=== PATIENT | female | born 1945 | race Caucasian/White ===

== ENCOUNTER → 2019-08-16 11:09 | Outpatient (CLI) | payer MEDICARE, SELFPAY ==
[2019-08-16 12:31] LABS: Absolute Lymphocyte Count 1.78 X10^3/uL (0.83-4.51); Basophil# 0.03 X10^3/uL; Basophil% 0.3 % (0-1); Eosinophil# 0.31 X10^3/uL; Eosinophils% 3.1 % (0-5); Hematocrit 34.6 % (37-47); Hemoglobin 11.2 g/dL (12.0-15.0); Lymphocyte # 1.78 X10^3/ul (4.0); Mean Corp Hgb Conc 32.4 g/dL (32-36); Mean Corpuscular Hgb 29.3 pg (27.0-32.0); Mean Corpuscular Volume 90.6 fL (81-99); Mean Platelet Vol. 8.9 fl (6.2-12.0); Monocyte# 0.67 X10^3/uL; Monocyte% 6.8 % (0-10); NRBC Flagged by Analyzer 0 % (0-5); Platelet Count 294 K/mm3 (150-450); RBC Distribution Width CV 13.9 % (11.6-14.6); RBC Distribution Width SD 45.8 fl (35.1-43.9); Red Blood Count 3.82 M/mm3 (4.2-5.4); White Blood Count 9.9 K/mm3 (4.4-11.0)
[2019-08-16 13:17] LABS: AST(SGOT) 13 U/L (15-37); Alanine Aminotransfer ALT/SGPT 22 U/L (13-56); Albumin, Serum 3.8 g/dL (3.2-5.0); Alkaline Phosphatase 124 U/L (45-117); Anion Gap 7 (5-15); BUN 22 mg/dL (7-18); BUN/Creat Ratio 20.6 RATIO (10-20); Calcium,Total 8.7 mg/dL (8.5-10.1); Chloride 109 mmol/L (98-107); Creatinine, Serum 1.07 mg/dL (0.55-1.02); EST Glomerular Filtration Rate 53 mL/min (>60); Est Glom Filt Rate - Afr Amer 65 mL/min (>60); Globulin 3.7 g/dL (2.2-4.2); Glucose 104 mg/dL (74-106); Potassium 4.1 mmol/L (3.5-5.1); Protein, Total 7.5 g/dL (6.4-8.2); Sodium Level 139 mmol/L (136-145)
[2019-08-19 03:06] LABS: HEPATITIS B SURFACE AG Negative (Negative); Hepatitis A AB, Total Positive (Negative); Hepatitis A IgM Antibody Negative (Negative); Hepatitis B Core AB IgM Negative (Negative); Hepatitis B Core Ab Total Negative (Negative); Hepatitis C Ab 0.1 s/co ratio (0.0-0.9); QNTFERON TB Mitogen Value > 10.00 IU/mL (.); QNTFERON TB Nil Value 0.05 IU/mL (.); QNTFERON TB1+ Ag Value 0.03 IU/mL (.); QNTFERON TB2+ Ag Value 0.03 IU/mL (.)
[2019-08-19 16:38] LABS: Hep B Surface Antibodies Reactive (.); QNTIFERON TB Positive Criteria Negative (Negative)
== END ==
PROVIDERS: Family Provider Family Medicine; PCP Family Medicine; Referring Provider Dermatology Pediatric Dermatology; Visit Provider Dermatology Pediatric Dermatology
DX: L30.9 Dermatitis, unspecified (principal); Z79.899 Other long term (current) drug therapy
CPT/HCPCS: 36415; 80053; 85025; 86480; 86704; 86705; 86706; 86708; 86709; 86803; 87340

== ENCOUNTER → 2020-11-26 12:58 | Outpatient (CLI) | payer MEDICARE, SELFPAY ==
--- NOTE | 2020-11-26 13:10 | PR.HP_ITS ---
History of Present Illness Arrival date:: 11/26/20 Arrival time:: 13:13 Date of Referral:: 11/16/20 Date of Evaluation: 11/26/20 Referring Physician: Dr. Hussein Roca Primary Diagnosis: COPD GOLD Classification Stage III: Severe mMRC Breathless Scale: When is the patient short of breath? Y/N Grade: Description of Breathlessness: 0 I only get breathless with strenuous exercise. 1 I get short of breath when hurrying on level ground or walking up a slight hill. 2 On level ground, I walk slower than people of the same age because of breathless, or have to stop for breath when walking at my own pace. 3 I stop for breath after walking 100 yards or after a few minutes on level ground. 4 I am too breathless to leave the house or I am breathless when dressing. Respiratory Problems: Yes: Fatigue, Able to Speak in Full Sentences, Dyspnea at Rest, Dyspnea with Activity, Dyspnea Lying Down Flat Home Medications: Home Medications Albuterol Sulfate [Albuterol Sulfate HFA] 11/26/20 Calcium Carbonate [Tums] 500 mg PO DAILY@0800 11/26/20 Denosumab [Prolia] 60 mg SQ 11/26/20 Diltiazem CD [Cardizem CD] 120 mg PO DAILY 11/26/20 Ergocalciferol [Vitamin D] 11/26/20 Escitalopram Oxalate [Lexapro] 5 mg PO DAILY 11/26/20 Ferrous Sulfate [Ferosul] 325 mg PO 11/26/20 Fluticasone/Umeclidin/Vilanter [Trelegy Ellipta 200-62.5-25] 62.5 11/26/20 Furosemide [Lasix] 20 mg PO 11/26/20 Ipratropium/Albuterol Sulfate [Duoneb] 11/26/20 Levothyroxine [Synthroid] 50 mcg PO DAILY 11/26/20 Magnesium Hydroxide [Milk Of Magnesia] 400 mg PO 11/26/20 Mometasone/Formoterol [Dulera 200 Mcg/5 Mcg Inhaler] 11/26/20 Oxygen, Home [Home Oxygen] 2 lpm NASAL 11/26/20 Pantoprazole Sodium [Protonix] 20 mg PO DAILY 11/26/20 Polyvinyl Alcohol/Povidone [Clear Eyes Natural Tears Drop] 11/26/20 traZODone [Desyrel] 11/26/20 Allergies/Adverse Reactions: Allergies bupropion [From Wellbutrin] Allergy (Verified 11/26/20 13:27) Rash codeine Allergy (Verified 11/26/20 13:27) Other morphine Allergy (Verified 11/26/20 13:27) Nausea/Vom/Diarrhea moxifloxacin [From Avelox] Allergy (Verified 11/26/20 13:27) Other iv dye Allergy (Uncoded 11/26/20 13:27) Itching - Secretions Normal Color:: SOMETIMES YELLOW Thick:: Yes Amount/Day:: 1 TSP Cough:: Yes Night Time: Yes Hx of Sleep Apnea: Yes Do you snore loudly (louder than talking or can be heard through closed doors)?: Yes Do you often feel tired/ fatigued/ sleepy during daytime?: Yes Has anyone observed you stop breathing during sleep?: No History of Hypertension (for STOP score): Yes - I'm weird, sleep weird patterns up & down nightly. STOP Results: Positive Medical Utilization Do you use a peak flow meter at home?: No Do you use a spacer device with your inhalers?: Yes Number of hospital visits in the last year?: 0 Number of emergency room visits in the last year?: 0 Do you see your physician on a regular schedule?: Yes How often?: 2-3 weeks and as needed. Comments:: deveoping soem type of like a psoriasis. 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: Yes Living Will: Yes Advance Directives Information Provided: No Advance Directives on File: No - not on file in [place] DNR Order?:: No - MOLST See MOLST form: No Past Medical History - Covid-19 Screening Fever: No Unexplained muscle aches: No Current respiratory symptoms: No Upper respiratory infections symptoms: No Gastro-intestinal symptoms: No Qlc-[id number]-[id number] symptoms: No Has tested positive for COVID-19 in last 30 days: No Had contact w/person w/symptoms or Covid-19 (+) last 14 days: No 65 years or older:: Yes Lives in Assisted Living facility:: No Has a chronic lung disease or moderate to severe asthma:: Yes Has a serious heart condition:: Yes Severely obese (Body Mass Index of 40 or higher):: No Diabetic:: No Has chronic kidney disease undergoing dialysis:: No Has liver disease:: No Medical History: Past Medical History (Last Updated 11/26/20 @ 13:30 by Daniel Sesay CRT, RAIMUNDO, BS) Asthma J45.909 CHF (congestive heart failure) I50.9 Cerebral artery occlusion with cerebral infarction I63.50 Cholecystitis K81.9 Former smoker Z87.891 Incisional hernia K43.2 Normal colonoscopy Osteoporosis M81.0 Thyroid disease E07.9 COPD (chronic obstructive pulmonary disease) J44.9 Surgical History: Past Surgical History (Last Updated 11/26/20 @ 13:30 by Daniel Sesay CRT, RAIMUNDO, BS) H/O endoscopy Z98.890 H/O: hysterectomy Z90.710 History of cholecystectomy Z90.49 History of eye surgery Z98.890 Family History: Family History (Last Updated 11/26/20 @ 13:34 by Daniel Sesay CRT, RAIMUNDO, BS) Brother Atrial fibrillation Heart disease Arthritis Sister Obesity Arthritis Sister No problems noted. Brother No problems noted. Mother Heart disease Hypertension Other Diabetes - Current/ Previous Services Pulmonary Rehab:: Yes - Comments Comments: Did CO back in 2012 here at [facility]. Social History - Smoking History Smoking Status: Former smoker - Alcohol Use Alcohol Usage: No - Substance Abuse Hx Substance Use: No - Occupation Occupation (List type of work in comments):: Retired - Hobbies, Recreation, Social Activities Hobbies: Other - gardening, listening to music Recreational Activities: I can hardly do any recreational activities Functioning ADL/IADL - Current Ability Current Ability: Independent Self-Care (e.g.,grooming, dressing, & bathing), Independent Ambulation, Independent Transfer, Independent Household tasks (e.g., light meal prep, laundry, shopping) - Pt Functioning Prior to Problem Prior Functioning: Self-Care (e.g.,grooming, dressing, & bathing): Independent, Ambulation: Independent, Transfer: Independent, Household tasks (e.g., light meal prep, laundry, shopping): Independent Social Environment - Status Marital Status: - Current Living Arrangements Living Environment:: Alone - Children How many children do you have?: 3 Do any of your children live nearby?: Yes - Safety Do you feel safe in your surroundings?: Yes - Assistance Do you need any assistance at home?: none Review of Systems Review of Systems: Right click = Denies ([place]). Left click = Reports ([place]) Respiratory: Reports: Appetite, Normal, Sleep, Normal. Denies: Cough, SOB at Re st, Sputum production Is Patient Pain Free?: Yes Pain Location: none Pain Level: 0/10 Risk Factor Assessment - Chief Complaint Chief Complaint: Patient is a known COPD patient, she previously had done pulmonary rehab in 2013 but over the last year has progressively gotten worse. - Vital Signs Temperature: 97.2 F Pulse Rate: 62 Respiratory Rate: 16 Pulse Ox: 95 Blood Pressure: 120/70 - Obesity Height: 5 ft 1 in Weight:: 164 lb Weight in Pounds: 164.0 lbs Weight Source: Standing Scale Body Mass Index (BMI): 30.9 - Risk Stratification Risk Guidelines: Lowest Risk: Risk Factor for Smoking, Risk Factor for Dyslipidemia, Risk Factor for Diabetes, Risk Factor for Hypertension, Moderate Risk: Risk Factor for Obesity, Risk Factor for Sedentary Lifestyle, Highest Risk: Risk Factor for Depression - 14 score on the PHQ-9 survery - For Smoking Smoking Risk Guidelines: Smoking Low Risk: None or quit greater than 6 months ago. Smoking Moderate Risk: Smoker or quit 6 months or less ago. Smoking High Risk: Smoker - For Dyslipidemia Dyslipidemia Risk Guidelines: Low Risk: Moderate Risk: High Risk: 15-25% fat 25.1-29% fat >/= 30% fat. <7% sat fat 7-9% sat fat >9% sat fat. <150 mg chol 150-299 mg chol >/= 300 mg chol. LDL <100 LDL 100-129 LDL >/= 130. Chol/HDL ratio <5.0 Chol/HDL ratio 5.0-6.0 Chol/HDL ratio >6.0. Triglycerides <100 Triglycerides 100-149 Triglycerides >/= 150 - For Diabetes Mellitus Diabetes Risk Guidelines: Diabetes Low Risk: HgA1c <6.5% and/or FBG <120. Diabetes Moderate Risk: HgA1c 6.6-7.9% and/or FBG 120-180. Ligia betes High Risk: HgA1c >/= 8% and/or FBG >180 - For Obesity/Overweight Obesity/Overweight Risk Guidelines: Obesity Low Risk: BMI <25.0. Obesity Moderate Risk: BMI 25-29.9. Obesity High Risk: BMI >/= 30.0 - For Hypertension Hypertension Risk Guidelines: Hypertension Low Risk: Systolic <120 and Diastolic <80. Hypertension Moderate Risk: Systolic 120-139 and Diastolic 80-89. Hypertension High Risk: Systolic >/= 140 and Diastolic >/= 90 - For Sedentary Lifestyle Sedentary Lifestyle Risk Guidelines: Sedentary Lifestyle Low Risk: >/= 1,500 kcal/week. Sedentary Lifestyle Moderate Risk: 700-1,499 kcal/week. Sedentary Lifestyle High Risk: < 700 kcal/week - For Depression Depression Risk Guidelines: Depression Low Risk: Not clinically depressed. Depression Moderate Risk: Mildly depressed. Depression High Risk: Clinically depressed Motivation - Motivation to Participate On a scale of 1 to 10, how prepared are you to commit to attending program?: 10 What do you see as barriers to successfully being able to complete the program?: drive 3 days per week. What do you see as the benefits of succesfully completing the program? In other words, what do you hope to get out of participating in the program?: healthier, breathing easier, moving better Are there issues you are dealing with that will interfere with completing the program?: none Do you have a spouse or signficant other, family or friends who will help support you to complete the program?: yes. Diagnostic Data Review - Pulmonary Function Test FEV1:: 0.81 FVC:: 1.51 FEV1/FVC%:: 53 Gold Classification: GOLD class III(severe COPD)with FEV1/FVC<70, 30%</=FEV1< 50% predicted
--- NOTE | 2020-11-26 13:36 | PR.ITP_ITS ---
General Information - General Information Admitting Diagnosis: COPD Severe Gold Classification:: GOLD 3: Severe - PFT FEV1:: 0.81 FVC:: 1.51 FEV1/FVC%:: 53 - Education/Goals Barriers to Learning: Hearing Impairment, Vision Impairment Individual Counseling: Initial Assessment: Exacerbation prevention & management, ADL management and pacing, Home exercise plan & guidelines Patient Goals: Breathe better: Initial Assessment, Increase endurance/stamina: Initial Assessment, Improve diet and nutrition: Initial Assessment Exercise - Initial Assessment - Visit Date of Eval: 11/26/20 - Pre-Pulm Rehab eval - Problem/Goals Problems: Deconditioning, No regular exercise, Knowledge deficit exercise guidelines, Knowledge deficit exercise safety Goals:: Aerobic exercise 30-60 mins x 9 weeks, VT: 2-3/wk, Resistance: 2- 3x/weekly - Physician Prescribed Exercise Modalities: Treadmill, Airdyne, NuStep Frequency (days/week): 3 Duration (Minutes):: 30-45 Intensity: 60-80% of age predicted maximum heart rate reserve METs - Progression: 0.5-1.0 MET, RPE 11-14 WEEK: 2.0 Target Heart Rate:: 95-123 - Plan Plan and Plan to Review:: Benefits of exercise, Core components of exercise, How to measure dyspnea level, How to monitor dyspnea level, Exercise intensity, Exercise safety guideline, Home exercise guidelines, [place]: 3-4/-13 Disease Management - Initial - Problems/Goals-Hypoxemia Hypoxemia Problems:: Hypoxemia Hypoxemia Goals:: Using O2 as Rx's safely - Problems/Goals-Bronchial Hygiene Bronchial Hygiene Problems:: Respiratory infection Prevention/Management Bronchial Hygiene Goals:: Pt demonstrates effective cough, effective secretion clearance., Pt describes signs and symptoms of infection. - Initial Assessment SpO2:: 95 FiO2:: 21 Medications: Yes MDI, Yes DPI, Yes NEB, Yes Spacer Patient Reports:: Non-productive cough - Plans Hypoxemia Plan:: Monitor SpO2 rest & with exercise Reviewed prescribed medications:: Purpose, Schedule, Side effects, Importance of compliance Instruct correct technique/timing & care:: MDI, DPI, Nebulizer, Return demo use of inhaler Bronchial Hygiene Plan: Controlled cough, Vibratory PEP device, Hydration, Hand hygiene, Signs/symptoms to report: Psychosocial - Initial Assess - Problems/Goals Problems: Depression Psychosocial Goals: Improved psychosocial coping skills., Verbalizes coping strategies., Adequate treatment of depression., Improved Q.O.L. - Psychosocial Test Depression:: Anxiety, Impaired QOL Tests Completed: SF - 36 survey completed, Mood Scale Test Referred to MD for counseling:: No - Plan Reviewed screening results: Yes Instructions given regarding:: Benefits of exercise, Relaxation techniques, Training in coping strategies Tobacco - Initial Assessment - Program Goals Tobacco Program Goals: Complete smoking cessation. Attend education classes. Improve Knowledge Test score - Stage of Change Stages of Change:: Action - Learning Barriers Learning Barriers: Hearing, Ready to Learn - Family Support Do you have family support?: Yes - Tobacco Use Tobacco Use: Non-smoker Do you use smokeless tobacco?: No - Intervention Smoking Cessation Referral:: No Individual Education/Counseling:: No Education Schedule Given:: Yes Nutrition/Wt Mgmt - Initial - Problems/Goals Goals: BMI 21-25, Wt Loss 1-2 lbs per week - Weight Management Knowledge Deficit Management of:: Overweight Admit Height:: 5 ft 1 in Admit Weight:: 164 lb Admit BMI:: 30.9 - Diabetes Diabetes:: No - Plan Nutrition Plan: Yes Review BMI or WC & identify target wt & strategies for wt control, Yes Medication education class [Prednisone]:, Yes Education re: Need for ongoing weight monitoring Patient Health Questionnaire Initial Assessment 1. Little interest or pleasure in doing things: More than half the days 2. Feeling down, depressed, or hopeless: Not at all 3. Trouble falling or staying asleep, or sleeping too much: Nearly every day 4. Feeling tired or having little energy: Nearly every day 5. Poor appetite or overeating: More than half the days 6. Feeling bad about yourself -- or that you are a failure or have let yourself or your family down: Several days 7. Trouble concentrating on things, such as reading the newspaper or watching television: Nearly every day 8. Moving or speaking so slowly that other people could have noticed. Or the opposite - being so fidgety or restless that you have been moving around a lot more than usual: Not at all 9. Thoughts that you would be better off , or of hurting yourself in some way: Not at all How difficult have these problems made it for you to do your work, take care of things at home, or get along with other people?: Very difficult Total Score: 14 COPD Knowledge Test Initial COPD is a lung disease that:: Makes it hard to breathe & gets worse over time In the [place] the term COPD describes 2 main lung conditions:: Emphysema & chronic bronchitis The most common lung irritant that causes COPD is:: Cigarette smoke Common signs and symptoms of COPD include:: An ongoing cough/cough that produces a large amount of mucus, & SOB If you have COPD, what steps can you take?: All of the above Swelling of the ankles is common in COPD:: False Fatigue [tiredness] is common in COPD:: True Wheezing is common in COPD:: True Crushing chest pain is common in COPD:: False Rapid weight loss is common in COPD:: False Breathlessness is a normal response to exercise: False Exercise should be avoided if it makes you short of breath: False All bronchodilators act within 10 minutes: False A spacer device increases the medication to the lungs: True Annual flu vaccine is recommended for pts w/lung disease: True COPD Knowledge Test Total Score:: 14 Self-Efficacy Initial Assessment We would like to know how confident you are in doing certain activities. Please select your confidence level for:: Select your confidence level for the following using the scale 1-10 where 1 is not at all confident and 10 is totally confident. Your score is the average of all 6 responses. Fatigue: How confident are you that you can keep the fatigue caused by your disease from interfering with the things you want to do? Select Number: 3 Physical Discomfort or Pain: How confident are you that you can keep the physical discomfort or pain of your disease from interfering with the things you want to do? Select Number: 6 Emotional Distress: How confident are you that you can keep the emotional distress caused by your disease from interfering with the things you want to do? Select Number: 6 Other Symptoms or Health Problems: How confident are you that you can keep other symptoms or health problems from interfering with the things you want to do? Select Number: 9 Different Tasks and Activities: How confident are you that you can do the different tasks and activities needed to manage your health condition so as to reduce your need to see a doctor? Select Number: 8 Medication: How confident are you that you can do things other than just taking medication to reduce how much your illness affects your everyday life? Select Number: 8 Total Score:: 6 Nutrition Survey - Nutrition Survey Instructions Scoring Instructions: Scoring is as follows: Yes = 1 points. No = 0 point. Patient score that is >/=12 is considered to be at potential nutritional risk and could benefit from a referral to a registered dietitian. - Nutrition Survey Initial Have you lost >10 lbs over the past 2 months without trying?: No Are you following a special diet at home for diabetes, low fat, or low salt?: No Are you interested in meeting with a dietitian for help understanding your diet?: No Do you eat less than 3 meals a day?: No Do you eat fatty meats (hoang, sausage, ribs, etc), fried foods, desserts, large amounts of salad dressings, margarine, butter, or cheese most days?: No Do you have food allergies? [Enter types in comment field]: No Do you eat in restaurants more than 3 times a week?: No Do you season food with salt, seasoning salt, or garlic salt?: Yes Do you used canned, boxed, frozen meals, or soups, seasoning packets?: Yes Total Score:: 2
[2020-11-26 13:46] VITALS: O2SAT 95; BMI 30.9
[2020-11-26 14:48] VITALS: BP 120/70; PULSE 62; RESP 16; TEMP 36.2; O2SAT 95; BMI 30.9
== END ==
PROVIDERS: PCP Family Medicine
DX: J44.9 Chronic obstructive pulmonary disease, unspecified (principal)

== ENCOUNTER 2020-12-28 14:15 | Outpatient (RCR) | payer MEDICARE, SELFPAY ==
[2020-11-26 14:15] VITALS: BMI 30.9
--- NOTE | 2020-12-25 09:45 | PR.ITP_ITS ---
Exercise - 30-Day Assessment - Physician Prescribed Exercise Modalities: Treadmill, Airdyne, NuStep, SciFit Frequency (days/week): 3 Duration (Minutes):: 30-45 Intensity: 60-80% of age predicted maximum heart rate reserve Aerobic Exercise [30-60 min 3-7x/week]:: Progressing Target heart rate: 95-123 [place]-13 METs - Progression: 0.5-1.0 MET, RPE 11-14 WEEK: 3.0 - increase from 2.0 - Home Exercise Home Exercise:: Yes Frequency:: walking, housework Disease Management - 30-Day - Hypoxemia Reassessment: Demonstrates knowledge of O2 Rx with exercise - Medications Medication list reviewed:: Yes Taking medications 100% of the time:: Met Medication reassessment: Yes Pt demonstrates correct technique timing for MDI, Yes Pt demonstrates correct technique timing for DPI, Yes Pt demonstrates correct technique timing for NEB, Yes Pt demonstrates correct technique timing for spacer - Bronchial Hygiene Bronchial Hygiene Plan: Yes Pt demo correct for improved hydration, Yes Pt demo correct for hand hygiene Psychosocial - 30-Day - Assessment Reassessment: Management of stress & depression, Practicing interventions, Demonstrate coping strategies, COPD assessment w/ CAT, Geriatric depression screening, Self efficacy score Tobacco - Initial Assessment Tobacco - 30-Day Assessment - Stage of Change Stages of Change:: Action - Learning Barriers Learning Barriers: Participates in education - Family Support Do you have family support?: Yes - Tobacco Use Tobacco Use: Non-smoker - Intervention Smoking Cessation Referral:: No Individual Education/Counseling:: No Education Schedule Given:: Yes - Education Gave Education Materials For:: Pulmonary Disease, Risk Factors, Breathing Tech niques, Medical Compliance, Pulmonary A&P, Exacerbation Signs & Symptoms, Stress & Relaxation Tobacco - 60-Day Assessment Tobacco - 90-Day Assessment Tobacco - Final Assessment Nutrition/Wt Mgmt - 30-Day - Weight Management Weight Assessment:: Wt loss 1-2 lbs per week Weight:: 170 lb - BMI 30.9 Weight Goals Progress:: Progressing Patient Health Questionnaire 30-Day Re-eval Assessment 1. Little interest or pleasure in doing things: Not at all 2. Feeling down, depressed, or hopeless: Not at all 3. Trouble falling or staying asleep, or sleeping too much: More than half the days 4. Feeling tired or having little energy: More than half the days 5. Poor appetite or overeating: Several days 6. Feeling bad about yourself -- or that you are a failure or have let yourself or your family down: Several days 7. Trouble concentrating on things, such as reading the newspaper or watching television: More than half the days 8. Moving or speaking so slowly that other people could have noticed. Or the opposite - being so fidgety or restless that you have been moving around a lot more than usual: Not at all 9. Thoughts that you would be better off , or of hurting yourself in some way: Not at all How difficult have these problems made it for you to do your work, take care of things at home, or get along with other people?: Somewhat difficult Total Score: 8 Self-Efficacy 30-Day Re-eval Assessment We would like to know how confident you are in doing certain activities. Please select your confidence level for:: Select your confidence level for the following using the scale 1-10 where 1 is not at all confident and 10 is totally confident. Your score is the average of all 6 responses. Fatigue: How confident are you that you can keep the fatigue caused by your disease from interfering with the things you want to do? Select Number: 4 Physical Discomfort or Pain: How confident are you that you can keep the physical discomfort or pain of your disease from interfering with the things you want to do? Select Number: 6 Emotional Distress: How confident are you that you can keep the emotional distress caused by your disease from interfering with the things you want to do? Select Number: 6 Other Symptoms or Health Problems: How confident are you that you can keep other symptoms or health problems from interfering with the things you want to do? Select Number: 9 Different Tasks and Activities: How confident are you that you can do the different tasks and activities needed to manage your health condition so as to reduce your need to see a doctor? Select Number: 8 Medication: How confident are you that you can do things other than just taking medication to reduce how much your illness affects your everyday life? Select Number: 8 Total Score:: 6 Nutrition Survey
== END 2020-12-28 23:59 ==
LOC: PR 14:15
PROVIDERS: PCP Family Medicine
DX: J47.1 Bronchiectasis with (acute) exacerbation (principal)
CPT/HCPCS: 97150; G0424

== ENCOUNTER 2021-01-25 14:15 | Outpatient (RCR) | payer MEDICARE, SELFPAY ==
[2020-11-26 14:48] VITALS: BMI 30.9
--- NOTE | 2021-01-07 15:40 | PCM.PR.TP ---
General Information - Education/Goals Barriers to Learning: Knowledge Deficit Tobacco - Initial Assessment Tobacco - 30-Day Assessment Tobacco - 60-Day Assessment Tobacco - 90-Day Assessment Tobacco - Final Assessment Nutrition Survey
--- NOTE | 2021-01-07 15:55 | CR.HP_ITS ---
CR - History & Physical - Medications Home Medications: Ambulatory Orders Medication Instructions Recorded Oxygen, Home [Home Oxygen] 2 lpm NASAL 11/26/20 albuterol sulfate 11/26/20 calcium carbonate 500 mg PO DAILY@0800 11/26/20 denosumab 60 mg SQ 11/26/20 diltiazem HCl 120 mg PO DAILY 11/26/20 ergocalciferol (vitamin D2) 11/26/20 escitalopram oxalate 5 mg PO DAILY 11/26/20 ferrous sulfate 325 mg PO 11/26/20 yosahldsinw-czbsnamrw-sevgknme 62.5 11/26/20 furosemide 20 mg PO 11/26/20 ipratropium-albuterol 11/26/20 levothyroxine 50 mcg PO DAILY 11/26/20 magnesium hydroxide 400 mg PO 11/26/20 mometasone-formoterol 11/26/20 pantoprazole 20 mg PO DAILY 11/26/20 polyvinyl alcohol-povidone 11/26/20 trazodone 11/26/20 - Allergies Allergies/Adverse Reactions: Allergies bupropion [From Wellbutrin] Allergy (Verified 11/26/20 13:27) Rash codeine Allergy (Verified 11/26/20 13:27) Other morphine Allergy (Verified 11/26/20 13:27) Nausea/Vom/Diarrhea moxifloxacin [From Avelox] Allergy (Verified 11/26/20 13:27) Other iv dye Allergy (Uncoded 11/26/20 13:27) Itching Past Medical History - Past Medical Illness Medical History: Past Medical History (Last Updated 11/26/20 @ 13:30 by Daniel Sesay, TRAMAINE, TRAIN OPERATIONS MANAGER, BS) Asthma J45.909 Cerebral artery occlusion with cerebral infarction I63.50 CHF (congestive heart failure) I50.9 Cholecystitis K81.9 COPD (chronic obstructive pulmonary disease) J44.9 Former smoker Z87.891 Incisional hernia K43.2 Normal colonoscopy Osteoporosis M81.0 Thyroid disease E07.9 - Past Surgical History Surgical History: Past Surgical History (Last Updated 11/26/20 @ 13:30 by Daniel Sesay, TRAMAINE, TRAIN OPERATIONS MANAGER, BS) H/O endoscopy Z98.890 H/O: hysterectomy Z90.710 History of cholecystectomy Z90.49 History of eye surgery Z98.890 - Family History Summary Family History: Family History (Last Updated 11/26/20 @ 13:34 by Daniel Sesay CRT, TRAIN OPERATIONS MANAGER, BS) Brother Atrial fibrillation Heart disease Arthritis Sister Obesity Arthritis Sister No problems noted. Brother No problems noted. Mother Heart disease Hypertension Other Diabetes Review of Systems Risk Factor Assessment - Obesity Height: 5 ft 1 in Weight:: 170 lb Weight in Pounds: 170.0 lbs Body Mass Index (BMI): 32.1 - Family History Family History: Family History (Last Updated 11/26/20 @ 13:34 by Daniel Sesay CRT, TRAIN OPERATIONS MANAGER, BS) Brother Atrial fibrillation Heart disease Arthritis Sister Obesity Arthritis Sister No problems noted. Brother No problems noted. Mother Heart disease Hypertension Other Diabetes
[2021-01-07 15:59] VITALS: BMI 32.1
--- NOTE | 2021-01-25 07:06 | PCM.PR.TP ---
Exercise - 60-Day Assessment - Physician Prescribed Exercise Modalities: Treadmill, NuStep, SciFit Frequency (days/week): 3 Duration (Minutes):: 30-45 Intensity: 60-80% of age predicted maximum heart rate reserve Aerobic Exercise [30-60 min 3-7x/week]:: Progressing Target heart rate: 95-123 max HR 125 Lake-13 - Home Exercise Home Exercise:: No Disease Management - 60-Day - Hypoxemia Reassessment: Demonstrates knowledge of O2 Rx with exercise, Has home O2 as prescribed - Medications Medication list reviewed:: Yes Taking medications 100% of the time:: Met Medication reassessment: Yes Pt demonstrates correct technique timing for MDI, Yes Pt demonstrates correct technique timing for DPI, Yes Pt demonstrates correct technique timing for NEB, Yes Pt demonstrates correct technique timing for spacer - Bronchial Hygiene Bronchial Hygiene Plan: Yes Pt demonstrates correctly for effective cough, Yes Pt demo correct for device - Acapella/spacer, Yes Pt demo correct for improved hydration, Yes Pt demo correct for hand hygiene, Yes Pt demo correct for verbalize when to call MD Psychosocial - 60-Day - Assessment Depression reassess: Management of stress: Progressing, Practicing interventions: Met Tobacco - Initial Assessment Tobacco - 30-Day Assessment Tobacco - 60-Day Assessment - Stage of Change Stages of Change:: Action - Learning Barriers Learning Barriers: Participates in education - Family Support Do you have family support?: Yes - Tobacco Use Tobacco Use: Non-smoker - Intervention Smoking Cessation Referral:: No Individual Education/Counseling:: No Education Schedule Given:: Yes - Education Gave Education Materials For:: Pulmonary Disease, Risk Factors, Breathing Techniques, Medical Compliance, Pulmonary A&P, Exacerbation Signs & Symptoms, Stress & Relaxation Tobacco - 90-Day Assessment Tobacco - Final Assessment Nutrition/Wt Mgmt - 60-Day - Weight Management Weight:: 168 lb 8 oz Weight Goals Progress:: Progressing Patient Health Questionnaire 60-Day Re-eval Assessment 1. Little interest or pleasure in doing things: Not at all 2. Feeling down, depressed, or hopeless: Not at all 3. Trouble falling or staying asleep, or sleeping too much: Several days 4. Feeling tired or having little energy: Several days 5. Poor appetite or overeating: Several days 6. Feeling bad about yourself -- or that you are a failure or have let yourself or your family down: Not at all 7. Trouble concentrating on things, such as reading the newspaper or watching television: Several days 8. Moving or speaking so slowly that other people could have noticed. Or the opposite - being so fidgety or restless that you have been moving around a lot more than usual: Not at all How difficult have these problems made it for you to do your work, take care of things at home, or get along with other people?: Somewhat difficult Total Score: 4 Self-Efficacy 60-Day Re-eval Assessment We would like to know how confident you are in doing certain activities. Please select your confidence level for:: Select your confidence level for the following using the scale 1-10 where 1 is not at all confident and 10 is totally confident. Your score is the average of all 6 responses. Fatigue: How confident are you that you can keep the fatigue caused by your disease from interfering with the things you want to do? Select Number: 7 Physical Discomfort or Pain: How confident are you that you can keep the physical discomfort or pain of your disease from interfering with the things you want to do? Select Number: 8 Emotional Distress: How confident are you that you can keep the emotional distress caused by your disease from interfering with the things you want to do? Select Number: 8 Other Symptoms or Health Problems: How confident are you that you can keep other symptoms or health problems from interfering with the things you want to do? Select Number: 9 Different Tasks and Activities: How confident are you that you can do the different tasks and activities needed to manage your health condition so as to reduce your need to see a doctor? Select Number: 9 Medication: How confident are you that you can do things other than just taking medication to reduce how much your illness affects your everyday life? Select Number: 9 Total Score:: 8 Nutrition Survey
== END 2021-01-28 23:59 ==
LOC: PR 14:15
PROVIDERS: PCP Family Medicine
DX: J47.1 Bronchiectasis with (acute) exacerbation (principal)
CPT/HCPCS: 97150; G0424

== ENCOUNTER 2021-02-27 14:30 | Outpatient (RCR) | payer MEDICARE, SELFPAY ==
[2021-01-07 15:59] VITALS: BMI 32.1
--- NOTE | 2021-02-26 08:15 | PCM.PR.TP ---
Exercise - 90-Day Assessment - Physician Prescribed Exercise Modalities: Treadmill, Airdyne, NuStep Frequency (days/week): 3 Duration (minutes): 30-45 Aerobic Exercise [30-60 min 3-7x/week]:: Progressing Target heart rate: 95-123 Lake-13 METs - Progression: 0.5-1.0 MET, RPE 11-14 WEEK: 3.5 - unchanged - Home Exercise Home Exercise?: No Disease Management - 90-Day - Hypoxemia Reassessment: Demonstrates knowledge of O2 Rx with exercise - Medications Medication list reviewed:: Yes Taking medications 100% of the time:: Met Medication reassessment: Yes Pt demonstrates correct technique timing for MDI, Yes Pt demonstrates correct technique timing for DPI, Yes Pt demonstrates correct technique timing for NEB, Yes Pt demonstrates correct technique timing for spacer - Bronchial Hygiene Bronchial Hygiene Plan: Yes Pt demonstrates correctly for effective cough, Yes Pt demo correct for device, Yes Pt demo correct for sputum management, Yes Pt demo correct for improved hydration, Yes Pt demo correct for hand hygiene, Yes Pt demo correct for verbalize when to call MD Psychosocial - 90-Day - Assessment Depression reassess: Management of stress: Met, Management of depression: Met, Practicing interventions: Met Tobacco - Initial Assessment Tobacco - 30-Day Assessment Tobacco - 60-Day Assessment Tobacco - 90-Day Assessment - Stage of Change Stages of Change:: Action - Learning Barriers Learning Barriers: Participates in education - Family Support Do you have family support?: Yes - Tobacco Use Tobacco Use: Non-smoker - Intervention Smoking Cessation Referral:: No Individual Education/Counseling:: No Education Schedule Given:: Yes - Education Gave Education Materials For:: Pulmonary Disease, Risk Factors, Medical Compliance, Pulmonary A&P, Exacerbation Signs & Symptoms Tobacco - Final Assessment Nutrition/Wt Mgmt - 90-Day - Weight Management Weight Assessment:: BMI 21 to 25, Wt stable Weight:: 165 lb - BMI Weight Goals Progress:: Progressing Patient Health Questionnaire 90-Day Re-eval Assessment 1. Little interest or pleasure in doing things: Not at all 2. Feeling down, depressed, or hopeless: Not at all 3. Trouble falling or staying asleep, or sleeping too much: Several days 4. Feeling tired or having little energy: Several days 5. Poor appetite or overeating: Not at all 6. Feeling bad about yourself -- or that you are a failure or have let yourself or your family down: Not at all 7. Trouble concentrating on things, such as reading the newspaper or watching television: Several days 8. Moving or speaking so slowly that other people could have noticed. Or the opposite - being so fidgety or restless that you have been moving around a lot more than usual: Not at all 9. Thoughts that you would be better off , or of hurting yourself in some way: Not at all How difficult have these problems made it for you to do your work, take care of things at home, or get along with other people?: Not difficult at all Total Score: 3 Self-Efficacy 90-Day Re-eval Assessment We would like to know how confident you are in doing certain activities. Please select your confidence level for:: Select your confidence level for the following using the scale 1-10 where 1 is not at all confident and 10 is totally confident. Your score is the average of all 6 responses. Fatigue: How confident are you that you can keep the fatigue caused by your disease from interfering with the things you want to do? Select Number: 8 Physical Discomfort or Pain: How confident are you that you can keep the physical discomfort or pain of your disease from interfering with the things you want to do? Select Number: 9 Emotional Distress: How confident are you that you can keep the emotional distress caused by your disease from interfering with the things you want to do? Select Number: 9 Other Symptoms or Health Problems: How confident are you that you can keep other symptoms or health problems from interfering with the things you want to do? Select Number: 8 Different Tasks and Activities: How confident are you that you can do the different tasks and activities needed to manage your health condition so as to reduce your need to see a doctor? Select Number: 9 Medication: How confident are you that you can do things other than just taking medication to reduce how much your illness affects your everyday life? Select Number: 9 Total Score:: 8 Nutrition Survey
== END 2021-02-27 23:59 ==
LOC: PR 14:30
PROVIDERS: PCP Family Medicine
DX: J47.1 Bronchiectasis with (acute) exacerbation (principal)
CPT/HCPCS: 97150; G0424

== ENCOUNTER 2021-03-08 14:30 | Outpatient (RCR) | payer MEDICARE, SELFPAY ==
[2021-01-07 15:59] VITALS: BMI 32.1
== END 2021-03-30 23:59 ==
LOC: PR 14:30
PROVIDERS: PCP Family Medicine
DX: J47.1 Bronchiectasis with (acute) exacerbation (principal)
CPT/HCPCS: 97150; G0424

== ENCOUNTER 2024-08-23 20:12 | Inpatient (IN) | payer MEDICARE, SELFPAY ==
[2024-08-23] VITALS (10 sets, daily range): BP systolic 120–148; BP diastolic 61–83; PULSE 78–107; RESP 14–35; TEMP 36.1–37.1; O2SAT 86–99; BMI 32.5; BMI 30.4
--- NOTE | 2024-08-23 20:18 | EKG12_ITS ---
Test Reason : DYSRHYTHMIA Blood Pressure : */* mmHG Vent. Rate : 101 BPM Atrial Rate : 101 BPM P-R Int : 126 ms QRS Dur : 82 ms QT Int : 346 ms P-R-T Axes : 56 56 61 degrees QTcB Int : 448 ms Sinus tachycardia Otherwise normal ECG Confirmed by MATIAS FRANCOIS, SALLY ([id number]), editor continuity and script BC FUENTES ([id number]) on 08/25/2024 2:17:56 PM Referred By: Gerson Boggs Confirmed By: SALLY SALCEDO MD
--- NOTE | 2024-08-23 20:24 | ED.VIS.DYS ---
HPI History of Present Illness Chief Complaint: Shortness of Breath Informant: patient Onset/Context/Timing Onset: Days Context: gradual Timing: Continuous Quality: Positive for Wheezing Current Severity: Moderate Maximum Severity: Moderate Worsened by: Exertion and Coughing Associated Symptoms cough and yellow sputum Chest Pain: Positive for None Narrative Narrative: 78-year-old female history of COPD on 2 L of oxygen at home, diabetes. Denies any cardiac history. Since has been short of breath with cough and wheezing since Thursday. She is on 2 L oxygen at home. Productive cough of yellowish sputum. No blood. No chest pain. No leg pain or swelling. No history of DVT or PE. No recent hospitalization or surgery. PE Risk Factors: Negative for Cancer, OCP + Smoking + > 35, Prior DVT or PE, Recent immobilization, Recent surgery or Recent travel Prior similar symptoms: Yes Recent Illness/Hospitalization: No PFSH PFSH Medical History Normal colonoscopy Former smoker Thyroid disease Osteoporosis Incisional hernia COPD (chronic obstructive pulmonary disease) Cholecystitis CHF (congestive heart failure) Cerebral artery occlusion with cerebral infarction Asthma Home Medications ?Medication ?Instructions ?Recorded ?Last Taken ?Type Oxygen, Home [Home Oxygen] 2 lpm NASAL 11/26/20 Unknown History albuterol sulfate 90 mcg/actuation 2 puff inhalation Q4H PRN 11/26/20 Unknown History aerosol inhaler shortness of breath or wheezing calcium carbonate 500 mg PO DAILY@0800 11/26/20 Unknown History denosumab 60 mg/mL subcutaneous 60 mg SQ 11/26/20 Unknown History syringe diltiazem HCl 120 mg 120 mg PO DAILY 11/26/20 Unknown History capsule,extended release 24 hr ergocalciferol (vitamin D2) 1,250 11/26/20 Unknown History mcg (50,000 unit) capsule escitalopram oxalate 5 mg tablet 5 mg PO DAILY 11/26/20 Unknown History ferrous sulfate 325 mg (65 mg 325 mg PO DAILY 11/26/20 Unknown History iron) tablet fluticasone fur. 200 mcg-umeclid 62.5 11/26/20 Unknown History 62.5 mcg-vilant 25 mcg inhalat.powder furosemide 20 mg tablet 20 mg PO 11/26/20 Unknown History ipratropium 0.5 mg-albuterol 3 mg 3 ml inhalation Q6H PRN shortness 11/26/20 Unknown History (2.5 mg base)/3 mL nebulization of breath or wheezing soln levothyroxine 50 mcg tablet 75 mcg PO DAILY 11/26/20 Unknown History magnesium hydroxide 400 mg/5 mL 400 mg PO 11/26/20 Unknown History oral suspension mometasone-formoterol HFA 200 11/26/20 Unknown History mcg-5 mcg/actuation aerosol inhaler pantoprazole 20 mg tablet,delayed 20 mg PO DAILY 11/26/20 Unknown History release polyvinyl alcohol-povidone 0.5 11/26/20 Unknown History %-0.6 % eye drops trazodone 50 mg tablet 11/26/20 Unknown History alcohol swabs (Alcohol Prep Pads) topical BID 08/23/24 Unknown History ezetimibe 10 mg tablet 10 mg PO DAILY 08/23/24 Unknown History metformin 500 mg tablet 500 mg PO BID 08/23/24 Unknown History Allergy/AdvReac Type Severity Reaction Status Date / Time Iodinated Contrast Media Allergy Unknown Itching Verified 08/23/24 20:21 bupropion (From Wellbutrin) Allergy Rash Verified 08/23/24 20:21 codeine Allergy Other Verified 08/23/24 20:21 morphine Allergy Nausea/Vom/ Verified 08/23/24 20:21 Diarrhea moxifloxacin (From Avelox) Allergy Other Verified 08/23/24 20:21 Family History Brother Atrial fibrillation Heart disease Arthritis Sister Obesity Arthritis Sister No problems noted. Brother No problems noted. Mother Heart disease Hypertension Other Diabetes Surgical History H/O: hysterectomy History of eye surgery H/O endoscopy History of cholecystectomy Social History Smoking Status: Former smoker ROS ROS ED ROS Narrative Cough. Wheezing. Shortness of breath. Constitutional Constitutional ED: Denies chills or fever(s) Eyes Eyes: Denies blurry vision ENT ENT ED: Denies ear pain Cardiovascular Cardiovascular: Denies chest pain Respiratory/Chest Respiratory/Chest: Reports cough, dyspnea and sputum Gastrointestinal Gastrointestinal: Denies abdominal pain, constipation or diarrhea Genitourinary Genitourinary ED: Denies dysuria or hematuria Musculoskeletal Musculoskeletal: Denies arthralgias or back pain Integumentary Denies abscess or Abrasions Neurologic Neurologic: Denies headache(s) Psychiatric Psychiatric: Denies anxiety Endocrine Endocrinology: Denies cold intolerance Hematologic/Lymphatic Hematologic/Lymphatic: Denies easy bleeding or easy bruising Allergic/Immunologic Allergic/Immunologic ED: Denies mouth swelling, tongue swelling or urticaria EXAM Physical Exam Narrative Exam Narrative: 78-year-old female sitting upright in bed. Actually is doing well but currently is on BiPAP which was placed on arrival. Vital signs are stable. Pulse ox is 86% on 2 L. Currently she is on BiPAP and her pulse ox is 98%. She does not look septic or toxic. She is awake and talking. H EENT exam pupils round react light. Mytrex membranes. Posterior pharynx unremarked. Neck nontender JVD. Lungs few scattered wheezing. No rales or rhonchi. Equal symmetrical. Heart regular rhythm rate about 85 no murmur. Chest wall ribs nontender. No crepitus. Abdomen soft nontender. No peritoneal signs. Moving all 4 extremities. 5-5 gas meter reader strength. Dorsi plantarflexion intact. Calves are nontender without edema or cords. She is awake and alert. Answering questions following commands. Const Vital Signs: 08/23/24 20:13 08/23/24 20:17 08/23/24 20:18 Temperature 97 F L Temperature Source Axillary Pulse Rate 107 H Respiratory Rate 35 H Respiratory Effort Respiratory Depth Respiratory Pattern Blood Pressure 148/83 H Blood Pressure Mean 104 Pulse Ox 86 Oxygen Delivery Method Nasal Cannula Bi-pap Bi-pap Oxygen Flow Rate (L/min) 2 Fraction of Inspired Oxygen (FIO2) 40 08/23/24 20:18 08/23/24 20:20 08/23/24 20:21 Temperature Temperature Source Pulse Rate 99 Respiratory Rate 35 H Respiratory Effort Short of Breath Labored Accessory Muscle Use Head Bobbing Respiratory Depth Shallow Respiratory Pattern Tachypnea Tachypnea Blood Pressure Blood Pressure Mean Pulse Ox 98 99 Oxygen Delivery Method Bi-pap Bi-pap Oxygen Flow Rate (L/min) Fraction of Inspired Oxygen (FIO2) 40 40 40 08/23/24 20:40 08/23/24 21:01 08/23/24 21:09 Temperature 98.4 F Temperature Source Pulse Rate 96 96 96 Respiratory Rate 21 H 29 H 22 H Respiratory Effort Respiratory Depth Respiratory Pattern Tachypnea Blood Pressure 122/61 H 121/66 H Blood Pressure Mean 80 84 Pulse Ox 98 Oxygen Delivery Method Oxygen Flow Rate (L/min) Fraction of Inspired Oxygen (FIO2) 08/23/24 21:14 Temperature Temperature Source Pulse Rate Respiratory Rate Respiratory Effort Respiratory Depth Respiratory Pattern Blood Pressure Blood Pressure Mean Pulse Ox 97 Oxygen Delivery Method Nasal Cannula Oxygen Flow Rate (L/min) 2 Fraction of Inspired Oxygen (FIO2) Positive well nourished and well developed; Negative for cachectic, contractures or unkempt General Appearance ED: well developed; Negative for unkempt, cachectic, contractures, NAD or pallor Nutritional Appearance: Negative for cachectic HEENT Reports moist mucous membranes atraumatic; Negative for trauma or tenderness Eyes PERRL and EOMs intact bilaterally Neck no lymphadenopathy, supple, no meningeal signs and no JVD Resp No normal respiratory effort and No clear to auscultation bilaterally Resp Narrative: Bilateral wheezing. No rales or rhonchi. Equal and symmetrical. On BiPAP at that time. Auscultation: wheezes; Negative for rales or rhonchi Cardio regular rate, regular rhythm, S1 normal heart sound, S2 normal heart sound and no murmurs Rate: Negative for bradycardia or tachycardic Rhythm: Negative for abnormal rhythm GI non-tender, non-distended and no masses Palpation: soft; Negative for tender, guarding or rebound tenderness present Back/Spine no CVA tenderness and normal to inspection General Back: Negative for CVA tenderness Extremity normal to inspection General Extremety ED: Negative for edema or tenderness General Extremity: Negative for edema Neuro oriented x3 and CN's II-XII intact bilaterally Sensorium / Orientation: alert, oriented to person, oriented to place and oriented to time; Negative for orientation impaired, confused, lethargic or stuporous Speech: speech normal Motor Exam: strength 5/5 throughout Psych mental status grossly normal Appearance: Negative for unkempt Attitude: No agitated Mood & Affect: Negative for depressed, anxious or tearful Thought Process: normal thought process Skin no wounds and skin turgor normal General Skin Exam: Negative for jaundice or pallor Lesions: no lesions Rashes: no rashes Trauma: Negative for abrasion or laceration MDM MDM MDM Narrative Medical decision making narrative: 78-year-old female short of breath suspect secondary to URI with COPD exacerbation rule out pneumonia versus other etiologies. Cardiac workup with chest x-ray. Currently on BiPAP. Squad are given her Solu-Medrol and DuoNebs to receive another DuoNeb treatment. Repeat exam patient is doing much better at 9:05 PM. She has received 2 DuoNeb treatments 1 by the squad 1 by us. IV Solu-Medrol by the squad. Breathing is much improved. She is resting comfortably. There is family visiting with her in the room. I went over the test results that we have back so far. We are waiting on the COVID and flu. She has a history of chronic anemia this is her baseline. I will speak to the hospitalist about admission. I suspect she has a viral URI with exacerbation of her COPD. Patient is doing a lot better than her initial presentation. Try her off the BiPAP and see how she does. Have already spoken to the hospitalist she is admitted to the PCU. RSV-positive. History & Record Review Discussion w/independent historian: Patient Additional record(s) reviewed:: Prior inpatient record, Prior outpatient record, Prior ED visit and Prior labs Lab Data Attestation: I reviewed the patient's lab results. Lab results narrative: CBC white count of 6. H&H 7.0 and 22.4. She has a significant anemia. Platelets 173. The anemia is chronic. Electrolytes show sodium 134. Gap 7. BUN is 17 creatinine 1.43. Creatinine is somewhat worse than her baseline. Glucose 242. Troponin is normal at 9. RSV-positive. Patient's blood gas shows a pH of 7.37. pCO2 of 39 and pO2 178. On BiPAP. Her sat was 99%. Labs: Laboratory Results - last 24 hr 08/23/24 20:14 WBC 6.8 RBC 2.47 L Hgb 7.0 L Hct 22.4 L MCV 90.7 MCH 28.3 MCHC 31.3 L RDW Std Deviation 48.9 H RDW Coeff of Georgette 14.9 H Plt Count 173 MPV 8.5 Immature Gran % (Auto) 1.000 H Neut % (Auto) 85.0 H Lymph % (Auto) 9.0 L Garvin % (Auto) 4.9 Eos % (Auto) 0.0 Baso % (Auto) 0.1 Absolute Neuts (auto) 5.8 Absolute Lymphs (auto) 0.61 L Nucleated RBC % 0 Sodium 134 L Potassium 4.9 Chloride 100 Carbon Dioxide 26.0 Anion Gap 7 BUN 17 Creatinine 1.43 H Estim Creat Clear Calc 30.67 Est GFR (MDRD) Af Amer 46 L Est GFR (MDRD) Non-Af 38 L BUN/Creatinine Ratio 11.9 Glucose 242 H Calcium 8.7 Troponin I High Sens 9 ABG Data ABG results: ABG 08/23/24 20:31 Specimen Type ART Sample Site R Radial pH 7.37 Bicarbonate Actual 23.0 Total CO2 24 Base Excess -2 O2 Saturation 100 H O2 % 40.0 ABG pCO2 39.5 ABG pO2 178 H Choco Test Positive O2 Delivery Device BiPAP Vent Mode Not entered Clinical Comments Radiography Chest X-Ray - ED: 1 View and Read by ED Physician Rhythm Strip Rhythm Strip: Sinus Tach Rate: 101 Ectopy: None EKG Initial EKG: Attestation: I personally reviewed and interpreted this EKG as follows: Interpretation: No Acute Injury Pattern and Sinus Tachycardia Comments: Sinus tachycardia rate of 101. No acute signs of MD or ischemia. Critical Care Time Critical Care Time: Yes Critical care time (excluding procedures): 30-74 minutes, Including time spent:, Discussing w/Patient &/or Family/Recreation Therapy Aide, Discussing w/Consultants, Arranging Admission or Transfer, Performing Direct Patient Care at Bedside and - (36 minutes) Discharge Plan Dx/Rx/DC Orders Clinical Impression: Acute exacerbation of chronic obstructive pulmonary disease, Hypoxia, Chronic anemia, History of diabetes mellitus, RSV infection Disposition Disposition: Acute Care Hospital [facility]
[2024-08-23 20:28] LABS: Absolute Lymphocyte Count 0.61 X10^3/uL (0.83-4.51); Absolute Neutrophil Count 5.8 X10^3/uL (2.0-7.7); Basophil# 0.01 X10^3/uL; Basophil% 0.1 % (0-1); Hematocrit 22.4 % (37-47); Lymphocyte # 0.61 X10^3/ul (0.83-4.51); Mean Corp Hgb Conc 31.3 g/dL (32-36); Mean Corpuscular Hgb 28.3 pg (27.0-32.0); Mean Corpuscular Volume 90.7 fL (81-99); Mean Platelet Vol. 8.5 fl (6.2-12.0); Monocyte# 0.33 X10^3/uL; Monocyte% 4.9 % (0-10); NRBC Flagged by Analyzer 0 % (0-5); Neutrophil # 5.77 X10^3/uL (2.7-7.7); Platelet Count 173 K/mm3 (150-450); RBC Distribution Width CV 14.9 % (11.6-14.6); RBC Distribution Width SD 48.9 fl (35.1-43.9); Red Blood Count 2.47 M/mm3 (4.2-5.4); White Blood Count 6.8 K/mm3 (4.4-11.0)
[2024-08-23 20:35] LABS: Allen Test Positive; Base Excess -2 mmol/L (-2 to +2); Blood Gas Specimen Type ART; Mode Not entered; O2 Delivery Device BiPAP; PO2 178 mmHG (75-100); SITE R Radial; SO2 100 % (95-99); Total Carbon Dioxide 24 mmol/L; pCO2 39.5 mmHg (35-45); pH 7.37 (7.35-7.45)
[2024-08-23] MEDS: Ipratropium/Albuterol Sulfate 3 ML AMPUL.NEB INHALATION (20:40)
[2024-08-23 20:48] LABS: Anion Gap 7 (5-15); BUN 17 mg/dL (7-18); BUN/Creat Ratio 11.9 RATIO (10-20); Calcium,Total 8.7 mg/dL (8.5-10.1); Chloride 100 mmol/L (98-107); Creatinine, Serum 1.43 mg/dL (0.55-1.02); EST Glomerular Filtration Rate 38 mL/min (>60); Est Glom Filt Rate - Afr Amer 46 mL/min (>60); Estimated Creatinine Clearance 30.67 ml/min; Glucose 242 mg/dL (74-106); Potassium 4.9 mmol/L (3.5-5.1); Sodium Level 134 mmol/L (136-145); Troponin-I HS 9 pg/mL (3.0-54.0)
--- NOTE | 2024-08-23 20:55 | RAD_ITS ---
EXAM: XR CHEST, 1 VIEW CLINICAL INDICATION: chest pain TECHNIQUE: Frontal view of the chest. COMPARISON: No relevant prior studies available. FINDINGS: LUNGS AND PLEURAL SPACES: Emphysema suggested, worse at the upper lobes. No consolidation. No pleural effusions or pneumothorax. HEART: Unremarkable. Cardiac silhouette not enlarged. MEDIASTINUM: No hilar or cardiomediastinal enlargement. BONES/JOINTS: Degenerative changes of the acromioclavicular joints and spine. No acute fracture. SOFT TISSUES: Unremarkable. RAD/Chest 1 View (Portable) IMPRESSION: No acute cardiopulmonary disease. Electronically Signed: Rodney Vee MD at 21:59 EST ,
--- NOTE | 2024-08-23 21:08 | HP.PCM.HOS_ITS ---
[facility] - General General Date of Admission: 08/23/24 Date of Service: 08/23/24 Chief Complaint: SOB and Wheezing. HPI Narrative KIRSTIE BLAIR, is a 78 F with a past medical history of essential hypertension; on furosemide, hyperlipidemia; on ezetemibe, hypothyroidism; on levothyroxine, obesity; with BMI of 32.5 this admission, DM-2; of unknown control on metformin, former tobacco abuse; with subsequent asthma/COPD, history of bronchiectasis, chronic hypoxic respiratory failure on 2L NC, history of CHF, history of CVA, depression; on escitalopram and trazodone, PAZ, GERD; on pantoprazole, osteoporosis; on denosumab, history of cholecystectomy, history of hysterectomy, history of incisional hernia and OA who presents to [facility] ER complaining of SOB and wheezing. Ms. Blair reports her symptoms began approximately three days prior to admission with the gradual-onset of GARCIA that progressed to SOB at rest with persistent wheezing. She also admits to a cough productive of yellowish sputum and viral URI symptoms. She admits her symptoms are similar to her previous AE COPD. Patient denies smoking in the last year. She also denies associated fever, chills, nausea, vomiting, constipation, diarrhea, abdominal pain, chest pain, headache or recent bleeding. In the ER she was diagnosed with AE COPD with her viral respiratory panel positive for RSV infection complicated by clinical evidence of [id number] Respiratory Insufficiency compounded by laboratory evidence of Severe Anemia with a hemoglobin of 7g/dL present on admission along with Hyperglycemia of 242 mg/dL present on admission and she was then admitted to the PCU for ongoing care for a stay that is expected to extend beyond 2 midnights. [facility] Medical History Normal colonoscopy Former smoker Thyroid disease Osteoporosis Incisional hernia COPD (chronic obstructive pulmonary disease) Cholecystitis CHF (congestive heart failure) Cerebral artery occlusion with cerebral infarction Asthma Home Medications ?Medication ?Instructions ?Recorded ?Last Taken ?Type Oxygen, Home [Home Oxygen] 2 lpm NASAL 11/26/20 Unknown History albuterol sulfate 90 mcg/actuation 2 puff inhalation Q4H PRN 11/26/20 Unknown History aerosol inhaler shortness of breath or wheezing calcium carbonate 500 mg PO DAILY@0800 11/26/20 Unknown History denosumab 60 mg/mL subcutaneous 60 mg SQ 11/26/20 Unknown History syringe diltiazem HCl 120 mg 120 mg PO DAILY 11/26/20 Unknown History capsule,extended release 24 hr ergocalciferol (vitamin D2) 1,250 11/26/20 Unknown History mcg (50,000 unit) capsule escitalopram oxalate 5 mg tablet 5 mg PO DAILY 11/26/20 Unknown History ferrous sulfate 325 mg (65 mg 325 mg PO DAILY 11/26/20 Unknown History iron) tablet fluticasone fur. 200 mcg-umeclid 62.5 11/26/20 Unknown History 62.5 mcg-vilant 25 mcg inhalat.powder furosemide 20 mg tablet 20 mg PO 11/26/20 Unknown History ipratropium 0.5 mg-albuterol 3 mg 3 ml inhalation Q6H PRN shortness 11/26/20 Unknown History (2.5 mg base)/3 mL nebulization of breath or wheezing soln levothyroxine 50 mcg tablet 75 mcg PO DAILY 11/26/20 Unknown History magnesium hydroxide 400 mg/5 mL 400 mg PO 11/26/20 Unknown History oral suspension mometasone-formoterol HFA 200 11/26/20 Unknown History mcg-5 mcg/actuation aerosol inhaler pantoprazole 20 mg tablet,delayed 20 mg PO DAILY 11/26/20 Unknown History release polyvinyl alcohol-povidone 0.5 11/26/20 Unknown History %-0.6 % eye drops trazodone 50 mg tablet 11/26/20 Unknown History alcohol swabs (Alcohol Prep Pads) topical BID 08/23/24 Unknown History ezetimibe 10 mg tablet 10 mg PO DAILY 08/23/24 Unknown History metformin 500 mg tablet 500 mg PO BID 08/23/24 Unknown History Allergy/AdvReac Type Severity Reaction Status Date / Time Iodinated Contrast Media Allergy Unknown Itching Verified 08/23/24 20:21 bupropion (From Wellbutrin) Allergy Rash Verified 08/23/24 20:21 codeine Allergy Other Verified 08/23/24 20:21 morphine Allergy Nausea/Vom/ Verified 08/23/24 20:21 Diarrhea moxifloxacin (From Avelox) Allergy Other Verified 08/23/24 20:21 Family History Brother Atrial fibrillation Heart disease Arthritis Sister Obesity Arthritis Sister No problems noted. Brother No problems noted. Mother Heart disease Hypertension Other Diabetes Surgical History H/O: hysterectomy History of eye surgery H/O endoscopy History of cholecystectomy Social History Smoking Status: Former smoker ROS ROS Narrative Review of Systems: Constitutional: Patient denies fever or chills. Eyes: Patient denies changes in vision or discharge from eyes. ENT: Patient denies runny nose, sore throat or ear pain. Resp: Patient admits to GARCIA that progressed to SOB at rest with cough productive of yellowish sputum with wheezing since Thursday as per HPI. CV: Patient denies chest pain, palpitations or heart racing. GI: Patient denies abdominal pain, nausea, vomiting or diarrhea. : Patient denies dysuria or hematuria. MSK: Patient denies arthralgias or myalgias. Skin: Patient denies rash, abscess or jaundice. Psych: Patient denies symptoms of uncontrolled depression or anxiety. Neuro: Patient denies headache, paresthesias or focal neurologic deficits. Allergy: Patient denies lip swelling, tongue swelling or urticaria. Hematology: Patient denies easy bleeding or easy bruisability. Endocrinology: Patient denies polyuria, polydipsia or polyphagia. 14 point ROS otherwise negative except for positives noted above in HPI. Vital Signs Vital Signs Vital Signs: 08/23/24 20:13 08/23/24 20:17 08/23/24 20:18 Temperature 97 F L Temperature Source Axillary Pulse Rate 107 H Respiratory Rate 35 H Respiratory Effort Respiratory Depth Respiratory Pattern Blood Pressure 148/83 H Blood Pressure Mean 104 Pulse Ox 86 Oxygen Delivery Method Nasal Cannula Bi-pap Bi-pap Oxygen Flow Rate (L/min) 2 Fraction of Inspired Oxygen (FIO2) 40 08/23/24 20:18 08/23/24 20:20 08/23/24 20:21 Temperature Temperature Source Pulse Rate 99 Respiratory Rate 35 H Respiratory Effort Short of Breath Labored Accessory Muscle Use Head Bobbing Respiratory Depth Shallow Respiratory Pattern Tachypnea Tachypnea Blood Pressure Blood Pressure Mean Pulse Ox 98 99 Oxygen Delivery Method Bi-pap Bi-pap Oxygen Flow Rate (L/min) Fraction of Inspired Oxygen (FIO2) 40 40 40 08/23/24 20:40 Temperature Temperature Source Pulse Rate 96 Respiratory Rate 21 H Respiratory Effort Respiratory Depth Respiratory Pattern Tachypnea Blood Pressure Blood Pressure Mean Pulse Ox Oxygen Delivery Method Oxygen Flow Rate (L/min) Fraction of Inspired Oxygen (FIO2) Weight Weight: 172 lb 2.896 oz Body Mass Index (BMI) 32.5 Physical Exam Const alert and oriented x3 Constitutional Narrative: Mild distress noted with chronically ill appearance. General Appearance: cooperative HEENT normocephalic, head/scalp atraumatic, hearing grossly normal bilaterally and moist oral mucous membranes Eyes PERRL and EOMs intact bilaterally Neck no lymphadenopathy and supple Resp Resp Narrative: Diminished breath sounds throughout with scattered wheezes. Auscultation: wheezes Cardio regular rate and regular rhythm GI normal to inspection, nondistended, normoactive bowel sounds, soft to palpation, non-tender and non-distended Extremity normal to inspection, full ROM and no clubbing, cyanosis or edema Skin Skin Narrative: Patient has no evidence of rash, abscess or jaundice. Neuro oriented x3, CN's II-XII intact bilaterally, moves all extremities and no focal motor deficits Sensorium / Orientation: awake, alert, oriented to person, oriented to place and oriented to time Speech: speech normal Psych affect normal Results Medical Records Data Attestation: I reviewed the patient's medical records Lab / Micro Data Attestation: I reviewed the patient's lab results. 08/24/24 06:17 08/23/24 20:14 Labs: Laboratory Results - last 24 hr 08/23/24 20:14: WBC 6.8, RBC 2.47 L, Hgb 7.0 L, Hct 22.4 L, MCV 90.7, MCH 28.3, MCHC 31.3 L, RDW Std Deviation 48.9 H, RDW Coeff of Georgette 14.9 H, Plt Count 173, MPV 8.5, Immature Gran % (Auto) 1.000 H, Neut % (Auto) 85.0 H, Lymph % (Auto) 9.0 L, Rains % (Auto) 4.9, Eos % (Auto) 0.0, Baso % (Auto) 0.1, Absolute Neuts (auto) 5.8, Absolute Lymphs (auto) 0.61 L, Nucleated RBC % 0, Sodium 134 L, Potassium 4.9, Chloride 100, Carbon Dioxide 26.0, Anion Gap 7, BUN 17, C reatinine 1.43 H, Estim Creat Clear Calc 30.67, Est GFR (MDRD) Af Amer 46 L, Est GFR (MDRD) Non-Af 38 L, BUN/Creatinine Ratio 11.9, Glucose 242 H, Calcium 8.7, Troponin I High Sens 9 ABG Data ABG results: ABG 08/23/24 20:31 Specimen Type ART Sample Site R Radial pH 7.37 Bicarbonate Actual 23.0 Total CO2 24 Base Excess -2 O2 Saturation 100 H O2 % 40.0 ABG pCO2 39.5 ABG pO2 178 H Choco Test Positive O2 Delivery Device BiPAP Vent Mode Not entered Clinical Comments Rhythm Strip Rhythm Strip: Sinus Tach Rate: 101 Ectopy: None Assessment & Plan Assessment/Plan (1) Acute exacerbation of chronic obstructive pulmonary disease: (2) RSV infection: QUALIFIERS: RSV infection type: acute bronchitis Qualified Code(s): J20.5 - Acute bronchitis due to respiratory syncytial virus (3) Acute hypoxic respiratory failure: (4) Chronic anemia: (5) History of diabetes mellitus: (6) Obesity (BMI 30.0-34.9): PLAN: Plan 1. AE COPD with patient RSV+ on admission in the setting of previous tobacco abuse with a history of bronchiectasis - Admit to PCU. Start IV doxycycline and resume IV Solumedrol begun in the ER. Continue scheduled and prn nebulizers. Give Tylenol prn pain or fever with listed allergy to morphine (N/V/D). 2. Acute Hypoxic Respiratory failure requiring BiPAP arising from #1 - Wean BiPAP as tolerated. 3. Severe Anemia with hemoglobin of 7 g/dL present on admission in the setting of known Chronic PAZ and with no recent obvious bleeding complicating #1 & #2 - Type and screen blood. Transfuse for hemoglobin <7 g/dL. Check iron studies, ferritin, B12, folate and Hemoccult stools to more fully workup anemia. 4. DM-2; uncontrolled with Hyperglycemia of 242 mg/dL present on admission compounding #1 - #3 - ADA diet. FSBS q. AC/HS plus SSI. Check HgbA1c to objectively assess quality of diabetic control. 5. Obesity; with BMI of 32.5 this admission adding to the medical complexity of #1 - #4 - Weight loss will be recommended. Check TSH. This complicates her case and may hamper recovery. 6. Essential hypertension; on furosemide - Continue current regimen plus give IV Hydralazine prn for systolic blood pressure > 160 mmHg. 7. Hyperlipidemia; on ezetemibe - Maintain ezetemibe and check Lipid Profile. 8. Hypothyroidism; on levothyroxine - Resume levothyroxine and check TSH. 9. DM-2; of unknown control on metformin - ADA diet. FSBS q. AC/HS plus SSI. Check HgbA1c to objectively evaluate quality of diabetic control. 10. History of CHF - Noted with no signs of volume overload at this time. 11. History of CVA - Noted. 12. Depression; on escitalopram and trazodone - Continue current treatment. 13. GERD; on pantoprazole - Resume PPI. 14. Osteoporosis; on denosumab - Restart this agent as an outpatient. 15. History of cholecystectomy - Noted. 16. History of hysterectomy - Noted. 17. History of incisional hernia - Noted. 18. OA - Give Tylenol prn. 19. DVT prophylaxis - Lovenox 40 mg sq daily plus SCD's. Stop LMWH if bleeding ensues. Total time: Approximately (but not less than) 75 minutes. Charges/Coding Visit Charges Inpatient E&M: 58376 Init Hosp L3
[2024-08-23] MEDS: Acetaminophen 500 MG Tablet 1000 MG PO (21:57)
[2024-08-23 22:55] LABS: Ferritin 37 ng/mL (8-252); Iron 18 ug/dL (50-170); Iron Binding Capacity,Total 317 ug/dL (250-450); PERCENT IRON SATURATION 5.7 % (15.0-55.0)
[2024-08-24] VITALS (12 sets, daily range): BP systolic 111–133; BP diastolic 58–68; PULSE 78–102; RESP 12–34; TEMP 36.2–36.9; O2SAT 97–100; BMI 30.8
[2024-08-24] MEDS: 0.9% Normal Saline (1000mL) 1,000 ML 70 ML IV (00:02)
[2024-08-24] MEDS: Lactobacillis Acidophilus 1 CAP PO ×3 (00:03→11:06)
[2024-08-24] MEDS: MethylPREDNISolone 125 MG/2 ML Vial 60 MG IV ×2 (00:03→08:21)
[2024-08-24] MEDS: Doxycycline 100 MG in 0.9% Normal Saline (250mL Bag) 250 ML 250 MG IV ×2 (00:03→09:41)
[2024-08-24 00:12] LABS: Vitamin B12 434 pg/mL (211-911)
[2024-08-24 01:46] LABS: Bedside Glucose 177 mg/dL (74-106)
[2024-08-24] MEDS: Ipratropium/Albuterol Sulfate 3 ML AMPUL.NEB INHALATION ×4 (05:38→23:08)
--- NOTE | 2024-08-24 05:40 | CPS ---
RN requested patient have a PRN breathing TX due to being wheezy
[2024-08-24] MEDS: Levothyroxine 75 MCG Tablet PO (06:22)
[2024-08-24] MEDS: Insulin Lispro 100 UNIT/ML INSULN.PEN SC ×4 (06:26→21:54)
[2024-08-24 06:45] LABS: Absolute Lymphocyte Count 0.68 X10^3/uL (0.83-4.51); Absolute Neutrophil Count 4.6 X10^3/uL (2.0-7.7); Basophil# 0.01 X10^3/uL; Basophil% 0.2 % (0-1); Hematocrit 30.8 % (37-47); Hemoglobin 9.8 g/dL (12.0-15.0); Lymphocyte # 0.68 X10^3/ul (0.83-4.51); Lymphocyte % 12.5 % (19-41); Mean Corp Hgb Conc 31.8 g/dL (32-36); Mean Corpuscular Hgb 28.2 pg (27.0-32.0); Mean Corpuscular Volume 88.5 fL (81-99); Mean Platelet Vol. 8.6 fl (6.2-12.0); Monocyte# 0.12 X10^3/uL; Monocyte% 2.2 % (0-10); NRBC Flagged by Analyzer 0 % (0-5); Neutrophil % 84.4 % (47-70); Platelet Count 223 K/mm3 (150-450); RBC Distribution Width CV 14.8 % (11.6-14.6); RBC Distribution Width SD 47.1 fl (35.1-43.9); Red Blood Count 3.48 M/mm3 (4.2-5.4); White Blood Count 5.5 K/mm3 (4.4-11.0)
[2024-08-24 07:04] LABS: Bedside Glucose 201 mg/dL (74-106)
[2024-08-24 07:20] LABS: AST(SGOT) 16 U/L (15-37); Alanine Aminotransfer ALT/SGPT 21 U/L (13-56); Albumin, Serum 3.4 g/dL (3.2-5.0); Alkaline Phosphatase 58 U/L (45-117); Anion Gap 6 (5-15); BUN 20 mg/dL (7-18); BUN/Creat Ratio 16.8 RATIO (10-20); Chloride 102 mmol/L (98-107); Creatinine, Serum 1.19 mg/dL (0.55-1.02); EST Glomerular Filtration Rate 47 mL/min (>60); Est Glom Filt Rate - Afr Amer 56 mL/min (>60); Estimated Creatinine Clearance 35.83 ml/min; Globulin 3.4 g/dL (2.2-4.2); Glucose 202 mg/dL (74-106); Magnesium 1.8 mg/dL (1.6-2.6); Phosphorus 3.1 mg/dL (2.5-4.9); Potassium 4.4 mmol/L (3.5-5.1); Protein, Total 6.8 g/dL (6.4-8.2); Sodium Level 134 mmol/L (136-145); Thyroid Stim Hormone (TSH) 0.213 uIU/mL (0.358-3.740)
[2024-08-24 07:41] LABS: Hemoglobin A1c 6.5 % (3.8-5.6)
[2024-08-24] MEDS: Enoxaparin 40 MG/0.4 ML Syringe SC (08:20)
[2024-08-24] MEDS: Ferrous Sulfate 325 MG Tablet PO (08:21)
[2024-08-24] MEDS: Ezetimibe 10 MG Tablet PO (08:21)
[2024-08-24] MEDS: Escitalopram Oxalate 10 MG Tablet 5 MG PO (08:22)
[2024-08-24] MEDS: Ascorbic Acid 500 MG Tablet 1000 MG PO ×2 (08:22→15:13)
[2024-08-24] MEDS: Calcium Carbonate 500 MG Tablet PO (08:23)
[2024-08-24] MEDS: Cholecalciferol (Vit D3) 125 MCG CAPSULE (5,000 UNITS) PO (08:23)
[2024-08-24] MEDS: Furosemide 20 MG Tablet PO (08:23)
[2024-08-24] MEDS: Zinc Sulfate 50 mg zinc (220 mg) ORAL capsule PO (08:23)
[2024-08-24] MEDS: Pantoprazole Sodium 20 MG Tablet PO (08:24)
[2024-08-24] MEDS: dilTIAZem CD 120 MG Capsule PO (08:24)
[2024-08-24] MEDS: Acetaminophen 325 MG Tablet 650 MG PO (08:28)
[2024-08-24] MEDS: Albuterol 2.5 MG/3 ML VIAL.NEB. INHALATION (08:59)
[2024-08-24 11:33] LABS: Bedside Glucose 233 mg/dL (74-106)
--- NOTE | 2024-08-24 12:55 | PN.HOSP_ITS ---
Reason for Visit Reason for Visit: Diagnoses Anemia, unspecified (08/23/24) Obesity, class 1 (08/23/24) Acute bronchitis due to respiratory syncytial virus (08/23/24) Chronic obstructive pulmonary disease with (acute) exacerbation (08/23/24) Acute respiratory failure with hypoxia (08/23/24) Personal history of other endocrine, nutritional and metabolic disease (08/23/24) Objective Data Objective Data Vital Signs: Vital Signs Temp Pulse Resp BP Pulse Ox O2 Del Method O2 Flow Rate 98.1 F 80 20 H 119/59 L 98 Nasal Cannula 2 08/24/24 10:03 08/24/24 10:03 08/24/24 10:03 08/24/24 10:03 08/24/24 10:03 08/24/24 10:03 08/24/24 10:41 FiO2 40 08/23/24 20:21 Oxygen Flow Rate (L/min) 2 Oxygen Delivery Method Nasal Cannula Weight: 163 lb Body Mass Index (BMI) 30.8 Intake & Output: Intake and Output for Last 24 Hours 08/22/24 08/23/24 08/24/24 23:59 23:59 23:59 Intake Total 0 / 0 520 / 520 Balance 0 / 0 520 / 520 Lab / Micro Data 08/24/24 06:17 08/24/24 06:17 Labs: Laboratory Results - last 24 hr 08/23/24 20:14: WBC 6.8, RBC 2.47 L, Hgb 7.0 L, Hct 22.4 L, MCV 90.7, MCH 28.3, MCHC 31.3 L, RDW Std Deviation 48.9 H, RDW Coeff of Georgette 14.9 H, Plt Count 173, MPV 8.5, Immature Gran % (Auto) 1.000 H, Neut % (Auto) 85.0 H, Lymph % (Auto) 9.0 L, Burt % (Auto) 4.9, Eos % (Auto) 0.0, Baso % (Auto) 0.1, Absolute Neuts (auto) 5.8, Absolute Lymphs (auto) 0.61 L, Nucleated RBC % 0, Sodium 134 L, Potassium 4.9, Chloride 100, Carbon Dioxide 26.0, Anion Gap 7, BUN 17, C reatinine 1.43 H, Estim Creat Clear Calc 30.67, Est GFR (MDRD) Af Amer 46 L, Est GFR (MDRD) Non-Af 38 L, BUN/Creatinine Ratio 11.9, Glucose 242 H, Calcium 8.7, I beau 18 L, TIBC 317, Iron Saturation 5.7 L, Ferritin 37, Troponin I High Sens 9, Folate 24.10 08/23/24 23:15: Vitamin B12 434, Blood Type O POSITIVE, Antibody Screen NEGATIVE 08/24/24 00:13: POC Glucose 177 H 08/24/24 06:17: WBC 5.5, RBC 3.48 L, Hgb 9.8 L, Hct 30.8 L, MCV 88.5, MCH 28.2, MCHC 31.8 L, RDW Std Deviation 47.1 H, RDW Coeff of Georgette 14.8 H, Plt Count 223, MPV 8.6, Immature Gran % (Auto) 0.700, Neut % (Auto) 84.4 H, Lymph % (Auto) 12.5 L, Burt % (Auto) 2.2, Eos % (Auto) 0.0, Baso % (Auto) 0.2, Absolute Neuts (auto) 4.6, Absolute Lymphs (auto) 0.68 L, Nucleated RBC % 0, Sodium 134 L, Potassium 4.4, Chloride 102, Carbon Dioxide 26.0, Anion Gap 6, BUN 20 H, Creatinine 1.19 H , Estim Creat Clear Calc 35.83, Est GFR (MDRD) Af Amer 56 L, Est GFR (MDRD) Non- Af 47 L, BUN/Creatinine Ratio 16.8, Glucose 202 H, Hemoglobin A1c 6.5 H, Calcium 8.0 L, Phosphorus 3.1, Magnesium 1.8, Total Bilirubin 0.40, AST 16, ALT 21, Alkaline Phosphatase 58, Total Protein 6.8, Albumin 3.4, Globulin 3.4, Albumin/Globulin Ratio 1.0, TSH 0.213 L 08/24/24 06:25: POC Glucose 201 H 08/24/24 11:09: POC Glucose 233 H Micro: Microbiology 08/23/24 20:31 Mucosa - Nose SARS-CoV-2, Influenza & RSV (PCR) - Final RSV ABG Data ABG results: ABG 08/23/24 20:31 Specimen Type ART Sample Site R Radial pH 7.37 Bicarbonate Actual 23.0 Total CO2 24 Base Excess -2 O2 Saturation 100 H O2 % 40.0 ABG pCO2 39.5 ABG pO2 178 H Choco Test Positive O2 Delivery Device BiPAP Vent Mode Not entered Clinical Comments Radiography Diagnostic Testing: Radiology Impression Chest X-Ray 08/23/24 20:55 IMPRESSION: No acute cardiopulmonary disease. Electronically Signed: Rodney Vee MD at 21:59 EST Reading Location ID and State: [facility] / [place] Tel , Service support , Rhythm Strip Rhythm Strip: Sinus Tach Rate: 101 Ectopy: None Physical Exam Narrative Seen and examined Patient denies fever. Severe shortness of breath and chest congestion. Coughs and brings up thick phlegm yellowish. History of COPD/asthma overlap syndrome. Patient is on oxygen at home with nebulizer but not on NIPPV Physical exam General: Alert, Oriented x3, Cooperative HEENT: Atraumatic, PERRLA, EOMI, Normocephalic Oral: No Gingival or Mucosal Lesions/ Ulcerations Neck: Supple, No JVD, Negative Carotid Bruits Chest wall/Lungs: Air entry severely diminished in all lung cardenas. Bilateral coarse rhonchi and crepitations. Tachypnea and hypoxia. Cardiovascular: Regular rate, Regular Rhythm, Normal S1, Normal S2, No M/G/R Abdomen: Bowel Sounds Present, Soft, Non Tender, Non-Distended : No dysuria. No renal angle tenderness. No suprapubic tenderness. Extremities: No edema, Capillary Refill Less than 3 Seconds Skin: No rashes, No breakdown Musculoskeletal: No Tenderness to Palpation of Joints or Extremities Neurological: Cranial nerves II-XII grossly intact, DTR 2+/4. No acute focal neurological deficit. Psych/Mental Status: Normal Affect, Appropriate. Assessment & Plan Assessment/Plan (1) Acute exacerbation of chronic obstructive pulmonary disease: (2) RSV infection: QUALIFIERS: RSV infection type: acute bronchitis Qualified Code(s): J20.5 - Acute bronchitis due to respiratory syncytial virus (3) Acute hypoxic respiratory failure: (4) Chronic anemia: (5) History of diabetes mellitus: (6) Obesity (BMI 30.0-34.9): PLAN: Plan 1. AE COPD with patient RSV+ on admission in the setting of previous tobacco abuse with a history of bronchiectasis - Admit to PCU. Start IV doxycycline and resume IV Solumedrol begun in the ER. Continue scheduled and prn nebulizers. Give Tylenol prn pain or fever with listed allergy to morphine (N/V/D). 2. Acute Hypoxic Respiratory failure requiring BiPAP arising from #1 - Wean BiPAP as tolerated. 3. Severe Anemia with hemoglobin of 7 g/dL present on admission with history of chronic iron sensitive- Type and screen blood. Transfuse for hemoglobin <7 g/dL. Iron studies suggestive of low iron, normal TIBC, low iron saturation and ferritin. Ferrous sulfate IV ordered. B12 and folate normal. 4. DM-2; uncontrolled with Hyperglycemia of 242 mg/dL present on admission compounding #1 - #3 - ADA diet. FSBS q. AC/HS plus SSI. Check HgbA1c to objectively assess quality of diabetic control. 5. Obesity; with BMI of 32.5 this admission adding to the medical complexity of #1 - #4 - Weight loss will be recommended. Check TSH. This complicates her case and may hamper recovery. 6. Essential hypertension; on furosemide - Continue current regimen plus give IV Hydralazine prn for systolic blood pressure > 160 mmHg. 7. Hyperlipidemia; on ezetemibe - Maintain ezetemibe and check Lipid Profile. 8. Hypothyroidism; on levothyroxine -TSH very low 0.213. Thyroxine dose was decreased 9. DM-2; of unknown control on metformin - ADA diet. FSBS q. AC/HS plus SSI. A1c 6.5%. 10. Other chronic comorbidities include depression, GERD, osteoporosis on denosumab and osteoarthritis DVT prophylaxis - Lovenox 40 mg sq daily plus SCD's. Stop LMWH if bleeding ensues. Charges/Coding Visit Charges Inpatient E&M: 05606 Subs Hosp L2
[2024-08-24] MEDS: guaiFENesin/D-Methorphan TAB.SR.12H 2 TABLET PO ×2 (14:28→21:53)
[2024-08-24] MEDS: Sodium Ferric Gluconat/Sucrose 250 MG in 0.9% Normal Saline (250mL Bag) 250 ML 135 MG IV (14:28)
[2024-08-24 15:47] LABS: Bedside Glucose 246 mg/dL (74-106)
[2024-08-24] MEDS: Doxycycline 100 MG CAPSULE PO (21:53)
[2024-08-24] MEDS: 0.9% Saline Lock 10 ML Syringe IV (21:54)
[2024-08-25] VITALS (19 sets, daily range): BP systolic 127–142; BP diastolic 63–88; PULSE 73–89; RESP 12–38; TEMP 36.1–36.8; O2SAT 94–100
[2024-08-25 00:23] LABS: Bedside Glucose 229 mg/dL (74-106)
[2024-08-25] MEDS: Ipratropium/Albuterol Sulfate 3 ML AMPUL.NEB INHALATION ×6 (02:05→23:13)
[2024-08-25] MEDS: 0.9% Saline Lock 10 ML Syringe IV ×2 (06:03→20:53)
[2024-08-25] MEDS: Insulin Lispro 100 UNIT/ML INSULN.PEN SC ×4 (06:06→20:56)
[2024-08-25] MEDS: Levothyroxine 50 MCG Tablet PO (06:08)
[2024-08-25 06:34] LABS: Bedside Glucose 177 mg/dL (74-106)
[2024-08-25 06:35] LABS: Absolute Lymphocyte Count 1.09 X10^3/uL (0.83-4.51); Absolute Neutrophil Count 8.4 X10^3/uL (2.0-7.7); Basophil# 0.01 X10^3/uL; Basophil% 0.1 % (0-1); Hematocrit 31.1 % (37-47); Lymphocyte # 1.09 X10^3/ul (0.83-4.51); Lymphocyte % 10.6 % (19-41); Mean Corp Hgb Conc 32.2 g/dL (32-36); Mean Corpuscular Hgb 28.3 pg (27.0-32.0); Mean Corpuscular Volume 88.1 fL (81-99); Mean Platelet Vol. 8.6 fl (6.2-12.0); Monocyte# 0.62 X10^3/uL; NRBC Flagged by Analyzer 0 % (0-5); Neutrophil # 8.44 X10^3/uL (2.7-7.7); Neutrophil % 82.4 % (47-70); Platelet Count 274 K/mm3 (150-450); RBC Distribution Width CV 14.7 % (11.6-14.6); RBC Distribution Width SD 47.6 fl (35.1-43.9); Red Blood Count 3.53 M/mm3 (4.2-5.4); White Blood Count 10.3 K/mm3 (4.4-11.0)
[2024-08-25 07:15] LABS: Anion Gap 6 (5-15); BUN 29 mg/dL (7-18); BUN/Creat Ratio 27.4 RATIO (10-20); Calcium,Total 8.5 mg/dL (8.5-10.1); Chloride 102 mmol/L (98-107); Creatinine, Serum 1.06 mg/dL (0.55-1.02); EST Glomerular Filtration Rate 53 mL/min (>60); Est Glom Filt Rate - Afr Amer 64 mL/min (>60); Estimated Creatinine Clearance 40.23 ml/min; Glucose 184 mg/dL (74-106); Magnesium 2.1 mg/dL (1.6-2.6); Phosphorus 2.5 mg/dL (2.5-4.9); Potassium 4.2 mmol/L (3.5-5.1); Sodium Level 134 mmol/L (136-145)
--- NOTE | 2024-08-25 09:04 | PCM.PN.HOSP ---
Reason for Visit Reason for Visit: Diagnoses Anemia, unspecified (08/23/24) Obesity, class 1 (08/23/24) Acute bronchitis due to respiratory syncytial virus (08/23/24) Chronic obstructive pulmonary disease with (acute) exacerbation (08/23/24) Acute respiratory failure with hypoxia (08/23/24) Personal history of other endocrine, nutritional and metabolic disease (08/23/24) Objective Data Objective Data Vital Signs: Vital Signs Temp Pulse Resp BP Pulse Ox O2 Del Method O2 Flow Rate 98 F 78 28 H 140/86 H 99 Nasal Cannula 4 08/25/24 04:30 08/25/24 06:45 08/25/24 06:45 08/25/24 04:30 08/25/24 06:45 08/25/24 06:36 08/25/24 06:36 FiO2 35 08/25/24 06:45 Oxygen Flow Rate (L/min) 4 Oxygen Delivery Method Nasal Cannula Weight: 163 lb Body Mass Index (BMI) 30.8 Intake & Output: Intake and Output for Last 24 Hours 08/23/24 08/24/24 08/25/24 23:59 23:59 23:59 Intake Total 0 / 0 1790 / 1790 Output Total 2 / 2 Balance 0 / 0 1788 / 1788 Lab / Micro Data 08/25/24 06:15 08/25/24 06:15 Labs: Laboratory Results - last 24 hr 08/24/24 11:09: POC Glucose 233 H 08/24/24 15:10: POC Glucose 246 H 08/24/24 21:52: POC Glucose 229 H 08/25/24 06:01: POC Glucose 177 H 08/25/24 06:15: WBC 10.3, RBC 3.53 L, Hgb 10.0 L, Hct 31.1 L, MCV 88.1, MCH 28.3, MCHC 32.2, RDW Std Deviation 47.6 H, RDW Coeff of Gerogette 14.7 H, Plt Count 274, MPV 8.6, Immature Gran % (Auto) 0.900, Neut % (Auto) 82.4 H, Lymph % (Auto) 10.6 L, [place] % (Auto) 6.0, Eos % (Auto) 0.0, Baso % (Auto) 0.1, Absolute Neuts (auto) 8.4 H, Absolute Lymphs (auto) 1.09, Nucleated RBC % 0, Sodium 134 L, Potassium 4.2, Chloride 102, Carbon Dioxide 26.0, Anion Gap 6, BUN 29 H, Creatinine 1.06 H, Estim Creat Clear Calc 40.23, Est GFR (MDRD) Af Amer 64, Est GFR (MDRD) Non-Af 53 L, BUN/Creatinine Ratio 27.4 H, Glucose 184 H, Calcium 8.5, Phosphorus 2.5, Magnesium 2.1 Micro: Microbiology 08/23/24 20:31 Mucosa - Nose SARS-CoV-2, Influenza & RSV (PCR) - Final RSV Rhythm Strip Rhythm Strip: Sinus Tach Rate: 101 Ectopy: None Physical Exam Narrative Seen and examined Patient denies fever. Patient had fatigue due to labored breathing in the evening of 08/24 therefore put on BiPAP. Patient is still very short of breath, wheezing and labored breathing. BiPAP as needed. Coughs and brings up thick phlegm yellowish. History of COPD/asthma overlap syndrome. Patient is on oxygen at home with nebulizer but not on NIPPV Physical exam General: Alert, Oriented x3, Cooperative HEENT: Atraumatic, PERRLA, EOMI, Normocephalic Oral: No Gingival or Mucosal Lesions/ Ulcerations Neck: Supple, No JVD, Negative Carotid Bruits Chest wall/Lungs: Air entry severely diminished in all lung cardenas. Bilateral coarse rhonchi and crepitations. Tachypnea and hypoxia. Cardiovascular: Regular rate, Regular Rhythm, Normal S1, Normal S2, No M/G/R Abdomen: Bowel Sounds Present, Soft, Non Tender, Non-Distended : No dysuria. No renal angle tenderness. No suprapubic tenderness. Extremities: No edema, Capillary Refill Less than 3 Seconds Skin: No rashes, No breakdown Musculoskeletal: No Tenderness to Palpation of Joints or Extremities Neurological: Cranial nerves II-XII grossly intact, DTR 2+/4. No acute focal neurological deficit. Psych/Mental Status: Normal Affect, Appropriate. Assessment & Plan Assessment/Plan (1) Acute exacerbation of chronic obstructive pulmonary disease: (2) RSV infection: QUALIFIERS: RSV infection type: acute bronchitis Qualified Code(s): J20.5 - Acute bronchitis due to respiratory syncytial virus (3) Acute hypoxic respiratory failure: (4) Chronic anemia: (5) History of diabetes mellitus: (6) Obesity (BMI 30.0-34.9): PLAN: Plan 1. AE COPD with patient RSV+ on admission in the setting of previous tobacco abuse with a history of bronchiectasis - Admit to PCU. Start IV doxycycline and resume IV Solumedrol begun in the ER. Continue scheduled and prn nebulizers. Give Tylenol prn pain or fever with listed allergy to morphine (N/V/D). 08/25: With history of bronchiectasis and COPD, patient is still having shortness of breath labored breathing requiring NIPPV with productive yellowish sputum, repeat chest x-ray PA and lateral ordered. Patient started on IV ceftriaxone. Continue doxycycline. Pulmonary consult requested. 2. Acute Hypoxic Respiratory failure requiring BiPAP arising from #1 - Wean BiPAP as tolerated. 08/25: ABG 7.37/39.5/170s 8 on BiPAP. Patient required BiPAP last night and is still short of breath and labored breathing. 3. Severe Anemia with hemoglobin of 7 g/dL present on admission with history of chronic iron sensitive- Type and screen blood. Transfuse for hemoglobin <7 g/dL. Iron studies suggestive of low iron, normal TIBC, low iron saturation and ferritin. Ferrous sulfate IV ordered. B12 and folate normal. 08/25: Hemoglobin improved to 10 g. Patient did not require blood transfusion. 4. DM-2; uncontrolled with Hyperglycemia of 242 mg/dL present on admission3 - ADA diet. FSBS q. AC/HS plus SSI. Check HgbA1c to objectively assess quality of diabetic control. 08/25 glucose around 200-250 mg/dL. Scheduled Lantus and Humalog insulin ordered 5. Obesity; with BMI of 32.5 this admission adding to the medical complexity of #1 - #4 - Weight loss will be recommended. Check TSH. This complicates her case and may hamper recovery. 6. Essential hypertension; on furosemide - Continue current regimen plus give IV Hydralazine prn for systolic blood pressure > 160 mmHg. 7. Hyperlipidemia; on ezetemibe - Maintain ezetemibe and check Lipid Profile. 8. Hypothyroidism; on levothyroxine -TSH very low 0.213. Thyroxine dose was decreased 9. DM-2; of unknown control on metformin - ADA diet. FSBS q. AC/HS plus SSI. A1c 6.5%. 10. Other chronic comorbidities include depression, GERD, osteoporosis on denosumab and osteoarthritis DVT prophylaxis - Lovenox 40 mg sq daily plus SCD's. Stop LMWH if bleeding ensues. Clinical Impression(s) from Imaging Studies Chest X-Ray 08/23/24 20:55 IMPRESSION: No acute cardiopulmonary disease. Electronically Signed: Rodney Vee MD at 21:59 EST , Charges/Coding Addendum Addendum: Total time of the visit including total time spent in counseling or coordination of care, (more than 50% of the total time, spent in obtaining medical information from nurses and other ancillary care providers ,explaining to the patient about labs, imaging, diagnosis and management of active complex medical conditions), review of ABG, chest x-ray, pulmonary consult, review of labs and imaging is 35 minutes. Visit Charges Inpatient E&M: 87654 Subs Hosp L3
[2024-08-25] MEDS: Doxycycline 100 MG CAPSULE PO ×2 (09:12→22:29)
[2024-08-25] MEDS: Pantoprazole Sodium 20 MG Tablet PO (09:12)
[2024-08-25] MEDS: dilTIAZem CD 120 MG Capsule PO (09:12)
[2024-08-25] MEDS: Calcium Carbonate 500 MG Tablet PO (09:12)
[2024-08-25] MEDS: Cholecalciferol (Vit D3) 125 MCG CAPSULE (5,000 UNITS) PO (09:12)
[2024-08-25] MEDS: Ascorbic Acid 500 MG Tablet 1000 MG PO ×2 (09:13)
[2024-08-25] MEDS: Ezetimibe 10 MG Tablet PO (09:13)
[2024-08-25] MEDS: Escitalopram Oxalate 10 MG Tablet 5 MG PO (09:13)
[2024-08-25] MEDS: guaiFENesin/D-Methorphan TAB.SR.12H 2 TABLET PO ×2 (09:13→22:29)
[2024-08-25] MEDS: Furosemide 20 MG Tablet PO (09:14)
[2024-08-25] MEDS: Enoxaparin 40 MG/0.4 ML Syringe SC (09:14)
[2024-08-25] MEDS: Ferrous Sulfate 325 MG Tablet PO (12:31)
[2024-08-25] MEDS: Ceftriaxone 1 GM/50 ML BAG IV (12:33)
[2024-08-25] MEDS: Insulin Glargine-YFGN 100 UNIT/ML Pen 10 UNIT SC (12:40)
--- NOTE | 2024-08-25 12:45 | CASEMGMT ---
CHANCE SHARMA Assessment: Face to Face with pt for initial transition planning/care coordination assessment. CHANCE SHARMA introduced self and role at [facility], pt voices understanding and consents to assessment. Pt is A&O x4 and answers all questions appropriately at this time. Pt lying in bed, nurse in room with patient. Pt gets SOB discussing DC planning. Care providers, pharmacy, and demographics verified/updated. Strata: 2 Admitting Dx: AE COPD, Acute Hypoxic Resp Failure. PCP: Pt prevsiously had [facility], plans to switch to [place]. Provided list of local PCP's to pt. Specialists: Chanelle, Pulmonology; Macho, Chemical Equipment Sales Engineer Preferred Pharmacy: [facility] Insurance: [employer] Prescription Benefit: yes LNOK: Daughter, Sera. Living Arrangements: Pt lives alone, brother lives close by. Pt lives in mobile home with ramp to enter. ADLs: Pt reports I with ADLs, needs assistance with laundry and deep cleaning. Transportation: Pt family provides transportation. DME: Walker, rollator, Glucometer and supplies, shower chair, grab bars, O2 through [employer]. Pt has a scooter but is not working. HHC/SNF: Previously at [facility], Visiting [facility] for HHC. Pt states would like to go home at time of DC if possible. Pt states no further concerns/needs. CM to follow. Advised pt to ask CM if any further question/concerns/needs arise, voices understanding. Pt Goal: TBD, Pt goal would be to go home if able. Plan: TBD, Follow for changes in O2 and follow therapy for recommendations. Quinn FLETCHER CM
[2024-08-25 13:15] LABS: Bedside Glucose 250 mg/dL (74-106)
--- NOTE | 2024-08-25 13:30 | RAD_ITS ---
STUDY: X-RAY CHEST REASON FOR EXAM: Female, 78 years old. suspected Pneumonia with brochiestasis TECHNIQUE: PA and lateral views of the chest. COMPARISON: 08/23/2024 FINDINGS: The lungs are clear and expanded. There is no demonstrated pleural abnormality. Normal size heart. Normal mediastinum and derrick. Normal visualized pulmonary arteries. Normal visualized aortic arch and descending thoracic aorta. Normal visualized thoracic spine. Normal visualized ribs, clavicles, and shoulders. There is no demonstrated abnormality of the visualized soft tissue structures of the upper abdomen. RAD/Chest PA and Lateral IMPRESSION: Normal x-ray examination of the chest. Electronically Signed: Ankur Mills MD at 14:42 EST ,
--- NOTE | 2024-08-25 14:00 | CHAPLAIN ---
Type of Pastoral Visit _x__ Initial Visit ___ Follow-up Visit ___ On-call Visit ___ General Patient Visit ___ Spiritual Assessment ___ Family Conference ___ Bereavement ___ Rapid Response ___ Code Blue ___ Other (describe below) Pastoral Care Referral From _x__ Patient ___ Family ___ Nurse ___ Physician ___ Machine Brush Maker ___ Promotions Coordinator ___ Other (describe below) Sacrament/Intervention _x__ Active listening ___ Anointing ___ Synagogue ___ Bereavement ___ Communion ___ Yasmeen exploration ___ ___ Life review _x__ Prayer ___ Reconciliation ___ Sacrament of Sick ___ Supportive presence ___ Wedding ___ Other (describe below) Pastoral Comments RN is in the room with the patient when this panel maker enters; RN states that pt is having difficulty with talking while her breathing is compromised; kept this visit brief; asked patient how she is coping and what she needs; pt admitted that a prayer would be sufficient; pt just got her food and she is given encouragement to go ahead and eat it; presence and prayer welcomed and appreciated
--- NOTE | 2024-08-25 14:46 | CON.PCM.CC_ITS ---
Assessment & Plan Assessment/Plan (1) Acute exacerbation of chronic obstructive pulmonary disease: PLAN: Plan RECOMMENDATIONS: 1. Continue supplemental oxygen to maintain saturations at or above 90%. 2. Continue to monitor H&H and transfuse if hemoglobin drops below 7 g/dL. 3. Continue scheduled bronchodilators and IV steroids. 4. Okay to discontinue antimicrobials from my perspective. 5. Encourage incentive spirometer use and mobilize patient as tolerated. IMPRESSIONS: 1. COPD exacerbation with associated hypoxemia secondary to RSV infection The patient has known advanced age COPD and is currently followed by an outside health plan manager at [facility]. She does not utilize supplemental oxygen at her baseline, with the exception of nightly. She is on a triple therapy inhaler regimen. Her chest imaging does not demonstrate any findings concerning for pneumonia. Rather, the patient was RSV positive. Therefore, it is reasonable to continue aggressive bronchopulmonary hygiene along with scheduled bronchodilators and corticosteroids. I do not see an overt indication for antimicrobials at this time. Continue supplemental oxygen to maintain saturations at or above 90%. If needed, BiPAP therapy can be utilized as needed throughout the day and on a nightly basis. 2. History of diabetes mellitus/obesity/nocturnal hypoxemia/hypertension/hyperlipidemia/hypothyroidism Complicates care, management, recovery and prognosis. Continue home medications as indicated. This note was generated with [employer] dictation software. It may contain incorrect words, spelling, and punctuation that were not noted in checking the note before signing. HPI Consult Data Date of Consult: 08/25/24 HPI Narrative Reason for Consultation: COPD exacerbation HPI Narrative: The patient is a 78-year-old female, with a history as outlined below, who presented to the emergency department on August 23 with worsening shortness of breath and wheezing. The patient has a known history of advanced age COPD along with nocturnal hypoxemia requiring supplemental oxygen. She has a remote smoking history and is currently followed by Dr. Roca of pulmonary medicine from [facility]. The patient is on a triple therapy inhaler regimen at her baseline. She does not currently utilize any form of noninvasive positive pressure ventilatory support at her baseline. On presentation to the emergency department, the patient was afebrile hemodynamically stable. Initial laboratory evaluation revealed a normal white blood cell count. The patient was anemic with a hemoglobin of 7.0 g/dL. ABG demonstrated a pH of 7.37 with a pCO2 of 39 and pO2 of 178. Chemistry profile was notable for a creatinine of 1.43. RSV PCR was positive. Chest imaging was unremarkable. The patient was subsequently placed on scheduled bronchodilators, antimicrobials and IV steroids. She was admitted to the progressive care unit for further management. [facility] Medical History Normal colonoscopy Former smoker Thyroid disease Osteoporosis Incisional hernia COPD (chronic obstructive pulmonary disease) Cholecystitis CHF (congestive heart failure) Cerebral artery occlusion with cerebral infarction Asthma Home Medications ?Medication ?Instructions ?Recorded ?Last Taken ?Type Oxygen, Home [Home Oxygen] 2 lpm NASAL 11/26/20 Unknown History albuterol sulfate 90 mcg/actuation 2 puff inhalation Q4H PRN 11/26/20 Unknown History aerosol inhaler shortness of breath or wheezing calcium carbonate 500 mg PO DAILY@0800 11/26/20 Unknown History denosumab 60 mg/mL subcutaneous 60 mg SQ 11/26/20 Unknown History syringe diltiazem HCl 120 mg 120 mg PO DAILY 11/26/20 Unknown History capsule,extended release 24 hr ergocalciferol (vitamin D2) 1,250 11/26/20 Unknown History mcg (50,000 unit) capsule escitalopram oxalate 5 mg tablet 5 mg PO DAILY 11/26/20 Unknown History ferrous sulfate 325 mg (65 mg 325 mg PO DAILY 11/26/20 Unknown History iron) tablet fluticasone fur. 200 mcg-umeclid 62.5 11/26/20 Unknown History 62.5 mcg-vilant 25 mcg inhalat.powder furosemide 20 mg tablet 20 mg PO 11/26/20 Unknown History ipratropium 0.5 mg-albuterol 3 mg 3 ml inhalation Q6H PRN shortness 11/26/20 Unknown History (2.5 mg base)/3 mL nebulization of breath or wheezing soln levothyroxine 50 mcg tablet 75 mcg PO DAILY 11/26/20 Unknown History magnesium hydroxide 400 mg/5 mL 400 mg PO 11/26/20 Unknown History oral suspension mometasone-formoterol HFA 200 11/26/20 Unknown History mcg-5 mcg/actuation aerosol inhaler pantoprazole 20 mg tablet,delayed 20 mg PO DAILY 11/26/20 Unknown History release polyvinyl alcohol-povidone 0.5 11/26/20 Unknown History %-0.6 % eye drops trazodone 50 mg tablet 11/26/20 Unknown History alcohol swabs (Alcohol Prep Pads) topical BID 08/23/24 Unknown History ezetimibe 10 mg tablet 10 mg PO DAILY 08/23/24 Unknown History metformin 500 mg tablet 500 mg PO BID 08/23/24 Unknown History Allergy/AdvReac Type Severity Reaction Status Date / Time Iodinated Contrast Media Allergy Unknown Itching Verified 08/23/24 20:21 bupropion (From Wellbutrin) Allergy Rash Verified 08/23/24 20:21 codeine Allergy Other Verified 08/23/24 20:21 morphine Allergy Nausea/Vom/ Verified 08/23/24 20:21 Diarrhea moxifloxacin (From Avelox) Allergy Other Verified 08/23/24 20:21 Family History Brother Atrial fibrillation Heart disease Arthritis Sister Obesity Arthritis Sister No problems noted. Brother No problems noted. Mother Heart disease Hypertension Other Diabetes Surgical History H/O: hysterectomy History of eye surgery H/O endoscopy History of cholecystectomy Social History Smoking Status: Former smoker ROS ROS Narrative 10 systems were reviewed with pertinent positives as noted in the HPI above. Physical Exam Const alert, oriented x3 and no apparent distress General Appearance: cooperative HEENT normocephalic, head/scalp atraumatic and moist oral mucous membranes Eyes PERRL, EOMs intact bilaterally and conjunctivae normal Neck supple General: trachea midline Chest inspection of chest normal Resp Effort and Inspection: tachypneic Auscultation: wheezes and diminished lung sounds Cardio regular rate and regular rhythm GI normal to inspection, nondistended, normoactive bowel sounds Extremity no clubbing, cyanosis or edema Skin no rashes or lesions noted Neuro CN's II-XII intact bilaterally, moves all extremities and no focal motor deficits Psych cooperative and affect normal Lab / Micro Data 08/25/24 06:15 08/25/24 06:15 Labs: Laboratory Results - last 24 hr 08/24/24 15:10: POC Glucose 246 H 08/24/24 21:52: POC Glucose 229 H 08/25/24 06:01: POC Glucose 177 H 08/25/24 06:15: WBC 10.3, RBC 3.53 L, Hgb 10.0 L, Hct 31.1 L, MCV 88.1, MCH 28.3, MCHC 32.2, RDW Std Deviation 47.6 H, RDW Coeff of Georgette 14.7 H, Plt Count 274, MPV 8.6, Immature Gran % (Auto) 0.900, Neut % (Auto) 82.4 H, Lymph % (Auto) 10.6 L, [place] % (Auto) 6.0, Eos % (Auto) 0.0, Baso % (Auto) 0.1, Absolute Neuts (auto) 8.4 H, Absolute Lymphs (auto) 1.09, Nucleated RBC % 0, Sodium 134 L, Potassium 4.2, Chloride 102, Carbon Dioxide 26.0, Anion Gap 6, BUN 29 H, C reatinine 1.06 H, Estim Creat Clear Calc 40.23, Est GFR (MDRD) Af Amer 64, Est GFR (MDRD) Non-Af 53 L, BUN/Creatinine Ratio 27.4 H, Glucose 184 H, Calcium 8.5, Phosphorus 2.5, Magnesium 2.1 08/25/24 12:29: POC Glucose 250 H Rhythm Strip Rhythm Strip: Sinus Tach Rate: 101 Ectopy: None Imaging Radiology Impression Chest X-Ray 08/25/24 13:30 IMPRESSION: Normal x-ray examination of the chest. Electronically Signed: Ankur Mills MD at 14:42 EST , Charges/Coding Visit Charges Inpatient E&M: [id number] Init Hosp L3
--- NOTE | 2024-08-25 15:31 | CASEMGMT ---
CHANCE SHARMA NOTE: Pt states her brother will take her home @ discharge and he can bring her portable O2 tank in for her to go home on. Luz Marina GOLDSMITH RN, CM
[2024-08-25 17:16] LABS: Bedside Glucose 225 mg/dL (74-106)
[2024-08-25] MEDS: Insulin Lispro 100 UNIT/ML INSULN.PEN 7 UNIT SC (17:26)
[2024-08-25 22:12] LABS: Bedside Glucose 227 mg/dL (74-106)
[2024-08-25] MEDS: Temazepam 15 MG Capsule PO (23:35)
[2024-08-25 23:48] LABS: Bacteria 0 SEEN /hpf (None Seen); Mucous, Urine 0 SEEN /hpf (<or=2+); Red Blood Cells-Urine 0 SEEN /hpf (0-5); White Blood Cells 0 SEEN /hpf (0-5)
[2024-08-26] VITALS (13 sets, daily range): BP systolic 124–146; BP diastolic 65–82; PULSE 71–80; RESP 12–24; TEMP 36.4–37.1; O2SAT 97–99; BMI 31.4
[2024-08-26 00:06] LABS: Color, Urine Yellow (Yellow); Glucose, Dipstick Normal (Normal); Ketone-Dipstick Negative (Negative); Leukocyte Esterase-Dipstick 100 /ul (Negative); Nitrite-Dipstick Negative (Negative); Occult Blood-Urine Negative /ul (Negative); Protein-Dipstick 15 mg/dl (Negative); Urine Bilirubin Dipstick Negative (Negative); Urine Clarity Clear (Clear); Urine Urobilinogen Normal (Normal)
[2024-08-26 00:15] LABS: BNP,B-Type NATRIURETIC PEPTIDE 95.7 pg/mL (0-100)
[2024-08-26 00:50] LABS: Squamous Epithelial Cells - UA 0-5 SEEN /hpf (5-10)
[2024-08-26] MEDS: Ipratropium/Albuterol Sulfate 3 ML AMPUL.NEB INHALATION ×5 (03:05→19:11)
[2024-08-26] MEDS: 0.9% Saline Lock 10 ML Syringe IV (05:50)
[2024-08-26] MEDS: Levothyroxine 50 MCG Tablet PO (05:50)
[2024-08-26 07:46] LABS: Absolute Lymphocyte Count 1.26 X10^3/uL (0.83-4.51); Absolute Neutrophil Count 6.6 X10^3/uL (2.0-7.7); Basophil# 0.01 X10^3/uL; Basophil% 0.1 % (0-1); Hemoglobin 9.3 g/dL (12.0-15.0); Lymphocyte # 1.26 X10^3/ul (0.83-4.51); Lymphocyte % 15.1 % (19-41); Mean Corp Hgb Conc 32.1 g/dL (32-36); Mean Corpuscular Hgb 27.8 pg (27.0-32.0); Mean Corpuscular Volume 86.6 fL (81-99); Mean Platelet Vol. 8.4 fl (6.2-12.0); Monocyte# 0.35 X10^3/uL; Monocyte% 4.2 % (0-10); NRBC Flagged by Analyzer 0 % (0-5); Neutrophil # 6.62 X10^3/uL (2.7-7.7); Neutrophil % 79.2 % (47-70); Platelet Count 252 K/mm3 (150-450); RBC Distribution Width CV 14.7 % (11.6-14.6); RBC Distribution Width SD 47.3 fl (35.1-43.9); Red Blood Count 3.35 M/mm3 (4.2-5.4); White Blood Count 8.4 K/mm3 (4.4-11.0)
[2024-08-26] MEDS: Escitalopram Oxalate 10 MG Tablet 5 MG PO (08:10)
[2024-08-26] MEDS: Doxycycline 100 MG CAPSULE PO ×2 (08:11→20:01)
[2024-08-26] MEDS: Calcium Carbonate 500 MG Tablet PO (08:11)
[2024-08-26] MEDS: Pantoprazole Sodium 20 MG Tablet PO (08:11)
[2024-08-26] MEDS: Cholecalciferol (Vit D3) 125 MCG CAPSULE (5,000 UNITS) PO (08:11)
[2024-08-26] MEDS: Ascorbic Acid 500 MG Tablet 1000 MG PO ×2 (08:11→16:56)
[2024-08-26] MEDS: Furosemide 20 MG Tablet PO (08:11)
[2024-08-26] MEDS: dilTIAZem CD 120 MG Capsule PO (08:12)
[2024-08-26] MEDS: Insulin Lispro 100 UNIT/ML INSULN.PEN 7 UNIT SC (08:13)
[2024-08-26] MEDS: Insulin Glargine-YFGN 100 UNIT/ML Pen 10 UNIT SC ×2 (08:13→10:29)
[2024-08-26] MEDS: Insulin Lispro 100 UNIT/ML INSULN.PEN SC ×3 (08:14→20:08)
[2024-08-26] MEDS: guaiFENesin/D-Methorphan TAB.SR.12H 2 TABLET PO ×2 (08:15→20:01)
[2024-08-26] MEDS: Enoxaparin 40 MG/0.4 ML Syringe SC (08:15)
[2024-08-26] MEDS: Ezetimibe 10 MG Tablet PO (08:16)
--- NOTE | 2024-08-26 09:05 | PCM.PN.HOSP ---
Reason for Visit Reason for Visit: Diagnoses Anemia, unspecified (08/23/24) Obesity, class 1 (08/23/24) Acute bronchitis due to respiratory syncytial virus (08/23/24) Chronic obstructive pulmonary disease with (acute) exacerbation (08/23/24) Acute respiratory failure with hypoxia (08/23/24) Personal history of other endocrine, nutritional and metabolic disease (08/23/24) Objective Data Objective Data Vital Signs: Vital Signs Temp Pulse Resp BP Pulse Ox O2 Del Method O2 Flow Rate 97.6 F L 71 20 H 124/82 H 99 Bi-pap 4 08/26/24 04:05 08/26/24 07:01 08/26/24 07:01 08/26/24 04:05 08/26/24 07:01 08/26/24 07:01 08/25/24 19:07 FiO2 25 08/26/24 07:01 Oxygen Flow Rate (L/min) 4 Oxygen Delivery Method Bi-pap Weight: 166 lb 0.129 oz Body Mass Index (BMI) 31.4 Intake & Output: Intake and Output for Last 24 Hours 08/24/24 08/25/24 08/26/24 23:59 23:59 23:59 Intake Total 1790 / 1790 650 / 650 Output Total 2 / 2 250 / 250 Balance 1788 / 1788 400 / 400 Lab / Micro Data 08/26/24 07:23 08/25/24 06:15 Labs: Laboratory Results - last 24 hr 08/25/24 06:15: B-Natriuretic Peptide 95.7 08/25/24 12:29: POC Glucose 250 H 08/25/24 16:59: POC Glucose 225 H 08/25/24 20:47: POC Glucose 227 H 08/25/24 23:30: Urine Color Yellow, Urine Clarity Clear, Urine pH 6.0, Ur Specific [place] 1.020, Urine Protein 15 H, Urine Glucose (UA) Normal, Urine Ketones Negative, Urine Occult Blood Negative, Urine Nitrite Negative, Urine Bilirubin Negative, Urine Urobilinogen Normal, Ur Leukocyte Esterase 100 H, Urine RBC 0 SEEN, Urine WBC 0 SEEN, Ur Squamous Epith Cells 0-5 SEEN, Urine Bacteria 0 SEEN, Urine Mucus 0 SEEN 08/26/24 07:23: WBC 8.4, RBC 3.35 L, Hgb 9.3 L, Hct 29.0 L, MCV 86.6, MCH 27.8, MCHC 32.1, RDW Std Deviation 47.3 H, RDW Coeff of Georgette 14.7 H, Plt Count 252, MPV 8.4, Immature Gran % (Auto) 1.400 H, Neut % (Auto) 79.2 H, Lymph % (Auto) 15.1 L, [place] % (Auto) 4.2, Eos % (Auto) 0.0, Baso % (Auto) 0.1, Absolute Neuts (auto) 6.6, Absolute Lymphs (auto) 1.26, Nucleated RBC % 0 Micro: Microbiology 08/23/24 20:31 Mucosa - Nose SARS-CoV-2, Influenza & RSV (PCR) - Final RSV Radiography Diagnostic Testing: Radiology Impression Chest X-Ray 08/25/24 13:30 IMPRESSION: Normal x-ray examination of the chest. Electronically Signed: Ankur Mills MD at 14:42 EST , Rhythm Strip Rhythm Strip: Sinus Tach Rate: 101 Ectopy: None Physical Exam Narrative Seen and examined Patient denies fever. Patient is still on BiPAP, gets very short of breath off BiPAP with exertional dyspnea with minimal exertion. Chronic coughs and brings up thick phlegm yellowish. History of COPD/asthma overlap syndrome. Patient is on oxygen at home with nebulizer but not on NIPPV Physical exam General: Alert, Oriented x3, Cooperative HEENT: Atraumatic, PERRLA, EOMI, Normocephalic Oral: No Gingival or Mucosal Lesions/ Ulcerations Neck: Supple, No JVD, Negative Carotid Bruits Chest wall/Lungs: Air entry severely diminished in all lung cardenas. Bilateral coarse rhonchi and crepitations. Tachypnea and hypoxia. Cardiovascular: Regular rate, Regular Rhythm, Normal S1, Normal S2, No M/G/R Abdomen: Bowel Sounds Present, Soft, Non Tender, Non-Distended : No dysuria. No renal angle tenderness. No suprapubic tenderness. Extremities: No edema, Capillary Refill Less than 3 Seconds Skin: No rashes, No breakdown Musculoskeletal: No Tenderness to Palpation of Joints or Extremities Neurological: Cranial nerves II-XII grossly intact, DTR 2+/4. No acute focal neurological deficit. Psych/Mental Status: Normal Affect, Appropriate. Assessment & Plan Assessment/Plan (1) Acute exacerbation of chronic obstructive pulmonary disease: (2) RSV infection: QUALIFIERS: RSV infection type: acute bronchitis Qualified Code(s): J20.5 - Acute bronchitis due to respiratory syncytial virus (3) Acute hypoxic respiratory failure: (4) Chronic anemia: (5) History of diabetes mellitus: (6) Obesity (BMI 30.0-34.9): PLAN: Plan 70-year-old female was admitted with shortness of breath, productive cough with thick yellowish sputum but no hemoptysis, wheezing since Thursday. On baseline 2 L of home oxygen. Patient had fatigue due to labored breathing in the evening of 08/24 therefore put on BiPAP. Patient is still very short of breath, wheezing and labored breathing. BiPAP as needed. 1. AE COPD with patient RSV+ on admission in the setting of previous tobacco abuse with a history of bronchiectasis - Admit to PCU. Start IV doxycycline and resume IV Solumedrol begun in the ER. Continue scheduled and prn nebulizers. Give Tylenol prn pain or fever with listed allergy to morphine (N/V/D). 08/25: With history of bronchiectasis and COPD, patient is still having shortness of breath labored breathing requiring NIPPV with productive yellowish sputum, repeat chest x-ray PA and lateral ordered. Was put on BiPAP in the evening or 08/24 patient started on IV ceftriaxone. Continue doxycycline. Pulmonary consult requested. 08/26: Patient was evaluated by stone decorator advised to continue BiPAP. No significant improvement in past 2 days on BiPAP. She also needs more intense nursing and respiratory therapist care therefore transferred to ICU. Patient is okay with intubation and ventilator and full code but does not want prolonged intubation that requires tracheostomy. 2. Acute on chronic hypoxic Respiratory failure requiring BiPAP - Wean BiPAP as tolerated. 08/25: ABG 7.37/39.5/170s 8 on BiPAP. Patient required BiPAP last night and is still short of breath and labored breathing. 08/26: Patient on 2 L of home oxygen at baseline. Smoking more than 35 pack years. 3. Severe Anemia with hemoglobin of 7 g/dL present on admission with history of chronic iron sensitive- Type and screen blood. Transfuse for hemoglobin <7 g/dL. Iron studies suggestive of low iron, normal TIBC, low iron saturation and ferritin. Ferrous sulfate IV ordered. B12 and folate normal. 08/25: Hemoglobin improved to 10 g. Patient did not require blood transfusion. 4. DM-2; uncontrolled with Hyperglycemia of 242 mg/dL present on admission3 - ADA diet. FSBS q. AC/HS plus SSI. Check HgbA1c to objectively assess quality of diabetic control. 08/25 glucose around 200-250 mg/dL. Scheduled Lantus and Humalog insulin ordered 08/26: Glucose still above 200, Humalog and Lantus insulin dose increased. Metformin on hold. 5. Obesity; with BMI of 32.5 this admission - Weight loss will be recommended. Check TSH. This complicates her case and may hamper recovery. 6. Essential hypertension; on furosemide - Continue current regimen plus give IV Hydralazine prn for systolic blood pressure > 160 mmHg. 7. Hyperlipidemia; on ezetemibe - Maintain ezetemibe 8. Hypothyroidism; on levothyroxine -TSH very low 0.213. Thyroxine dose was decreased 9. DM-2; of unknown control on metformin - ADA diet. FSBS q. AC/HS plus SSI. A1c 6.5%. 10. Other chronic comorbidities include depression, GERD, osteoporosis on denosumab and osteoarthritis DVT prophylaxis - Lovenox 40 mg sq daily plus SCD's. Stop LMWH if bleeding ensues. Clinical Impression(s) from Imaging Studies Chest X-Ray 08/23/24 20:55 IMPRESSION: No acute cardiopulmonary disease. Electronically Signed: Rodney Vee MD at 21:59 EST , Charges/Coding Addendum Addendum: Total time of the visit including total time spent in counseling or coordination of care, (more than 50% of the total time, spent in obtaining medical information from nurses and other ancillary care providers ,explaining to the patient about labs, imaging, diagnosis and management of active complex medical conditions), discussion with stone decorator, upgradation to ICU, review of labs and imaging is 35 minutes. Visit Charges Inpatient E&M: 54435 Subs Hosp L3
[2024-08-26 09:41] LABS: Anion Gap 5 (5-15); BUN 33 mg/dL (7-18); BUN/Creat Ratio 32.7 RATIO (10-20); Calcium,Total 8.3 mg/dL (8.5-10.1); Chloride 101 mmol/L (98-107); Creatinine, Serum 1.01 mg/dL (0.55-1.02); EST Glomerular Filtration Rate 56 mL/min (>60); Est Glom Filt Rate - Afr Amer 68 mL/min (>60); Estimated Creatinine Clearance 42.61 ml/min; Glucose 201 mg/dL (74-106); Potassium 4.2 mmol/L (3.5-5.1); Sodium Level 136 mmol/L (136-145)
--- NOTE | 2024-08-26 09:50 | PN.CC_ITS ---
Assessment & Plan Assessment/Plan (1) Acute exacerbation of chronic obstructive pulmonary disease: PLAN: Plan RECOMMENDATIONS: 1. Continue supplemental oxygen to maintain saturations at or above 90%. 2. Continue to monitor H&H and transfuse if hemoglobin drops below 7 g/dL. 3. Continue scheduled bronchodilators and IV steroids. 4. Continue BiPAP therapy nightly and PRN throughout the day. 5. Encourage incentive spirometer use and mobilize patient as tolerated. IMPRESSIONS: 1. COPD exacerbation with associated hypoxemia secondary to RSV infection The patient has known advanced age COPD and is currently followed by an outside engineering project designer at [facility]. She does not utilize supplemental oxygen at her baseline, with the exception of nightly. She is on a triple therapy inhaler regimen. Her chest imaging does not demonstrate any findings concerning for pneumonia. Rather, the patient was RSV positive. Therefore, it is reasonable to continue aggressive bronchopulmonary hygiene along with scheduled bronchodilators and corticosteroids. I do not see an overt indication for antimicrobials at this time. Continue supplemental oxygen to maintain saturations at or above 90%. BiPAP therapy can be continued on a nightly basis and as needed throughout the day. 2. History of diabetes mellitus/obesity/nocturnal hypoxemia/hypertension/hyperlipidemia/hypothyroidism Complicates care, management, recovery and prognosis. Continue home medications as indicated. This note was generated with [employer] dictation software. It may contain incorrect words, spelling, and punctuation that were not noted in checking the note before signing. Subjective Subjective The patient was seen and examined at the bedside this morning. Events from the last 24 hours have been reviewed. The patient is currently afebrile, hemodynamically stable and maintaining appropriate oxygen saturations on 4 L/min via nasal cannula. Upon my evaluation of the patient this morning, she was resting comfortably on BiPAP with an FiO2 of 25%. She had adequate tidal volumes. She reported that she rested well overnight, but still becomes short of breath with any form of exertion. She remains on scheduled bronchodilators and IV steroids. Objective Data Objective Data The patient's most recent lab work, culture data and imaging studies have all been personally reviewed. RSV PCR was positive on August 23. Vital Signs: Vital Signs Temp Pulse Resp BP Pulse Ox O2 Del Method O2 Flow Rate 97.6 F L 71 20 H 124/82 H 99 Bi-pap 4 08/26/24 04:05 08/26/24 07:01 08/26/24 07:01 08/26/24 04:05 08/26/24 07:01 08/26/24 07:01 08/25/24 19:07 FiO2 25 08/26/24 07:01 Oxygen Flow Rate (L/min) 4 Oxygen Delivery Method Bi-pap Weight: 166 lb 0.129 oz Body Mass Index (BMI) 31.4 Intake & Output: Intake and Output for Last 24 Hours 08/24/24 08/25/24 08/26/24 23:59 23:59 23:59 Intake Total 1790 / 1790 650 / 650 Output Total 250 / 250 Balance 1788 / 1788 400 / 400 Lab / Micro Data Attestation: I reviewed the patient's lab results. 08/26/24 07:23 08/26/24 07:23 Labs: Laboratory Results - last 24 hr 08/25/24 06:15: B-Natriuretic Peptide 95.7 08/25/24 12:29: POC Glucose 250 H 08/25/24 16:59: POC Glucose 225 H 08/25/24 20:47: POC Glucose 227 H 08/25/24 23:30: Urine Color Yellow, Urine Clarity Clear, Urine pH 6.0, Ur Specific [place] 1.020, Urine Protein 15 H, Urine Glucose (UA) Normal, Urine Ketones Negative, Urine Occult Blood Negative, Urine Nitrite Negative, Urine Bilirubin Negative, Urine Urobilinogen Normal, Ur Leukocyte Esterase 100 H, Urine RBC 0 SEEN, Urine WBC 0 SEEN, Ur Squamous Epith Cells 0-5 SEEN, Urine Bacteria 0 SEEN, Urine Mucus 0 SEEN 08/26/24 07:23: WBC 8.4, RBC 3.35 L, Hgb 9.3 L, Hct 29.0 L, MCV 86.6, MCH 27.8, MCHC 32.1, RDW Std Deviation 47.3 H, RDW Coeff of [place] 14.7 H, Plt Count 252, MPV 8.4, Immature Gran % (Auto) 1.400 H, Neut % (Auto) 79.2 H, Lymph % (Auto) 15.1 L , [place] % (Auto) 4.2, Eos % (Auto) 0.0, Baso % (Auto) 0.1, Absolute Neuts (auto) 6.6, Absolute Lymphs (auto) 1.26, Nucleated RBC % 0, Sodium 136, Potassium 4.2, Chloride 101, Carbon Dioxide 30.0, Anion Gap 5, BUN 33 H, Creatinine 1.01, Estim Creat Clear Calc 42.61, Est GFR (MDRD) Af Amer 68, Est GFR (MDRD) Non-Af 56 L, B UN/Creatinine Ratio 32.7 H, Glucose 201 H, Calcium 8.3 L Micro: Microbiology 08/23/24 20:31 Mucosa - Nose SARS-CoV-2, Influenza & RSV (PCR) - Final RSV Radiography Diagnostic Testing: Radiology Impression Chest X-Ray 08/25/24 13:30 IMPRESSION: Normal x-ray examination of the chest. Electronically Signed: Ankur Mills MD at 14:42 EST , Rhythm Strip Rhythm Strip: Sinus Tach Rate: 101 Ectopy: None Physical Exam Const alert, oriented x3 and no apparent distress General Appearance: cooperative HEENT normocephalic, head/scalp atraumatic and moist oral mucous membranes Eyes PERRL, EOMs intact bilaterally and conjunctivae normal Neck supple General: trachea midline Chest inspection of chest normal Resp Effort and Inspection: tachypneic Auscultation: diminished lung sounds Cardio regular rate and regular rhythm GI normal to inspection, nondistended, normoactive bowel sounds Extremity no clubbing, cyanosis or edema Skin no rashes or lesions noted Neuro CN's II-XII intact bilaterally, moves all extremities and no focal motor deficits Psych cooperative and affect normal Charges/Coding Visit Charges Inpatient E&M: 79450 Subs Hosp L2
[2024-08-26] MEDS: Furosemide 20 MG/2 ML VIAL IV (10:29)
[2024-08-26 10:30] LABS: Bedside Glucose 187 mg/dL (74-106)
[2024-08-26] MEDS: Insulin Lispro 100 UNIT/ML INSULN.PEN 10 UNIT SC (11:56)
[2024-08-26 12:18] LABS: Bedside Glucose 183 mg/dL (74-106)
[2024-08-26] MEDS: Ferrous Sulfate 325 MG Tablet PO (12:27)
[2024-08-26 17:20] LABS: Bedside Glucose 126 mg/dL (74-106)
[2024-08-26 20:36] LABS: Bedside Glucose 254 mg/dL (74-106)
[2024-08-27] VITALS (14 sets, daily range): BP systolic 128–152; BP diastolic 64–82; PULSE 67–92; RESP 12–24; TEMP 36.6–37.1; O2SAT 96–98; BMI 31.4
[2024-08-27] MEDS: Levothyroxine 50 MCG Tablet PO (04:17)
[2024-08-27] MEDS: Ipratropium/Albuterol Sulfate 3 ML AMPUL.NEB INHALATION ×6 (04:20→23:54)
[2024-08-27 07:07] LABS: Absolute Lymphocyte Count 1.72 X10^3/uL (0.83-4.51); Absolute Neutrophil Count 6.5 X10^3/uL (2.0-7.7); Basophil# 0.02 X10^3/uL; Basophil% 0.2 % (0-1); Hematocrit 30.1 % (37-47); Hemoglobin 9.6 g/dL (12.0-15.0); Lymphocyte # 1.72 X10^3/ul (0.83-4.51); Lymphocyte % 19.4 % (19-41); Mean Corp Hgb Conc 31.9 g/dL (32-36); Mean Corpuscular Hgb 28.3 pg (27.0-32.0); Mean Corpuscular Volume 88.8 fL (81-99); Mean Platelet Vol. 8.5 fl (6.2-12.0); Monocyte# 0.39 X10^3/uL; Monocyte% 4.4 % (0-10); NRBC Flagged by Analyzer 0 % (0-5); Neutrophil # 6.53 X10^3/uL (2.7-7.7); Neutrophil % 73.7 % (47-70); Platelet Count 270 K/mm3 (150-450); RBC Distribution Width CV 14.6 % (11.6-14.6); RBC Distribution Width SD 47.5 fl (35.1-43.9); Red Blood Count 3.39 M/mm3 (4.2-5.4); White Blood Count 8.9 K/mm3 (4.4-11.0)
[2024-08-27 07:56] LABS: Anion Gap 6 (5-15); BUN 35 mg/dL (7-18); Calcium,Total 8.3 mg/dL (8.5-10.1); Chloride 99 mmol/L (98-107); Creatinine, Serum 1.13 mg/dL (0.55-1.02); EST Glomerular Filtration Rate 49 mL/min (>60); Est Glom Filt Rate - Afr Amer 60 mL/min (>60); Estimated Creatinine Clearance 38.09 ml/min; Glucose 211 mg/dL (74-106); Potassium 4.3 mmol/L (3.5-5.1); Sodium Level 135 mmol/L (136-145)
[2024-08-27] MEDS: Calcium Carbonate 500 MG Tablet PO (08:26)
[2024-08-27] MEDS: Ascorbic Acid 500 MG Tablet 1000 MG PO ×2 (08:26→17:07)
[2024-08-27] MEDS: Insulin Lispro 100 UNIT/ML INSULN.PEN SC ×4 (08:41→21:53)
[2024-08-27] MEDS: Insulin Lispro 100 UNIT/ML INSULN.PEN 10 UNIT SC ×3 (08:42→17:08)
[2024-08-27] MEDS: Insulin Glargine-YFGN 100 UNIT/ML Pen 20 UNIT SC (08:42)
[2024-08-27] MEDS: Enoxaparin 40 MG/0.4 ML Syringe SC (09:00)
[2024-08-27] MEDS: dilTIAZem CD 120 MG Capsule PO (09:01)
[2024-08-27] MEDS: Pantoprazole Sodium 20 MG Tablet PO (09:02)
[2024-08-27] MEDS: guaiFENesin/D-Methorphan TAB.SR.12H 2 TABLET PO ×2 (09:02→21:51)
[2024-08-27] MEDS: Escitalopram Oxalate 10 MG Tablet 5 MG PO (09:02)
[2024-08-27] MEDS: Ezetimibe 10 MG Tablet PO (09:02)
[2024-08-27] MEDS: Doxycycline 100 MG CAPSULE PO ×2 (09:02→21:51)
[2024-08-27] MEDS: Cholecalciferol (Vit D3) 125 MCG CAPSULE (5,000 UNITS) PO (09:04)
[2024-08-27 09:32] LABS: Bedside Glucose 212 mg/dL (74-106)
[2024-08-27] MEDS: Ferrous Sulfate 325 MG Tablet PO (12:37)
[2024-08-27] MEDS: 0.9% Saline Lock 10 ML Syringe IV ×2 (12:37→21:51)
[2024-08-27 13:00] LABS: Bedside Glucose 182 mg/dL (74-106)
--- NOTE | 2024-08-27 13:55 | PCM.PN.HOSP ---
Reason for Visit Reason for Visit: Diagnoses Anemia, unspecified (08/23/24) Obesity, class 1 (08/23/24) Acute bronchitis due to respiratory syncytial virus (08/23/24) Chronic obstructive pulmonary disease with (acute) exacerbation (08/23/24) Acute respiratory failure with hypoxia (08/23/24) Personal history of other endocrine, nutritional and metabolic disease (08/23/24) Objective Data Objective Data Vital Signs: Vital Signs Temp Pulse Resp BP Pulse Ox O2 Del Method O2 Flow Rate 97.9 F 78 16 142/66 H 97 Nasal Cannula 4 08/27/24 08:00 08/27/24 11:00 08/27/24 11:00 08/27/24 08:00 08/27/24 11:00 08/27/24 11:00 08/27/24 13:25 FiO2 25 08/27/24 04:27 Oxygen Flow Rate (L/min) 4 Oxygen Delivery Method Nasal Cannula Weight: 166 lb 0.129 oz Body Mass Index (BMI) 31.4 Intake & Output: Intake and Output for Last 24 Hours 08/25/24 08/26/24 08/27/24 23:59 23:59 23:59 Intake Total 650 / 650 480 / 480 Output Total 250 / 250 500 / 800 650 / 650 Balance 400 / 400 -20 / -320 -650 / -650 Lab / Micro Data 08/27/24 06:36 08/27/24 06:36 Labs: Laboratory Results - last 24 hr 08/26/24 16:52: POC Glucose 126 H 08/26/24 20:07: POC Glucose 254 H 08/27/24 06:36: WBC 8.9, RBC 3.39 L, Hgb 9.6 L, Hct 30.1 L, MCV 88.8, MCH 28.3, MCHC 31.9 L, RDW Std Deviation 47.5 H, RDW Coeff of [place] 14.6, Plt Count 270, MPV 8.5, Immature Gran % (Auto) 2.300 H, Neut % (Auto) 73.7 H, Lymph % (Auto) 19.4, [place] % (Auto) 4.4, Eos % (Auto) 0.0, Baso % (Auto) 0.2, Absolute Neuts (auto) 6.5, Absolute Lymphs (auto) 1.72, Nucleated RBC % 0, Sodium 135 L, Potassium 4.3, Chloride 99, Carbon Dioxide 30.0, Anion Gap 6, BUN 35 H, Creatinine 1.13 H, Estim Creat Clear Calc 38.09, Est GFR (MDRD) Af Amer 60, Est GFR (MDRD) Non-Af 49 L, BUN/Creatinine Ratio 31.0 H, Glucose 211 H, Calcium 8.3 L 08/27/24 08:39: POC Glucose 212 H 08/27/24 12:32: POC Glucose 182 H Micro: Microbiology 08/23/24 20:31 Mucosa - Nose SARS-CoV-2, Influenza & RSV (PCR) - Final RSV Rhythm Strip Rhythm Strip: Sinus Tach Rate: 101 Ectopy: None Physical Exam Narrative Seen and examined Shortness of breath is better. Used BiPAP at night. Currently off BiPAP, on 3.5 to 4 L of oxygen. Intermittent tachypnea. Dyspnea is better Chronic coughs and brings up thick phlegm yellowish. History of COPD/asthma overlap syndrome. Patient is on oxygen at home with nebulizer but not on NIPPV Physical exam General: Alert, Oriented x3, Cooperative HEENT: Atraumatic, PERRLA, EOMI, Normocephalic Oral: No Gingival or Mucosal Lesions/ Ulcerations Neck: Supple, No JVD, Negative Carotid Bruits Chest wall/Lungs: Air entry severely diminished in all lung cardenas. Bilateral coarse rhonchi and crepitations. Tachypnea and hypoxia. Cardiovascular: Regular rate, Regular Rhythm, Normal S1, Normal S2, No M/G/R Abdomen: Bowel Sounds Present, Soft, Non Tender, Non-Distended : No dysuria. No renal angle tenderness. No suprapubic tenderness. Extremities: No edema, Capillary Refill Less than 3 Seconds Skin: No rashes, No breakdown Musculoskeletal: No Tenderness to Palpation of Joints or Extremities Neurological: Cranial nerves II-XII grossly intact, DTR 2+/4. No acute focal neurological deficit. Psych/Mental Status: Normal Affect, Appropriate. Assessment & Plan Assessment/Plan (1) Acute exacerbation of chronic obstructive pulmonary disease: (2) RSV infection: QUALIFIERS: RSV infection type: acute bronchitis Qualified Code(s): J20.5 - Acute bronchitis due to respiratory syncytial virus (3) Acute hypoxic respiratory failure: (4) Chronic anemia: (5) History of diabetes mellitus: (6) Obesity (BMI 30.0-34.9): PLAN: Plan 70-year-old female was admitted with shortness of breath, productive cough with thick yellowish sputum but no hemoptysis, wheezing since Thursday. On baseline 2 L of home oxygen. Patient had fatigue due to labored breathing in the evening of 08/24 therefore put on BiPAP. Patient is still very short of breath, wheezing and labored breathing. BiPAP as needed. 1. AE COPD with patient RSV+ on admission in the setting of previous tobacco abuse with a history of bronchiectasis - Admit to PCU. Start IV doxycycline and resume IV Solumedrol begun in the ER. Continue scheduled and prn nebulizers. Give Tylenol prn pain or fever with listed allergy to morphine (N/V/D). 08/25: With history of bronchiectasis and COPD, patient is still having shortness of breath labored breathing requiring NIPPV with productive yellowish sputum, repeat chest x-ray PA and lateral ordered. Was put on BiPAP in the evening or 08/24 patient started on IV ceftriaxone. Continue doxycycline. Pulmonary consult requested. 08/26: Patient was evaluated by sanitary engineering teacher advised to continue BiPAP. No significant improvement in past 2 days on BiPAP. She also needs more intense nursing and respiratory therapist care therefore transferred to ICU. Patient is okay with intubation and ventilator and full code but does not want prolonged intubation that requires tracheostomy. 08/27: Patient feels better. In the morning she was off the BiPAP. Advised aggressive bronchopulmonary hygiene and mobilization. 2. Acute on chronic hypoxic Respiratory failure requiring BiPAP - Wean BiPAP as tolerated. 08/25: ABG 7.37/39.5/170s 8 on BiPAP. Patient required BiPAP last night and is still short of breath and labored breathing. 08/26: Patient on 2 L of home oxygen at baseline. Smoking more than 35 pack years. 08/27: Currently on 3 to 4 L of oxygen. 3. Severe Anemia with hemoglobin of 7 g/dL present on admission with history of chronic iron sensitive- Type and screen blood. Transfuse for hemoglobin <7 g/dL. Iron studies suggestive of low iron, normal TIBC, low iron saturation and ferritin. Ferrous sulfate IV ordered. B12 and folate normal. 08/25: Hemoglobin improved to 10 g. Patient did not require blood transfusion. 4. DM-2; uncontrolled with Hyperglycemia of 242 mg/dL present on admission3 - ADA diet. FSBS q. AC/HS plus SSI. Check HgbA1c to objectively assess quality of diabetic control. 08/25 glucose around 200-250 mg/dL. Scheduled Lantus and Humalog insulin ordered 08/26: Glucose still above 200, Humalog and Lantus insulin dose increased. Metformin on hold. 5. Obesity; with BMI of 32.5 this admission - Weight loss will be recommended. This complicates her case and may hamper recovery. 6. Essential hypertension; on furosemide - Continue current regimen plus give IV Hydralazine prn for systolic blood pressure > 160 mmHg. 7. Hyperlipidemia; on ezetemibe - Maintain ezetemibe 8. Hypothyroidism; on levothyroxine -TSH very low 0.213. Thyroxine dose was decreased 9. DM-2; of unknown control on metformin - ADA diet. FSBS q. AC/HS plus SSI. A1c 6.5%. 10. Other chronic comorbidities include depression, GERD, osteoporosis on denosumab and osteoarthritis DVT prophylaxis - Lovenox 40 mg sq daily plus SCD's. Stop LMWH if bleeding ensues. Clinical Impression(s) from Imaging Studies Chest X-Ray 08/23/24 20:55 IMPRESSION: No acute cardiopulmonary disease. Electronically Signed: Rodney Vee MD at 21:59 EST , Charges/Coding Visit Charges Inpatient E&M: 21042 Subs Hosp L2
[2024-08-27 17:30] LABS: Bedside Glucose 233 mg/dL (74-106)
[2024-08-27 22:25] LABS: Bedside Glucose 260 mg/dL (74-106)
[2024-08-27] MEDS: Temazepam 15 MG Capsule PO (22:31)
[2024-08-28] VITALS (11 sets, daily range): BP systolic 135–145; BP diastolic 68–78; PULSE 67–82; RESP 12–22; TEMP 36.6–36.9; O2SAT 94–98; BMI 30.1
[2024-08-28] MEDS: Ipratropium/Albuterol Sulfate 3 ML AMPUL.NEB INHALATION ×5 (04:29→21:56)
[2024-08-28] MEDS: 0.9% Saline Lock 10 ML Syringe IV ×3 (05:41→21:12)
[2024-08-28] MEDS: Levothyroxine 50 MCG Tablet PO (05:41)
[2024-08-28 06:33] LABS: Absolute Lymphocyte Count 2.17 X10^3/uL (0.83-4.51); Absolute Neutrophil Count 6.5 X10^3/uL (2.0-7.7); Basophil# 0.01 X10^3/uL; Basophil% 0.1 % (0-1); Hematocrit 30.1 % (37-47); Hemoglobin 9.7 g/dL (12.0-15.0); Lymphocyte # 2.17 X10^3/ul (0.83-4.51); Lymphocyte % 22.8 % (19-41); Mean Corp Hgb Conc 32.2 g/dL (32-36); Mean Corpuscular Hgb 27.8 pg (27.0-32.0); Mean Corpuscular Volume 86.2 fL (81-99); Mean Platelet Vol. 8.3 fl (6.2-12.0); Monocyte# 0.51 X10^3/uL; Monocyte% 5.4 % (0-10); NRBC Flagged by Analyzer 0 % (0-5); Neutrophil # 6.46 X10^3/uL (2.7-7.7); Platelet Count 271 K/mm3 (150-450); RBC Distribution Width CV 14.3 % (11.6-14.6); RBC Distribution Width SD 45.1 fl (35.1-43.9); Red Blood Count 3.49 M/mm3 (4.2-5.4); White Blood Count 9.5 K/mm3 (4.4-11.0)
[2024-08-28] MEDS: Polyethylene Glycol 3350 17 GM PACKET PO (09:06)
[2024-08-28] MEDS: Enoxaparin 40 MG/0.4 ML Syringe SC (09:06)
[2024-08-28] MEDS: Lactulose 20 GM/30 ML UDC 30 GM PO (09:06)
[2024-08-28] MEDS: Escitalopram Oxalate 10 MG Tablet 5 MG PO (09:07)
[2024-08-28] MEDS: Calcium Carbonate 500 MG Tablet PO (09:07)
[2024-08-28] MEDS: Pantoprazole Sodium 20 MG Tablet PO (09:07)
[2024-08-28] MEDS: Doxycycline 100 MG CAPSULE PO ×2 (09:07→21:12)
[2024-08-28] MEDS: Ezetimibe 10 MG Tablet PO (09:08)
[2024-08-28] MEDS: Ascorbic Acid 500 MG Tablet 1000 MG PO ×2 (09:08→17:55)
[2024-08-28] MEDS: Cholecalciferol (Vit D3) 125 MCG CAPSULE (5,000 UNITS) PO (09:08)
[2024-08-28] MEDS: guaiFENesin/D-Methorphan TAB.SR.12H 2 TABLET PO ×2 (09:08→21:11)
[2024-08-28] MEDS: Insulin Lispro 100 UNIT/ML INSULN.PEN SC ×4 (09:20→21:10)
[2024-08-28] MEDS: Insulin Lispro 100 UNIT/ML INSULN.PEN 10 UNIT SC ×3 (09:20→17:55)
[2024-08-28] MEDS: dilTIAZem CD 120 MG Capsule PO (09:21)
[2024-08-28] MEDS: Insulin Glargine-YFGN 100 UNIT/ML Pen 20 UNIT SC (09:21)
[2024-08-28 09:45] LABS: Bedside Glucose 179 mg/dL (74-106)
[2024-08-28] MEDS: Ferrous Sulfate 325 MG Tablet PO (11:44)
[2024-08-28 12:06] LABS: Bedside Glucose 199 mg/dL (74-106)
--- NOTE | 2024-08-28 15:24 | PN.HOSP_ITS ---
Reason for Visit Reason for Visit: Diagnoses Anemia, unspecified (08/23/24) Obesity, class 1 (08/23/24) Acute bronchitis due to respiratory syncytial virus (08/23/24) Chronic obstructive pulmonary disease with (acute) exacerbation (08/23/24) Acute respiratory failure with hypoxia (08/23/24) Personal history of other endocrine, nutritional and metabolic disease (08/23/24) Objective Data Objective Data Vital Signs: Vital Signs Temp Pulse Resp BP Pulse Ox O2 Del Method O2 Flow Rate 98.4 F 80 18 138/68 H 94 Nasal Cannula 3 08/28/24 10:00 08/28/24 14:32 08/28/24 14:32 08/28/24 10:00 08/28/24 12:11 08/28/24 10:00 08/28/24 12:11 FiO2 25 08/28/24 08:02 Oxygen Flow Rate (L/min) 3 Oxygen Delivery Method Nasal Cannula Weight: 159 lb 6.307 oz Body Mass Index (BMI) 30.1 Intake & Output: Intake and Output for Last 24 Hours 08/26/24 08/27/24 08/28/24 23:59 23:59 23:59 Intake Total 480 / 480 Output Total 500 / 800 650 / 1150 500 / 500 Balance -20 / -320 -650 / -1150 -500 / -500 Lab / Micro Data 08/28/24 06:10 08/27/24 06:36 Labs: Laboratory Results - last 24 hr 08/27/24 17:06: POC Glucose 233 H 08/27/24 21:52: POC Glucose 260 H 08/28/24 06:10: WBC 9.5, RBC 3.49 L, Hgb 9.7 L, Hct 30.1 L, MCV 86.2, MCH 27.8, MCHC 32.2, RDW Std Deviation 45.1 H, RDW Coeff of Georgette 14.3, Plt Count 271, MPV 8.3, Immature Gran % (Auto) 3.700 H, Neut % (Auto) 68.0, Lymph % (Auto) 22.8, [place] % (Auto) 5.4, Eos % (Auto) 0.0, Baso % (Auto) 0.1, Absolute Neuts (auto) 6.5, Absolute Lymphs (auto) 2.17, Nucleated RBC % 0 08/28/24 09:19: POC Glucose 179 H 08/28/24 11:39: POC Glucose 199 H Micro: Microbiology 08/28/24 12:05 Stool Stool Occult Blood (EMELYN) - Final 08/23/24 20:31 Mucosa - Nose SARS-CoV-2, Influenza & RSV (PCR) - Final RSV Rhythm Strip Rhythm Strip: Sinus Tach Rate: 101 Ectopy: None Physical Exam Narrative Seen and examined Shortness of breath is better. Used BiPAP at night. Currently off BiPAP, on 3 L oxygen. Respiratory rate around 18-20 pulm not better than yesterday. Chronic coughs and brings up thick phlegm yellowish. History of COPD/asthma overlap syndrome. Patient is on oxygen at home with nebulizer but not on NIPPV Physical exam General: Alert, Oriented x3, Cooperative HEENT: Atraumatic, PERRLA, EOMI, Normocephalic Oral: No Gingival or Mucosal Lesions/ Ulcerations Neck: Supple, No JVD, Negative Carotid Bruits Chest wall/Lungs: Air entry severely diminished in all lung cardenas. Bilateral coarse rhonchi and crepitations. Dyspnea on mild exertion. Hypoxia. Cardiovascular: Regular rate, Regular Rhythm, Normal S1, Normal S2, No M/G/R Abdomen: Bowel Sounds Present, Soft, Non Tender, Non-Distended : No dysuria. No renal angle tenderness. No suprapubic tenderness. Extremities: No edema, Capillary Refill Less than 3 Seconds Skin: No rashes, No breakdown Musculoskeletal: No Tenderness to Palpation of Joints or Extremities Neurological: Cranial nerves II-XII grossly intact, DTR 2+/4. No acute focal neurological deficit. Psych/Mental Status: Normal Affect, Appropriate. Const alert and oriented x3 Constitutional Narrative: Mild distress noted with chronically ill appearance. General Appearance: cooperative HEENT normocephalic, head/scalp atraumatic, hearing grossly normal bilaterally and moist oral mucous membranes Eyes PERRL and EOMs intact bilaterally Neck no lymphadenopathy and supple Resp Resp Narrative: Diminished breath sounds throughout with scattered wheezes. Auscultation: wheezes Cardio regular rate and regular rhythm GI normal to inspection, nondistended, normoactive bowel sounds, soft to palpation, non-tender and non-distended Extremity normal to inspection, full ROM and no clubbing, cyanosis or edema Skin Skin Narrative: Patient has no evidence of rash, abscess or jaundice. Neuro oriented x3, CN's II-XII intact bilaterally, moves all extremities and no focal motor deficits Sensorium / Orientation: awake, alert, oriented to person, oriented to place and oriented to time Speech: speech normal Psych affect normal Assessment & Plan Assessment/Plan (1) Acute exacerbation of chronic obstructive pulmonary disease: (2) RSV infection: QUALIFIERS: RSV infection type: acute bronchitis Qualified Code(s): J20.5 - Acute bronchitis due to respiratory syncytial virus (3) Acute hypoxic respiratory failure: (4) Chronic anemia: (5) History of diabetes mellitus: (6) Obesity (BMI 30.0-34.9): PLAN: Plan 70-year-old female was admitted with shortness of breath, productive cough with thick yellowish sputum but no hemoptysis, wheezing since Thursday. On baseline 2 L of home oxygen. Patient had fatigue due to labored breathing in the evening of 08/24 therefore put on BiPAP. Patient is still very short of breath, wheezing and labored breathing. BiPAP as needed. 1. AE COPD with patient RSV+ on admission in the setting of previous tobacco abuse with a history of bronchiectasis - Admit to PCU. Start IV doxycycline and resume IV Solumedrol begun in the ER. Continue scheduled and prn nebulizers. Give Tylenol prn pain or fever with listed allergy to morphine (N/V/D). 08/25: With history of bronchiectasis and COPD, patient is still having shortness of breath labored breathing requiring NIPPV with productive yellowish sputum, repeat chest x-ray PA and lateral ordered. Was put on BiPAP in the evening or 08/24 patient started on IV ceftriaxone. Continue doxycycline. Pulmonary consult requested. 08/26: Patient was evaluated by vending route servicer advised to continue BiPAP. No significant improvement in past 2 days on BiPAP. She also needs more intense nursing and respiratory therapist care therefore transferred to ICU. Patient is okay with intubation and ventilator and full code but does not want prolonged intubation that requires tracheostomy. 08/27: Patient feels better. In the morning she was off the BiPAP. Advised aggressive bronchopulmonary hygiene and mobilization. 08/28: Improvement in oxygenation and ventilation. Patient able to be off BiPAP for longer time. Continue BiPAP as needed during daytime and at night. Scheduled 2. Acute on chronic hypoxic Respiratory failure requiring BiPAP - Wean BiPAP as tolerated. 08/25: ABG 7.37/39.5/170s 8 on BiPAP. Patient required BiPAP last night and is still short of breath and labored breathing. 08/26: Patient on 2 L of home oxygen at baseline. Smoking more than 35 pack years. 08/27: Currently on 3 to 4 L of oxygen. 3. Severe Anemia with hemoglobin of 7 g/dL present on admission with history of chronic iron sensitive- Type and screen blood. Transfuse for hemoglobin <7 g/dL. Iron studies suggestive of low iron, normal TIBC, low iron saturation and ferritin. Ferrous sulfate IV ordered. B12 and folate normal. 08/25: Hemoglobin improved to 10 g. Patient did not require blood transfusion. 4. DM-2; uncontrolled with Hyperglycemia of 242 mg/dL present on admission3 - ADA diet. FSBS q. AC/HS plus SSI. Check HgbA1c to objectively assess quality of diabetic control. 08/25 glucose around 200-250 mg/dL. Scheduled Lantus and Humalog insulin ordered 08/26: Glucose still above 200, Humalog and Lantus insulin dose increased. Metformin on hold. 5. Obesity; with BMI of 32.5 this admission - Weight loss will be recommended. This complicates her case and may hamper recovery. 6. Essential hypertension; on furosemide - Continue current regimen plus give IV Hydralazine prn for systolic blood pressure > 160 mmHg. 7. Hyperlipidemia; on ezetemibe - Maintain ezetemibe 8. Hypothyroidism; on levothyroxine -TSH very low 0.213. Thyroxine dose was decreased 9. DM-2; of unknown control on metformin - ADA diet. FSBS q. AC/HS plus SSI. A1c 6.5%. 10. Other chronic comorbidities include depression, GERD, osteoporosis on denosumab and osteoarthritis DVT prophylaxis - Lovenox 40 mg sq daily plus SCD's. Stop LMWH if bleeding ensues. Clinical Impression(s) from Imaging Studies Chest X-Ray 08/23/24 20:55 IMPRESSION: No acute cardiopulmonary disease. Electronically Signed: Rodney Vee MD at 21:59 EST , Charges/Coding Visit Charges Inpatient E&M: 60769 Subs Hosp L2
[2024-08-28 17:10] LABS: Bedside Glucose 176 mg/dL (74-106)
[2024-08-28] MEDS: Temazepam 15 MG Capsule PO (21:12)
--- NOTE | 2024-08-28 21:52 | PN.CC_ITS ---
Objective Data Objective Data Vital Signs: Vital Signs Last response 3 Temperature 36.7 C 08/28/24 16:00 Temperature Source Temporal 08/28/24 16:00 Pulse Rate 68 08/28/24 16:00 Pulse Strength Weak (1+) 08/27/24 21:50 Respiratory Rate 18 08/28/24 16:00 Respiratory Effort Normal, Non-Labored 08/28/24 03:00 Respiratory Depth Normal 08/28/24 03:00 Respiratory Pattern Normal 08/28/24 14:32 Blood Pressure 135/72 H 08/28/24 16:00 Blood Pressure Mean 93 08/28/24 16:00 Blood Pressure Source Monitor 08/28/24 16:00 Blood Pressure Position Semi-Fowlers 08/28/24 16:00 Blood Pressure Location Right Arm 08/28/24 16:00 Pulse Ox 97 08/28/24 16:00 Oxygen Delivery Method Bi-pap 08/28/24 16:00 Oxygen Flow Rate (L/min) 3 08/28/24 12:11 Fraction of Inspired Oxygen (FIO2) 08/28/24 16:00 I&O: I&O Last 24 Hours 3 08/27/24 08/28/24 08/28/24 23:59 11:59 23:59 Output Total 500 / 500 Balance -500 / -500 I&O: Total Stay 3 08/23/24 20:12 thru 08/28/24 17:19 Intake Total 2920 Output Total 1902 Balance 1018 Current Meds Ordered / Administered: Current meds ordered / Administered 3 Generic Name Dose Route Start Last Admin Trade Name Freq PRN Reason Stop Dose Admin Acetaminophen 650 mg 08/23/24 22:44 08/24/24 08:28 Acetaminophen 325 Mg Tablet PO 650 mg Q6H PRN PRN Administration Pain 1-10 Or Fever>100.7 Albuterol/Ipratropium 3 ml 08/24/24 13:15 08/28/24 14:32 Ipratropium/Albuterol Sulfate 3 Ml Ampul.Neb INHALATION 3 ml Q4HWA.RT MADDY Administration Ascorbic Acid 1,000 mg 08/24/24 08:00 08/28/24 17:55 Ascorbic Acid 500 Mg Tablet PO 1,000 mg BIDCM MADDY Administration Calcium Carbonate 500 mg 08/24/24 08:00 08/28/24 09:07 Calcium Carbonate 500 Mg Tablet PO 500 mg DAILY@0800 MADDY Administration Cholecalciferol 125 mcg 08/24/24 10:00 08/28/24 09:08 Cholecalciferol (Vit D3) 125 Mcg Capsule (5,000 Units) PO 125 mcg DAILY MADDY Administration Diltiazem HCl 120 mg 08/24/24 10:00 08/28/24 09:21 Diltiazem Cd 120 Mg Capsule PO 120 mg DAILY MADDY Administration Protocol Doxycycline Monohydrate 100 mg 08/24/24 22:00 08/28/24 21:12 Doxycycline 100 Mg Capsule PO 100 mg BID MADDY Administration Ezetimibe 10 mg 08/24/24 10:00 08/28/24 09:08 Ezetimibe 10 Mg Tablet PO 10 mg DAILY MADDY Administration Enoxaparin Sodium 40 mg 08/24/24 10:00 08/28/24 09:06 Enoxaparin 40 Mg/0.4 Ml Syringe SC 40 mg DAILY MADDY Administration Escitalopram Oxalate 5 mg 08/24/24 10:00 08/28/24 09:07 Escitalopram Oxalate 10 Mg Tablet PO 5 mg DAILY MADDY Administration Ferrous Sulfate 325 mg 08/24/24 12:00 08/28/24 11:44 Ferrous Sulfate 325 Mg Tablet PO 325 mg DAILY@1200 [facility] Administration Glucagon 1 mg 08/23/24 22:44 Glucagon 1 Mg/Ml Syringe IM X1 PRN HYPOGLYCEMIA Protocol Guaifenesin 2 tablet 08/24/24 13:05 08/28/24 21:11 Guaifenesin/D-Methorphan Tab.Sr.12h PO 2 tablet BID MADDY Administration Sodium Chloride 100 mls @ 15 mls/hr 08/23/24 22:41 IV .Q6H40M PRN Saline Flush Sodium Chloride 100 mls @ 15 mls/hr 08/23/24 22:41 IV .Q6H40M PRN Additional IVPB Infusion Dextrose 250 mls @ 0 mls/hr 08/23/24 22:44 Dextrose 10%-Water IV .Q0M PRN HYPOGLYCEMIA Protocol As Directed Insulin Glargine 20 unit 08/27/24 10:00 08/28/24 09:21 Insulin Glargine-Yfgn 100 Unit/Ml Pen SC 20 unit DAILY MADDY Administration Insulin Human Lispro 0 unit 08/23/24 22:44 08/28/24 21:10 Insulin Lispro 100 Unit/Ml Insuln.Pen SC 2 unit ACHS MADDY Administration Protocol Insulin Human Lispro 10 unit 08/26/24 11:00 08/28/24 17:55 Insulin Lispro 100 Unit/Ml Insuln.Pen SC 10 u TIDAC MADDY Administration Levothyroxine Sodium 50 mcg 08/25/24 06:00 08/28/24 05:41 Levothyroxine 50 Mcg Tablet PO 50 mcg 0600 MADDY Administration Melatonin 10 mg 08/24/24 14:06 Melatonin 10 Mg Tablet PO QHS PRN PRN INSOMNIA Methylprednisolone 40 mg 08/24/24 14:00 08/28/24 21:12 Methylprednisolone 40 Mg/Ml Vial IV 40 mg Q8 MADDY Administration Pantoprazole Sodium 20 mg 08/24/24 10:00 08/28/24 09:07 Pantoprazole Sodium 20 Mg Tablet PO 20 mg DAILY MADDY Administration Promethazine HCl 25 mg 08/23/24 22:44 Promethazine 25 Mg/Ml Syringe IM Q6H PRN PRN Breakthrough Nausea/Vomiting Sodium Chloride 10 - 40 ml 08/23/24 22:41 08/28/24 21:12 0.9% Saline Lock 10 Ml Syringe IV 10 ml UD PRN Administration SALINE FLUSH Temazepam 15 mg 08/28/24 18:37 08/28/24 21:12 Temazepam 15 Mg Capsule PO 15 mg QHS PRN Administration SLEEP Lab / Micro Data 08/28/24 06:10 08/27/24 06:36 Labs: Laboratory Results - last 24 hr 08/27/24 21:52: POC Glucose 260 H 08/28/24 06:10: WBC 9.5, RBC 3.49 L, Hgb 9.7 L, Hct 30.1 L, MCV 86.2, MCH 27.8, MCHC 32.2, RDW Std Deviation 45.1 H, RDW Coeff of Georgette 14.3, Plt Count 271, MPV 8.3, Immature Gran % (Auto) 3.700 H, Neut % (Auto) 68.0, Lymph % (Auto) 22.8, [place] % (Auto) 5.4, Eos % (Auto) 0.0, Baso % (Auto) 0.1, Absolute Neuts (auto) 6.5, Absolute Lymphs (auto) 2.17, Nucleated RBC % 0 12/29/24 09:19: POC Glucose 179 H 08/28/24 11:39: POC Glucose 199 H 08/28/24 16:51: POC Glucose 176 H Micro: Microbiology 08/28/24 12:05 Stool Stool Occult Blood (EMELYN) - Final Rhythm Strip Rhythm Strip: Sinus Tach Rate: 101 Ectopy: None Assessment and Plan . Assessment and plan: Patient seen and examined Chart and data reviewed 78 yo obese woman w/ COPD admitted w/ dyspnea and hypoxemia She has required supplemental O2 and NIV support Acute RSV infection She is breathing 3 LPM O2 alternating w/ NIV support She appears quite comfortable EXAM GEN NAD - NIV VS as above HEENT o/p clear NECK supple COR RRR CHEST diminished ABD soft EXT no edema SKIN w/d ADAM NF ASSESSMENT 1. Acute respiratory failure requiring NIV support and supplemental O2 2. AECOPD 3. RSV infection 4. Obesity TREATMENT PLAN -O2 as needed -NIV as needed -continue IV steroids and inhaled BD The entirety of this encounter was done via Telemedicine
[2024-08-28 23:27] LABS: Bedside Glucose 250 mg/dL (74-106)
[2024-08-29] VITALS (17 sets, daily range): BP systolic 134–146; BP diastolic 52–67; PULSE 68–87; RESP 12–24; TEMP 36.2–36.4; O2SAT 95–99; BMI 30.9
[2024-08-29] MEDS: Levothyroxine 50 MCG Tablet PO (05:49)
[2024-08-29] MEDS: 0.9% Saline Lock 10 ML Syringe IV ×2 (05:49→23:00)
[2024-08-29 06:15] LABS: Anion Gap 3 (5-15); BUN 33 mg/dL (7-18); BUN/Creat Ratio 32.4 RATIO (10-20); Calcium,Total 8.6 mg/dL (8.5-10.1); Chloride 98 mmol/L (98-107); Creatinine, Serum 1.02 mg/dL (0.55-1.02); EST Glomerular Filtration Rate 56 mL/min (>60); Est Glom Filt Rate - Afr Amer 67 mL/min (>60); Estimated Creatinine Clearance 41.85 ml/min; Glucose 196 mg/dL (74-106); Potassium 4.8 mmol/L (3.5-5.1); Sodium Level 132 mmol/L (136-145)
[2024-08-29 06:17] LABS: Absolute Lymphocyte Count 3.27 X10^3/uL (0.83-4.51); Absolute Neutrophil Count 8.6 X10^3/uL (2.0-7.7); Basophil# 0.05 X10^3/uL; Basophil% 0.4 % (0-1); Hemoglobin 10.1 g/dL (12.0-15.0); Lymphocyte # 3.27 X10^3/ul (0.83-4.51); Lymphocyte % 24.8 % (19-41); Mean Corp Hgb Conc 32.6 g/dL (32-36); Mean Corpuscular Hgb 28.2 pg (27.0-32.0); Mean Corpuscular Volume 86.6 fL (81-99); Mean Platelet Vol. 8.6 fl (6.2-12.0); Monocyte# 0.61 X10^3/uL; Monocyte% 4.6 % (0-10); NRBC Flagged by Analyzer 0 % (0-5); Neutrophil # 8.62 X10^3/uL (2.7-7.7); Neutrophil % 65.4 % (47-70); Platelet Count 298 K/mm3 (150-450); RBC Distribution Width CV 14.2 % (11.6-14.6); RBC Distribution Width SD 45.3 fl (35.1-43.9); Red Blood Count 3.58 M/mm3 (4.2-5.4); White Blood Count 13.2 K/mm3 (4.4-11.0)
[2024-08-29] MEDS: Ipratropium/Albuterol Sulfate 3 ML AMPUL.NEB INHALATION ×5 (07:15→22:58)
[2024-08-29] MEDS: Insulin Lispro 100 UNIT/ML INSULN.PEN SC ×4 (08:34→21:21)
[2024-08-29] MEDS: Insulin Lispro 100 UNIT/ML INSULN.PEN 10 UNIT SC ×3 (08:35→16:28)
[2024-08-29] MEDS: guaiFENesin/D-Methorphan TAB.SR.12H 2 TABLET PO ×2 (08:50→22:24)
[2024-08-29] MEDS: Enoxaparin 40 MG/0.4 ML Syringe SC (08:50)
[2024-08-29] MEDS: Insulin Glargine-YFGN 100 UNIT/ML Pen 20 UNIT SC (08:50)
[2024-08-29] MEDS: Ascorbic Acid 500 MG Tablet 1000 MG PO ×2 (08:51→16:31)
[2024-08-29] MEDS: Escitalopram Oxalate 10 MG Tablet 5 MG PO (08:51)
[2024-08-29] MEDS: dilTIAZem CD 120 MG Capsule PO (08:51)
[2024-08-29] MEDS: Cholecalciferol (Vit D3) 125 MCG CAPSULE (5,000 UNITS) PO (08:51)
[2024-08-29] MEDS: Pantoprazole Sodium 20 MG Tablet PO (08:52)
[2024-08-29] MEDS: Doxycycline 100 MG CAPSULE PO ×2 (08:52→22:24)
[2024-08-29] MEDS: Ezetimibe 10 MG Tablet PO (08:52)
[2024-08-29] MEDS: Calcium Carbonate 500 MG Tablet PO (08:52)
[2024-08-29 09:18] LABS: Bedside Glucose 180 mg/dL (74-106)
--- NOTE | 2024-08-29 09:41 | CASEMGMT ---
Social Work SW met w/pt in room in regard to discharge plan. Pt states she is feeling a little bit better today, but still needing to use the bipapp after every time she gets up. Pt would prefer to go home if possible, but may consider [facility] or [facility]CU if needed. Pt inquired how long she would need to go to a facility, SW explained the referral and precert process, and that the insurance will help determine this, but SW estimated 1-2 weeks. Pt states understanding. SW explained we can see how things go today, speak to physician, see how PT goes and then decide if a referral should be made. Pt states understanding, agreeable to speak w/SW again later about plan. Plan: TBD, home vs SNF JEROD Winchester
[2024-08-29] MEDS: Ferrous Sulfate 325 MG Tablet PO (11:37)
[2024-08-29 12:01] LABS: Bedside Glucose 220 mg/dL (74-106)
--- NOTE | 2024-08-29 14:01 | CASEMGMT ---
Social Work SW spoke w/pt again this afternoon. SW let her know physician does think she should go somewhere for rehab. SW inquired about making a referral to [place] as she had mentioned it earlier. Pt actually asked about going to TCU. SW let her know will make referral. She also asked SW to call her daughter Sera. SW called Sera, could not leave a message as voicemail is not set up. SW called TCU, referral made, awaiting to hear back. JEROD Winchester
--- NOTE | 2024-08-29 14:42 | CASEMGMT ---
Addendum entered by Silvia Gil 08/29/24 16:40: Social Work SW spoke w/daughter Sera. She is in agreement w/pt going to SNF, she is fine w/TCU or [place]. She let SW know also pt's insurance changes Aug 31. SW explained this means we will need to wait until Sep 01 to get precert with the new insurance. She states pt has the new card in her purse here. SW also explained if pt improves more w/PT she may still be able to return home. SW let her know waiting to hear from TCU if they would take pt. SW will follow up on Thursday. JEROD Winchester Addendum entered by Silvia Gil 08/29/24 15:16: Social Work SW spoke w/pt, let her know tried to call her daughter and the phone did not have a voicemail. SW verified her daughter's phone number and we have it incorrectly in the computer, her phone number is [phone]. Pt inquired how long she would be authorized to go, SW explained that it depends on the insurance. Pt then informed SW her insurance changes to [facility] on Aug 31. This may impact when pt can go to SNF, may not be able to try for authorization until September 01. SW called Junie in TCU to inquire about insurance, message left. SW called daughter Sera, message left. JEROD Winchester Original Note: Social Work Referral made to TCU, TCU to let SW know tomorrow if they can take pt. JEROD Winchester
--- NOTE | 2024-08-29 14:48 | PCM.PN.HOSP ---
Reason for Visit Reason for Visit: Diagnoses Anemia, unspecified (08/23/24) Obesity, class 1 (08/23/24) Acute bronchitis due to respiratory syncytial virus (08/23/24) Chronic obstructive pulmonary disease with (acute) exacerbation (08/23/24) Acute respiratory failure with hypoxia (08/23/24) Personal history of other endocrine, nutritional and metabolic disease (08/23/24) Objective Data Objective Data Vital Signs: Vital Signs Temp Pulse Resp BP Pulse Ox O2 Del Method O2 Flow Rate 97.6 F L 86 22 H 142/62 H 97 Nasal Cannula 2 08/29/24 08:31 08/29/24 10:26 08/29/24 10:26 08/29/24 08:31 08/29/24 09:52 08/29/24 14:06 08/29/24 14:06 FiO2 25 08/29/24 04:30 Oxygen Flow Rate (L/min) 2 Oxygen Delivery Method Nasal Cannula Weight: 163 lb 5.8 oz Body Mass Index (BMI) 30.9 Intake & Output: Intake and Output for Last 24 Hours 08/27/24 08/28/24 08/29/24 23:59 23:59 23:59 Intake Total 500 / 500 Output Total 650 / 1150 500 / 500 Balance -650 / -1150 -500 / -500 500 / 500 Lab / Micro Data 08/29/24 05:22 08/29/24 05:22 Labs: Laboratory Results - last 24 hr 08/28/24 16:51: POC Glucose 176 H 08/28/24 21:08: POC Glucose 250 H 08/29/24 05:22: WBC 13.2 H, RBC 3.58 L, Hgb 10.1 L, Hct 31.0 L, MCV 86.6, MCH 28.2, MCHC 32.6, RDW Std Deviation 45.3 H, RDW Coeff of Georgette 14.2, Plt Count 298, MPV 8.6, Immature Gran % (Auto) 4.800 H, Neut % (Auto) 65.4, Lymph % (Auto) 24.8, [place] % (Auto) 4.6, Eos % (Auto) 0.0, Baso % (Auto) 0.4, Absolute Neuts (auto) 8.6 H, Absolute Lymphs (auto) 3.27, Nucleated RBC % 0, Sodium 132 L, Potassium 4.8, Chloride 98, Carbon Dioxide 31.0, Anion Gap 3 L, BUN 33 H, Creatinine 1.02, Estim Creat Clear Calc 41.85, Est GFR (MDRD) Af Amer 67, Est GFR (MDRD) Non-Af 56 L, BUN/Creatinine Ratio 32.4 H, Glucose 196 H, Calcium 8.6 08/29/24 08:30: POC Glucose 180 H 08/29/24 11:35: POC Glucose 220 H Micro: Microbiology 08/28/24 12:05 Stool Stool Occult Blood (EMELYN) - Final 08/23/24 20:31 Mucosa - Nose SARS-CoV-2, Influenza & RSV (PCR) - Final RSV Rhythm Strip Rhythm Strip: Sinus Tach Rate: 101 Ectopy: None Physical Exam Narrative Seen and examined Patient is gradually getting better. She still has dyspnea on exertion on going to bathroom. Requires BiPAP at night. Cough is better. History of COPD/asthma overlap syndrome. Patient is on oxygen at home with nebulizer but not on NIPPV Physical exam General: Alert, Oriented x3, Cooperative HEENT: Atraumatic, PERRLA, EOMI, Normocephalic Oral: No Gingival or Mucosal Lesions/ Ulcerations Neck: Supple, No JVD, Negative Carotid Bruits Chest wall/Lungs: Air entry diminished in all lung cardenas. Mild coarse crepitations/wheezing. Dyspnea on mild exertion. Hypoxia. Cardiovascular: Regular rate, Regular Rhythm, Normal S1, Normal S2, No M/G/R Abdomen: Bowel Sounds Present, Soft, Non Tender, Non-Distended : No dysuria. No renal angle tenderness. No suprapubic tenderness. Extremities: No edema, Capillary Refill Less than 3 Seconds Skin: No rashes, No breakdown Musculoskeletal: No Tenderness to Palpation of Joints or Extremities Neurological: Cranial nerves II-XII grossly intact, DTR 2+/4. No acute focal neurological deficit. Psych/Mental Status: Normal Affect, Appropriate. Assessment & Plan Assessment/Plan (1) Acute exacerbation of chronic obstructive pulmonary disease: (2) RSV infection: QUALIFIERS: RSV infection type: acute bronchitis Qualified Code(s): J20.5 - Acute bronchitis due to respiratory syncytial virus (3) Acute hypoxic respiratory failure: (4) Chronic anemia: (5) History of diabetes mellitus: (6) Obesity (BMI 30.0-34.9): PLAN: Plan 70-year-old female was admitted with shortness of breath, productive cough with thick yellowish sputum but no hemoptysis, wheezing since Thursday. On baseline 2 L of home oxygen. Patient had fatigue due to labored breathing in the evening of 08/24 therefore put on BiPAP. Patient is still very short of breath, wheezing and labored breathing. BiPAP as needed. 1. AE COPD with patient RSV+ on admission in the setting of previous tobacco abuse with a history of bronchiectasis - Admit to PCU. Start IV doxycycline and resume IV Solumedrol begun in the ER. Continue scheduled and prn nebulizers. Give Tylenol prn pain or fever with listed allergy to morphine (N/V/D). 08/25: With history of bronchiectasis and COPD, patient is still having shortness of breath labored breathing requiring NIPPV with productive yellowish sputum, repeat chest x-ray PA and lateral ordered. Was put on BiPAP in the evening or 08/24 patient started on IV ceftriaxone. Continue doxycycline. Pulmonary consult requested. 08/26: Patient was evaluated by assistant professor of biology advised to continue BiPAP. No significant improvement in past 2 days on BiPAP. She also needs more intense nursing and respiratory therapist care therefore transferred to ICU. Patient is okay with intubation and ventilator and full code but does not want prolonged intubation that requires tracheostomy. 08/27: Patient feels better. In the morning she was off the BiPAP. Advised aggressive bronchopulmonary hygiene and mobilization. 08/28: Improvement in oxygenation and ventilation. Patient able to be off BiPAP for longer time. Continue BiPAP as needed during daytime and at night. Scheduled 08/29: Patient is getting better but is still requires BiPAP. Therefore cannot discharge home. Home oxygen qualification test ordered. Patient also gets short of breath/dyspnea on walking. 2. Acute on chronic hypoxic Respiratory failure requiring BiPAP - Wean BiPAP as tolerated. 08/25: ABG 7.37/39.5/170s 8 on BiPAP. Patient required BiPAP last night and is still short of breath and labored breathing. 08/26: Patient on 2 L of home oxygen at baseline. Smoking more than 35 pack years. 08/27: Currently on 3 to 4 L of oxygen. 3. Severe Anemia with hemoglobin of 7 g/dL present on admission with history of chronic iron sensitive- Type and screen blood. Transfuse for hemoglobin <7 g/dL. Iron studies suggestive of low iron, normal TIBC, low iron saturation and ferritin. Ferrous sulfate IV ordered. B12 and folate normal. 08/25: Hemoglobin improved to 10 g. Patient did not require blood transfusion. 08/29: 4. DM-2; uncontrolled with Hyperglycemia of 242 mg/dL present on admission3 - ADA diet. FSBS q. AC/HS plus SSI. Check HgbA1c to objectively assess quality of diabetic control. 08/25 glucose around 200-250 mg/dL. Scheduled Lantus and Humalog insulin ordered 08/26: Glucose still above 200, Humalog and Lantus insulin dose increased. Metformin on hold. 08/29: Glucose is 196. A1c 6.5%. 5. Obesity; with BMI of 32.5 this admission - Weight loss will be recommended. This complicates her case and may hamper recovery. 6. Essential hypertension; on furosemide - Continue current regimen plus give IV Hydralazine prn for systolic blood pressure > 160 mmHg. 7. Hyperlipidemia; on ezetemibe - Maintain ezetemibe 8. Hypothyroidism; on levothyroxine -TSH very low 0.213. Thyroxine dose was decreased 9. DM-2; of unknown control on metformin - ADA diet. FSBS q. AC/HS plus SSI. A1c 6.5%. 10. Other chronic comorbidities include depression, GERD, osteoporosis on denosumab and osteoarthritis DVT prophylaxis - Lovenox 40 mg sq daily plus SCD's. Stop LMWH if bleeding ensues. Clinical Impression(s) from Imaging Studies Chest X-Ray 08/23/24 20:55 IMPRESSION: No acute cardiopulmonary disease. Electronically Signed: Rodney Vee MD at 21:59 EST , Charges/Coding Visit Charges Inpatient E&M: 67265 Subs Hosp L2
[2024-08-29 17:01] LABS: Bedside Glucose 170 mg/dL (74-106)
[2024-08-29 22:03] LABS: Bedside Glucose 372 mg/dL (74-106)
[2024-08-30] VITALS (13 sets, daily range): BP systolic 129–151; BP diastolic 59–66; PULSE 70–85; RESP 12–24; TEMP 36.2–36.6; O2SAT 95–99; BMI 30.9
[2024-08-30] MEDS: Levothyroxine 50 MCG Tablet PO (04:48)
[2024-08-30] MEDS: 0.9% Saline Lock 10 ML Syringe IV ×2 (04:49→22:11)
[2024-08-30] MEDS: Ipratropium/Albuterol Sulfate 3 ML AMPUL.NEB INHALATION ×4 (07:16→22:45)
[2024-08-30] MEDS: Insulin Lispro 100 UNIT/ML INSULN.PEN SC ×4 (08:44→22:14)
[2024-08-30] MEDS: Insulin Glargine-YFGN 100 UNIT/ML Pen 20 UNIT SC (08:44)
[2024-08-30] MEDS: Insulin Lispro 100 UNIT/ML INSULN.PEN 10 UNIT SC ×3 (08:44→16:22)
[2024-08-30] MEDS: Enoxaparin 40 MG/0.4 ML Syringe SC (08:45)
[2024-08-30 09:39] LABS: Bedside Glucose 214 mg/dL (74-106)
--- NOTE | 2024-08-30 10:14 | CASEMGMT ---
Addendum entered by Silvia Gil 08/30/24 11:04: Social Work Pt's daughter emailed SW the insurance card, SW forwarded it on to financial services and Junie in TCU. SW spoke w/pt, let her know TCU can take her, but she will be here until 09/01 as we cannot work on precert until her insurance changes. Pt in agreement w/plan. SW to follow up on 09/01. JEROD Winchester Original Note: Social Work TCU can take pt, though won't be able to start precert until 09/01 since pt's insurance changes tomorrow. SW will get a copy of pt's insurance card from her. SW attempted to let pt know, she is sleeping soundly. SW called daughter Sera to let her know that TCU can take pt. She informed SW that she actually has pt's insurance card, will email it to SW. CYNTHIA will get it to registration once SW receives it. JEROD Winchester
[2024-08-30] MEDS: guaiFENesin/D-Methorphan TAB.SR.12H 2 TABLET PO ×2 (10:35→22:10)
[2024-08-30] MEDS: Ezetimibe 10 MG Tablet PO (10:35)
[2024-08-30] MEDS: Escitalopram Oxalate 10 MG Tablet 5 MG PO (10:35)
[2024-08-30] MEDS: Pantoprazole Sodium 20 MG Tablet PO (10:35)
[2024-08-30] MEDS: Ascorbic Acid 500 MG Tablet 1000 MG PO ×2 (10:35→16:22)
[2024-08-30] MEDS: Doxycycline 100 MG CAPSULE PO ×2 (10:36→22:11)
[2024-08-30] MEDS: Cholecalciferol (Vit D3) 125 MCG CAPSULE (5,000 UNITS) PO (10:36)
[2024-08-30] MEDS: Calcium Carbonate 500 MG Tablet PO (10:36)
[2024-08-30] MEDS: dilTIAZem CD 120 MG Capsule PO (10:36)
[2024-08-30] MEDS: Ferrous Sulfate 325 MG Tablet PO (12:48)
[2024-08-30 13:13] LABS: Bedside Glucose 227 mg/dL (74-106)
[2024-08-30 16:46] LABS: Bedside Glucose 250 mg/dL (74-106)
--- NOTE | 2024-08-30 17:51 | PN.HOSP_ITS ---
Reason for Visit Reason for Visit: Diagnoses Anemia, unspecified (08/23/24) Obesity, class 1 (08/23/24) Acute bronchitis due to respiratory syncytial virus (08/23/24) Chronic obstructive pulmonary disease with (acute) exacerbation (08/23/24) Acute respiratory failure with hypoxia (08/23/24) Personal history of other endocrine, nutritional and metabolic disease (08/23/24) Objective Data Objective Data Vital Signs: Vital Signs Temp Pulse Resp BP Pulse Ox O2 Del Method O2 Flow Rate 97.1 F L 70 18 151/59 H 97 Room Air 2 08/30/24 15:34 08/30/24 15:34 08/30/24 15:34 08/30/24 15:34 08/30/24 15:34 08/30/24 15:34 08/30/24 13:53 FiO2 25 08/30/24 03:13 Oxygen Flow Rate (L/min) 2 Oxygen Delivery Method Room Air Weight: 163 lb 5.8 oz Body Mass Index (BMI) 30.9 Intake & Output: Intake and Output for Last 24 Hours 08/28/24 08/29/24 08/30/24 23:59 23:59 23:59 Intake Total 1000 / 1000 700 / 700 Output Total 500 / 500 Balance -500 / -500 1000 / 1000 700 / 700 Lab / Micro Data 08/29/24 05:22 08/29/24 05:22 Labs: Laboratory Results - last 24 hr 08/29/24 21:20: POC Glucose 372 H 08/30/24 08:43: POC Glucose 214 H 08/30/24 12:46: POC Glucose 227 H 08/30/24 16:21: POC Glucose 250 H Micro: Microbiology 08/28/24 12:05 Stool Stool Occult Blood (EMELYN) - Final 08/23/24 20:31 Mucosa - Nose SARS-CoV-2, Influenza & RSV (PCR) - Final RSV Rhythm Strip Rhythm Strip: Sinus Tach Rate: 101 Ectopy: None Physical Exam Narrative Seen and examined Patient is gradually getting better. Still on BiPAP at night and in the morning today. She still has dyspnea on exertion on going to bathroom. Cough is better. History of COPD/asthma overlap syndrome. Patient is on oxygen at home with nebulizer but not on NIPPV Physical exam General: Alert, Oriented x3, Cooperative HEENT: Atraumatic, PERRLA, EOMI, Normocephalic Oral: No Gingival or Mucosal Lesions/ Ulcerations Neck: Supple, No JVD, Negative Carotid Bruits Chest wall/Lungs: Air entry improving lung cardenas. Coarse crepitations in bilateral lung bases but dyspnea on mild exertion. Tachypnea. Cardiovascular: Regular rate, Regular Rhythm, Normal S1, Normal S2, No M/G/R Abdomen: Bowel Sounds Present, Soft, Non Tender, Non-Distended : No dysuria. No renal angle tenderness. No suprapubic tenderness. Extremities: No edema, Capillary Refill Less than 3 Seconds Skin: No rashes, No breakdown Musculoskeletal: No Tenderness to Palpation of Joints or Extremities Neurological: Cranial nerves II-XII grossly intact, DTR 2+/4. No acute focal neurological deficit. Psych/Mental Status: Normal Affect, Appropriate. Assessment & Plan Assessment/Plan (1) Acute exacerbation of chronic obstructive pulmonary disease: (2) RSV infection: QUALIFIERS: RSV infection type: acute bronchitis Qualified Code(s): J20.5 - Acute bronchitis due to respiratory syncytial virus (3) Acute hypoxic respiratory failure: (4) Chronic anemia: (5) History of diabetes mellitus: (6) Obesity (BMI 30.0-34.9): PLAN: Plan 70-year-old female was admitted with shortness of breath, productive cough with thick yellowish sputum but no hemoptysis, wheezing since Thursday. On baseline 2 L of home oxygen. Patient had fatigue due to labored breathing in the evening of 08/24 therefore put on BiPAP. Patient is still very short of breath, wheezing and labored breathing. BiPAP as needed. 1. AE COPD with patient RSV+ on admission in the setting of previous tobacco abuse with a history of bronchiectasis - Admit to PCU. Start IV doxycycline and resume IV Solumedrol begun in the ER. Continue scheduled and prn nebulizers. Give Tylenol prn pain or fever with listed allergy to morphine (N/V/D). 08/25: With history of bronchiectasis and COPD, patient is still having shortness of breath labored breathing requiring NIPPV with productive yellowish sputum, repeat chest x-ray PA and lateral ordered. Was put on BiPAP in the evening or 08/24 patient started on IV ceftriaxone. Continue doxycycline. Pulmonary consult requested. 08/26: Patient was evaluated by test center administrator advised to continue BiPAP. No significant improvement in past 2 days on BiPAP. She also needs more intense nursing and respiratory therapist care therefore transferred to ICU. Patient is okay with intubation and ventilator and full code but does not want prolonged intubation that requires tracheostomy. 08/27: Patient feels better. In the morning she was off the BiPAP. Advised aggressive bronchopulmonary hygiene and mobilization. 08/28: Improvement in oxygenation and ventilation. Patient able to be off BiPAP for longer time. Continue BiPAP as needed during daytime and at night. Scheduled 08/29: Patient is getting better but is still requires BiPAP. Therefore cannot discharge home. Home oxygen qualification test ordered. Patient also gets short of breath/dyspnea on walking. 08/30: Patient is still on requires BiPAP at night and as needed during the day with tachypnea for almost 1 week therefore probably will require SNF. Oxygen was tapered to 2 L in the morning and most recent pulse ox though 97% on room air in afternoon. 2. Acute on chronic hypoxic Respiratory failure requiring BiPAP - Wean BiPAP as tolerated. 08/25: ABG 7.37/39.5/170s 8 on BiPAP. Patient required BiPAP last night and is still short of breath and labored breathing. 08/26: Patient on 2 L of home oxygen at baseline. Smoking more than 35 pack years. 08/27: Currently on 3 to 4 L of oxygen. 08/30: Still requires PAP support as mentioned above 3. Severe Anemia with hemoglobin of 7 g/dL present on admission with history of chronic iron sensitive- Type and screen blood. Transfuse for hemoglobin <7 g/dL. Iron studies suggestive of low iron, normal TIBC, low iron saturation and ferritin. Ferrous sulfate IV ordered. B12 and folate normal. 08/25: Hemoglobin improved to 10 g. Patient did not require blood transfusion. 08/30: H&H 10.1/31%. 4. DM-2; uncontrolled with Hyperglycemia of 242 mg/dL present on admission3 - ADA diet. FSBS q. AC/HS plus SSI. Check HgbA1c to objectively assess quality of diabetic control. 08/25 glucose around 200-250 mg/dL. Scheduled Lantus and Humalog insulin ordered 08/26: Glucose still above 200, Humalog and Lantus insulin dose increased. Metformin on hold. 08/29: Glucose is 196. A1c 6.5%. 5. Obesity; with BMI of 32.5 this admission - Weight loss will be recommended. This complicates her case and may hamper recovery. 6. Essential hypertension; on furosemide - Continue current regimen plus give IV Hydralazine prn for systolic blood pressure > 160 mmHg. 7. Hyperlipidemia; on ezetemibe - Maintain ezetemibe 8. Hypothyroidism; on levothyroxine -TSH very low 0.213. Thyroxine dose was decreased 9. DM-2; of unknown control on metformin - ADA diet. FSBS q. AC/HS plus SSI. A1c 6.5%. 10. Other chronic comorbidities include depression, GERD, osteoporosis on denosumab and osteoarthritis DVT prophylaxis - Lovenox 40 mg sq daily plus SCD's. Stop LMWH if bleeding ensues. Clinical Impression(s) from Imaging Studies Chest X-Ray 08/23/24 20:55 IMPRESSION: No acute cardiopulmonary disease. Electronically Signed: Rodney Vee MD at 21:59 EST , Charges/Coding Visit Charges Inpatient E&M: 37024 Subs Hosp L2
[2024-08-30 23:07] LABS: Bedside Glucose 243 mg/dL (74-106)
[2024-08-31] VITALS (11 sets, daily range): BP systolic 135–154; BP diastolic 62–66; PULSE 77–96; RESP 18–22; TEMP 36.6–37.3; O2SAT 96–100; BMI 30.9
[2024-08-31] MEDS: Levothyroxine 50 MCG Tablet PO (04:27)
[2024-08-31 05:47] LABS: Anion Gap 7 (5-15); BUN 37 mg/dL (7-18); BUN/Creat Ratio 28.7 RATIO (10-20); Chloride 97 mmol/L (98-107); Creatinine, Serum 1.29 mg/dL (0.55-1.02); EST Glomerular Filtration Rate 42 mL/min (>60); Est Glom Filt Rate - Afr Amer 51 mL/min (>60); Estimated Creatinine Clearance 33.16 ml/min; Glucose 300 mg/dL (74-106); Potassium 4.7 mmol/L (3.5-5.1); Sodium Level 131 mmol/L (136-145)
[2024-08-31] MEDS: Insulin Lispro 100 UNIT/ML INSULN.PEN SC ×4 (06:57→21:24)
[2024-08-31 07:19] LABS: Bedside Glucose 284 mg/dL (74-106)
[2024-08-31] MEDS: Ipratropium/Albuterol Sulfate 3 ML AMPUL.NEB INHALATION ×4 (07:20→22:00)
[2024-08-31] MEDS: Ascorbic Acid 500 MG Tablet 1000 MG PO ×2 (08:39→16:30)
[2024-08-31] MEDS: Calcium Carbonate 500 MG Tablet PO (08:39)
[2024-08-31] MEDS: Insulin Lispro 100 UNIT/ML INSULN.PEN 10 UNIT SC ×3 (08:44→16:33)
[2024-08-31 09:48] LABS: Bedside Glucose 264 mg/dL (74-106)
[2024-08-31] MEDS: Escitalopram Oxalate 10 MG Tablet 5 MG PO (10:33)
[2024-08-31] MEDS: Ezetimibe 10 MG Tablet PO (10:33)
[2024-08-31] MEDS: dilTIAZem CD 120 MG Capsule PO (10:33)
[2024-08-31] MEDS: guaiFENesin/D-Methorphan TAB.SR.12H 2 TABLET PO ×2 (10:33→21:19)
[2024-08-31] MEDS: Enoxaparin 40 MG/0.4 ML Syringe SC (10:34)
[2024-08-31] MEDS: Pantoprazole Sodium 20 MG Tablet PO (10:34)
[2024-08-31] MEDS: Cholecalciferol (Vit D3) 125 MCG CAPSULE (5,000 UNITS) PO (10:34)
[2024-08-31] MEDS: Doxycycline 100 MG CAPSULE PO ×2 (10:34→21:20)
[2024-08-31] MEDS: Insulin Glargine-YFGN 100 UNIT/ML Pen 20 UNIT SC (10:38)
[2024-08-31] MEDS: Ferrous Sulfate 325 MG Tablet PO (11:47)
[2024-08-31 12:13] LABS: Bedside Glucose 220 mg/dL (74-106)
[2024-08-31] MEDS: 0.9% Saline Lock 10 ML Syringe IV ×2 (14:24→21:32)
--- NOTE | 2024-08-31 15:03 | PCM.PN.HOSP ---
Reason for Visit Reason for Visit: Diagnoses Anemia, unspecified (08/23/24) Obesity, class 1 (08/23/24) Acute bronchitis due to respiratory syncytial virus (08/23/24) Chronic obstructive pulmonary disease with (acute) exacerbation (08/23/24) Acute respiratory failure with hypoxia (08/23/24) Personal history of other endocrine, nutritional and metabolic disease (08/23/24) Subjective Subjective Patient is a 70-year-old lady admitted with progressive shortness of breath productive cough as well as wheezing. An assessment of acute hypoxic respiratory failure requiring BiPAP made admitted to monitored bed for further management Objective Data Objective Data Vital Signs: Vital Signs Temp Pulse Resp BP Pulse Ox O2 Del Method O2 Flow Rate 97.9 F 82 20 H 154/62 H 97 Nasal Cannula 2 08/31/24 10:44 08/31/24 11:36 08/31/24 11:36 08/31/24 10:44 08/31/24 10:44 08/31/24 10:44 08/31/24 10:44 FiO2 08/31/24 03:30 Oxygen Flow Rate (L/min) 2 Oxygen Delivery Method Nasal Cannula Weight: 74.4 kg Body Mass Index (BMI) 30.9 Intake & Output: Intake and Output for Last 24 Hours 08/29/24 08/30/24 08/31/24 23:59 23:59 23:59 Intake Total 1000 / 1000 700 / 950 350 / 350 Balance 1000 / 1000 700 / 950 350 / 350 Lab / Micro Data 08/29/24 05:22 08/31/24 04:49 Labs: Laboratory Results - last 24 hr 08/30/24 16:21: POC Glucose 250 H 08/30/24 22:13: POC Glucose 243 H 08/31/24 04:49: Sodium 131 L, Potassium 4.7, Chloride 97 L, Carbon Dioxide 27.0, Anion Gap 7, BUN 37 H, Creatinine 1.29 H, Estim Creat Clear Calc 33.16, Est GFR (MDRD) Af Amer 51 L, Est GFR (MDRD) Non-Af 42 L, BUN/Creatinine Ratio 28.7 H, Glucose 300 H, Calcium 9.0 08/31/24 06:54: POC Glucose 284 H 08/31/24 08:42: POC Glucose 264 H 08/31/24 11:49: POC Glucose 220 H Micro: Microbiology 08/28/24 12:05 Stool Stool Occult Blood (EMELYN) - Final 08/23/24 20:31 Mucosa - Nose SARS-CoV-2, Influenza & RSV (PCR) - Final RSV Rhythm Strip Rhythm Strip: Sinus Tach Rate: 101 Ectopy: None Physical Exam Narrative GENERAL: cooperative HEENT: Atraumatic; normocephalic EYES; Anicteric, Normal Conjunctiva NECK; supple, normal thyroid, RESPIRATORY: Diminished to auscultation CARDIOVASCULAR: Regular S1 S2, GI: soft, normoactive bowel sounds, : No Renal angle tenderness; EXTREMITIES: No edema, no clubbing, MUSCULOSKELETAL: no muscle wasting NEURO: Awake; no lateralizing signs. SKIN: No Rash PSYCH; Flat affect Assessment & Plan Assessment/Plan (1) Acute exacerbation of chronic obstructive pulmonary disease: (2) RSV infection: QUALIFIERS: RSV infection type: acute bronchitis Qualified Code(s): J20.5 - Acute bronchitis due to respiratory syncytial virus (3) Acute hypoxic respiratory failure: (4) Chronic anemia: (5) History of diabetes mellitus: (6) Obesity (BMI 30.0-34.9): PLAN: Plan Patient is a 70-year-old lady admitted with progressive shortness of breath productive cough as well as wheezing. An assessment of acute hypoxic respiratory failure requiring BiPAP made admitted to monitored bed for further management 1. Acute on chronic hypoxic respiratory failure ? Due to combination of COPD exacerbation, RSV infection. Patient managed with noninvasive ventilation BiPAP goal is to wean off to nasal cannula prior to patient being assessed for discharge to a group home facility 2. COPD with acute exacerbation ? Patient started on bronchodilator treatment, systemic steroid as well as antibiotic therapy. Patient placed on oxygen titrated to keep saturation greater than 90. 3. RSV infection ? Complicating patient respiratory failure treated symptomatically 4. Anemia ? Secondary to chronic disorder monitoring H&H and transfuse if patient becomes symptomatic or hemoglobin falls below 7 5. Diabetes mellitus type II -patient's oral hypoglycemics held. Placed on long acting insulin, Accu-Cheks a.c. and at bedtime and covered with sliding scale insulin 6. Hypothyroidism ? Patient is on levothyroxine home dose continued 7. Chronic hypoxic respiratory failure ? Patient is on baseline home oxygen 2 L at rest 8. Hypertension ? Blood pressure controlled, home medications continued with dose adjustment as needed 9. Dyslipidemia ? Patient is on his Antiminth did continue 10. Osteoporosis ? Patient is on denosumab as outpatient 11. Osteoarthritis ? Pain meds as needed 12. Class I obesity with BMI of 31 ? Weight loss advised 13. GERD ? On PPI 14. DVT prophylaxis ? On enoxaparin Time spent in the patient's overall evaluation,decision-making process, review of diagnostic data, adjustment of management, discussion with other providers, nursing nursing and ancillary staff involved in patient's care documentation, 50 Minutes Charges/Coding Visit Charges Inpatient E&M: [id number] [facility] Hosp L3
[2024-08-31] MEDS: Temazepam 15 MG Capsule PO (21:20)
[2024-08-31 22:19] LABS: Bedside Glucose 319 mg/dL (74-106)
[2024-08-31 22:19] LABS: Bedside Glucose 265 mg/dL (74-106)
[2024-09-01] VITALS (11 sets, daily range): BP systolic 98–134; BP diastolic 51–87; PULSE 70–89; RESP 18–20; TEMP 36.5–37.1; O2SAT 93–99; BMI 31.4
[2024-09-01 06:00] LABS: Hematocrit 31.6 % (37-47); Hemoglobin 10.3 g/dL (12.0-15.0); Mean Corp Hgb Conc 32.6 g/dL (32-36); Mean Corpuscular Hgb 28.3 pg (27.0-32.0); Mean Corpuscular Volume 86.8 fL (81-99); Mean Platelet Vol. 8.4 fl (6.2-12.0); POSITIVE COUNT YES; POSITIVE MORPHOLOGY YES; Platelet Count 302 K/mm3 (150-450); RBC Distribution Width CV 14.4 % (11.6-14.6); RBC Distribution Width SD 46.1 fl (35.1-43.9); Red Blood Count 3.64 M/mm3 (4.2-5.4); White Blood Count 19.2 K/mm3 (4.4-11.0)
[2024-09-01 06:02] LABS: Differential Indicated MANUAL DIFF
[2024-09-01 06:19] LABS: Anion Gap 5 (5-15); BUN 36 mg/dL (7-18); BUN/Creat Ratio 29.8 RATIO (10-20); Calcium,Total 8.6 mg/dL (8.5-10.1); Chloride 97 mmol/L (98-107); Creatinine, Serum 1.21 mg/dL (0.55-1.02); EST Glomerular Filtration Rate 46 mL/min (>60); Est Glom Filt Rate - Afr Amer 55 mL/min (>60); Estimated Creatinine Clearance 35.64 ml/min; Glucose 246 mg/dL (74-106); Magnesium 2.2 mg/dL (1.6-2.6); Phosphorus 3.7 mg/dL (2.5-4.9); Potassium 4.6 mmol/L (3.5-5.1); Sodium Level 132 mmol/L (136-145)
[2024-09-01 06:21] LABS: Neutrophil-Band 1 % (0-5); Neutrophil-Segmented 77 % (47-70); Total Cells Counted 100 (MANUAL DIFF)
[2024-09-01 06:22] LABS: Absolute Neutrophil Count 14.8 X10^3/uL (2.0-7.7); Lymphocyte 15 % (19-41); Metamyelocyte 3 % (0-1); Monocyte 3 % (0-10); Myelocyte 1 % (0-0); Neutrophil # 14.79 X10^3/uL (2.7-7.7)
[2024-09-01 06:23] LABS: Absolute Lymphocyte Count 2.88 X10^3/uL (0.83-4.51); Lymphocyte # 2.88 X10^3/ul (0.83-4.51); Platelet Estimate ADEQUATE (ADEQ); Red Cell Morphology NORM C+C NORMAL (NORM C&C)
[2024-09-01] MEDS: Levothyroxine 50 MCG Tablet PO (06:50)
[2024-09-01] MEDS: 0.9% Saline Lock 10 ML Syringe IV ×3 (06:50→20:20)
[2024-09-01] MEDS: Insulin Lispro 100 UNIT/ML INSULN.PEN SC ×4 (06:51→20:19)
[2024-09-01 07:15] LABS: Bedside Glucose 209 mg/dL (74-106)
[2024-09-01] MEDS: Ipratropium/Albuterol Sulfate 3 ML AMPUL.NEB INHALATION ×4 (07:29→20:32)
[2024-09-01] MEDS: Insulin Lispro 100 UNIT/ML INSULN.PEN 10 UNIT SC ×3 (08:12→16:33)
[2024-09-01] MEDS: Calcium Carbonate 500 MG Tablet PO (08:16)
[2024-09-01] MEDS: Ascorbic Acid 500 MG Tablet 1000 MG PO ×2 (08:16→16:29)
--- NOTE | 2024-09-01 08:29 | PCM.PN.HOSP ---
Reason for Visit Reason for Visit: Diagnoses Anemia, unspecified (08/23/24) Obesity, class 1 (08/23/24) Acute bronchitis due to respiratory syncytial virus (08/23/24) Chronic obstructive pulmonary disease with (acute) exacerbation (08/23/24) Acute respiratory failure with hypoxia (08/23/24) Personal history of other endocrine, nutritional and metabolic disease (08/23/24) Subjective Subjective Patient seen has been weaned off oxygen however still has significant bronchospasm. Her WBC count is also trending up. Patient is on Solu-Medrol discontinued started on prednisone Objective Data Objective Data Vital Signs: Vital Signs Temp Pulse Resp BP Pulse Ox O2 Del Method O2 Flow Rate 98.8 F 75 20 H 129/87 H 93 Nasal Cannula 2 09/01/24 04:50 09/01/24 07:29 09/01/24 07:29 09/01/24 04:50 09/01/24 07:29 09/01/24 07:43 09/01/24 07:43 FiO2 08/31/24 03:30 Oxygen Flow Rate (L/min) 2 Oxygen Delivery Method Nasal Cannula Weight: 75.6 kg Body Mass Index (BMI) 31.4 Intake & Output: Intake and Output for Last 24 Hours 08/30/24 08/31/24 09/01/24 23:59 23:59 23:59 Intake Total 700 / 950 650 / 650 100 / 100 Balance 700 / 950 650 / 650 100 / 100 Lab / Micro Data 09/01/24 05:24 09/01/24 05:24 Labs: Laboratory Results - last 24 hr 08/31/24 08:42: POC Glucose 264 H 08/31/24 11:49: POC Glucose 220 H 08/31/24 16:32: POC Glucose 265 H 08/31/24 21:23: POC Glucose 319 H 09/01/24 05:24: WBC 19.2 H, RBC 3.64 L, Hgb 10.3 L, Hct 31.6 L, MCV 86.8, MCH 28.3, MCHC 32.6, RDW Std Deviation 46.1 H, RDW Coeff of Georgette 14.4, Plt Count 302, MPV 8.4, Neut % (Auto) Not Reportable, Absolute Neuts (auto) 14.8 H, Absolute Lymphs (auto) 2.88, Total Counted 100, Neutrophils % (Manual) 77 H, Band Neutrophils % 1, Lymphocytes % (Manual) 15 L, Monocytes % (Manual) 3, Metamyelocytes % 3 H, Myelocytes % 1 H, Diff Path Review December foll, Platelet Estimate ADEQUATE, RBC Morphology NORM C+C, Sodium 132 L, Potassium 4.6, Chloride 97 L, Carbon Dioxide 29.0, Anion Gap 5, BUN 36 H, Creatinine 1.21 H, Estim Creat Clear Calc 35.64, Est GFR (MDRD) Af Amer 55 L, Est GFR (MDRD) Non-Af 46 L, BUN/Creatinine Ratio 29.8 H, Glucose 246 H, Calcium 8.6, Phosphorus 3.7, Magnesium 2.2 09/01/24 06:49: POC Glucose 209 H Micro: Microbiology 08/28/24 12:05 Stool Stool Occult Blood (EMELYN) - Final 08/23/24 20:31 Mucosa - Nose SARS-CoV-2, Influenza & RSV (PCR) - Final RSV Rhythm Strip Rhythm Strip: Sinus Tach Rate: 101 Ectopy: None Physical Exam Narrative GENERAL: cooperative HEENT: Atraumatic; normocephalic EYES; Anicteric, Normal Conjunctiva NECK; supple, normal thyroid, RESPIRATORY: Diminished to auscultation with bilateral wheezes CARDIOVASCULAR: Regular S1 S2, GI: soft, normoactive bowel sounds, : No Renal angle tenderness; EXTREMITIES: No edema, no clubbing, MUSCULOSKELETAL: no muscle wasting NEURO: Awake; no lateralizing signs. SKIN: No Rash PSYCH; Flat affect Assessment & Plan Assessment/Plan (1) Acute exacerbation of chronic obstructive pulmonary disease: (2) RSV infection: QUALIFIERS: RSV infection type: acute bronchitis Qualified Code(s): J20.5 - Acute bronchitis due to respiratory syncytial virus (3) Acute hypoxic respiratory failure: (4) Chronic anemia: (5) History of diabetes mellitus: (6) Obesity (BMI 30.0-34.9): PLAN: Plan Patient is a 70-year-old lady admitted with progressive shortness of breath productive cough as well as wheezing. An assessment of acute hypoxic respiratory failure requiring BiPAP made admitted to monitored bed for further management 1. Acute on chronic hypoxic respiratory failure ? Due to combination of COPD exacerbation, RSV infection. Patient managed with noninvasive ventilation BiPAP goal is to wean off to nasal cannula prior to patient being assessed for discharge to a shelter facility ? 09/01/2024. Patient has been weaned off noninvasive ventilation however still has significant bronchospasm. Ordered chest x-ray as well as proBNP 2. COPD with acute exacerbation ? Patient started on bronchodilator treatment, systemic steroid as well as antibiotic therapy. Patient placed on oxygen titrated to keep saturation greater than 90. 3. RSV infection ? Complicating patient respiratory failure treated symptomatically 4. Anemia ? Secondary to chronic disorder monitoring H&H and transfuse if patient becomes symptomatic or hemoglobin falls below 7 5. Diabetes mellitus type II -patient's oral hypoglycemics held. Placed on long acting insulin, Accu-Cheks a.c. and at bedtime and covered with sliding scale insulin 6. Hypothyroidism ? Patient is on levothyroxine home dose continued 7. Chronic hypoxic respiratory failure ? Patient is on baseline home oxygen 2 L at rest 8. Hypertension ? Blood pressure controlled, home medications continued with dose adjustment as needed 9. Dyslipidemia ? Patient is on his Antiminth did continue 10. Osteoporosis ? Patient is on denosumab as outpatient 11. Osteoarthritis ? Pain meds as needed 12. Class I obesity with BMI of 31 ? Weight loss advised 13. GERD ? On PPI 14. DVT prophylaxis ? On enoxaparin 15. Leukocytosis ? Thought to be secondary to patient methylprednisolone, discontinued started on prednisone repeat CBC ordered in a.m. Time spent in the patient's overall evaluation,decision-making process, review of diagnostic data, adjustment of management, discussion with other providers, nursing nursing and ancillary staff involved in patient's care documentation, 50 Minutes Charges/Coding Visit Charges Inpatient E&M: [id number] [facility] L3
--- NOTE | 2024-09-01 09:13 | CASEMGMT ---
SW met with patient. Introduced self and role at [facility]. SW asked patient if she is still planning on going to TCU or would she prefer to go home. Patient stated she would like to go home. CYNTHIA suggested we see how she does with therapy today. Narda JACOBS
[2024-09-01] MEDS: dilTIAZem CD 120 MG Capsule PO (09:48)
[2024-09-01] MEDS: Ezetimibe 10 MG Tablet PO (09:48)
[2024-09-01] MEDS: Escitalopram Oxalate 10 MG Tablet 5 MG PO (09:48)
[2024-09-01] MEDS: Cholecalciferol (Vit D3) 125 MCG CAPSULE (5,000 UNITS) PO (09:48)
[2024-09-01] MEDS: Doxycycline 100 MG CAPSULE PO (09:48)
[2024-09-01] MEDS: Pantoprazole Sodium 20 MG Tablet PO (09:48)
[2024-09-01] MEDS: guaiFENesin/D-Methorphan TAB.SR.12H 2 TABLET PO (09:48)
[2024-09-01] MEDS: Enoxaparin 40 MG/0.4 ML Syringe SC (09:48)
[2024-09-01] MEDS: Insulin Glargine-YFGN 100 UNIT/ML Pen 20 UNIT SC (09:49)
--- NOTE | 2024-09-01 10:28 | RAD_ITS ---
EXAM: XR CHEST, 1 VIEW CLINICAL INDICATION: dyspnea TECHNIQUE: Frontal view of the chest. COMPARISON: XR Chest dated 08/25/2024 FINDINGS: LUNGS AND PLEURAL SPACES: Nodular appearing infiltrates involve the lingula, right middle lobe and right upper lobe. Recommend follow-up CT chest for further delineation of the apparent lesions. No pleural effusion or pneumothorax. HEART: Normal heart size. MEDIASTINUM: No mediastinal or hilar mass. BONES/JOINTS: No acute abnormality. RAD/Chest 1 View (Portable) IMPRESSION: Bilateral nodular appearing pulmonary infiltrates. Follow-up CT chest recommended. Electronically Signed: Shyam Connolly MD at 13:31 EST ,
[2024-09-01] MEDS: Ferrous Sulfate 325 MG Tablet PO (11:53)
[2024-09-01 12:13] LABS: Bedside Glucose 300 mg/dL (74-106)
[2024-09-01 13:14] LABS: Pathologist Review Reviewed
--- NOTE | 2024-09-01 16:49 | CT_ITS ---
We are attempting to reach an attending provider to discuss findings. An addendum with communication details will be sent when the communication is complete. EXAM: CT CHEST WITHOUT INTRAVENOUS CONTRAST CLINICAL INDICATION: Bilateral pulmonary infiltrates TECHNIQUE: Helically acquired images were obtained of the chest without intravenous contrast. This CT exam was performed using one or more of the following dose reduction techniques: automated exposure control, adjustment of the mA and/or kV according to patient size, and/or use of iterative reconstruction technique. RADIATION DOSE: CTDIvol = 17.20 mGy, DLP = 657.56 mGy-cm COMPARISON: Chest radiographs, no prior CT. FINDINGS: LUNGS AND PLEURAL SPACES: There is bronchiectasis in the inferior-medial right middle lobe. Minimal opacity in the left lingula. There are numerous irregular scattered nodular foci, especially in the right lung. Large nodule with irregular margins measuring 2.8 cm x 2.4 cm x 1.8 cm right middle lobe and multiple smaller similar irregular nodular foci especially in the right lung, all lobes on the right. No pleural effusion or thickening. No pneumothorax. HEART: Moderate calcifications of left anterior descending and distal left main and right coronary arteries. Normal heart size. No pericardial effusion. MEDIASTINUM: Unremarkable. No mediastinal or hilar adenopathy. Esophagus is unremarkable. No hiatal hernia. THYROID: Unremarkable. No thyroid lesions. BONES/JOINTS: Unremarkable. No suspicious lytic or blastic abnormality. No destructive bone lesions. SOFT TISSUES: The breast tissues are not fully included. VASCULATURE: Mild atherosclerotic aortic calcification and mild calcification of the origin of proximal celiac axis left subclavian artery. LIVER: Multiple hypodensities in the heterogeneous liver, it is not fully included and not fully evaluated on the unenhanced exam. GALLBLADDER AND BILE DUCTS: Cholecystectomy clips. Minimally prominent common duct. No visible pancreatic duct dilatation. Lower pancreatic head and uncinate process are not included. CT/Chest without Contrast IMPRESSION: 1. Scattered pulmonary nodules, numerous, almost entirely on the right. Multiple are associated with bronchovascular structures in the central lung. Primary considerations include inflammatory, infectious, and neoplastic nodules. Including septic emboli, fungal disease, and metastatic disease. 2. No confluent peripheral airspace disease typical of community-acquired pneumonia. No effusion. Concerning follow-up of multiple indeterminate pulmonary nodules: Fleischner Society Guidelines (MacMahon, et al. Radiology 2017; 284(1):228-43) suggest the following. For low-risk patients recommend follow-up chest CT at 3-6 months. If unchanged consider an additional follow-up CT at 18-24 months. For high-risk patients initial follow-up chest CT at 3-6 months and if unchanged, 18-24 months. 3. Limited evaluation of the liver on unenhanced exam, not fully included. Multiple small hepatic hypodensities, especially in the dome. These lesions are not fully characterized on the unenhanced exam. Electronically Signed: Era Ma MD at 18:27 EST ,
[2024-09-01 17:02] LABS: Bedside Glucose 225 mg/dL (74-106)
[2024-09-01] MEDS: Azithromycin 500 MG in 0.9% Normal Saline (250mL Bag) 250 ML 255 MG IV (17:44)
[2024-09-01] MEDS: 0.9% Normal Saline (100mL Bag) 100 ML 15 ML IV (18:46)
[2024-09-01] MEDS: Vancomycin HCl 1,250 MG in 0.9% Normal Saline (250mL Bag) 250 ML 167 MG IV (18:46)
--- NOTE | 2024-09-01 19:03 | PCM.RX.CS ---
Consult Antibiotic Management Pharmacy has been consulted to manage selected antibiotic: Vancomycin Type of Intervention Type of Consult: New start Suspected Infection Suspected Infection: Pneumonia Prior Doses of Antibiotics Prior Doses of Antibiotics Received/Current Regimen: Vancomycin 1250 mg IV x 1 given 09/01/24 @ 6101 Labs Labs: Sodium 132 mmol/L (136-145) L 09/01/24 05:24 Potassium 4.6 mmol/L (3.5-5.1) 09/01/24 05:24 Chloride 97 mmol/L (98-107) L 09/01/24 05:24 Carbon Dioxide 29.0 mmol/L (21.0-32.0) 09/01/24 05:24 Anion Gap 5 (5-15) 09/01/24 05:24 BUN 36 mg/dL (7-18) H 09/01/24 05:24 Creatinine 1.21 mg/dL (0.55-1.02) H 09/01/24 05:24 Est GFR (MDRD) Af Amer 55 mL/min (>60) L 09/01/24 05:24 Est GFR (MDRD) Non-Af 46 mL/min (>60) L 09/01/24 05:24 BUN/Creatinine Ratio 29.8 RATIO (10-20) H 09/01/24 05:24 Glucose 246 mg/dL (74-106) H 09/01/24 05:24 Microbiology Microbiology: Microbiology 09/01/24 18:15 Urine, Clean Catch Streptococcus pneumoniae Antigen (M - Final 09/01/24 18:15 Urine, Clean Catch Legionella Antigen - Final 09/01/24 17:01 Mucosa - Nasopharyngeal Coronavirus COVID-19 PCR - Final 08/28/24 12:05 Stool Stool Occult Blood (EMELYN) - Final 08/23/24 20:31 Mucosa - Nose SARS-CoV-2, Influenza & RSV (PCR) - Final RSV Dosing Weight Weight used for dosin kg Estimated Creatinine Clearance Estimated Creatinine Clearance: ~ 36 Goal Trough Goal Trough: 15-20 mcg/mL Pharmacy Plan for Drug Dosing Pharmacy Plan for Drug Dosing: Vancomycin 1250 mg IV x 1 followed by 1000 mg Q24H Pharmacy Service will continue to monitor and adjust dosing as required. Follow-Up Labs Follow-Up Labs: Trough: Vancomycin Date/Time Labs Ordered Labs to be done on [date and time ordered]: 09/03/24 @ 8657
[2024-09-01] MEDS: Piperacil/Tazobactam 3.375 GM in 0.9% Normal Saline (50mL MB+) 50 ML IV (20:00)
[2024-09-01] MEDS: Temazepam 15 MG Capsule PO (20:16)
[2024-09-01] MEDS: guaiFENesin 1,200 MG Tablet 1200 MG PO (20:16)
[2024-09-01 20:46] LABS: Bedside Glucose 172 mg/dL (74-106)
[2024-09-02] VITALS (11 sets, daily range): BP systolic 103–122; BP diastolic 44–58; PULSE 74–100; RESP 17–21; TEMP 35.7–36.8; O2SAT 93–99; BMI 31.1
[2024-09-02] MEDS: Piperacil/Tazobactam 3.375 GM in 0.9% Normal Saline (50mL MB+) 50 ML IV (05:21)
[2024-09-02] MEDS: Levothyroxine 50 MCG Tablet PO (05:28)
[2024-09-02] MEDS: 0.9% Saline Lock 10 ML Syringe IV (05:28)
[2024-09-02] MEDS: Ipratropium/Albuterol Sulfate 3 ML AMPUL.NEB INHALATION ×4 (07:32→19:58)
--- NOTE | 2024-09-02 08:31 | PCM.PN.HOSP ---
Reason for Visit Reason for Visit: Diagnoses Anemia, unspecified (08/23/24) Obesity, class 1 (08/23/24) Acute bronchitis due to respiratory syncytial virus (08/23/24) Chronic obstructive pulmonary disease with (acute) exacerbation (08/23/24) Acute respiratory failure with hypoxia (08/23/24) Personal history of other endocrine, nutritional and metabolic disease (08/23/24) Subjective Subjective Patient was found to have worsening leukocytosis. Subsequent imaging studies did show Scattered pulmonary nodules, numerous, almost entirely on the right. Multiple are associated with bronchovascular structures in the central lung. Primary considerations include inflammatory, infectious, and neoplastic nodules. Including septic emboli, fungal disease, and metastatic disease.. Patient had empirically been started on Zosyn and azithromycin and vancomycin prior to ordering the imaging studies. Did consult ID and pulmonary medicine following receipt of imaging study result Objective Data Objective Data Vital Signs: Vital Signs Temp Pulse Resp BP Pulse Ox O2 Del Method O2 Flow Rate 98.3 F 93 18 112/44 L 93 Nasal Cannula 2 09/02/24 05:35 09/02/24 07:32 09/02/24 07:32 09/02/24 05:35 09/02/24 07:32 09/02/24 07:32 09/02/24 07:32 FiO2 25 08/31/24 03:30 Oxygen Flow Rate (L/min) 2 Oxygen Delivery Method Nasal Cannula Weight: 74.9 kg Body Mass Index (BMI) 31.1 Intake & Output: Intake and Output for Last 24 Hours 08/31/24 09/01/24 09/02/24 23:59 23:59 23:59 Intake Total 650 / 650 880 / 880 450 / 450 Balance 650 / 650 880 / 880 450 / 450 Lab / Micro Data 09/02/24 08:00 09/02/24 08:00 Labs: Laboratory Results - last 24 hr 09/01/24 05:24: Diff Path Review Reviewed 09/01/24 11:49: POC Glucose 300 H 09/01/24 16:32: POC Glucose 225 H 09/01/24 20:18: POC Glucose 172 H Micro: Microbiology 09/01/24 17:05 Mucosa - Nasopharyngeal Respiratory Panel (PCR) - Final RSV A 09/01/24 19:28 Sputum, Expectorated/Coughed Gram Stain - Preliminary 09/01/24 17:25 Nasal Secretion MRSA (PCR) - Final 09/01/24 18:15 Urine, Clean Catch Streptococcus pneumoniae Antigen (M - Final 09/01/24 18:15 Urine, Clean Catch Legionella Antigen - Final 09/01/24 17:01 Mucosa - Nasopharyngeal Coronavirus COVID-19 PCR - Final 08/28/24 12:05 Stool Stool Occult Blood (EMELYN) - Final 08/23/24 20:31 Mucosa - Nose SARS-CoV-2, Influenza & RSV (PCR) - Final RSV Radiography Diagnostic Testing: Radiology Impression Chest X-Ray 09/01/24 10:28 IMPRESSION: Bilateral nodular appearing pulmonary infiltrates. Follow-up CT chest recommended. Electronically Signed: Shyam Connolly MD at 13:31 EST , Chest CT 09/01/24 16:49 IMPRESSION: 1. Scattered pulmonary nodules, numerous, almost entirely on the right. Multiple are associated with bronchovascular structures in the central lung. Primary considerations include inflammatory, infectious, and neoplastic nodules. Including septic emboli, fungal disease, and metastatic disease. 2. No confluent peripheral airspace disease typical of community-acquired pneumonia. No effusion. Concerning follow-up of multiple indeterminate pulmonary nodules: Fleischner Society Guidelines (MacMahon, et al. Radiology 2017; 284(1):228-43) suggest the following. For low-risk patients recommend follow-up chest CT at 3-6 months. If unchanged consider an additional follow-up CT at 18-24 months. For high-risk patients initial follow-up chest CT at 3-6 months and if unchanged, 18-24 months. 3. Limited evaluation of the liver on unenhanced exam, not fully included. Multiple small hepatic hypodensities, especially in the dome. These lesions are not fully characterized on the unenhanced exam. Electronically Signed: Era Ma MD at 18:27 EST , ADDENDUM: 09/01/24 1840 IMPRESSION: 1. Scattered pulmonary nodules, numerous, almost entirely on the right. Multiple are associated with bronchovascular structures in the central lung. Primary considerations include inflammatory, infectious, and neoplastic nodules. Including septic emboli, fungal disease, and metastatic disease. 2. No confluent peripheral airspace disease typical of community-acquired pneumonia. No effusion. Concerning follow-up of multiple indeterminate pulmonary nodules: Fleischner Society Guidelines (MacMahon, et al. Radiology 2017; 284(1):228-43) suggest the following. For low-risk patients recommend follow-up chest CT at 3-6 months. If unchanged consider an additional follow-up CT at 18-24 months. For high-risk patients initial follow-up chest CT at 3-6 months and if unchanged, 18-24 months. 3. Limited evaluation of the liver on unenhanced exam, not fully included. Multiple small hepatic hypodensities, especially in the dome. These lesions are not fully characterized on the unenhanced exam. N.B. : The above Results were Read Back by Era Ma MD to Case Toro MD, and understanding confirmed on 09/01/2024 18:33:05 (ET). Electronically Signed: Era Ma MD at 18:27 EST , Rhythm Strip Rhythm Strip: Sinus Tach Rate: 101 Ectopy: None Physical Exam Narrative GENERAL: cooperative HEENT: Atraumatic; normocephalic EYES; Anicteric, Normal Conjunctiva NECK; supple, normal thyroid, RESPIRATORY: Diminished to auscultation with bilateral wheezes CARDIOVASCULAR: Regular S1 S2, GI: soft, normoactive bowel sounds, : No Renal angle tenderness; EXTREMITIES: No edema, no clubbing, MUSCULOSKELETAL: no muscle wasting NEURO: Awake; no lateralizing signs. SKIN: No Rash PSYCH; Flat affect Assessment & Plan Assessment/Plan (1) Acute exacerbation of chronic obstructive pulmonary disease: (2) RSV infection: QUALIFIERS: RSV infection type: acute bronchitis Qualified Code(s): J20.5 - Acute bronchitis due to respiratory syncytial virus (3) Acute hypoxic respiratory failure: (4) Chronic anemia: (5) History of diabetes mellitus: (6) Obesity (BMI 30.0-34.9): PLAN: Plan Patient is a 70-year-old lady admitted with progressive shortness of breath productive cough as well as wheezing. An assessment of acute hypoxic respiratory failure requiring BiPAP made admitted to monitored bed for further management 1. Acute on chronic hypoxic respiratory failure ? Due to combination of COPD exacerbation, RSV infection. Patient managed with noninvasive ventilation BiPAP goal is to wean off to nasal cannula prior to patient being assessed for [facility] a [facility] facility ? 09/01/2024. Patient has been weaned off noninvasive ventilation however still has significant bronchospasm. Ordered chest x-ray as well as proBNP 2. Suspected bacterial pneumonia ? Patient was admitted with RSV infection however she was found to have worsening leukocytosis. Subsequent imaging studies did show Scattered pulmonary nodules, numerous, almost entirely on the right. Multiple are associated with bronchovascular structures in the central lung. Primary considerations include inflammatory, infectious, and neoplastic nodules. Including septic emboli, fungal disease, and metastatic disease.. Patient had empirically been started on Zosyn and azithromycin and vancomycin prior to ordering the imaging studies. Did consult ID and pulmonary medicine following receipt of imaging study result 2. COPD with acute exacerbation ? Patient started on bronchodilator treatment, systemic steroid as well as antibiotic therapy. Patient placed on oxygen titrated to keep saturation greater than 90. 3. RSV infection ? Complicating patient respiratory failure treated symptomatically 4. Anemia ? Secondary to chronic disorder monitoring H&H and transfuse if patient becomes symptomatic or hemoglobin falls below 7 5. Diabetes mellitus type II -patient's oral hypoglycemics held. Placed on long acting insulin, Accu-Cheks a.c. and at bedtime and covered with sliding scale insulin 6. Hypothyroidism ? Patient is on levothyroxine home dose continued 7. Chronic hypoxic respiratory failure ? Patient is on baseline home oxygen 2 L at rest 8. Hypertension ? Blood pressure controlled, home medications continued with dose adjustment as needed 9. Dyslipidemia ? Patient is on his Antiminth did continue 10. Osteoporosis ? Patient is on denosumab as outpatient 11. Osteoarthritis ? Pain meds as needed 12. Class I obesity with BMI of 31 ? Weight loss advised 13. GERD ? On PPI 14. DVT prophylaxis ? On enoxaparin Time spent in the patient's overall evaluation,decision-making process, review of diagnostic data, adjustment of management, discussion with other providers, nursing nursing and ancillary staff involved in patient's care documentation, 52 Minutes Charges/Coding Visit Charges Inpatient E&M: 89675 Subs Hosp L3
[2024-09-02 08:34] LABS: Absolute Lymphocyte Count 3.51 X10^3/uL (0.83-4.51); Absolute Neutrophil Count 18.1 X10^3/uL (2.0-7.7); Basophil# 0.03 X10^3/uL; Basophil% 0.1 % (0-1); Eosinophil# 0.01 X10^3/uL; Hematocrit 32.7 % (37-47); Hemoglobin 10.4 g/dL (12.0-15.0); Lymphocyte # 3.51 X10^3/ul (0.83-4.51); Lymphocyte % 14.9 % (19-41); Mean Corp Hgb Conc 31.8 g/dL (32-36); Mean Corpuscular Hgb 27.5 pg (27.0-32.0); Mean Corpuscular Volume 86.5 fL (81-99); Mean Platelet Vol. 8.2 fl (6.2-12.0); Monocyte# 1.34 X10^3/uL; Monocyte% 5.7 % (0-10); NRBC Flagged by Analyzer 0 % (0-5); Neutrophil # 18.13 X10^3/uL (2.7-7.7); Neutrophil % 77.1 % (47-70); Platelet Count 266 K/mm3 (150-450); RBC Distribution Width CV 14.6 % (11.6-14.6); RBC Distribution Width SD 46.3 fl (35.1-43.9); Red Blood Count 3.78 M/mm3 (4.2-5.4); White Blood Count 23.5 K/mm3 (4.4-11.0)
[2024-09-02] MEDS: Enoxaparin 40 MG/0.4 ML Syringe SC (08:48)
[2024-09-02] MEDS: predniSONE 20 MG Tablet 40 MG PO (08:49)
[2024-09-02] MEDS: Escitalopram Oxalate 10 MG Tablet 5 MG PO (08:49)
[2024-09-02] MEDS: Ezetimibe 10 MG Tablet PO (08:49)
[2024-09-02] MEDS: Pantoprazole Sodium 20 MG Tablet PO (08:50)
[2024-09-02] MEDS: Calcium Carbonate 500 MG Tablet PO (08:50)
[2024-09-02] MEDS: dilTIAZem CD 120 MG Capsule PO (09:00)
[2024-09-02] MEDS: Azithromycin 500 MG in 0.9% Normal Saline (250mL Bag) 250 ML 255 MG IV (09:02)
[2024-09-02 09:05] LABS: Anion Gap 5 (5-15); BUN 33 mg/dL (7-18); BUN/Creat Ratio 33.6 RATIO (10-20); Calcium,Total 8.4 mg/dL (8.5-10.1); Chloride 96 mmol/L (98-107); Creatinine, Serum 0.98 mg/dL (0.55-1.02); EST Glomerular Filtration Rate 58 mL/min (>60); Est Glom Filt Rate - Afr Amer 70 mL/min (>60); Glucose 86 mg/dL (74-106); Potassium 4.4 mmol/L (3.5-5.1); Sodium Level 130 mmol/L (136-145)
[2024-09-02] MEDS: guaiFENesin 1,200 MG Tablet 1200 MG PO ×2 (09:28→22:30)
[2024-09-02] MEDS: Ascorbic Acid 500 MG Tablet 1000 MG PO ×2 (09:28→16:09)
[2024-09-02] MEDS: Cholecalciferol (Vit D3) 125 MCG CAPSULE (5,000 UNITS) PO (09:28)
[2024-09-02 09:31] LABS: Bedside Glucose 89 mg/dL (74-106)
--- NOTE | 2024-09-02 10:30 | PCM.PN.INT ---
Assessment & Plan Assessment/Plan (1) Acute exacerbation of chronic obstructive pulmonary disease: PLAN: Plan RECOMMENDATIONS: 1. Continue supplemental oxygen to maintain saturations at or above 90%. 2. Continue to monitor H&H and transfuse if hemoglobin drops below 7 g/dL. 3. Continue scheduled bronchodilators and prednisone. 4. Agree with empiric antimicrobials. 5. Continue BiPAP therapy nightly and PRN throughout the day. 6. Encourage incentive spirometer use and mobilize patient as tolerated. 7. Recommend outpatient pulmonary follow-up after discharge, with plans to repeat CT imaging the chest in 6 to 8 weeks. IMPRESSIONS: 1. 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 She does not utilize supplemental oxygen at her baseline, with the exception of nightly. She is on a triple therapy inhaler regimen. The patient was found to be positive for RSV likely leading to a COPD exacerbation. She has been maintained on bronchodilators and steroids. Lastly, CT chest obtained yesterday demonstrated multiple lung nodules throughout the right hemithorax concerning for an infectious versus inflammatory condition. Accordingly, the patient was initiated on antimicrobial therapy, but remains clinically stable. Recommend continuing supplemental oxygen to maintain saturations at or above 90%. Ultimately, she would benefit from outpatient pulmonary follow-up after discharge so that repeat chest imaging can be completed 6 to 8 weeks after completion of her antimicrobial therapy. 2. History of diabetes mellitus/obesity/nocturnal hypoxemia/hypertension/hyperlipidemia/hypothyroidism Complicates care, management, recovery and prognosis. Continue home medications as indicated. This note was generated with [employer] dictation software. It may contain incorrect words, spelling, and punctuation that were not noted in checking the note before signing. Subjective Subjective The patient was seen and examined at the bedside this morning. Events from the last 24 hours have been reviewed. The patient is currently afebrile, hemodynamically stable and maintaining appropriate oxygen saturations on 2 L/min via nasal cannula. The patient has been maintained on scheduled bronchodilators and steroids. Over the last 3 days, the patient's white blood cell count has increased. Therefore, CT imaging of the chest was completed yesterday and demonstrated focal areas of bronchiectasis along with numerous pulmonary nodules scattered throughout the right hemithorax. Accordingly, the patient was placed on antimicrobials. Objective Data Objective Data The patient's most recent lab work, culture data and imaging studies have all been personally reviewed. RSV PCR was positive on August 23. Vital Signs: Vital Signs Temp Pulse Resp BP Pulse Ox O2 Del Method O2 Flow Rate 97.2 F L 100 17 122/51 H 96 Nasal Cannula 2 09/02/24 08:53 09/02/24 09:39 09/02/24 08:53 09/02/24 08:53 09/02/24 08:53 09/02/24 09:39 09/02/24 09:39 FiO2 25 08/31/24 03:30 Oxygen Flow Rate (L/min) 2 Oxygen Delivery Method Nasal Cannula Weight: 165 lb 2.02 oz Body Mass Index (BMI) 31.1 Intake & Output: Intake and Output for Last 24 Hours 08/31/24 09/01/24 09/02/24 23:59 23:59 23:59 Intake Total 650 / 650 880 / 880 755 / 755 Balance 650 / 650 880 / 880 755 / 755 Lab / Micro Data Attestation: I reviewed the patient's lab results. 09/02/24 08:00 09/02/24 08:00 Labs: Laboratory Results - last 24 hr 09/01/24 05:24: Diff Path Review Reviewed 09/01/24 11:49: POC Glucose 300 H 09/01/24 16:32: POC Glucose 225 H 09/01/24 20:18: POC Glucose 172 H 09/02/24 08:00: WBC 23.5 H, RBC 3.78 L, Hgb 10.4 L, Hct 32.7 L, MCV 86.5, MCH 27.5, MCHC 31.8 L, RDW Std Deviation 46.3 H, RDW Coeff of Georgette 14.6, Plt Count 266, MPV 8.2, Immature Gran % (Auto) 2.200 H, Neut % (Auto) 77.1 H, Lymph % (Auto) 14.9 L, [place] % (Auto) 5.7, Eos % (Auto) 0.0, Baso % (Auto) 0.1, Absolute Neuts (auto) 18.1 H, Absolute Lymphs (auto) 3.51, Nucleated RBC % 0, Sodium 130 L, Potassium 4.4, Chloride 96 L, Carbon Dioxide 29.0, Anion Gap 5, BUN 33 H, Creatinine 0.98, Estim Creat Clear Calc 43.80, Est GFR (MDRD) Af Amer 70, Est GFR (MDRD) Non-Af 58 L, BUN/Creatinine Ratio 33.6 H, Glucose 86, Calcium 8.4 L 09/02/24 08:56: POC Glucose 89 Micro: Microbiology 09/01/24 19:28 Sputum, Expectorated/Coughed Gram Stain - Final 09/01/24 19:28 Sputum, Expectorated/Coughed Respiratory Culture - Preliminary Gram negative wesley 09/01/24 17:05 Mucosa - Nasopharyngeal Respiratory Panel (PCR) - Final RSV A 09/01/24 17:25 Nasal Secretion MRSA (PCR) - Final 09/01/24 18:15 Urine, Clean Catch Streptococcus pneumoniae Antigen (M - Final 09/01/24 18:15 Urine, Clean Catch Legionella Antigen - Final 09/01/24 17:01 Mucosa - Nasopharyngeal Coronavirus COVID-19 PCR - Final 08/28/24 12:05 Stool Stool Occult Blood (EMELYN) - Final 08/23/24 20:31 Mucosa - Nose SARS-CoV-2, Influenza & RSV (PCR) - Final RSV Radiography Diagnostic Testing: Radiology Impression Chest X-Ray 09/01/24 10:28 IMPRESSION: Bilateral nodular appearing pulmonary infiltrates. Follow-up CT chest recommended. Electronically Signed: Shyam Connolly MD at 13:31 EST , Chest CT 09/01/24 16:49 IMPRESSION: 1. Scattered pulmonary nodules, numerous, almost entirely on the right. Multiple are associated with bronchovascular structures in the central lung. Primary considerations include inflammatory, infectious, and neoplastic nodules. Including septic emboli, fungal disease, and metastatic disease. 2. No confluent peripheral airspace disease typical of community-acquired pneumonia. No effusion. Concerning follow-up of multiple indeterminate pulmonary nodules: Fleischner Society Guidelines (MacMahon, et al. Radiology 2017; 284(1):228-43) suggest the following. For low-risk patients recommend follow-up chest CT at 3-6 months. If unchanged consider an additional follow-up CT at 18-24 months. For high-risk patients initial follow-up chest CT at 3-6 months and if unchanged, 18-24 months. 3. Limited evaluation of the liver on unenhanced exam, not fully included. Multiple small hepatic hypodensities, especially in the dome. These lesions are not fully characterized on the unenhanced exam. Electronically Signed: Era Ma MD at 18:27 EST , ADDENDUM: 09/01/24 1840 IMPRESSION: 1. Scattered pulmonary nodules, numerous, almost entirely on the right. Multiple are associated with bronchovascular structures in the central lung. Primary considerations include inflammatory, infectious, and neoplastic nodules. Including septic emboli, fungal disease, and metastatic disease. 2. No confluent peripheral airspace disease typical of community-acquired pneumonia. No effusion. Concerning follow-up of multiple indeterminate pulmonary nodules: Fleischner Society Guidelines (MacMahon, et al. Radiology 2017; 284(1):228-43) suggest the following. For low-risk patients recommend follow-up chest CT at 3-6 months. If unchanged consider an additional follow-up CT at 18-24 months. For high-risk patients initial follow-up chest CT at 3-6 months and if unchanged, 18-24 months. 3. Limited evaluation of the liver on unenhanced exam, not fully included. Multiple small hepatic hypodensities, especially in the dome. These lesions are not fully characterized on the unenhanced exam. N.B. : The above Results were Read Back by Era Ma MD to Case Toro MD, and understanding confirmed on 09/01/2024 18:33:05 (ET). Electronically Signed: Era Ma MD at 18:27 EST , Rhythm Strip Rhythm Strip: Sinus Tach Rate: 101 Ectopy: None Physical Exam Const alert, oriented x3 and no apparent distress General Appearance: cooperative HEENT normocephalic, head/scalp atraumatic and moist oral mucous membranes Eyes PERRL, EOMs intact bilaterally and conjunctivae normal Neck supple General: trachea midline Chest inspection of chest normal Resp Effort and Inspection: tachypneic Auscultation: diminished lung sounds Cardio regular rate and regular rhythm GI normal to inspection, nondistended, normoactive bowel sounds Extremity no clubbing, cyanosis or edema Skin no rashes or lesions noted Neuro CN's II-XII intact bilaterally, moves all extremities and no focal motor deficits Psych cooperative and affect normal Charges/Coding Visit Charges Inpatient E&M: 19163 Subs Hosp L2
[2024-09-02] MEDS: Ferrous Sulfate 325 MG Tablet PO (11:18)
[2024-09-02 12:00] LABS: Bedside Glucose 97 mg/dL (74-106)
--- NOTE | 2024-09-02 13:31 | CON.PCM.ID_ITS ---
Assessment & Plan Assessment/Plan (1) RSV infection: QUALIFIERS: RSV infection type: acute bronchitis Qualified Code(s): J20.5 - Acute bronchitis due to respiratory syncytial virus PLAN: Patient admitted with COPD exacerbation and RSV infection. Based on the appearance of the imaging studies including the CT scan of the chest I am concerned of a chronic smoldering infection such as nontuberculous Mycobacterium i.e. MAC. I did talk to Dr. Garcia, dope sprayer about possibly proceeding with a diagnostic bronchoscopy next week if possible. I would discontinue antimicrobial therapy especially macrolide therapy. This will reduce the risk of antimicrobial resistance especially if this turns out to be mycobacterial infection. Also discontinue antimicrobial therapy reduce the risk of C. difficile infection, a risk with antibiotic use. The leukocytosis could be explained by the corticosteroid use. Would have a low threshold to wean prednisone quickly if possible. HPI Consult Data Date of Consult: 09/02/24 HPI Narrative Reason for Consultation: Leukocytosis and abnormal CT scan of the chest concerning for pneumonia HPI Narrative: KIRSTIE BLAIR, is a 78 F who presents multiple comorbidities including COPD, history of tobacco abuse, home O2 at 2 L nasal cannula, diabetes mellitus who was admitted on August 23 with shortness of breath and concern of his COPD exacerbation. Recently diagnosed with RSV infection. Patient was placed on Solu-Medrol and more recently was placed on parenteral antibiotic therapy to form vancomycin plus Zosyn plus azithromycin. Patient does state of chronic cough. Patient does see a dope sprayer in [facility] in [place] but it is unclear if she ever underwent a bronchoscopy. No documented fevers during this hospitalization. Patient has been on steroids in the form of Solu-Medrol and currently on 40 mg of prednisone. Leukocytosis noted. Chest x-ray I personally reviewed along with a CT scan of the chest that shows pulmonary nodules mainly in the right lung. She does have underlying bronchiectasis. [facility] Medical History Normal colonoscopy Former smoker Thyroid disease Osteoporosis Incisional hernia COPD (chronic obstructive pulmonary disease) Cholecystitis CHF (congestive heart failure) Cerebral artery occlusion with cerebral infarction Asthma Home Medications ?Medication ?Instructions ?Recorded ?Last Taken ?Type Oxygen, Home [Home Oxygen] 2 lpm NASAL 11/26/20 Unknown History albuterol sulfate 90 mcg/actuation 2 puff inhalation Q4H PRN 11/26/20 Unknown History aerosol inhaler shortness of breath or wheezing calcium carbonate 500 mg PO DAILY@0800 11/26/20 Unknown History denosumab 60 mg/mL subcutaneous 60 mg SQ 11/26/20 Unknown History syringe diltiazem HCl 120 mg 120 mg PO DAILY 11/26/20 Unknown History capsule,extended release 24 hr ergocalciferol (vitamin D2) 1,250 11/26/20 Unknown History mcg (50,000 unit) capsule escitalopram oxalate 5 mg tablet 5 mg PO DAILY 11/26/20 Unknown History ferrous sulfate 325 mg (65 mg 325 mg PO DAILY 11/26/20 Unknown History iron) tablet fluticasone fur. 200 mcg-umeclid 62.5 11/26/20 Unknown History 62.5 mcg-vilant 25 mcg inhalat.powder furosemide 20 mg tablet 20 mg PO 11/26/20 Unknown History ipratropium 0.5 mg-albuterol 3 mg 3 ml inhalation Q6H PRN shortness 11/26/20 Unknown History (2.5 mg base)/3 mL nebulization of breath or wheezing soln levothyroxine 50 mcg tablet 75 mcg PO DAILY 11/26/20 Unknown History magnesium hydroxide 400 mg/5 mL 400 mg PO 11/26/20 Unknown History oral suspension mometasone-formoterol HFA 200 11/26/20 Unknown History mcg-5 mcg/actuation aerosol inhaler pantoprazole 20 mg tablet,delayed 20 mg PO DAILY 11/26/20 Unknown History release polyvinyl alcohol-povidone 0.5 11/26/20 Unknown History %-0.6 % eye drops trazodone 50 mg tablet 11/26/20 Unknown History alcohol swabs (Alcohol Prep Pads) topical BID 08/23/24 Unknown History ezetimibe 10 mg tablet 10 mg PO DAILY 08/23/24 Unknown History metformin 500 mg tablet 500 mg PO BID 08/23/24 Unknown History Allergy/AdvReac Type Severity Reaction Status Date / Time Iodinated Contrast Media Allergy Unknown Itching Verified 08/23/24 20:21 bupropion (From Wellbutrin) Allergy Rash Verified 08/23/24 20:21 codeine Allergy Other Verified 08/23/24 20:21 morphine Allergy Nausea/Vom/ Verified 08/23/24 20:21 Diarrhea moxifloxacin (From Avelox) Allergy Other Verified 08/23/24 20:21 Family History Brother Atrial fibrillation Heart disease Arthritis Sister Obesity Arthritis Sister No problems noted. Brother No problems noted. Mother Heart disease Hypertension Other Diabetes Surgical History H/O: hysterectomy History of eye surgery H/O endoscopy History of cholecystectomy Social History Smoking Status: Former smoker ROS ROS Narrative As stated in history of present illness others negative Physical Exam Narrative Alert responsive does not appear toxic lungs with some coarse breath sounds heart exam S1-S2 abdomen soft nontender Lab / Micro Data 09/02/24 08:00 09/02/24 08:00 Labs: Laboratory Results - last 24 hr 09/01/24 16:32: POC Glucose 225 H 09/01/24 20:18: POC Glucose 172 H 09/02/24 08:00: WBC 23.5 H, RBC 3.78 L, Hgb 10.4 L, Hct 32.7 L, MCV 86.5, MCH 27.5, MCHC 31.8 L, RDW Std Deviation 46.3 H, RDW Coeff of Georgette 14.6, Plt Count 266, MPV 8.2, Immature Gran % (Auto) 2.200 H, Neut % (Auto) 77.1 H, Lymph % (Auto) 14.9 L, [place] % (Auto) 5.7, Eos % (Auto) 0.0, Baso % (Auto) 0.1, Absolute Neuts (auto) 18.1 H, Absolute Lymphs (auto) 3.51, Nucleated RBC % 0, Sodium 130 L, Potassium 4.4, Chloride 96 L, Carbon Dioxide 29.0, Anion Gap 5, BUN 33 H, Creatinine 0.98, Estim Creat Clear Calc 43.80, Est GFR (MDRD) Af Amer 70, Est GFR (MDRD) Non-Af 58 L, BUN/Creatinine Ratio 33.6 H, Glucose 86, Calcium 8.4 L 09/02/24 08:56: POC Glucose 89 09/02/24 11:16: POC Glucose 97 Micro: Microbiology 09/01/24 19:28 Sputum, Expectorated/Coughed Gram Stain - Final 09/01/24 19:28 Sputum, Expectorated/Coughed Respiratory Culture - Preliminary Gram negative wesley 09/01/24 17:05 Mucosa - Nasopharyngeal Respiratory Panel (PCR) - Final RSV A 09/01/24 17:25 Nasal Secretion MRSA (PCR) - Final 09/01/24 18:15 Urine, Clean Catch Streptococcus pneumoniae Antigen (M - Final 09/01/24 18:15 Urine, Clean Catch Legionella Antigen - Final 09/01/24 17:01 Mucosa - Nasopharyngeal Coronavirus COVID-19 PCR - Final Rhythm Strip Rhythm Strip: Sinus Tach Rate: 101 Ectopy: None Imaging Radiology Impression Chest X-Ray 09/01/24 10:28 IMPRESSION: Bilateral nodular appearing pulmonary infiltrates. Follow-up CT chest recommended. Electronically Signed: Shyam Connolly MD at 13:31 EST , Chest CT 09/01/24 16:49 IMPRESSION: 1. Scattered pulmonary nodules, numerous, almost entirely on the right. Multiple are associated with bronchovascular structures in the central lung. Primary considerations include inflammatory, infectious, and neoplastic nodules. Including septic emboli, fungal disease, and metastatic disease. 2. No confluent peripheral airspace disease typical of community-acquired pneumonia. No effusion. Concerning follow-up of multiple indeterminate pulmonary nodules: Fleischner Society Guidelines (MacMahon, et al. Radiology 2017; 284(1):228-43) suggest the following. For low-risk patients recommend follow-up chest CT at 3-6 months. If unchanged consider an additional follow-up CT at 18-24 months. For high-risk patients initial follow-up chest CT at 3-6 months and if unchanged, 18-24 months. 3. Limited evaluation of the liver on unenhanced exam, not fully included. Multiple small hepatic hypodensities, especially in the dome. These lesions are not fully characterized on the unenhanced exam. Electronically Signed: Era Ma MD at 18:27 EST , ADDENDUM: 09/01/24 1840 IMPRESSION: 1. Scattered pulmonary nodules, numerous, almost entirely on the right. Multiple are associated with bronchovascular structures in the central lung. Primary considerations include inflammatory, infectious, and neoplastic nodules. Including septic emboli, fungal disease, and metastatic disease. 2. No confluent peripheral airspace disease typical of community-acquired pneumonia. No effusion. Concerning follow-up of multiple indeterminate pulmonary nodules: Fleischner Society Guidelines (MacTeofilohon, et al. Radiology 2017; 284(1):228-43) suggest the following. For low-risk patients recommend follow-up chest CT at 3-6 months. If unchanged consider an additional follow-up CT at 18-24 months. For high-risk patients initial follow-up chest CT at 3-6 months and if unchanged, 18-24 months. 3. Limited evaluation of the liver on unenhanced exam, not fully included. Multiple small hepatic hypodensities, especially in the dome. These lesions are not fully characterized on the unenhanced exam. N.B. : The above Results were Read Back by Era Ma MD to Case Toro MD, and understanding confirmed on 09/01/2024 18:33:05 (ET). Electronically Signed: Era Ma MD at 18:27 EST ,
--- NOTE | 2024-09-02 13:49 | CASEMGMT ---
CYNTHIA met with patient. CYNTHIA re-introduced self in case patient did not remember SW. CYNTHIA let patient know that [facility] is still holding a bed for her. Patient thanked CYNTHIA. She was concerned about this. Plan: d/c to [facility] when medically ready and insurance approves. Narda JACOBS
[2024-09-02] MEDS: Insulin Lispro 100 UNIT/ML INSULN.PEN 10 UNIT SC (16:10)
[2024-09-02] MEDS: Insulin Lispro 100 UNIT/ML INSULN.PEN SC ×2 (16:10→22:29)
[2024-09-02 16:55] LABS: Bedside Glucose 342 mg/dL (74-106)
[2024-09-02 22:52] LABS: Bedside Glucose 221 mg/dL (74-106)
--- NOTE | 2024-09-02 23:48 | NURSING ---
Report given to CHANCE Brooks who will be taking over care of this patient at this time.
[2024-09-03] VITALS (11 sets, daily range): BP systolic 119–139; BP diastolic 50–81; PULSE 71–87; RESP 16–22; TEMP 36.2–36.5; O2SAT 95–99; BMI 30.5
[2024-09-03] MEDS: Levothyroxine 50 MCG Tablet PO (06:31)
[2024-09-03 06:52] LABS: Bedside Glucose 119 mg/dL (74-106)
[2024-09-03 07:04] LABS: Absolute Lymphocyte Count 3.01 X10^3/uL (0.83-4.51); Absolute Neutrophil Count 13.4 X10^3/uL (2.0-7.7); Basophil# 0.03 X10^3/uL; Basophil% 0.2 % (0-1); Eosinophil# 0.01 X10^3/uL; Eosinophils% 0.1 % (0-5); Hematocrit 32.6 % (37-47); Hemoglobin 10.2 g/dL (12.0-15.0); Lymphocyte # 3.01 X10^3/ul (0.83-4.51); Lymphocyte % 17.3 % (19-41); Mean Corp Hgb Conc 31.3 g/dL (32-36); Mean Corpuscular Hgb 27.5 pg (27.0-32.0); Mean Corpuscular Volume 87.9 fL (81-99); Mean Platelet Vol. 8.3 fl (6.2-12.0); Monocyte# 0.65 X10^3/uL; Monocyte% 3.7 % (0-10); NRBC Flagged by Analyzer 0 % (0-5); Neutrophil # 13.38 X10^3/uL (2.7-7.7); Neutrophil % 76.6 % (47-70); Platelet Count 272 K/mm3 (150-450); RBC Distribution Width CV 14.6 % (11.6-14.6); RBC Distribution Width SD 47.2 fl (35.1-43.9); Red Blood Count 3.71 M/mm3 (4.2-5.4); White Blood Count 17.4 K/mm3 (4.4-11.0)
[2024-09-03 07:18] LABS: Anion Gap 5 (5-15); BUN 33 mg/dL (7-18); BUN/Creat Ratio 31.7 RATIO (10-20); Calcium,Total 8.7 mg/dL (8.5-10.1); Chloride 99 mmol/L (98-107); Creatinine, Serum 1.04 mg/dL (0.55-1.02); EST Glomerular Filtration Rate 54 mL/min (>60); Est Glom Filt Rate - Afr Amer 66 mL/min (>60); Estimated Creatinine Clearance 40.82 ml/min; Glucose 129 mg/dL (74-106); Potassium 4.3 mmol/L (3.5-5.1); Sodium Level 132 mmol/L (136-145)
[2024-09-03] MEDS: Ipratropium/Albuterol Sulfate 3 ML AMPUL.NEB INHALATION ×5 (07:26→23:03)
--- NOTE | 2024-09-03 08:34 | PCM.PN.HOSP ---
Reason for Visit Reason for Visit: Diagnoses Anemia, unspecified (08/23/24) Obesity, class 1 (08/23/24) Acute bronchitis due to respiratory syncytial virus (08/23/24) Chronic obstructive pulmonary disease with (acute) exacerbation (08/23/24) Acute respiratory failure with hypoxia (08/23/24) Personal history of other endocrine, nutritional and metabolic disease (08/23/24) Subjective Subjective Patient sputum cultures positive for Pseudomonas patient restarted on Zosyn. ID is recommending for patient to undergo diagnostic bronchoscopy Objective Data Objective Data Vital Signs: Vital Signs Temp Pulse Resp BP Pulse Ox O2 Del Method O2 Flow Rate 97.7 F L 71 18 119/81 H 99 Nasal Cannula 2 09/03/24 02:30 09/03/24 07:27 09/03/24 07:27 09/03/24 02:30 09/03/24 07:27 09/03/24 07:27 09/03/24 07:27 FiO2 25 08/31/24 03:30 Oxygen Flow Rate (L/min) 2 Oxygen Delivery Method Nasal Cannula Weight: 73.3 kg Body Mass Index (BMI) 30.5 Intake & Output: Intake and Output for Last 24 Hours 09/01/24 09/02/24 09/03/24 23:59 23:59 23:59 Intake Total 880 / 880 1405 / 1405 Balance 880 / 880 1405 / 1405 Lab / Micro Data 09/03/24 06:15 09/03/24 06:26 Labs: Laboratory Results - last 24 hr 09/02/24 08:00: WBC 23.5 H, RBC 3.78 L, Hgb 10.4 L, Hct 32.7 L, MCV 86.5, MCH 27.5, MCHC 31.8 L, RDW Std Deviation 46.3 H, RDW Coeff of Georgette 14.6, Plt Count 266, MPV 8.2, Immature Gran % (Auto) 2.200 H, Neut % (Auto) 77.1 H, Lymph % (Auto) 14.9 L, [place] % (Auto) 5.7, Eos % (Auto) 0.0, Baso % (Auto) 0.1, Absolute Neuts (auto) 18.1 H, Absolute Lymphs (auto) 3.51, Nucleated RBC % 0, Sodium 130 L, Potassium 4.4, Chloride 96 L, Carbon Dioxide 29.0, Anion Gap 5, BUN 33 H, Creatinine 0.98, Estim Creat Clear Calc 43.80, Est GFR (MDRD) Af Amer 70, Est GFR (MDRD) Non-Af 58 L, BUN/Creatinine Ratio 33.6 H, Glucose 86, Calcium 8.4 L 09/02/24 08:56: POC Glucose 89 09/02/24 11:16: POC Glucose 97 09/02/24 16:07: POC Glucose 342 H 09/02/24 22:29: POC Glucose 221 H 09/03/24 06:15: WBC 17.4 H, RBC 3.71 L, Hgb 10.2 L, Hct 32.6 L, MCV 87.9, MCH 27.5, MCHC 31.3 L, RDW Std Deviation 47.2 H, RDW Coeff of Georgette 14.6, Plt Count 272, MPV 8.3, Immature Gran % (Auto) 2.100 H, Neut % (Auto) 76.6 H, Lymph % (Auto) 17.3 L, [place] % (Auto) 3.7, Eos % (Auto) 0.1, Baso % (Auto) 0.2, Absolute Neuts (auto) 13.4 H, Absolute Lymphs (auto) 3.01, Nucleated RBC % 0 09/03/24 06:26: Sodium 132 L, Potassium 4.3, Chloride 99, Carbon Dioxide 28.0, Anion Gap 5, BUN 33 H, Creatinine 1.04 H, Estim Creat Clear Calc 40.82, Est GFR (MDRD) Af Amer 66, Est GFR (MDRD) Non-Af 54 L, BUN/Creatinine Ratio 31.7 H, Glucose 129 H, Calcium 8.7 09/03/24 06:29: POC Glucose 119 H Micro: Microbiology 09/01/24 19:28 Sputum, Expectorated/Coughed Gram Stain - Final 09/01/24 19:28 Sputum, Expectorated/Coughed Respiratory Culture - Final Pseudomonas aeruginosa 09/01/24 17:05 Mucosa - Nasopharyngeal Respiratory Panel (PCR) - Final RSV A 09/01/24 17:25 Nasal Secretion MRSA (PCR) - Final 09/01/24 18:15 Urine, Clean Catch Streptococcus pneumoniae Antigen (M - Final 09/01/24 18:15 Urine, Clean Catch Legionella Antigen - Final 09/01/24 17:01 Mucosa - Nasopharyngeal Coronavirus COVID-19 PCR - Final 08/28/24 12:05 Stool Stool Occult Blood (EMELYN) - Final 08/23/24 20:31 Mucosa - Nose SARS-CoV-2, Influenza & RSV (PCR) - Final RSV Rhythm Strip Rhythm Strip: Sinus Tach Rate: 101 Ectopy: None Physical Exam Narrative GENERAL: cooperative HEENT: Atraumatic; normocephalic EYES; Anicteric, Normal Conjunctiva NECK; supple, normal thyroid, RESPIRATORY: Diminished to auscultation with bilateral wheezes CARDIOVASCULAR: Regular S1 S2, GI: soft, normoactive bowel sounds, : No Renal angle tenderness; EXTREMITIES: No edema, no clubbing, MUSCULOSKELETAL: no muscle wasting NEURO: Awake; no lateralizing signs. SKIN: No Rash PSYCH; Flat affect Assessment & Plan Assessment/Plan (1) Acute exacerbation of chronic obstructive pulmonary disease: (2) RSV infection: QUALIFIERS: RSV infection type: acute bronchitis Qualified Code(s): J20.5 - Acute bronchitis due to respiratory syncytial virus (3) Acute hypoxic respiratory failure: (4) Chronic anemia: (5) History of diabetes mellitus: (6) Obesity (BMI 30.0-34.9): PLAN: Plan Patient is a 70-year-old lady admitted with progressive shortness of breath productive cough as well as wheezing. An assessment of acute hypoxic respiratory failure requiring BiPAP made admitted to monitored bed for further management 1. Acute on chronic hypoxic respiratory failure ? Due to combination of COPD exacerbation, RSV infection. Patient managed with noninvasive ventilation BiPAP goal is to wean off to nasal cannula prior to patient being assessed for discharge to a [place] [facility] facility ? 09/01/2024. Patient has been weaned off noninvasive ventilation however still has significant bronchospasm. Ordered chest x-ray as well as proBNP 2. Suspected bacterial pneumonia ? Patient was admitted with RSV infection however she was found to have worsening leukocytosis. Subsequent imaging studies did show Scattered pulmonary nodules, numerous, almost entirely on the right. Multiple are associated with bronchovascular structures in the central lung. Primary considerations include inflammatory, infectious, and neoplastic nodules. Including septic emboli, fungal disease, and metastatic disease.. Patient had empirically been started on Zosyn and azithromycin and vancomycin prior to ordering the imaging studies. Did consult ID and pulmonary medicine following receipt of imaging study result -09/03/2024; patient sputum cultures positive for Pseudomonas patient restarted on Zosyn. ID is recommending for patient to undergo diagnostic bronchoscopy 2. COPD with acute exacerbation ? Patient started on bronchodilator treatment, systemic steroid as well as antibiotic therapy. Patient placed on oxygen titrated to keep saturation greater than 90. 3. RSV infection ? Complicating patient respiratory failure treated symptomatically 4. Anemia ? Secondary to chronic disorder monitoring H&H and transfuse if patient becomes symptomatic or hemoglobin falls below 7 5. Diabetes mellitus type II -patient's oral hypoglycemics held. Placed on long acting insulin, Accu-Cheks a.c. and at bedtime and covered with sliding scale insulin 6. Hypothyroidism ? Patient is on levothyroxine home dose continued 7. Chronic hypoxic respiratory failure ? Patient is on baseline home oxygen 2 L at rest 8. Hypertension ? Blood pressure controlled, home medications continued with dose adjustment as needed 9. Dyslipidemia ? Patient is on his Antiminth did continue 10. Osteoporosis ? Patient is on denosumab as outpatient 11. Osteoarthritis ? Pain meds as needed 12. Class I obesity with BMI of 31 ? Weight loss advised 13. GERD ? On PPI 14. DVT prophylaxis ? On enoxaparin Time spent in the patient's overall evaluation,decision-making process, review of diagnostic data, adjustment of management, discussion with other providers, nursing nursing and ancillary staff involved in patient's care documentation, 38 Minutes Charges/Coding Visit Charges Inpatient E&M: 77311 [facility] Hosp L2
[2024-09-03] MEDS: Ascorbic Acid 500 MG Tablet 1000 MG PO ×2 (09:41→16:35)
[2024-09-03] MEDS: predniSONE 20 MG Tablet 40 MG PO (09:41)
[2024-09-03] MEDS: Enoxaparin 40 MG/0.4 ML Syringe SC (09:41)
[2024-09-03] MEDS: Pantoprazole Sodium 20 MG Tablet PO (09:41)
[2024-09-03] MEDS: guaiFENesin 1,200 MG Tablet 1200 MG PO ×2 (09:41→22:49)
[2024-09-03] MEDS: dilTIAZem CD 120 MG Capsule PO (09:41)
[2024-09-03] MEDS: Calcium Carbonate 500 MG Tablet PO (09:41)
[2024-09-03] MEDS: Cholecalciferol (Vit D3) 125 MCG CAPSULE (5,000 UNITS) PO (09:41)
[2024-09-03] MEDS: Escitalopram Oxalate 10 MG Tablet 5 MG PO (09:41)
[2024-09-03] MEDS: Ezetimibe 10 MG Tablet PO (09:49)
[2024-09-03] MEDS: 0.9% Saline Lock 10 ML Syringe IV ×2 (09:53→22:49)
[2024-09-03] MEDS: Piperacil/Tazobactam 3.375 GM in 0.9% Normal Saline (50mL MB+) 50 ML IV ×3 (10:33→22:53)
[2024-09-03] MEDS: Insulin Lispro 100 UNIT/ML INSULN.PEN SC ×3 (11:52→22:51)
[2024-09-03] MEDS: Insulin Glargine-YFGN 100 UNIT/ML Pen 20 UNIT SC (11:53)
[2024-09-03] MEDS: Insulin Lispro 100 UNIT/ML INSULN.PEN 10 UNIT SC ×2 (11:53→17:11)
[2024-09-03] MEDS: Ferrous Sulfate 325 MG Tablet PO (11:59)
[2024-09-03 12:20] LABS: Bedside Glucose 201 mg/dL (74-106)
--- NOTE | 2024-09-03 14:32 | PCM.PN.TICU ---
Objective Data Objective Data Vital Signs: Vital Signs Last response Temperature 36.2 C L 09/03/24 09:36 Temperature Source Temporal 09/03/24 09:36 Pulse Rate 77 09/03/24 11:14 Pulse Strength Normal (2+) 09/03/24 09:40 Respiratory Rate 20 H 09/03/24 11:14 Respiratory Effort Normal 09/02/24 20:00 Respiratory Depth Normal 09/02/24 20:00 Respiratory Pattern Normal 09/03/24 11:14 Blood Pressure 139/54 H 09/03/24 09:36 Blood Pressure Mean 82 09/03/24 09:36 Blood Pressure Source Monitor 09/03/24 09:36 Blood Pressure Position Sitting 09/03/24 09:36 Blood Pressure Location Left Arm 09/03/24 09:36 Pulse Ox 95 09/03/24 09:36 Oxygen Delivery Method Nasal Cannula 09/03/24 09:40 Oxygen Flow Rate (L/min) 2 09/03/24 09:40 Fraction of Inspired Oxygen (FIO2) 25 08/31/24 03:30 I&O: I&O Last 24 Hours 09/02/24 09/03/24 09/03/24 23:59 11:59 23:59 Intake Total 650 / 1405 Balance 650 / 1405 I&O: Total Stay 08/23/24 20:12 thru 09/03/24 05:10 Intake Total 7555 Output Total 1902 Balance 5653 Current Meds Ordered / Administered: Current meds ordered / Administered Generic Name Dose Route Start Last Admin Trade Name Freq PRN Reason Stop Dose Admin Acetaminophen 650 mg 08/23/24 22:44 08/24/24 08:28 Acetaminophen 325 Mg Tablet PO 650 mg Q6H PRN PRN Administration Pain 1-10 Or Fever>100.7 Albuterol/Ipratropium 3 ml 08/24/24 13:15 09/03/24 11:12 Ipratropium/Albuterol Sulfate 3 Ml Ampul.Neb INHALATION 3 ml Q4HWA.RT MADDY Administration Ascorbic Acid 1,000 mg 08/24/24 08:00 09/03/24 09:41 Ascorbic Acid 500 Mg Tablet PO 1,000 mg BIDCM MADDY Administration Calcium Carbonate 500 mg 08/24/24 08:00 09/03/24 09:41 Calcium Carbonate 500 Mg Tablet PO 500 mg DAILY@0800 MADDY Administration Cholecalciferol 125 mcg 12/25/24 10:00 09/03/24 09:41 Cholecalciferol (Vit D3) 125 Mcg Capsule (5,000 Units) PO 125 mcg DAILY MADDY Administration Diltiazem HCl 120 mg 08/24/24 10:00 09/03/24 09:41 Diltiazem Cd 120 Mg Capsule PO 120 mg DAILY MADDY Administration Protocol Ezetimibe 10 mg 08/24/24 10:00 09/03/24 09:49 Ezetimibe 10 Mg Tablet PO 10 mg DAILY MADDY Administration Enoxaparin Sodium 40 mg 08/24/24 10:00 09/03/24 09:41 Enoxaparin 40 Mg/0.4 Ml Syringe SC 40 mg DAILY MADDY Administration Escitalopram Oxalate 5 mg 08/24/24 10:00 09/03/24 09:41 Escitalopram Oxalate 10 Mg Tablet PO 5 mg DAILY MADDY Administration Ferrous Sulfate 325 mg 08/24/24 12:00 09/03/24 11:59 Ferrous Sulfate 325 Mg Tablet PO 325 mg DAILY@1200 MADDY Administration Glucagon 1 mg 08/23/24 22:44 Glucagon 1 Mg/Ml Syringe IM X1 PRN HYPOGLYCEMIA Protocol Guaifenesin 1,200 mg 09/01/24 22:00 09/03/24 09:41 Guaifenesin 1,200 Mg Tablet PO 1,200 mg BID MADDY Administration Sodium Chloride 100 mls @ 15 mls/hr 08/23/24 22:41 09/02/24 01:28 IV Infused .Q6H40M PRN Infusion Saline Flush Sodium Chloride 100 mls @ 15 mls/hr 08/23/24 22:41 IV .Q6H40M PRN Additional IVPB Infusion Dextrose 250 mls @ 0 mls/hr 08/23/24 22:44 Dextrose 10%-Water IV .Q0M PRN HYPOGLYCEMIA Protocol As Directed Piperacillin Sod/Tazobactam 50 mls @ 12.5 mls/hr 09/03/24 08:40 09/03/24 10:33 Sod 3.375 gm/ Sodium Chloride IV 12.5 mls/hr Q8 MADDY Administration Insulin Glargine 20 unit 08/27/24 10:00 09/03/24 11:53 Insulin Glargine-Yfgn 100 Unit/Ml Pen SC 20 unit DAILY MADDY Administration Insulin Human Lispro 0 unit 08/23/24 22:44 09/03/24 11:52 Insulin Lispro 100 Unit/Ml Insuln.Pen SC 1 units ACHS MADDY Administration Protocol Insulin Human Lispro 10 unit 08/26/24 11:00 09/03/24 11:53 Insulin Lispro 100 Unit/Ml Insuln.Pen SC 10 u TIDAC MADDY Administration Levothyroxine Sodium 50 mcg 08/25/24 06:00 09/03/24 06:31 Levothyroxine 50 Mcg Tablet PO 50 mcg 0600 MADDY Administration Melatonin 10 mg 08/24/24 14:06 Melatonin 10 Mg Tablet PO QHS PRN PRN INSOMNIA Pantoprazole Sodium 20 mg 08/24/24 10:00 09/03/24 09:41 Pantoprazole Sodium 20 Mg Tablet PO 20 mg DAILY MADDY Administration Prednisone 40 mg 09/02/24 08:00 09/03/24 09:41 Prednisone 20 Mg Tablet PO 40 mg BREAKFAST [facility] Administration Promethazine HCl 25 mg 08/23/24 22:44 Promethazine 25 Mg/Ml Syringe IM Q6H PRN PRN Breakthrough Nausea/Vomiting Senna/Docusate Sodium 1 tablet 09/03/24 13:35 Senna/Docusate Sodium 1 Tablet PO BID [facility] Sodium Chloride 10 - 40 ml 08/23/24 22:41 09/03/24 09:53 0.9% Saline Lock 10 Ml Syringe IV 20 ml UD PRN Administration SALINE FLUSH Temazepam 15 mg 08/28/24 18:37 09/01/24 20:16 Temazepam 15 Mg Capsule PO 15 mg QHS PRN Administration SLEEP Lab / Micro Data Attestation: I reviewed the patient's lab results. 09/03/24 06:15 09/03/24 06:26 Labs: Laboratory Results - last 24 hr 09/02/24 16:07: POC Glucose 342 H 09/02/24 22:29: POC Glucose 221 H 09/03/24 06:15: WBC 17.4 H, RBC 3.71 L, Hgb 10.2 L, Hct 32.6 L, MCV 87.9, MCH 27.5, MCHC 31.3 L, RDW Std Deviation 47.2 H, RDW Coeff of Georgette 14.6, Plt Count 272, MPV 8.3, Immature Gran % (Auto) 2.100 H, Neut % (Auto) 76.6 H, Lymph % (Auto) 17.3 L, [place] % (Auto) 3.7, Eos % (Auto) 0.1, Baso % (Auto) 0.2, Absolute Neuts (auto) 13.4 H, Absolute Lymphs (auto) 3.01, Nucleated RBC % 0 09/03/24 06:26: Sodium 132 L, Potassium 4.3, Chloride 99, Carbon Dioxide 28.0, Anion Gap 5, BUN 33 H, Creatinine 1.04 H, Estim Creat Clear Calc 40.82, Est GFR (MDRD) Af Amer 66, Est GFR (MDRD) Non-Af 54 L, BUN/Creatinine Ratio 31.7 H, Glucose 129 H, Calcium 8.7 09/03/24 06:29: POC Glucose 119 H 09/03/24 11:51: POC Glucose 201 H Micro: Microbiology 09/01/24 19:28 Sputum, Expectorated/Coughed Gram Stain - Final 09/01/24 19:28 Sputum, Expectorated/Coughed Respiratory Culture - Final Pseudomonas aeruginosa Rhythm Strip Rhythm Strip: Sinus Tach Rate: 101 Ectopy: None Assessment and Plan . Assessment and plan: IMPRESSIONS: 1. COPD exacerbation with associated hypoxemia secondary to RSV infection; followed by an outside methods examiner at [facility], on triple therapy 2. Multifocal nodules/ nodular infiltrates right lung- suspect infectious/ inflammatory 3. History of diabetes mellitus/obesity/nocturnal hypoxemia/hypertension/hyperlipidemia/hypothyroidism RECOMMENDATIONS: 1. Continue supplemental oxygen to maintain saturations at or above 90%. 2. Continue to monitor H&H 3. Continue scheduled bronchodilators and prednisone. 4. Agree with empiric antimicrobials. 5. Continue BiPAP therapy nightly and PRN throughout the day. 7. Repeat CT imaging the chest in 6 to 8 weeks. Critical Care Time: 50 minutes The entirety of this encounter was done via Telemedicine Physical Exam Const alert and oriented x3 General Appearance: cooperative Eyes PERRL and EOMs intact bilaterally Resp no use of accessory muscles Effort and Inspection: uses accessory muscles Auscultation: diminished lung sounds Cardio regular rate Subjective Subjective Pleasant, in good spirits. She still notes exertional dyspnea with any activity in the room.
[2024-09-03 16:55] LABS: Bedside Glucose 370 mg/dL (74-106)
[2024-09-03] MEDS: Temazepam 15 MG Capsule PO (22:49)
[2024-09-03 23:20] LABS: Bedside Glucose 284 mg/dL (74-106)
[2024-09-04] VITALS (14 sets, daily range): BP systolic 95–134; BP diastolic 56–89; PULSE 67–82; RESP 16–22; TEMP 36.2–36.4; O2SAT 97–100; BMI 31.1
[2024-09-04] MEDS: Levothyroxine 50 MCG Tablet PO (05:19)
[2024-09-04] MEDS: 0.9% Saline Lock 10 ML Syringe IV ×4 (05:19→20:08)
[2024-09-04] MEDS: Piperacil/Tazobactam 3.375 GM in 0.9% Normal Saline (50mL MB+) 50 ML IV ×3 (05:20→22:04)
[2024-09-04] MEDS: Ipratropium/Albuterol Sulfate 3 ML AMPUL.NEB INHALATION ×4 (05:41→19:30)
[2024-09-04 06:45] LABS: Absolute Lymphocyte Count 2.23 X10^3/uL (0.83-4.51); Absolute Neutrophil Count 9.1 X10^3/uL (2.0-7.7); Basophil# 0.01 X10^3/uL; Basophil% 0.1 % (0-1); Eosinophil# 0.01 X10^3/uL; Eosinophils% 0.1 % (0-5); Hemoglobin 9.3 g/dL (12.0-15.0); Lymphocyte # 2.23 X10^3/ul (0.83-4.51); Lymphocyte % 18.4 % (19-41); Mean Corp Hgb Conc 32.1 g/dL (32-36); Mean Corpuscular Hgb 27.8 pg (27.0-32.0); Mean Corpuscular Volume 86.8 fL (81-99); Mean Platelet Vol. 8.6 fl (6.2-12.0); Monocyte# 0.54 X10^3/uL; Monocyte% 4.5 % (0-10); NRBC Flagged by Analyzer 0 % (0-5); Neutrophil # 9.11 X10^3/uL (2.7-7.7); Neutrophil % 75.2 % (47-70); Platelet Count 247 K/mm3 (150-450); RBC Distribution Width CV 14.4 % (11.6-14.6); RBC Distribution Width SD 45.9 fl (35.1-43.9); Red Blood Count 3.34 M/mm3 (4.2-5.4); White Blood Count 12.1 K/mm3 (4.4-11.0)
[2024-09-04 07:28] LABS: Anion Gap 7 (5-15); BUN 32 mg/dL (7-18); BUN/Creat Ratio 30.2 RATIO (10-20); Chloride 97 mmol/L (98-107); Creatinine, Serum 1.06 mg/dL (0.55-1.02); EST Glomerular Filtration Rate 53 mL/min (>60); Est Glom Filt Rate - Afr Amer 64 mL/min (>60); Estimated Creatinine Clearance 40.44 ml/min; Glucose 276 mg/dL (74-106); Potassium 4.4 mmol/L (3.5-5.1); Sodium Level 130 mmol/L (136-145)
[2024-09-04] MEDS: dilTIAZem CD 120 MG Capsule PO (08:44)
[2024-09-04] MEDS: Enoxaparin 40 MG/0.4 ML Syringe SC (08:44)
[2024-09-04] MEDS: guaiFENesin 1,200 MG Tablet 1200 MG PO ×2 (08:45→22:04)
[2024-09-04] MEDS: Ferrous Sulfate 325 MG Tablet PO (08:45)
[2024-09-04] MEDS: Escitalopram Oxalate 10 MG Tablet 5 MG PO (08:45)
[2024-09-04] MEDS: Cholecalciferol (Vit D3) 125 MCG CAPSULE (5,000 UNITS) PO (08:45)
[2024-09-04] MEDS: Ezetimibe 10 MG Tablet PO (08:45)
[2024-09-04] MEDS: predniSONE 20 MG Tablet 40 MG PO (08:45)
[2024-09-04] MEDS: Pantoprazole Sodium 20 MG Tablet PO (08:45)
[2024-09-04] MEDS: Ascorbic Acid 500 MG Tablet 1000 MG PO ×2 (08:45→17:44)
[2024-09-04] MEDS: Calcium Carbonate 500 MG Tablet PO (08:45)
[2024-09-04 08:54] LABS: Bedside Glucose 181 mg/dL (74-106)
[2024-09-04] MEDS: Insulin Lispro 100 UNIT/ML INSULN.PEN 10 UNIT SC ×3 (10:11→17:47)
[2024-09-04] MEDS: Insulin Lispro 100 UNIT/ML INSULN.PEN SC ×4 (10:11→22:10)
[2024-09-04] MEDS: Insulin Glargine-YFGN 100 UNIT/ML Pen 20 UNIT SC (10:12)
--- NOTE | 2024-09-04 11:07 | PCM.PN.HOSP ---
Reason for Visit Reason for Visit: Diagnoses Anemia, unspecified (08/23/24) Obesity, class 1 (08/23/24) Acute bronchitis due to respiratory syncytial virus (08/23/24) Chronic obstructive pulmonary disease with (acute) exacerbation (08/23/24) Acute respiratory failure with hypoxia (08/23/24) Personal history of other endocrine, nutritional and metabolic disease (08/23/24) Subjective Subjective Patient seen sputum cultures came back positive for Pseudomonas patient Zosyn restarted. Awaiting reevaluation by pulmonary medicine for possible bronchoscopy as recommended by ID Objective Data Objective Data Vital Signs: Vital Signs Temp Pulse Resp BP Pulse Ox O2 Del Method O2 Flow Rate 97.6 F L 77 18 116/57 L 98 Nasal Cannula 2 09/04/24 08:14 09/04/24 10:37 09/04/24 10:37 09/04/24 08:14 09/04/24 10:38 09/04/24 10:38 09/04/24 10:38 FiO2 25 08/31/24 03:30 Oxygen Flow Rate (L/min) 2 Oxygen Delivery Method Nasal Cannula Weight: 74.7 kg Body Mass Index (BMI) 31.1 Intake & Output: Intake and Output for Last 24 Hours 09/02/24 09/03/24 09/04/24 23:59 23:59 23:59 Intake Total 1405 / 1405 1240 / 1240 200 / 200 Balance 1405 / 1405 1240 / 1240 200 / 200 Lab / Micro Data 09/04/24 05:55 09/04/24 05:55 Labs: Laboratory Results - last 24 hr 09/03/24 11:51: POC Glucose 201 H 09/03/24 16:33: POC Glucose 370 H 09/03/24 22:47: POC Glucose 284 H 09/04/24 05:55: WBC 12.1 H, RBC 3.34 L, Hgb 9.3 L, Hct 29.0 L, MCV 86.8, MCH 27.8, MCHC 32.1, RDW Std Deviation 45.9 H, RDW Coeff of Georgette 14.4, Plt Count 247, MPV 8.6, Immature Gran % (Auto) 1.700 H, Neut % (Auto) 75.2 H, Lymph % (Auto) 18.4 L, [place] % (Auto) 4.5, Eos % (Auto) 0.1, Baso % (Auto) 0.1, Absolute Neuts (auto) 9.1 H, Absolute Lymphs (auto) 2.23, Nucleated RBC % 0, Sodium 130 L, Potassium 4.4, Chloride 97 L, Carbon Dioxide 26.0, Anion Gap 7, BUN 32 H, Creatinine 1.06 H, Estim Creat Clear Calc 40.44, Est GFR (MDRD) Af Amer 64, Est GFR (MDRD) Non-Af 53 L, BUN/Creatinine Ratio 30.2 H, Glucose 276 H, Calcium 9.0 09/04/24 08:20: POC Glucose 181 H Micro: Microbiology 09/01/24 17:54 Blood Culture (Wb) - Right Hand Blood Culture - Preliminary No growth in 48 hours. 09/01/24 17:54 Blood Culture (Wb) - Left Hand Blood Culture - Preliminary No growth in 48 hours. 09/01/24 19:28 Sputum, Expectorated/Coughed Gram Stain - Final 09/01/24 19:28 Sputum, Expectorated/Coughed Respiratory Culture - Final Pseudomonas aeruginosa 09/01/24 17:05 Mucosa - Nasopharyngeal Respiratory Panel (PCR) - Final RSV A 09/01/24 17:25 Nasal Secretion MRSA (PCR) - Final 09/01/24 18:15 Urine, Clean Catch Streptococcus pneumoniae Antigen (M - Final 09/01/24 18:15 Urine, Clean Catch Legionella Antigen - Final 09/01/24 17:01 Mucosa - Nasopharyngeal Coronavirus COVID-19 PCR - Final 08/28/24 12:05 Stool Stool Occult Blood (EMELYN) - Final 08/23/24 20:31 Mucosa - Nose SARS-CoV-2, Influenza & RSV (PCR) - Final RSV Rhythm Strip Rhythm Strip: Sinus Tach Rate: 101 Ectopy: None Physical Exam Narrative GENERAL: cooperative HEENT: Atraumatic; normocephalic EYES; Anicteric, Normal Conjunctiva NECK; supple, normal thyroid, RESPIRATORY: Diminished to auscultation with bilateral wheezes CARDIOVASCULAR: Regular S1 S2, GI: soft, normoactive bowel sounds, : No Renal angle tenderness; EXTREMITIES: No edema, no clubbing, MUSCULOSKELETAL: no muscle wasting NEURO: Awake; no lateralizing signs. SKIN: No Rash PSYCH; Flat affect Assessment & Plan Assessment/Plan (1) Acute exacerbation of chronic obstructive pulmonary disease: (2) RSV infection: QUALIFIERS: RSV infection type: acute bronchitis Qualified Code(s): J20.5 - Acute bronchitis due to respiratory syncytial virus (3) Acute hypoxic respiratory failure: (4) Chronic anemia: (5) History of diabetes mellitus: (6) Obesity (BMI 30.0-34.9): PLAN: Plan Patient is a 70-year-old lady admitted with progressive shortness of breath productive cough as well as wheezing. An assessment of acute hypoxic respiratory failure requiring BiPAP made admitted to monitored bed for further management 1. Acute on chronic hypoxic respiratory failure ? Due to combination of COPD exacerbation, RSV infection. Patient managed with noninvasive ventilation BiPAP goal is to wean off to nasal cannula prior to patient being assessed for discharge to a long-term facility ? 09/01/2024. Patient has been weaned off noninvasive ventilation however still has significant bronchospasm. Ordered chest x-ray as well as proBNP 2. Suspected bacterial pneumonia ? Patient was admitted with RSV infection however she was found to have worsening leukocytosis. Subsequent imaging studies did show Scattered pulmonary nodules, numerous, almost entirely on the right. Multiple are associated with bronchovascular structures in the central lung. Primary considerations include inflammatory, infectious, and neoplastic nodules. Including septic emboli, fungal disease, and metastatic disease.. Patient had empirically been started on Zosyn and azithromycin and vancomycin prior to ordering the imaging studies. Did consult ID and pulmonary medicine following receipt of imaging study result -09/03/2024; patient sputum cultures positive for Pseudomonas patient restarted on Zosyn. ID is recommending for patient to undergo diagnostic bronchoscopy ? 09/04/2024Patient seen sputum cultures came back positive for Pseudomonas patient Zosyn restarted. Awaiting reevaluation by pulmonary medicine for possible bronchoscopy as recommended by ID 2. COPD with acute exacerbation ? Patient started on bronchodilator treatment, systemic steroid as well as antibiotic therapy. Patient placed on oxygen titrated to keep saturation greater than 90. 3. RSV infection ? Complicating patient respiratory failure treated symptomatically 4. Anemia ? Secondary to chronic disorder monitoring H&H and transfuse if patient becomes symptomatic or hemoglobin falls below 7 5. Diabetes mellitus type II -patient's oral hypoglycemics held. Placed on long acting insulin, Accu-Cheks a.c. and at bedtime and covered with sliding scale insulin 6. Hypothyroidism ? Patient is on levothyroxine home dose continued 7. Chronic hypoxic respiratory failure ? Patient is on baseline home oxygen 2 L at rest 8. Hypertension ? Blood pressure controlled, home medications continued with dose adjustment as needed 9. Dyslipidemia ? Patient is on his Antiminth did continue 10. Osteoporosis ? Patient is on denosumab as outpatient 11. Osteoarthritis ? Pain meds as needed 12. Class I obesity with BMI of 31 ? Weight loss advised 13. GERD ? On PPI 14. DVT prophylaxis ? On enoxaparin Time spent in the patient's overall evaluation,decision-making process, review of diagnostic data, adjustment of management, discussion with other providers, nursing nursing and ancillary staff involved in patient's care documentation, 38 Minutes Charges/Coding Visit Charges Inpatient E&M: 34200 Subs Hosp L2
[2024-09-04 12:24] LABS: Bedside Glucose 172 mg/dL (74-106)
--- NOTE | 2024-09-04 13:13 | PN.CC_ITS ---
Objective Data Objective Data Vital Signs: Vital Signs Last response 3 Temperature 36.4 C L 09/04/24 08:14 Temperature Source Oral 09/04/24 08:14 Pulse Rate 77 09/04/24 10:37 Pulse Strength Normal (2+) 09/03/24 09:40 Respiratory Rate 18 09/04/24 10:37 Respiratory Effort Normal, Non-Labored 09/04/24 08:25 Respiratory Depth Normal 09/04/24 08:25 Respiratory Pattern Normal 09/04/24 10:37 Blood Pressure 116/57 L 09/04/24 08:14 Blood Pressure Mean 76 09/04/24 08:14 Blood Pressure Source Monitor 09/04/24 08:14 Blood Pressure Position Left Lateral 09/04/24 08:14 Blood Pressure Location Right Arm 09/04/24 08:14 Pulse Ox 98 09/04/24 10:38 Oxygen Delivery Method Nasal Cannula 09/04/24 10:38 Oxygen Flow Rate (L/min) 2 09/04/24 10:38 Fraction of Inspired Oxygen (FIO2) 08/31/24 03:30 I&O: I&O Last 24 Hours 3 09/03/24 09/04/24 09/04/24 23:59 11:59 23:59 Intake Total 1240 / 1240 200 / 200 Balance 1240 / 1240 200 / 200 I&O: Total Stay 3 08/23/24 20:12 thru 09/04/24 10:15 Intake Total 8995 Output Total 1902 Balance 7093 Current Meds Ordered / Administered: Current meds ordered / Administered 3 Generic Name Dose Route Start Last Admin Trade Name Freq PRN Reason Stop Dose Admin Acetaminophen 650 mg 08/23/24 22:44 08/24/24 08:28 Acetaminophen 325 Mg Tablet PO 650 mg Q6H PRN PRN Administration Pain 1-10 Or Fever>100.7 Albuterol/Ipratropium 3 ml 08/24/24 13:15 09/04/24 10:36 Ipratropium/Albuterol Sulfate 3 Ml Ampul.Neb INHALATION 3 ml Q4HWA.RT MADDY Administration Ascorbic Acid 1,000 mg 08/24/24 08:00 09/04/24 08:45 Ascorbic Acid 500 Mg Tablet PO 1,000 mg BIDCM MADDY Administration Calcium Carbonate 500 mg 08/24/24 08:00 09/04/24 08:45 Calcium Carbonate 500 Mg Tablet PO 500 mg DAILY@0800 MADDY Administration Cholecalciferol 125 mcg 08/24/24 10:00 09/04/24 08:45 Cholecalciferol (Vit D3) 125 Mcg Capsule (5,000 Units) PO 125 mcg DAILY MADDY Administration Diltiazem HCl 120 mg 08/24/24 10:00 09/04/24 08:44 Diltiazem Cd 120 Mg Capsule PO 120 mg DAILY MADDY Administration Protocol Ezetimibe 10 mg 08/24/24 10:00 09/04/24 08:45 Ezetimibe 10 Mg Tablet PO 10 mg DAILY MADDY Administration Enoxaparin Sodium 40 mg 08/24/24 10:00 09/04/24 08:44 Enoxaparin 40 Mg/0.4 Ml Syringe SC 40 mg DAILY MADDY Administration Escitalopram Oxalate 5 mg 08/24/24 10:00 09/04/24 08:45 Escitalopram Oxalate 10 Mg Tablet PO 5 mg DAILY MADDY Administration Ferrous Sulfate 325 mg 08/24/24 12:00 09/04/24 08:45 Ferrous Sulfate 325 Mg Tablet PO 325 mg DAILY@1200 MADDY Administration Glucagon 1 mg 08/23/24 22:44 Glucagon 1 Mg/Ml Syringe IM X1 PRN HYPOGLYCEMIA Protocol Guaifenesin 1,200 mg 09/01/24 22:00 09/04/24 08:45 Guaifenesin 1,200 Mg Tablet PO 1,200 mg BID MADDY Administration Sodium Chloride 100 mls @ 15 mls/hr 08/23/24 22:41 09/02/24 01:28 IV Infused .Q6H40M PRN Infusion Saline Flush Sodium Chloride 100 mls @ 15 mls/hr 08/23/24 22:41 IV .Q6H40M PRN Additional IVPB Infusion Dextrose 250 mls @ 0 mls/hr 08/23/24 22:44 Dextrose 10%-Water IV .Q0M PRN HYPOGLYCEMIA Protocol As Directed Piperacillin Sod/Tazobactam 50 mls @ 12.5 mls/hr 09/03/24 08:40 09/04/24 10:15 Sod 3.375 gm/ Sodium Chloride IV Infused Q8 MADDY Infusion Insulin Glargine 20 unit 08/27/24 10:00 09/04/24 10:12 Insulin Glargine-Yfgn 100 Unit/Ml Pen SC 20 unit DAILY MADDY Administration Insulin Human Lispro 0 unit 08/23/24 22:44 09/04/24 12:29 Insulin Lispro 100 Unit/Ml Insuln.Pen SC 1 units ACHS MADDY Administration Protocol Insulin Human Lispro 10 unit 08/26/24 11:00 09/04/24 12:29 Insulin Lispro 100 Unit/Ml Insuln.Pen SC 10 u TIDAC MADDY Administration Levothyroxine Sodium 50 mcg 08/25/24 06:00 09/04/24 05:19 Levothyroxine 50 Mcg Tablet PO 50 mcg 0600 MADDY Administration Melatonin 10 mg 08/24/24 14:06 Melatonin 10 Mg Tablet PO QHS PRN PRN INSOMNIA Pantoprazole Sodium 20 mg 08/24/24 10:00 09/04/24 08:45 Pantoprazole Sodium 20 Mg Tablet PO 20 mg DAILY MADDY Administration Prednisone 40 mg 09/02/24 08:00 09/04/24 08:45 Prednisone 20 Mg Tablet PO 40 mg BREAKFAST MADDY Administration Promethazine HCl 25 mg 08/23/24 22:44 Promethazine 25 Mg/Ml Syringe IM Q6H PRN PRN Breakthrough Nausea/Vomiting Senna/Docusate Sodium 1 tablet 09/03/24 13:35 09/04/24 08:22 Senna/Docusate Sodium 1 Tablet PO Not Given BID [facility] Sodium Chloride 10 - 40 ml 08/23/24 22:41 09/04/24 08:44 0.9% Saline Lock 10 Ml Syringe IV 10 ml UD PRN Administration SALINE FLUSH Temazepam 15 mg 08/28/24 18:37 09/03/24 22:49 Temazepam 15 Mg Capsule PO 15 mg QHS PRN Administration SLEEP Lab / Micro Data 09/04/24 05:55 09/04/24 05:55 Labs: Laboratory Results - last 24 hr 09/03/24 16:33: POC Glucose 370 H 09/03/24 22:47: POC Glucose 284 H 09/04/24 05:55: WBC 12.1 H, RBC 3.34 L, Hgb 9.3 L, Hct 29.0 L, MCV 86.8, MCH 27.8, MCHC 32.1, RDW Std Deviation 45.9 H, RDW Coeff of Georgette 14.4, Plt Count 247, MPV 8.6, Immature Gran % (Auto) 1.700 H, Neut % (Auto) 75.2 H, Lymph % (Auto) 18.4 L, [place] % (Auto) 4.5, Eos % (Auto) 0.1, Baso % (Auto) 0.1, Absolute Neuts (auto) 9.1 H, Absolute Lymphs (auto) 2.23, Nucleated RBC % 0, Sodium 130 L, Potassium 4.4, Chloride 97 L, Carbon Dioxide 26.0, Anion Gap 7, BUN 32 H, C reatinine 1.06 H, Estim Creat Clear Calc 40.44, Est GFR (MDRD) Af Amer 64, Est GFR (MDRD) Non-Af 53 L, BUN/Creatinine Ratio 30.2 H, Glucose 276 H, Calcium 9.0 09/04/24 08:20: POC Glucose 181 H 09/04/24 12:06: POC Glucose 172 H Micro: Microbiology 09/01/24 17:54 Blood Culture (Wb) - Right Hand Blood Culture - Preliminary No growth in 48 hours. 09/01/24 17:54 Blood Culture (Wb) - Left Hand Blood Culture - Preliminary No growth in 48 hours. Rhythm Strip Rhythm Strip: Sinus Tach Rate: 101 Ectopy: None Assessment and Plan . Assessment and plan: [facility] Medical Records Department [address] [place] [address] Progress Note - Chinese Medicine Practitioner 09/03/24 1432 MR#: [id number] Acct: [id number] Name: KIRSTIE BLAIR Rep #: [id number] : 1945 78 From: Celestino Pearl MD PCP: Dr. Cy Griffiths MD Status: ADM IN Location: [place] [address] Objective Data Objective Data Vital Signs: Vital Signs Last response Temperature 36.2 C L 09/03/24 09:36 Temperature Source Temporal 09/03/24 09:36 Pulse Rate 77 09/03/24 11:14 Pulse Strength Normal (2+) 09/03/24 09:40 Respiratory Rate 20 H 09/03/24 11:14 Respiratory Effort Normal 09/02/24 20:00 Respiratory Depth Normal 09/02/24 20:00 Respiratory Pattern Normal 09/03/24 11:14 Blood Pressure 139/54 H 09/03/24 09:36 Blood Pressure Mean 82 09/03/24 09:36 Blood Pressure Source Monitor 09/03/24 09:36 Blood Pressure Position Sitting 09/03/24 09:36 Blood Pressure Location Left Arm 09/03/24 09:36 Pulse Ox 95 09/03/24 09:36 Oxygen Delivery Method Nasal Cannula 09/03/24 09:40 Oxygen Flow Rate (L/min) 2 09/03/24 09:40 Fraction of Inspired Oxygen (FIO2) 25 08/31/24 03:30 I&O: I&O Last 24 Hours 09/02/24 09/03/24 09/03/24 23:59 11:59 23:59 Intake Total 650 / 1405 Balance 650 / 1405 I&O: Total Stay 08/23/24 20:12 thru 09/03/24 05:10 Intake Total 7555 Output Total 1902 Balance 5653 Current Meds Ordered / Administered: Current meds ordered / Administered Generic Name Dose Route Start Last Admin Trade Name Freq PRN Reason Stop Dose Admin Acetaminophen 650 mg 08/23/24 22:44 08/24/24 08:28 Acetaminophen 325 Mg Tablet PO 650 mg Q6H PRN PRN Administration Pain 1-10 Or Fever>100.7 Albuterol/Ipratropium 3 ml 08/24/24 13:15 09/03/24 11:12 Ipratropium/Albuterol Sulfate 3 Ml Ampul.Neb INHALATION 3 ml Q4HWA.RT MADDY Administration Ascorbic Acid 1,000 mg 08/24/24 08:00 09/03/24 09:41 Ascorbic Acid 500 Mg Tablet PO 1,000 mg BIDCM MADDY Administration Calcium Carbonate 500 mg 08/24/24 08:00 09/03/24 09:41 Calcium Carbonate 500 Mg Tablet PO 500 mg DAILY@0800 MADDY Administration Cholecalciferol 125 mcg 08/24/24 10:00 09/03/24 09:41 Cholecalciferol (Vit D3) 125 Mcg Capsule (5,000 Units) PO 125 mcg DAILY MADDY Administration Diltiazem HCl 120 mg 08/24/24 10:00 09/03/24 09:41 Diltiazem Cd 120 Mg Capsule PO 120 mg DAILY MADDY Administration Protocol Ezetimibe 10 mg 08/24/24 10:00 09/03/24 09:49 Ezetimibe 10 Mg Tablet PO 10 mg DAILY MADDY Administration Enoxaparin Sodium 40 mg 08/24/24 10:00 09/03/24 09:41 Enoxaparin 40 Mg/0.4 Ml Syringe SC 40 mg DAILY MADDY Administration Escitalopram Oxalate 5 mg 08/24/24 10:00 09/03/24 09:41 Escitalopram Oxalate 10 Mg Tablet PO 5 mg DAILY MADDY Administration Ferrous Sulfate 325 mg 08/24/24 12:00 09/03/24 11:59 Ferrous Sulfate 325 Mg Tablet PO 325 mg DAILY@1200 MADDY Administration Glucagon 1 mg 08/23/24 22:44 Glucagon 1 Mg/Ml Syringe IM X1 PRN HYPOGLYCEMIA Protocol Guaifenesin 1,200 mg 09/01/24 22:00 09/03/24 09:41 Guaifenesin 1,200 Mg Tablet PO 1,200 mg BID MADDY Administration Sodium Chloride 100 mls @ 15 mls/hr 08/23/24 22:41 09/02/24 01:28 IV Infused .Q6H40M PRN Infusion Saline Flush Sodium Chloride 100 mls @ 15 mls/hr 08/23/24 22:41 IV .Q6H40M PRN Additional IVPB Infusion Dextrose 250 mls @ 0 mls/hr 08/23/24 22:44 Dextrose 10%-Water IV .Q0M PRN HYPOGLYCEMIA Protocol As Directed Piperacillin Sod/Tazobactam 50 mls @ 12.5 mls/hr 09/03/24 08:40 09/03/24 10:33 Sod 3.375 gm/ Sodium Chloride IV 12.5 mls/hr Q8 MADDY Administration Insulin Glargine 20 unit 08/27/24 10:00 09/03/24 11:53 Insulin Glargine-Yfgn 100 Unit/Ml Pen SC 20 unit DAILY MADDY Administration Insulin Human Lispro 0 unit 08/23/24 22:44 09/03/24 11:52 Insulin Lispro 100 Unit/Ml Insuln.Pen SC 1 units ACHS MADDY Administration Protocol Insulin Human Lispro 10 unit 08/26/24 11:00 09/03/24 11:53 Insulin Lispro 100 Unit/Ml Insuln.Pen SC 10 u TIDAC MADDY Administration Levothyroxine Sodium 50 mcg 08/25/24 06:00 09/03/24 06:31 Levothyroxine 50 Mcg Tablet PO 50 mcg 0600 MADDY Administration Melatonin 10 mg 08/24/24 14:06 Melatonin 10 Mg Tablet PO QHS PRN PRN INSOMNIA Pantoprazole Sodium 20 mg 08/24/24 10:00 09/03/24 09:41 Pantoprazole Sodium 20 Mg Tablet PO 20 mg DAILY MADDY Administration Prednisone 40 mg 09/02/24 08:00 09/03/24 09:41 Prednisone 20 Mg Tablet PO 40 mg BREAKFAST MADDY Administration Promethazine HCl 25 mg 08/23/24 22:44 Promethazine 25 Mg/Ml Syringe IM Q6H PRN PRN Breakthrough Nausea/Vomiting Senna/Docusate Sodium 1 tablet 09/03/24 13:35 Senna/Docusate Sodium 1 Tablet PO BID MADDY Sodium Chloride 10 - 40 ml 08/23/24 22:41 09/03/24 09:53 0.9% Saline Lock 10 Ml Syringe IV 20 ml UD PRN Administration SALINE FLUSH Temazepam 15 mg 08/28/24 18:37 09/01/24 20:16 Temazepam 15 Mg Capsule PO 15 mg QHS PRN Administration SLEEP Lab / Micro Data Attestation: I reviewed the patient's lab results. 09/03/24 06:15 09/03/24 06:26 Labs: Laboratory Results - last 24 hr 09/02/24 16:07: POC Glucose 342 H 09/02/24 22:29: POC Glucose 221 H 09/03/24 06:15: WBC 17.4 H, RBC 3.71 L, Hgb 10.2 L, Hct 32.6 L, MCV 87.9, MCH 27.5, MCHC 31.3 L, RDW Std Deviation 47.2 H, RDW Coeff of Georgette 14.6, Plt Count 272, MPV 8.3, Immature Gran % (Auto) 2.100 H, Neut % (Auto) 76.6 H, Lymph % (Auto) 17.3 L, [place] % (Auto) 3.7, Eos % (Auto) 0.1, Baso % (Auto) 0.2, Absolute Neuts (auto) 13.4 H, Absolute Lymphs (auto) 3.01, Nucleated RBC % 0 09/03/24 06:26: Sodium 132 L, Potassium 4.3, Chloride 99, Carbon Dioxide 28.0, Anion Gap 5, BUN 33 H, Creatinine 1.04 H, Estim Creat Clear Calc 40.82, Est GFR (MDRD) Af Amer 66, Est GFR (MDRD) Non-Af 54 L, BUN/Creatinine Ratio 31.7 H, G lucose 129 H, Calcium 8.7 09/03/24 06:29: POC Glucose 119 H 09/03/24 11:51: POC Glucose 201 H Micro: Microbiology 09/01/24 19:28 Sputum, Expectorated/Coughed Gram Stain - Final 09/01/24 19:28 Sputum, Expectorated/Coughed Respiratory Culture - Final Pseudomonas aeruginosa Rhythm Strip Rhythm Strip: Sinus Tach Rate: 101 Ectopy: None Assessment and Plan . Assessment and plan: IMPRESSIONS: 1. COPD exacerbation with associated hypoxemia secondary to RSV infection; followed [facility] an outside end finder [facility], on triple therapy 2. Multifocal nodules/ nodular infiltrates right lung- suspect infectious/ inflammatory 3. History of diabetes mellitus/obesity/nocturnal hypoxemia/hypertension/hyperlipidemia/hypothyroidism RECOMMENDATIONS: 1. Continue supplemental oxygen to maintain saturations at or above 90%. 2. Continue to monitor H&H 3. Continue scheduled bronchodilators and prednisone. 4. Agree with empiric antimicrobials. She states she anticipates a bronchoscopy prior to discharge- defer to Dr. Garcia 5. Continue BiPAP therapy nightly and PRN throughout the day. 7. Repeat CT imaging the chest in 6 to 8 weeks. Critical Care Time: 50 minutes The entirety of this encounter was done via Telemedicine Critical Care Time: The entirety of this encounter was done via Telemedicine Physical Exam Const alert, oriented x3 and no apparent distress General Appearance: cooperative HEENT normocephalic Resp normal respiratory effort Auscultation: diminished lung sounds Cardio regular rate Subjective Subjective Still with some cough, dyspnea about the same. States she slept well.
[2024-09-04 17:27] LABS: Bedside Glucose 207 mg/dL (74-106)
[2024-09-04] MEDS: Senna/Docusate Sodium 1 Tablet PO (22:04)
[2024-09-04] MEDS: Temazepam 15 MG Capsule PO (22:04)
[2024-09-04 22:38] LABS: Bedside Glucose 289 mg/dL (74-106)
[2024-09-05] VITALS (16 sets, daily range): BP systolic 91–132; BP diastolic 47–61; PULSE 68–97; RESP 16–23; TEMP 36.1–36.8; O2SAT 93–100; BMI 31.1; BMI 30.7
--- NOTE | 2024-09-05 | FLU_PTH ---
PATIENT: KIRSTIE BLAIR LOC: [facility] U#:[id number] AGE/SX: 78/F ROOM: [facility] RE08/23/[address]: Dr. Case Toro MD : 1945 BED: 1 DIS: 09/06/2024 SPEC #: [id number] RECD: 09/05/24 13:18 STATUS: SOUT REQ #: [id number] WING: 09/05/24 00:[address]: Case Toro DEPT: CYTOLOGY RECD BY: Davy Morris ENTERED: 09/05/24 13:21 SP TYPE: Fluid OTHR DR: MD Dr. Rafael Davis MD Dr. Bruce Arthur, MD Dr. Derek Brown, DO Dr. David de Lorenzo, DO Dr. David P Myers, MD Dr. Darrell Widmer, MD Dr. Edward Matheis, MD Dr. Gautam Baskaran, MD Dr. Yordanos Habtegebriel, MD Dr. Hemant Dand, MD Dr. Jose Ochoa, MD Dr. Justin Wong, MD Dr. Jeff Wright, MD Dr. Kimber Foust, MD Dr. Lamia Aljundi, MD Dr. Prakash Chand, MD Dr. Pritam Ghosh, MD Dr. Pavan Irukulla, MD Dr. Robert Leininger, MD Dr. Saad Farooqi, MD Dr. Sukhdeep Dhesi, DO Dr. Sujoy Gill, MD Dr. Timothy Fernstrom, MD Dr. Dennis Hernández Dr., MD Tissues: Bronchus of right middle lobe Procedures: PC (control) Special Stain Group II Special Stain Group I Surgery Specimen Level IV AFB Stain (control) GMS Stain (control) Cytospin Fluid HEADER OPERATION: Bronchoscopy PRE-OP DIAGNOSIS: Abnormal chest CT TISSUE SUBMITTED: Bronchial fluid for cytology DIAGNOSIS CYTOLOGY Right middle lobe fluid (cytospins and cellblock): Negative for malignant cells. See comment. 09/06/2024 COMMENT Special stains for acid fast bacilli, fungi and pneumocystis carinii (jirovecii) are negative for organisms; matched controls are appropriate. Correlation with clinical, radiologic findings and appropriate follow up are necessary. CYTOLOGY STUDY Slides are reviewed. CYTOLOGY GROSS Received is 10 ml of pink cloudy fluid labeled with the patient's name and and designated per the requisition as Right middle lobe fluid. Submitted for cytology preparation including cell block. Mr 09/05/2024 TC:5 CPT: 38687,27401,99223o5
[2024-09-05] MEDS: Piperacil/Tazobactam 3.375 GM in 0.9% Normal Saline (50mL MB+) 50 ML IV (05:31)
[2024-09-05] MEDS: 0.9% Saline Lock 10 ML Syringe IV (05:32)
[2024-09-05 06:00] LABS: Absolute Lymphocyte Count 3.98 X10^3/uL (0.83-4.51); Absolute Neutrophil Count 7.7 X10^3/uL (2.0-7.7); Basophil# 0.01 X10^3/uL; Basophil% 0.1 % (0-1); Eosinophil# 0.05 X10^3/uL; Eosinophils% 0.4 % (0-5); Hematocrit 32.2 % (37-47); Hemoglobin 10.2 g/dL (12.0-15.0); Lymphocyte # 3.98 X10^3/ul (0.83-4.51); Lymphocyte % 31.6 % (19-41); Mean Corp Hgb Conc 31.7 g/dL (32-36); Mean Corpuscular Hgb 27.7 pg (27.0-32.0); Mean Corpuscular Volume 87.5 fL (81-99); Mean Platelet Vol. 8.1 fl (6.2-12.0); Monocyte# 0.64 X10^3/uL; Monocyte% 5.1 % (0-10); NRBC Flagged by Analyzer 0 % (0-5); Neutrophil # 7.73 X10^3/uL (2.7-7.7); Neutrophil % 61.2 % (47-70); Platelet Count 277 K/mm3 (150-450); RBC Distribution Width CV 14.3 % (11.6-14.6); RBC Distribution Width SD 46.2 fl (35.1-43.9); Red Blood Count 3.68 M/mm3 (4.2-5.4); White Blood Count 12.6 K/mm3 (4.4-11.0)
[2024-09-05 06:26] LABS: Anion Gap 4 (5-15); BUN 31 mg/dL (7-18); BUN/Creat Ratio 29.8 RATIO (10-20); Calcium,Total 9.3 mg/dL (8.5-10.1); Chloride 99 mmol/L (98-107); Creatinine, Serum 1.04 mg/dL (0.55-1.02); EST Glomerular Filtration Rate 54 mL/min (>60); Est Glom Filt Rate - Afr Amer 66 mL/min (>60); Estimated Creatinine Clearance 41.21 ml/min; Glucose 106 mg/dL (74-106); Potassium 4.5 mmol/L (3.5-5.1); Sodium Level 133 mmol/L (136-145)
[2024-09-05 07:49] LABS: International Normalized Ratio 0.9; Prothrombin Time (Protime)PT. 12.7 SECONDS (11.7-14.9)
[2024-09-05 07:50] LABS: Partial Thromboplast Time 23.3 Seconds (24.1-36.2)
[2024-09-05] MEDS: Ipratropium/Albuterol Sulfate 3 ML AMPUL.NEB INHALATION ×3 (08:00→20:26)
[2024-09-05 08:21] LABS: Bedside Glucose 80 mg/dL (74-106)
--- NOTE | 2024-09-05 08:21 | PCM.PN.HOSP ---
Reason for Visit Reason for Visit: Diagnoses Anemia, unspecified (08/23/24) Obesity, class 1 (08/23/24) Acute bronchitis due to respiratory syncytial virus (08/23/24) Chronic obstructive pulmonary disease with (acute) exacerbation (08/23/24) Acute respiratory failure with hypoxia (08/23/24) Personal history of other endocrine, nutritional and metabolic disease (08/23/24) Subjective Subjective Plan is for patient to undergo bronchoscopy. Case discussed with Dr Garcia patient is currently on Zosyn for Pseudomonas will be switched to p.o. Levaquin in anticipation of discharge (patient has moxifloxacin listed as an allergy with a reaction as other, hence the decision to start Levaquin in the hospital prior to) Objective Data Objective Data Vital Signs: Vital Signs Temp Pulse Resp BP Pulse Ox O2 Del Method O2 Flow Rate 97.2 F L 76 23 H 112/47 L 96 Nasal Cannula 2 09/05/24 05:10 09/05/24 08:00 09/05/24 08:00 09/05/24 05:10 09/05/24 08:00 09/05/24 08:00 09/05/24 08:00 FiO2 25 08/31/24 03:30 Oxygen Flow Rate (L/min) 2 Oxygen Delivery Method Nasal Cannula Weight: 73.8 kg Body Mass Index (BMI) 30.7 Intake & Output: Intake and Output for Last 24 Hours 09/03/24 09/04/24 09/05/24 23:59 23:59 23:59 Intake Total 1240 / 1240 1470 / 1470 50 / 50 Balance 1240 / 1240 1470 / 1470 50 / 50 Lab / Micro Data 09/05/24 05:30 09/05/24 05:30 Labs: Laboratory Results - last 24 hr 09/04/24 08:20: POC Glucose 181 H 09/04/24 12:06: POC Glucose 172 H 09/04/24 17:09: POC Glucose 207 H 09/04/24 22:09: POC Glucose 289 H 09/05/24 05:30: WBC 12.6 H, RBC 3.68 L, Hgb 10.2 L, Hct 32.2 L, MCV 87.5, MCH 27.7, MCHC 31.7 L, RDW Std Deviation 46.2 H, RDW Coeff of Georgette 14.3, Plt Count 277, MPV 8.1, Immature Gran % (Auto) 1.600 H, Neut % (Auto) 61.2, Lymph % (Auto) 31.6, Dubois % (Auto) 5.1, Eos % (Auto) 0.4, Baso % (Auto) 0.1, Absolute Neuts (auto) 7.7, Absolute Lymphs (auto) 3.98, Nucleated RBC % 0, Sodium 133 L, Potassium 4.5, Chloride 99, Carbon Dioxide 30.0, Anion Gap 4 L, BUN 31 H, Creatinine 1.04 H, Estim Creat Clear Calc 41.21, Est GFR (MDRD) Af Amer 66, Est GFR (MDRD) Non-Af 54 L, BUN/Creatinine Ratio 29.8 H, Glucose 106, Calcium 9.3, TSH 0.150 L 09/05/24 07:15: PT 12.7, INR 0.9, APTT 23.3 L Micro: Microbiology 09/01/24 17:54 Blood Culture (Wb) - Right Hand Blood Culture - Preliminary No growth in 48 hours. 09/01/24 17:54 Blood Culture (Wb) - Left Hand Blood Culture - Preliminary No growth in 48 hours. 09/01/24 19:28 Sputum, Expectorated/Coughed Gram Stain - Final 09/01/24 19:28 Sputum, Expectorated/Coughed Respiratory Culture - Final Pseudomonas aeruginosa 09/01/24 17:05 Mucosa - Nasopharyngeal Respiratory Panel (PCR) - Final RSV A 09/01/24 17:25 Nasal Secretion MRSA (PCR) - Final 09/01/24 18:15 Urine, Clean Catch Streptococcus pneumoniae Antigen (M - Final 09/01/24 18:15 Urine, Clean Catch Legionella Antigen - Final 09/01/24 17:01 Mucosa - Nasopharyngeal Coronavirus COVID-19 PCR - Final 08/28/24 12:05 Stool Stool Occult Blood (EMELYN) - Final 08/23/24 20:31 Mucosa - Nose SARS-CoV-2, Influenza & RSV (PCR) - Final RSV Rhythm Strip Rhythm Strip: Sinus Tach Rate: 101 Ectopy: None Physical Exam Narrative GENERAL: cooperative HEENT: Atraumatic; normocephalic EYES; Anicteric, Normal Conjunctiva NECK; supple, normal thyroid, RESPIRATORY: Diminished to auscultation with bilateral wheezes CARDIOVASCULAR: Regular S1 S2, GI: soft, normoactive bowel sounds, : No Renal angle tenderness; EXTREMITIES: No edema, no clubbing, MUSCULOSKELETAL: no muscle wasting NEURO: Awake; no lateralizing signs. SKIN: No Rash PSYCH; Flat affect Assessment & Plan Assessment/Plan (1) Acute exacerbation of chronic obstructive pulmonary disease: (2) RSV infection: QUALIFIERS: RSV infection type: acute bronchitis Qualified Code(s): J20.5 - Acute bronchitis due to respiratory syncytial virus (3) Acute hypoxic respiratory failure: (4) Chronic anemia: (5) History of diabetes mellitus: (6) Obesity (BMI 30.0-34.9): PLAN: Plan Patient is a 70-year-old lady admitted with progressive shortness of breath productive cough as well as wheezing. An assessment of acute hypoxic respiratory failure requiring BiPAP made admitted to monitored bed for further management 1. Acute on chronic hypoxic respiratory failure ? Due to combination of COPD exacerbation, RSV infection. Patient managed with noninvasive ventilation BiPAP goal is to wean off to nasal cannula prior to patient being assessed for discharge to a alf facility ? 09/01/2024. Patient has been weaned off noninvasive ventilation however still has significant bronchospasm. Ordered chest x-ray as well as proBNP 2. Suspected bacterial pneumonia ? Patient was admitted with RSV infection however she was found to have worsening leukocytosis. Subsequent imaging studies did show Scattered pulmonary nodules, numerous, almost entirely on the right. Multiple are associated with bronchovascular structures in the central lung. Primary considerations include inflammatory, infectious, and neoplastic nodules. Including septic emboli, fungal disease, and metastatic disease.. Patient had empirically been started on Zosyn and azithromycin and vancomycin prior to ordering the imaging studies. Did consult ID and pulmonary medicine following receipt of imaging study result -09/03/2024; patient sputum cultures positive for Pseudomonas patient restarted on Zosyn. ID is recommending for patient to undergo diagnostic bronchoscopy ? 09/04/2024Patient seen sputum cultures came back positive for Pseudomonas patient Zosyn restarted. Awaiting reevaluation by pulmonary medicine for possible bronchoscopy as recommended by ID ? 09/05/2024;Plan is for patient to undergo bronchoscopy. Case discussed with Dr Garcia patient is currently on Zosyn for Pseudomonas will be switched to p.o. Levaquin in anticipation of discharge (patient has moxifloxacin listed as an allergy with a reaction as other, hence the decision to start Levaquin in the hospital prior to 2. COPD with acute exacerbation ? Patient started on bronchodilator treatment, systemic steroid as well as antibiotic therapy. Patient placed on oxygen titrated to keep saturation greater than 90. 3. RSV infection ? Complicating patient respiratory failure treated symptomatically 4. Anemia ? Secondary to chronic disorder monitoring H&H and transfuse if patient becomes symptomatic or hemoglobin falls below 7 5. Diabetes mellitus type II -patient's oral hypoglycemics held. Placed on long acting insulin, Accu-Cheks a.c. and at bedtime and covered with sliding scale insulin 6. Hypothyroidism ? Patient is on levothyroxine home dose continued 7. Chronic hypoxic respiratory failure ? Patient is on baseline home oxygen 2 L at rest 8. Hypertension ? Blood pressure controlled, home medications continued with dose adjustment as needed 9. Dyslipidemia ? Patient is on his Antiminth did continue 10. Osteoporosis ? Patient is on denosumab as outpatient 11. Osteoarthritis ? Pain meds as needed 12. Class I obesity with BMI of 31 ? Weight loss advised 13. GERD ? On PPI 14. DVT prophylaxis ? On enoxaparin Time spent in the patient's overall evaluation,decision-making process, review of diagnostic data, adjustment of management, discussion with other providers, nursing nursing and ancillary staff involved in patient's care documentation, 38 Minutes Charges/Coding Visit Charges Inpatient E&M: 18184 [facility] Hosp L2
[2024-09-05] MEDS: 0.9% Normal Saline (1000mL) 1,000 ML 15 ML IV (09:33)
--- NOTE | 2024-09-05 09:40 | PCM.PRE.AN2 ---
ASA Classification* ASA Classification ASA Classification: 3 Assessment & Plan Anesthesia* Anesthesia Assessment Anesthesia Assessment: Discussed sedation and/or anesthesia options, risks, benefits, and alternatives with patient/parents/legal guardian/POA. Questions invited. The patient/parents/legal guardian/POA seems to understand and agrees to proceed with anesthesia plan. Reviewed the physical assessment, medical history, allergy history and patient home medications list prior to surgery/procedure/anesthetic and documented any changes. Performed airway and anesthesia risk assessments. Anesthesia Type Anesthesia Type: MAC (GA bkup) Anesthesia Focused Assessment* Temperature: 97.2 F Pulse Rate: 76 Blood Pressure: 112/47 Respiratory Rate: 23 Pulse Ox: 98 Oxygen Flow Rate (L/min): 2 Fraction of Inspired Oxygen (FIO2): 25 Airway Assessment Mouth opens: >3 cm Mallampati Score: II Focused Labs Anesthesia Preop lab: CBC WBC 12.6 K/mm3 (4.4-11.0) H 09/05/24 05:30 RBC 3.68 M/mm3 (4.2-5.4) L 09/05/24 05:30 Hgb 10.2 g/dL (12.0-15.0) L 09/05/24 05:30 Hct 32.2 % (37-47) L 09/05/24 05:30 Plt Count 277 K/mm3 (150-450) 09/05/24 05:30 CHEMISTRY Potassium 4.5 mmol/L (3.5-5.1) 09/05/24 05:30 Sodium 133 mmol/L (136-145) L 09/05/24 05:30 Magnesium 2.2 mg/dL (1.6-2.6) 09/01/24 05:24 Phosphorus 3.7 mg/dL (2.5-4.9) 09/01/24 05:24 BUN 31 mg/dL (7-18) H 09/05/24 05:30 Creatinine 1.04 mg/dL (0.55-1.02) H 09/05/24 05:30 Glucose 106 mg/dL (74-106) 09/05/24 05:30 POC Glucose 80 mg/dL (74-106) 09/05/24 07:46 TSH 0.150 uIU/mL (0.358-3.740) L 09/05/24 05:30 COAG PT 12.7 SECONDS (11.7-14.9) 09/05/24 07:15 Pre-Assessment Diagnosis/Proposed Procedure Planned Operative Procedure(s): bronchoscopy Anesthesia History Anesthesia History - blood bank credit clerk: Anesthesia History - blood bank credit clerk Hx Hospitalization Any Problems With Anesthesia No 09/05/24 05:10 Cholinesterase deficiency No 09/05/24 05:10 You/Your Family Experience Yes 09/05/24 05:10 fever (hyperthermia) with Relationship Daughter 09/05/24 05:10 Recent Exposure to Contagious Yes 09/05/24 05:10 Disease Does patient have nerve No 09/05/24 05:10 stimulator Patient instructed to have device shut off --Does patient have Pacemaker No 09/05/24 05:10 or ICD? When Was Last Pacemaker Check QUESTION #4 FULL TEXT: You/Your Family Experience fever (hyperthermia) with Anesthesia Last Oral Intake Last Oral intake: Last Oral Intake NPO since 00:00 09/05/24 05:10 Meds taken in AM with sips of No 09/05/24 05:10 water? Meds patient instructed to take am of surgery PONV PONV - blood bank credit clerk: PONV - blood bank credit clerk Female HX of Motion Sickness HX of N/V After Surgery Non-Smoker Duration of Surgery greater than 60 minutes Number of Risk Factors PONV Score Height & Weight Height & Weight: Anesthesia: Height & Weight Height 5 ft 1 in 09/05/24 05:10 Weight: 73.8 kg 09/05/24 06:00 Body Mass Index (BMI) 30.7 09/05/24 06:00 Respiratory Assessment Respiratory Assessment - blood bank credit clerk: Respiratory Tract Infection Hx - blood bank credit clerk Hx Respiratory Tract Infection Yes 09/05/24 05:10 STOP Sleep Apnea STOP Sleep Apnea - blood bank credit clerk: STOP Sleep Apnea - blood bank credit clerk Hx Hypertension No 08/24/24 10:41 Hx Sleep Apnea No 08/23/24 22:21 CPAP BIPAP Do you snore loudly (louder No 08/23/24 22:21 than talking or can be heard Do you often feel tired/ No 08/23/24 22:21 fatigued/ sleepy during daytime? Has anyone observed you stop No 08/23/24 22:21 breathing during sleep? STOP Results Negative 08/23/24 22:21 QUESTION #5 FULL TEXT : Do you snore loudly (louder than talking or can be heard through closed doors)? Tobacco Use History Tobacco Use History - blood bank credit clerk: Tobacco Use History - blood bank credit clerk Tobacco Use Smoking Status Former smoker 08/23/24 22:21 Hx Tobacco Use No 08/23/24 22:21 Years Smoking Packs Smoked per Day Smoking Cessation Date was Yes - quit smoking within 15 08/23/24 22:21 within the last 15 years years Hx Smoking Cessation Date Hx Smoking Cessation Counseling Hematologic Medial History Hematologic Hx - blood bank credit clerk: Hematologic Medical Hx - brazer induction Hx of Blood Transfusion No 08/23/24 22:21 Hx of Transfusion in last 3 No 08/23/24 22:21 Months Date of Last Transfusion (if within last 3 months) Ever experience any problems No 08/23/24 22:21 with transfusion(s)? Specify any problems Hx of Preganancy in last 3 No 08/23/24 22:21 Months Nurse Filling Out Transfusion ASTOUDT 08/23/24 22:21 & Questions: Date: 08/23/24 08/23/24 22:21 Time: :08/23/24 22:21 Patient unable to answer at this time (ie. confused, unrespo /Reproduction History /Reproductive History - blood bank credit clerk: /Reproductive Hx- blood bank credit clerk Hx Now No 09/05/24 05:10 Gestational Age (in weeks): EDC: Hx Hx Para Hx Section SAB No 09/05/24 05:10 Active Medications Active Medications: Current Medications Generic Name Dose Route Start Last Admin Trade Name Freq PRN Reason Stop Dose Admin Acetaminophen 650 mg 08/23/24 22:44 08/24/24 08:28 Acetaminophen 325 Mg Tablet PO 650 mg Q6H PRN PRN Administration Pain 1-10 Or Fever>100.7 Albuterol/Ipratropium 3 ml 08/24/24 13:15 09/05/24 08:00 Ipratropium/Albuterol Sulfate 3 Ml Ampul.Neb INHALATION 3 ml Q4HWA.RT MADDY Administration Ascorbic Acid 1,000 mg 08/24/24 08:00 09/04/24 17:44 Ascorbic Acid 500 Mg Tablet PO 1,000 mg BIDCM MADDY Administration Calcium Carbonate 500 mg 08/24/24 08:00 09/04/24 08:45 Calcium Carbonate 500 Mg Tablet PO 500 mg DAILY@0800 MADDY Administration Cholecalciferol 125 mcg 08/24/24 10:00 09/04/24 08:45 Cholecalciferol (Vit D3) 125 Mcg Capsule (5,000 Units) PO 125 mcg DAILY MADDY Administration Diltiazem HCl 120 mg 08/24/24 10:00 09/04/24 08:44 Diltiazem Cd 120 Mg Capsule PO 120 mg DAILY MADDY Administration Protocol Ezetimibe 10 mg 08/24/24 10:00 09/04/24 08:45 Ezetimibe 10 Mg Tablet PO 10 mg DAILY MADDY Administration Enoxaparin Sodium 40 mg 08/24/24 10:00 09/04/24 08:44 Enoxaparin 40 Mg/0.4 Ml Syringe SC 40 mg DAILY MADDY Administration Escitalopram Oxalate 5 mg 08/24/24 10:00 09/04/24 08:45 Escitalopram Oxalate 10 Mg Tablet PO 5 mg DAILY MADDY Administration Ferrous Sulfate 325 mg 08/24/24 12:00 09/04/24 08:45 Ferrous Sulfate 325 Mg Tablet PO 325 mg DAILY@1200 MADDY Administration Glucagon 1 mg 08/23/24 22:44 Glucagon 1 Mg/Ml Syringe IM X1 PRN HYPOGLYCEMIA Protocol Guaifenesin 1,200 mg 09/01/24 22:00 09/04/24 22:04 Guaifenesin 1,200 Mg Tablet PO 1,200 mg BID MADDY Administration Sodium Chloride 100 mls @ 15 mls/hr 08/23/24 22:41 09/02/24 01:28 IV Infused .Q6H40M PRN Infusion Saline Flush Sodium Chloride 100 mls @ 15 mls/hr 08/23/24 22:41 IV .Q6H40M PRN Additional IVPB Infusion Dextrose 250 mls @ 0 mls/hr 08/23/24 22:44 Dextrose 10%-Water IV .Q0M PRN HYPOGLYCEMIA Protocol As Directed Piperacillin Sod/Tazobactam 50 mls @ 12.5 mls/hr 09/03/24 08:40 09/05/24 05:31 Sod 3.375 gm/ Sodium Chloride IV 12.5 mls/hr Q8 MADDY Administration Sodium Chloride 1,000 mls @ 15 mls/hr 09/05/24 09:30 09/05/24 09:33 IV 09/10/24 22:49 15 mls/hr .Q48H MADDY Administration Protocol Insulin Glargine 20 unit 08/27/24 10:00 09/04/24 10:12 Insulin Glargine-Yfgn 100 Unit/Ml Pen SC 20 unit DAILY MADDY Administration Insulin Human Lispro 0 unit 08/23/24 22:44 09/05/24 07:54 Insulin Lispro 100 Unit/Ml Insuln.Pen SC Not Given ACHS [facility] Protocol Insulin Human Lispro 10 unit 08/26/24 11:00 09/05/24 07:54 Insulin Lispro 100 Unit/Ml Insuln.Pen SC Not Given TIDAC MADDY Levothyroxine Sodium 50 mcg 08/25/24 06:00 09/05/24 05:31 Levothyroxine 50 Mcg Tablet PO Not Given 0600 MADDY Melatonin 10 mg 08/24/24 14:06 Melatonin 10 Mg Tablet PO QHS PRN PRN INSOMNIA Pantoprazole Sodium 20 mg 08/24/24 10:00 09/04/24 08:45 Pantoprazole Sodium 20 Mg Tablet PO 20 mg DAILY MADDY Administration Prednisone 40 mg 09/02/24 08:00 09/04/24 08:45 Prednisone 20 Mg Tablet PO 40 mg BREAKFAST MADDY Administration Promethazine HCl 25 mg 08/23/24 22:44 Promethazine 25 Mg/Ml Syringe IM Q6H PRN PRN Breakthrough Nausea/Vomiting Senna/Docusate Sodium 1 tablet 09/03/24 13:35 09/04/24 22:04 Senna/Docusate Sodium 1 Tablet PO 1 tablet BID MADDY Administration Sodium Chloride 10 - 40 ml 08/23/24 22:41 09/05/24 05:32 0.9% Saline Lock 10 Ml Syringe IV 10 ml UD PRN Administration SALINE FLUSH Temazepam 15 mg 08/28/24 18:37 09/04/24 22:04 Temazepam 15 Mg Capsule PO 15 mg QHS PRN Administration SLEEP PFSH Medical History Normal colonoscopy Former smoker Thyroid disease Osteoporosis Incisional hernia COPD (chronic obstructive pulmonary disease) Cholecystitis CHF (congestive heart failure) Cerebral artery occlusion with cerebral infarction Asthma Home Medications ?Medication ?Instructions ?Recorded ?Last Taken ?Type Oxygen, Home [Home Oxygen] 2 lpm NASAL 11/26/20 Unknown History albuterol sulfate 90 mcg/actuation 2 puff inhalation Q4H PRN 11/26/20 Unknown History aerosol inhaler shortness of breath or wheezing calcium carbonate 500 mg PO DAILY@0800 11/26/20 Unknown History denosumab 60 mg/mL subcutaneous 60 mg SQ 11/26/20 Unknown History syringe diltiazem HCl 120 mg 120 mg PO DAILY 11/26/20 Unknown History capsule,extended release 24 hr ergocalciferol (vitamin D2) 1,250 11/26/20 Unknown History mcg (50,000 unit) capsule escitalopram oxalate 5 mg tablet 5 mg PO DAILY 11/26/20 Unknown History ferrous sulfate 325 mg (65 mg 325 mg PO DAILY 11/26/20 Unknown History iron) tablet fluticasone fur. 200 mcg-umeclid 62.5 11/26/20 Unknown History 62.5 mcg-vilant 25 mcg inhalat.powder furosemide 20 mg tablet 20 mg PO 11/26/20 Unknown History ipratropium 0.5 mg-albuterol 3 mg 3 ml inhalation Q6H PRN shortness 11/26/20 Unknown History (2.5 mg base)/3 mL nebulization of breath or wheezing soln levothyroxine 50 mcg tablet 75 mcg PO DAILY 11/26/20 Unknown History magnesium hydroxide 400 mg/5 mL 400 mg PO 11/26/20 Unknown History oral suspension mometasone-formoterol HFA 200 11/26/20 Unknown History mcg-5 mcg/actuation aerosol inhaler pantoprazole 20 mg tablet,delayed 20 mg PO DAILY 11/26/20 Unknown History release polyvinyl alcohol-povidone 0.5 11/26/20 Unknown History %-0.6 % eye drops trazodone 50 mg tablet 11/26/20 Unknown History alcohol swabs (Alcohol Prep Pads) topical BID 08/23/24 Unknown History ezetimibe 10 mg tablet 10 mg PO DAILY 08/23/24 Unknown History metformin 500 mg tablet 500 mg PO BID 08/23/24 Unknown History Allergy/AdvReac Type Severity Reaction Status Date / Time Iodinated Contrast Media Allergy Unknown Itching Verified 08/23/24 20:21 bupropion (From Wellbutrin) Allergy Rash Verified 08/23/24 20:21 codeine Allergy Other Verified 08/23/24 20:21 morphine Allergy Nausea/Vom/ Verified 08/23/24 20:21 Diarrhea moxifloxacin (From Avelox) Allergy Other Verified 08/23/24 20:21 Family History Brother Atrial fibrillation Heart disease Arthritis Sister Obesity Arthritis Sister No problems noted. Brother No problems noted. Mother Heart disease Hypertension Other Diabetes Surgical History H/O: hysterectomy History of eye surgery H/O endoscopy History of cholecystectomy Social History Smoking Status: Former smoker Review of Systems (Anesthesia) ROS Narrative System reviewed and no additional complaints, except as documented.
--- NOTE | 2024-09-05 10:31 | PN.CC_ITS ---
Assessment & Plan Assessment/Plan (1) Acute exacerbation of chronic obstructive pulmonary disease: PLAN: Plan RECOMMENDATIONS: 1. Continue supplemental oxygen to maintain saturations at or above 90%. 2. Continue to monitor H&H and transfuse if hemoglobin drops below 7 g/dL. 3. Continue scheduled bronchodilators and prednisone. 4. Agree with antimicrobials to complete 7 days of therapy. 5. Continue BiPAP therapy nightly and PRN throughout the day. 6. Encourage incentive spirometer use and mobilize patient as tolerated. 7. Recommend outpatient pulmonary follow-up after discharge, with plans to repeat CT imaging the chest in 6 to 8 weeks. 8. Will proceed with bronchoscopy and submit BAL for analysis. These results can be followed up by the patient's primary wire twisting machine operator after discharge. 9. Will sign off. Please call with any additional questions. IMPRESSIONS: 1. COPD exacerbation with associated hypoxemia secondary to RSV infection The patient has known advanced stage COPD and is currently followed by an outside wire twisting machine operator at [facility]. She does not utilize supplemental oxygen at her baseline, with the exception of nightly. She is on a triple therapy inhaler regimen. The patient was found to be positive for RSV likely leading to a COPD exacerbation. She has been maintained on bronchodilators and steroids. Lastly, CT chest demonstrated multiple lung nodules throughout the right hemithorax concerning for an infectious versus inflammatory condition. Subsequent sputum culture was positive for Pseudomonas. Accordingly, the patient was initiated on antimicrobial with improving white blood cell count noted. However, in light of the findings noted on CT imaging, plan to proceed with bronchoscopy and BAL per ID request. Supplemental oxygen can be continued to maintain saturations at or above 90%. I would recommend that the patient follow-up with her primary pulmonary provider after discharge so that repeat chest imaging can be completed in 6 to 8 weeks and results of BAL reviewed. 2. History of diabetes mellitus/obesity/nocturnal hypoxemia/hypertension/hyperlipidemia/hypothyroidism Complicates care, management, recovery and prognosis. Continue home medications as indicated. This note was generated with [employer] dictation software. It may contain incorrect words, spelling, and punctuation that were not noted in checking the note before signing. Subjective Subjective The patient was seen and examined at the bedside this morning. Events from the last 24 hours have been reviewed. The patient is currently afebrile, hemodynamically stable and maintaining appropriate oxygen saturations on 2 L/min via nasal cannula. White blood cell count is improving on antimicrobials in light of the patient's sputum culture being positive for Pseudomonas. Plan to proceed with bronchoscopy this morning per the request of infectious diseases. The patient is otherwise clinically stable. Objective Data Objective Data The patient's most recent lab work, culture data and imaging studies have all been personally reviewed. RSV PCR was positive on August 23. Sputum culture was positive for Pseudomonas. Vital Signs: Vital Signs Temp Pulse Resp BP Pulse Ox O2 Del Method O2 Flow Rate 97.2 F L 76 23 H 112/47 L 98 Nasal Cannula 2 09/05/24 09:41 09/05/24 09:41 09/05/24 09:41 09/05/24 09:41 09/05/24 09:41 09/05/24 08:00 09/05/24 09:41 FiO2 25 09/05/24 09:41 Oxygen Flow Rate (L/min) 2 Oxygen Delivery Method Nasal Cannula Weight: 162 lb 11.218 oz Body Mass Index (BMI) 30.7 Intake & Output: Intake and Output for Last 24 Hours 09/03/24 09/04/24 09/05/24 23:59 23:59 23:59 Intake Total 1240 / 1240 1470 / 1470 50 / 50 Balance 1240 / 1240 1470 / 1470 50 / 50 Lab / Micro Data Attestation: I reviewed the patient's lab results. 09/05/24 05:30 09/05/24 05:30 Labs: Laboratory Results - last 24 hr 09/04/24 12:06: POC Glucose 172 H 09/04/24 17:09: POC Glucose 207 H 09/04/24 22:09: POC Glucose 289 H 09/05/24 05:30: WBC 12.6 H, RBC 3.68 L, Hgb 10.2 L, Hct 32.2 L, MCV 87.5, MCH 27.7, MCHC 31.7 L, RDW Std Deviation 46.2 H, RDW Coeff of Georgette 14.3, Plt Count 277, MPV 8.1, Immature Gran % (Auto) 1.600 H, Neut % (Auto) 61.2, Lymph % (Auto) 31.6, [place] % (Auto) 5.1, Eos % (Auto) 0.4, Baso % (Auto) 0.1, Absolute Neuts (auto) 7.7, Absolute Lymphs (auto) 3.98, Nucleated RBC % 0, Sodium 133 L, Potassium 4.5, Chloride 99, Carbon Dioxide 30.0, Anion Gap 4 L, BUN 31 H, C reatinine 1.04 H, Estim Creat Clear Calc 41.21, Est GFR (MDRD) Af Amer 66, Est GFR (MDRD) Non-Af 54 L, BUN/Creatinine Ratio 29.8 H, Glucose 106, Calcium 9.3, T SH 0.150 L 09/05/24 07:15: PT 12.7, INR 0.9, APTT 23.3 L 09/05/24 07:46: POC Glucose 80 Micro: Microbiology 09/01/24 17:54 Blood Culture (Wb) - Right Hand Blood Culture - Preliminary No growth in 48 hours. 09/01/24 17:54 Blood Culture (Wb) - Left Hand Blood Culture - Preliminary No growth in 48 hours. 09/01/24 19:28 Sputum, Expectorated/Coughed Gram Stain - Final 09/01/24 19:28 Sputum, Expectorated/Coughed Respiratory Culture - Final Pseudomonas aeruginosa 09/01/24 17:05 Mucosa - Nasopharyngeal Respiratory Panel (PCR) - Final RSV A 09/01/24 17:25 Nasal Secretion MRSA (PCR) - Final 09/01/24 18:15 Urine, Clean Catch Streptococcus pneumoniae Antigen (M - Final 09/01/24 18:15 Urine, Clean Catch Legionella Antigen - Final 09/01/24 17:01 Mucosa - Nasopharyngeal Coronavirus COVID-19 PCR - Final 08/28/24 12:05 Stool Stool Occult Blood (EMELYN) - Final 08/23/24 20:31 Mucosa - Nose SARS-CoV-2, Influenza & RSV (PCR) - Final RSV Radiography Diagnostic Testing: Radiology Impression Chest X-Ray 09/01/24 10:28 IMPRESSION: Bilateral nodular appearing pulmonary infiltrates. Follow-up CT chest recommended. Electronically Signed: Shyam Connolly MD at 13:31 EST , Chest CT 09/01/24 16:49 IMPRESSION: 1. Scattered pulmonary nodules, numerous, almost entirely on the right. Multiple are associated with bronchovascular structures in the central lung. Primary considerations include inflammatory, infectious, and neoplastic nodules. Including septic emboli, fungal disease, and metastatic disease. 2. No confluent peripheral airspace disease typical of community-acquired pneumonia. No effusion. Concerning follow-up of multiple indeterminate pulmonary nodules: Fleischner Society Guidelines (MacMahon, et al. Radiology 2017; 284(1):228-43) suggest the following. For low-risk patients recommend follow-up chest CT at 3-6 months. If unchanged consider an additional follow-up CT at 18-24 months. For high-risk patients initial follow-up chest CT at 3-6 months and if unchanged, 18-24 months. 3. Limited evaluation of the liver on unenhanced exam, not fully included. Multiple small hepatic hypodensities, especially in the dome. These lesions are not fully characterized on the unenhanced exam. Electronically Signed: Era Ma MD at 18:27 EST , ADDENDUM: 09/01/24 1840 IMPRESSION: 1. Scattered pulmonary nodules, numerous, almost entirely on the right. Multiple are associated with bronchovascular structures in the central lung. Primary considerations include inflammatory, infectious, and neoplastic nodules. Including septic emboli, fungal disease, and metastatic disease. 2. No confluent peripheral airspace disease typical of community-acquired pneumonia. No effusion. Concerning follow-up of multiple indeterminate pulmonary nodules: Fleischner Society Guidelines (MacMahon, et al. Radiology 2017; 284(1):228-43) suggest the following. For low-risk patients recommend follow-up chest CT at 3-6 months. If unchanged consider an additional follow-up CT at 18-24 months. For high-risk patients initial follow-up chest CT at 3-6 months and if unchanged, 18-24 months. 3. Limited evaluation of the liver on unenhanced exam, not fully included. Multiple small hepatic hypodensities, especially in the dome. These lesions are not fully characterized on the unenhanced exam. N.B. : The above Results were Read Back by Era Ma MD to Case Toro MD, and understanding confirmed on 09/01/2024 18:33:05 (ET). Electronically Signed: Era Ma MD at 18:27 EST , Rhythm Strip Rhythm Strip: Sinus Tach Rate: 101 Ectopy: None Physical Exam Const alert, oriented x3 and no apparent distress General Appearance: cooperative HEENT normocephalic, head/scalp atraumatic and moist oral mucous membranes Eyes PERRL, EOMs intact bilaterally and conjunctivae normal Neck supple General: trachea midline Chest inspection of chest normal Resp Effort and Inspection: tachypneic Auscultation: diminished lung sounds Cardio regular rate and regular rhythm GI normal to inspection, nondistended, normoactive bowel sounds Extremity no clubbing, cyanosis or edema Skin no rashes or lesions noted Neuro CN's II-XII intact bilaterally, moves all extremities and no focal motor deficits Psych cooperative and affect normal Charges/Coding Visit Charges Inpatient E&M: 86256 Subs Hosp L2
[2024-09-05] MEDS: Lidocaine Jelly 2% 20 ML Syringe (URO-JET) 1 APPLIC (10:55)
[2024-09-05] MEDS: Lidocaine 2% (5ml sdv) 5 ML VIAL.MPF (10:55)
--- NOTE | 2024-09-05 11:08 | OP.BRONCH_ITS ---
Patient Name: Stacia Uriostegui Procedure Date: 09/05/2024 10:25 AM Date of : 1945 Age: 78 Procedure: Bronchoscopy Indications: Abnormal CT scan of chest Providers: Ney Garcia MD Referring MD: Kahlil Boggs MD Requesting Physician: Raul Lundy Medicines: See the Anesthesia note for documentation of the administered medications Complications: No immediate complications Procedure: Pre-Anesthesia Assessment: - A History and Physical has been performed. Patient meds and allergies have been reviewed. The risks and benefits of the procedure and the sedation options and risks were discussed with the patient. All questions were answered and informed consent was obtained. Patient identification and proposed procedure were verified prior to the procedure by the physician and the nurse in the procedure room. Mental Status Examination: alert and oriented. Airway Examination: normal oropharyngeal airway. Respiratory Examination: poor air movement. CV Examination: normal. ASA Grade Assessment: II - A patient with mild systemic disease. After reviewing the risks and benefits, the patient was deemed in satisfactory condition to undergo the procedure. The anesthesia plan was to use monitored anesthesia care (MAC). Immediately prior to administration of medications, the patient was re-assessed for adequacy to receive sedatives. The heart rate, respiratory rate, oxygen saturations, blood pressure, adequacy of pulmonary ventilation, and response to care were monitored throughout the procedure. The physical status of the patient was re-assessed after the procedure. After I obtained informed consent, the scope was passed under direct vision. Throughout the procedure, the patient's blood pressure, pulse, and oxygen saturations were monitored continuously. The bronchoscope was introduced through the mouth and advanced to the tracheobronchial tree. The procedure was accomplished without difficulty. The patient tolerated the procedure well. Findings: Bilateral Lung Abnormalities: Tenacious, thick secretions were found throughout the tracheobronchial tree. They were not obstructing the airway. The bronchoscope was advanced until wedged at the desired location for bronchoalveolar lavage. BAL was performed in the right middle lobe of the lung and sent for cell count, bacterial culture, viral smears & culture, and fungal & AFB analysis and cytology. 80 mL of fluid were instilled. 17 mL were returned. The return was cloudy. Mucous plugs were present in the return fluid. Impression: - Abnormal CT scan of chest - Tenacious, thick secretions were found throughout the tracheobronchial tree. - Bronchoalveolar lavage was performed. Recommendation: - Await BAL results. Procedure Code(s): --- Professional --- 51947, Bronchoscopy, rigid or flexible, including fluoroscopic guidance, when performed; with bronchial alveolar lavage Diagnosis Code(s): --- Professional --- R93.89, Abnormal findings on diagnostic imaging of other specified body structures R09.89, Other specified symptoms and signs involving the circulatory and respiratory systems CPT copyright 2021 [employer]. All rights reserved. The codes documented in this report are preliminary and upon ore grader review may be revised to meet current compliance requirements. DO Ney Win MD 09/05/2024 11:07:30 AM This report has been signed electronically. Number of Addenda: 0 Note Initiated On: 09/05/2024 10:25 AM
--- NOTE | 2024-09-05 11:11 | PCM.POST.ANE ---
Anesthesia: Postop Eval I Current Vital Signs Temperature: 97 F Pulse Rate: 97 Blood Pressure: 132/61 Respiratory Rate: 16 Pulse Ox: 93 Oxygen Delivery Method: Nasal Cannula Oxygen Flow Rate (L/min): 2 Assessment Airway patent: Yes Spontaneous unlabored respirations: Yes Mental status: Awake nausea: No Vomiting: No Anesthesia Complication: No Fluid Hydration Crystalloid volume administer (ml): 30 Total IV fluid infused: 30 Progress Note Anesthesia document: Postop Eval 1 completed: Yes
[2024-09-05 11:49] LABS: Cytology, Body Fluid / CSF SEE PATHOLOGY REPORT
--- NOTE | 2024-09-05 12:00 | PCM.POSTANE2 ---
Anesthesia Postop Eval I Sum Postop Eval Completion status Anesthesia document: Postop Eval 1 completed: Yes Anesthesia Postop Eval I Summary Anesthesia Postop Eval I Summary: Anesthesia Postop Eval I: Assessment Summary Airway patent Yes 09/05/24 11:12 [email or web address] Spontaneous unlabored Yes 09/05/24 11:12 [email or web address] respirations Mental status Awake 09/05/24 11:12 [email or web address] nausea No 09/05/24 11:12 [email or web address] Vomiting No 09/05/24 11:12 [email or web address] Anesthesia Postop Eval I: Fluid Summary Crystalloid volume administer 30 09/05/24 11:12 [email or web address] (ml) Colloids volume administered ( ml) Blood Product volume administered (ml) Total IV fluid infused 30 09/05/24 11:12 [email or web address] Anesthesia Postop Eval I: Summary Notes Anesthesia Complication No 09/05/24 11:12 [email or web address] Anesthesia Complication Comment: Post-operative progress note Anesthesia: Postop Eval II Evaluation Mental status: Awake Pain Level: 0 nausea: No Vomiting: No
[2024-09-05] MEDS: predniSONE 20 MG Tablet 40 MG PO (13:34)
[2024-09-05] MEDS: dilTIAZem CD 120 MG Capsule PO (13:35)
[2024-09-05] MEDS: Calcium Carbonate 500 MG Tablet PO (13:35)
[2024-09-05] MEDS: Pantoprazole Sodium 20 MG Tablet PO (13:35)
[2024-09-05] MEDS: Enoxaparin 40 MG/0.4 ML Syringe SC (13:35)
[2024-09-05] MEDS: guaiFENesin 1,200 MG Tablet 1200 MG PO ×2 (13:35→21:26)
[2024-09-05] MEDS: Escitalopram Oxalate 10 MG Tablet 5 MG PO (13:35)
[2024-09-05] MEDS: Senna/Docusate Sodium 1 Tablet PO ×2 (13:36→21:25)
[2024-09-05] MEDS: Cholecalciferol (Vit D3) 125 MCG CAPSULE (5,000 UNITS) PO (13:36)
[2024-09-05] MEDS: Ezetimibe 10 MG Tablet PO (13:36)
[2024-09-05] MEDS: Ferrous Sulfate 325 MG Tablet PO (13:37)
--- NOTE | 2024-09-05 15:05 | CASEMGMT ---
Therapy notified SW that patient is doing well and could go home. SW met with patient and confirmed patient feels like she is strong enough to go home at discharge. SW mentioned home health and patient was interested. RN CM aware. Narda JACOBS
[2024-09-05 15:10] LABS: Appearance/Body Fluid TURBID; Color/Body Fluid PINK; Lymphocytes 4 %; Neutrophil (Segs) 96 %; Source- Body Fluid BRONCHIAL LAVAGE
--- NOTE | 2024-09-05 15:14 | CASEMGMT ---
Discharge Planning A list of?HH providers including quality and resource use data and consistent with the patient's preferred geographic region, medical needs, and insurance network was created in [facility] Guide.? This list was provided to the RN ZACHARY. Radha Holguin, Discharge Planning Asst.
[2024-09-05 15:15] LABS: Body Fluid QC Type(s) 42880413
[2024-09-05 15:17] LABS: Red Cell Count/Body Fluid 2047 /mm3; White Blood Count/Body Fluid 1900 /mm3
--- NOTE | 2024-09-05 15:38 | CASEMGMT ---
CHANCE SHARMA updated by CYNTHIA that patient will be discharging home as she is progressing well with therapy. CHANCE CM in to discuss HHC at discharge. Patient states she is interested in HHC, list provided to patient. Patient states her daughter will be coming in this evening and will review list with her. CHANCE CM asked that they dima their top 5 preferences and CM will follow-up with patient in the morning. Patient voiced understanding and appreciation. CM will continue to follow this patient and plan for a safe discharge.
[2024-09-05] MEDS: Ascorbic Acid 500 MG Tablet 1000 MG PO (16:04)
[2024-09-05] MEDS: levoFLOXacin 500 MG Tablet PO (16:04)
[2024-09-05] MEDS: Insulin Lispro 100 UNIT/ML INSULN.PEN SC ×2 (17:06→21:26)
[2024-09-05] MEDS: Insulin Lispro 100 UNIT/ML INSULN.PEN 10 UNIT SC (17:07)
[2024-09-05 17:34] LABS: Bedside Glucose 430 mg/dL (74-106)
[2024-09-05 17:34] LABS: Bedside Glucose 103 mg/dL (74-106)
[2024-09-05] MEDS: Temazepam 15 MG Capsule PO (21:33)
[2024-09-05 22:49] LABS: Bedside Glucose 231 mg/dL (74-106)
[2024-09-06] VITALS (9 sets, daily range): BP systolic 104–119; BP diastolic 50–69; PULSE 62–82; RESP 16–20; TEMP 36.1–36.4; O2SAT 96–99; BMI 30.5
[2024-09-06] MEDS: Levothyroxine 50 MCG Tablet PO (06:22)
[2024-09-06] MEDS: Ipratropium/Albuterol Sulfate 3 ML AMPUL.NEB INHALATION ×3 (07:25→15:05)
[2024-09-06 08:23] LABS: Bedside Glucose 150 mg/dL (74-106)
[2024-09-06] MEDS: dilTIAZem CD 120 MG Capsule PO (09:20)
[2024-09-06] MEDS: Enoxaparin 40 MG/0.4 ML Syringe SC (09:20)
[2024-09-06] MEDS: Ascorbic Acid 500 MG Tablet 1000 MG PO (09:20)
[2024-09-06] MEDS: Cholecalciferol (Vit D3) 125 MCG CAPSULE (5,000 UNITS) PO (09:20)
[2024-09-06] MEDS: predniSONE 20 MG Tablet 40 MG PO (09:20)
[2024-09-06] MEDS: Senna/Docusate Sodium 1 Tablet PO (09:20)
[2024-09-06] MEDS: levoFLOXacin 250 MG Tablet PO (09:20)
[2024-09-06] MEDS: Ezetimibe 10 MG Tablet PO (09:20)
[2024-09-06] MEDS: Pantoprazole Sodium 20 MG Tablet PO (09:20)
[2024-09-06] MEDS: Escitalopram Oxalate 10 MG Tablet 5 MG PO (09:21)
[2024-09-06] MEDS: Insulin Glargine-YFGN 100 UNIT/ML Pen 20 UNIT SC (09:21)
[2024-09-06] MEDS: Calcium Carbonate 500 MG Tablet PO (09:21)
[2024-09-06] MEDS: guaiFENesin 1,200 MG Tablet 1200 MG PO (09:21)
[2024-09-06] MEDS: Insulin Lispro 100 UNIT/ML INSULN.PEN SC ×2 (09:23→12:40)
[2024-09-06] MEDS: Insulin Lispro 100 UNIT/ML INSULN.PEN 10 UNIT SC ×2 (09:23→12:41)
--- NOTE | 2024-09-06 10:43 | PCM.PN.ID ---
Physical Exam Narrative Feeling better, bronch yesterday, no fever, no n/v/d. Const alert and no apparent distress General Appearance: cooperative Resp Auscultation: diminished lung sounds Cardio regular rate and regular rhythm GI soft to palpation, non-tender and non-distended Extremity General Extremity: Negative for edema Skin no rashes or lesions noted ID ID: Route of nutrition/ use of supplements: [] Nutritional Intake: [] IV Site: [] Garvin Catheter: [] Assessment & Plan Assessment/Plan (1) RSV infection: QUALIFIERS: RSV infection type: acute bronchitis Qualified Code(s): J20.5 - Acute bronchitis due to respiratory syncytial virus (2) Acute hypoxic respiratory failure: (3) Pneumonia: PLAN: Ok for discharge with 5 more days po levaquin. BAL results pending. Will follow
[2024-09-06 12:03] LABS: Bedside Glucose 166 mg/dL (74-106)
--- NOTE | 2024-09-06 12:24 | PCM.DC.SUM ---
Providers Date of Admission: 08/23/24 Date of Discharge: 09/06/24 Primary Care Physician: Dr. Cy Griffiths MD Consultations 08/25/24 10:23 Consult: Health Promotion Educator / Pulmonary Medicine Routine Consulting Provider: Intensivists/Pulmonary Med Reason for Consult: acute hypoxic resp failure, copd, Bipap/AVAPS EMERGENT Consult: No Notified: Yes Date Notified: 08/25/24 Time Notified: 10:23 Method of Notification: Text 09/02/24 07:19 Consult: Infectious Disease Routine Consulting Provider: Kulwant Truong Reason for Consult: Atypical pneumonia EMERGENT Consult: No Notified: Yes Date Notified: 09/02/24 Time Notified: 09:06 Method of Notification: Answering Service Consult: Health Promotion Educator / Pulmonary Medicine Routine Consulting Provider: Intensivists/Pulmonary Med Reason for Consult: Lung nodules EMERGENT Consult: No Notified: Yes Date Notified: 09/02/24 Time Notified: 07:19 Method of Notification: Text Reason For Visit: AE COPD, ACUTE HYPOXIC RESP FAILURE Diagnosis Discharge Diagnosis (1) RSV infection: Status: Acute Code(s): B33.8 - Other specified viral diseases Qualifiers: RSV infection type: acute bronchitis Qualified Code(s): J20.5 - Acute bronchitis due to respiratory syncytial virus (2) Acute hypoxic respiratory failure: Status: Acute Code(s): J96.01 - Acute respiratory failure with hypoxia (3) Pneumonia: Status: Acute Code(s): J18.9 - Pneumonia, unspecified organism Plan Patient is a 70-year-old lady admitted with progressive shortness of breath productive cough as well as wheezing. An assessment of acute hypoxic respiratory failure requiring BiPAP made admitted to monitored bed for further management 1. Acute on chronic hypoxic respiratory failure ? Due to combination of COPD exacerbation, RSV infection. Patient managed with noninvasive ventilation BiPAP goal is to wean off to nasal cannula prior to patient being assessed for discharge to a shelter facility ? 09/01/2024. Patient has been weaned off noninvasive ventilation however still has significant bronchospasm. Ordered chest x-ray as well as proBNP 2. Suspected bacterial pneumonia ? Patient was admitted with RSV infection however she was found to have worsening leukocytosis. Subsequent imaging studies did show Scattered pulmonary nodules, numerous, almost entirely on the right. Multiple are associated with bronchovascular structures in the central lung. Primary considerations include inflammatory, infectious, and neoplastic nodules. Including septic emboli, fungal disease, and metastatic disease.. Patient had empirically been started on Zosyn and azithromycin and vancomycin prior to ordering the imaging studies. Did consult ID and pulmonary medicine following receipt of imaging study result -09/03/2024; patient sputum cultures positive for Pseudomonas patient restarted on Zosyn. ID is recommending for patient to undergo diagnostic bronchoscopy ? 09/04/2024Patient seen sputum cultures came back positive for Pseudomonas patient Zosyn restarted. Awaiting reevaluation by pulmonary medicine for possible bronchoscopy as recommended by ID ? 09/05/2024;Plan is for patient to undergo bronchoscopy. Case discussed with Dr Garcia patient is currently on Zosyn for Pseudomonas will be switched to p.o. Levaquin in anticipation of discharge (patient has moxifloxacin listed as an allergy with a reaction as other, hence the decision to start Levaquin in the hospital prior to ? Patient underwent bronchoscopy with BAL and cultures sent the day prior results of which was pending at the time of discharge. Patient tolerated Levaquin without any deleterious effects was subsequently discharged home on Levaquin 2. COPD with acute exacerbation ? Patient started on bronchodilator treatment, systemic steroid as well as antibiotic therapy. Patient placed on oxygen titrated to keep saturation greater than 90. 3. RSV infection ? Complicating patient respiratory failure treated symptomatically 4. Anemia ? Secondary to chronic disorder monitoring H&H and transfuse if patient becomes symptomatic or hemoglobin falls below 7 5. Diabetes mellitus type II -patient's oral hypoglycemics held. Placed on long acting insulin, Accu-Cheks a.c. and at bedtime and covered with sliding scale insulin 6. Hypothyroidism ? Patient is on levothyroxine home dose continued 7. Chronic hypoxic respiratory failure ? Patient is on baseline home oxygen 2 L at rest 8. Hypertension ? Blood pressure controlled, home medications continued with dose adjustment as needed 9. Dyslipidemia ? Patient is on his Antiminth did continue 10. Osteoporosis ? Patient is on denosumab as outpatient 11. Osteoarthritis ? Pain meds as needed 12. Class I obesity with BMI of 31 ? Weight loss advised 13. GERD ? On PPI 14. DVT prophylaxis ? On enoxaparin Time spent in the patient's overall evaluation,decision-making process, review of diagnostic data, adjustment of management, discussion with other providers, nursing nursing and ancillary staff involved in patient's care documentation, 38 Minutes Medications at Discharge Home Medications Oxygen, Home [Home Oxygen] 2 lpm NASAL QHS sleep 11/26/20 albuterol sulfate 90 mcg/actuation aerosol inhaler 2 puff inhalation Q4H PRN shortness of breath or wheezing 11/26/20 calcium carbonate 500 mg PO DAILY@0800 11/26/20 diltiazem HCl 120 mg capsule,extended release 24 hr 120 mg PO DAILY hr 11/26/20 ergocalciferol (vitamin D2) 1,250 mcg (50,000 unit) capsule 2,500 mcg PO DAILY supplement 11/26/20 escitalopram oxalate 5 mg tablet 5 mg PO DAILY mood 11/26/20 ferrous sulfate 325 mg (65 mg iron) tablet 325 mg PO DAILY iron 11/26/20 fluticasone fur. 200 mcg-umeclid 62.5 mcg-vilant 25 mcg inhalat.powder 1 inh inhalation DAILY breathing 11/26/20 ipratropium 0.5 mg-albuterol 3 mg (2.5 mg base)/3 mL nebulization soln 3 ml inhalation Q6H PRN shortness of breath or wheezing 11/26/20 levothyroxine 50 mcg tablet 75 mcg PO DAILY thyroid 11/26/20 magnesium hydroxide 400 mg/5 mL oral suspension 400 mg PO DAILY gerd 11/26/20 pantoprazole 20 mg tablet,delayed release 20 mg PO DAILY 11/26/20 polyvinyl alcohol-povidone 0.5 %-0.6 % eye drops 1 drp ophthalmic (eye) BID macular degeneration 11/26/20 alcohol swabs (Alcohol Prep Pads) 1 pad topical BID bg checks 08/23/24 ezetimibe 10 mg tablet 10 mg PO DAILY cholesterol 08/23/24 metformin 500 mg tablet 500 mg PO BID 08/23/24 acetaminophen 325 mg tablet 650 mg (2 x 325 mg) PO Q6H PRN PRN Pain 1-10 Or Fever>100.7 #0 tabs 09/06/24 ascorbic acid (vitamin C) 500 mg tablet 1,000 mg (2 x 500 mg) PO DAILY #30 tabs 09/06/24 guaifenesin 1,200 mg tablet, extended release 12 hr (Mucus Relief ER) 1,200 mg PO BID #20 tabs 09/06/24 levofloxacin 250 mg tablet 250 mg PO DAILY #5 tabs 09/06/24 prednisone 20 mg tablet 40 mg (2 x 20 mg) PO BREAKFAST #6 tabs 09/06/24 sennosides 8.6 mg-docusate sodium 50 mg tablet (Stimulant Laxative Plus) 1 tab PO BID #30 tabs 09/06/24 temazepam 15 mg capsule 15 mg PO QHS PRN Sleep #14 caps 09/06/24 Physical Exam Narrative GENERAL: cooperative HEENT: Atraumatic; normocephalic EYES; Anicteric, Normal Conjunctiva NECK; supple, normal thyroid, RESPIRATORY: Diminished to auscultation with bilateral wheezes CARDIOVASCULAR: Regular S1 S2, GI: soft, normoactive bowel sounds, : No Renal angle tenderness; EXTREMITIES: No edema, no clubbing, MUSCULOSKELETAL: no muscle wasting NEURO: Awake; no lateralizing signs. SKIN: No Rash PSYCH; Flat affect Weight / BMI Weight Weight: 73.4 kg Body Mass Index (BMI) 30.5 ABG / Lab / Microbiology Data 09/05/24 05:30 09/05/24 05:30 Laboratory: Laboratory Results - last 24 hr 09/05/24 11:09: Fluid Source BRONCHIAL LAVAGE, Fluid Color PINK, Fluid Appearance TURBID, Fluid WBC 1900, Fluid RBC 2047, Fluid Tot Cell Count TNP, Fluid Neutrophils 96, Fluid Lymphocytes 4, Fl Pathologist Comment May follow, Fluid Comment 2 Not Reportable 09/05/24 12:05: POC Glucose 103 09/05/24 16:03: POC Glucose 430 H 09/05/24 21:24: POC Glucose 231 H 09/06/24 08:03: POC Glucose 150 H 09/06/24 11:45: POC Glucose 166 H Microbiology: Microbiology 09/05/24 11:09 Bronchial Lavage - Right Middle Lobe Gram Stain - Final 09/05/24 11:09 Bronchial Lavage - Right Middle Lobe Respiratory Culture - Preliminary GNR Poss Pseudomonas sp 09/01/24 17:54 Blood Culture (Wb) - Right Hand Blood Culture - Preliminary No growth in 48 hours. 09/01/24 17:54 Blood Culture (Wb) - Left Hand Blood Culture - Preliminary No growth in 48 hours. 09/01/24 19:28 Sputum, Expectorated/Coughed Gram Stain - Final 09/01/24 19:28 Sputum, Expectorated/Coughed Respiratory Culture - Final Pseudomonas aeruginosa 09/01/24 17:05 Mucosa - Nasopharyngeal Respiratory Panel (PCR) - Final RSV A 09/01/24 17:25 Nasal Secretion MRSA (PCR) - Final 09/01/24 18:15 Urine, Clean Catch Streptococcus pneumoniae Antigen (M - Final 09/01/24 18:15 Urine, Clean Catch Legionella Antigen - Final 09/01/24 17:01 Mucosa - Nasopharyngeal Coronavirus COVID-19 PCR - Final 08/28/24 12:05 Stool Stool Occult Blood (EMELYN) - Final 08/23/24 20:31 Mucosa - Nose SARS-CoV-2, Influenza & RSV (PCR) - Final RSV D/C Instructions Discharge Diet: No restrictions Discharge Activity: Return to Normal Activity Call your doctor if you observe: Fever of 101 or Higher, Shortness of breath, Fainting spells and Chest pain DC O2, CPAP, BIPAP Needs RN Home O2 Qualification: Home O2 Qualification: Is the patient on home oxygen Yes 08/29/24 15:00 Home O2 Qualification: AT REST 1-Pulse Ox at rest 98 08/29/24 15:00 1- Oxygen flow rate at rest 2 08/29/24 15:00 Home O2 Qualification: WITH AMBULATION 1- Pulse Ox with ambulation 96 08/29/24 15:00 1- Oxygen Flow Rate with 2 08/29/24 15:00 ambulation PSN CPAP & BiPAP: BiPAP & CPAP Settings per PSN Mode BiPAP 09/06/24 03:25 Bipap Delivery Device Face Mask 09/06/24 00:09 BiPAP Inspiratory Pressure 12 09/06/24 03:25 BiPAP Expiratory Pressure 8 09/06/24 03:25 BiPAP Rate 12 08/30/24 03:13 Fraction of Inspired Oxygen ( 09/05/24 09:41 FIO2) Total Flow Rate 2 09/06/24 03:25 Home O2 Discharge instructions: No Meaningful Use Info Meaningful Use Meaningful Use Diagnoses (Choose all that apply): None applicable Ischemic Stroke Statin Dosing Therapy Reference: STATIN DOSE THERAPY REFERENCE: * Patients > 75 years receive moderate or high dose statin therapy. * Patients 75 years or YOUNGER should receive HIGH intensity statin dose unless contraindicated. You will be required to document reason for non-treatment if statin daily dose does not meet guidelines. HIGH DOSE STATIN THERAPY DAILY Atorvastatin > than or = to 40 mg Rosuvastatin > than or = to 20 mg Amlodipine + Atorvastatin > than or = to 2.5/40 mg Ezetimibe + Simvastatin 10/80 mg Simvastatin 80mg Discharge Plan Admission Admit Date/Time: 08/23/24 21:30 Attending Provider: Case Toro Primary Care Provider: Cy Griffiths Consulting Providers: Case Linder; German Corbin; Kulwant Truong Discharge Orders/Prescriptions Prescriptions: New acetaminophen 325 mg Tablet 650 mg PO Q6H PRN PRN (Reason: Pain 1-10 Or Fever>100.7) Qty: 0 0RF prednisone 20 mg Tablet 40 mg PO BREAKFAST Qty: 6 0RF sennosides-docusate sodium [Stimulant Laxative Plus] 8.6-50 mg Tablet 1 tab PO BID Qty: 30 0RF levofloxacin 250 mg Tablet 250 mg PO DAILY Qty: 5 0RF temazepam 15 mg Capsule 15 mg PO QHS PRN (Reason: Sleep) Qty: 14 0RF ascorbic acid (vitamin C) 500 mg Tablet 1,000 mg PO DAILY Qty: 30 0RF guaifenesin [Mucus Relief ER] 1,200 mg Tablet Extended Release 12hr 1,200 mg PO BID Qty: 20 0RF Continued ipratropium-albuterol 3 ML solution for nebulization 3 ml inhalation Q6H PRN (Reason: shortness of breath or wheezing) pantoprazole 20 MG tablet 20 mg PO DAILY magnesium hydroxide 30 ML suspension 400 mg PO DAILY levothyroxine 50 MCG tablet 75 mcg PO DAILY ferrous sulfate 325 MG tablet 325 mg PO DAILY calcium carbonate 500 MG tablet 500 mg PO DAILY@0800 diltiazem HCl 120 MG capsule 120 mg PO DAILY ergocalciferol (vitamin D2) 50,000 UNIT capsule 2,500 mcg PO DAILY albuterol sulfate 1 PUFF inhaler 2 puff inhalation Q4H PRN (Reason: shortness of breath or wheezing) escitalopram oxalate 5 MG tablet 5 mg PO DAILY polyvinyl alcohol-povidone 15 ML drops 1 drp ophthalmic (eye) BID [id number]-qtzudlrfe-nkixtcod 1 EACH blister with device 1 inh inhalation DAILY Oxygen, Home [Home Oxygen] 2 lpm NASAL QHS ezetimibe 10 mg tablet 10 mg PO DAILY metformin 500 mg tablet 500 mg PO BID alcohol swabs [Alcohol Prep Pads] Pads, Medicated 1 pad topical BID Referrals / Follow Up: Cy Griffiths MD [Primary Care Provider] - Within 1 Week Ankur Velasco MD [Non-Staff] - Within 2 Weeks Disposition Disposition (needs filled in before D/C Order can be placed): Home Health Service Charges/Coding Visit Charges Inpatient E&M: 68276 Disch Hosp >30min
[2024-09-06] MEDS: Ferrous Sulfate 325 MG Tablet PO (12:40)
--- NOTE | 2024-09-06 12:45 | CASEMGMT ---
CHANCE SHARMA in to discuss [facility] preferences with patient. Patient states she reviewed list with daughter and she marked preferences on sheet. 1. [facility] 2. [facility] 3.[facility]. Patient had no further questions or concerns. CHANCE SHARMA updated discharge urban planning professor with preferences for referrals. CM will continue to follow this patient and plan for a safe discharge.
[2024-09-06 13:57] LABS: Pathologist Comment/Body Fluid Reviewed
--- NOTE | 2024-09-06 14:00 | CASEMGMT ---
Addendum entered by Radha Holguin 09/06/24 14:15: All agencies declined. SW updated. Referral sent to [facility]. Radha Holguin DC Planning Asst. Original Note: Discharge Planning HH referral sent to [facility], [facility], and [facility]. Radha Holguin DC Planning Asst.
--- NOTE | 2024-09-06 14:30 | CASEMGMT ---
CHANCE SHARMA received call back from [facility], they are not in-network with her insurance. CHANCE SHARMA updated discharge business planning analyst to send additional referrals.
--- NOTE | 2024-09-06 14:55 | CASEMGMT ---
Addendum entered by Radha Holguin 09/07/24 10:53: [facility] declined. [facility]. RN CM updated. Pt updated and provided my direct number to call if [facility] doesn't follow up. Radha Holguin DC Planning Asst. Addendum entered by Radha Holguin 09/07/24 09:49: [facility] declined. Follow up sent via [facility] to [facility] and another vm was left for [facility]. SW updated. Radha Holguin DC Planning Asst. Addendum entered by Radha Holguin 09/06/24 16:11: [facility], and [facility] declined. VM left for [facility]. Radha Holguin DC Planning Asst. Original Note: Discharge Planning HH referral sent to [facility], [facility], [facility], [facility], [facility], and . Radha Holguin DC Planning Asst.
--- NOTE | 2024-09-06 15:37 | CASEMGMT ---
CHANCE SHARMA in to discuss HHC setup, daughter at bedside. CHANCE SHARMA updated patient and daughter that CM is having difficulty finding an accepting agencies for HHC. RN CM discussed patient discharging home and CM to follow-up with patient once HHC setup. CHANCE SHARMA also discussed possible outpatient therapy if CM not able to setup HHC. Patient and daughter agreeable to plan. Patient and daughter had no further questions or concerns. CHANCE SHARMA updated discharge planning technician.
== END 2024-09-06 16:05 | disposition home health service (06) | DRG 177 ==
LOC: ED 21:11 → PCU 21:43
PROVIDERS: Internal Medicine; Internal Medicine Critical Care Medicine; Admitting Provider Internal Medicine; Emergency Provider Emergency Medicine; PCP Family Medicine; Referring Provider Emergency Medicine; Visit Provider Internal Medicine
PROC: 0BJ08ZZ Inspection of Tracheobronchial Tree, Via Natural or Artificial Opening Endoscopic (ICD-10-PCS; CPT 31622; principal; 2024-09-05 10:15)
DX: J15.1 Pneumonia due to Pseudomonas (principal); J96.21 Acute and chronic respiratory failure with hypoxia; J47.0 Bronchiectasis with acute lower respiratory infection; J44.0 Chronic obstructive pulmonary disease with (acute) lower respiratory infection; J44.1 Chronic obstructive pulmonary disease with (acute) exacerbation; B96.5 Pseudomonas (aeruginosa) (mallei) (pseudomallei) as the cause of diseases classified elsewhere; E11.65 Type 2 diabetes mellitus with hyperglycemia; D50.9 Iron deficiency anemia, unspecified; I11.0 Hypertensive heart disease with heart failure; I50.9 Heart failure, unspecified; E03.9 Hypothyroidism, unspecified; F32.A Depression, unspecified; Z68.32 Body mass index [BMI] 32.0-32.9, adult; E78.5 Hyperlipidemia, unspecified; K21.9 Gastro-esophageal reflux disease without esophagitis; M19.90 Unspecified osteoarthritis, unspecified site; J20.5 Acute bronchitis due to respiratory syncytial virus; D72.829 Elevated white blood cell count, unspecified; Z79.84 Long term (current) use of oral hypoglycemic drugs; Z87.891 Personal history of nicotine dependence; Z90.710 Acquired absence of both cervix and uterus; Z79.890 Hormone replacement therapy; Z86.73 Personal history of transient ischemic attack (TIA), and cerebral infarction without residual deficits; Z79.51 Long term (current) use of inhaled steroids; E66.811 Obesity, class 1; Z79.899 Other long term (current) drug therapy; Z90.49 Acquired absence of other specified parts of digestive tract; Z99.81 Dependence on supplemental oxygen; R93.89 Abnormal findings on diagnostic imaging of other specified body structures; B33.8 Other specified viral diseases
CPT/HCPCS: 36415; 36600; 71045; 71046; 71250; 80048; 80053; 81001; 82274; 82607; 82728; 82746; 82803; 82962; 83036; 83540; 83550; 83735; 83880; 84100; 84443; 84484; 85025; 85610; 85730; 86850; 86900; 86901; 87015; 87040; 87070; 87077; 87116; 87184; 87186; 87205; 87206; 87252; 87278; 87449; 87631; 87633; 87635; 87641; 88108; 88305; 88312; 88313; 89050; 93005; 94002; 94003; 94640; 94660; 94762; 97110; 97162; 97166; 97530; 97535; 99252; 99285; A4216; G0463; J1940; J2405; J2916

== ENCOUNTER 2024-10-21 13:18 | Emergency (ER) | payer MEDICARE, SELFPAY ==
[2024-10-21 13:19] VITALS: BP 117/70; PULSE 91; RESP 18; TEMP 36.1; O2SAT 99; BMI 31.4
[2024-10-21 13:58] LABS: Absolute Lymphocyte Count 2.72 X10^3/uL (0.83-4.51); Absolute Neutrophil Count 6.4 X10^3/uL (2.0-7.7); Basophil# 0.05 X10^3/uL; Basophil% 0.5 % (0-1); Eosinophil# 0.36 X10^3/uL; Eosinophils% 3.4 % (0-5); Hematocrit 28.5 % (37-47); Hemoglobin 9.3 g/dL (12.0-15.0); Lymphocyte # 2.72 X10^3/ul (0.83-4.51); Lymphocyte % 25.8 % (19-41); Mean Corp Hgb Conc 32.6 g/dL (32-36); Mean Corpuscular Hgb 29.1 pg (27.0-32.0); Mean Corpuscular Volume 89.1 fL (81-99); Mean Platelet Vol. 8.6 fl (6.2-12.0); Monocyte# 0.92 X10^3/uL; Monocyte% 8.7 % (0-10); NRBC Flagged by Analyzer 0 % (0-5); Neutrophil # 6.44 X10^3/uL (2.7-7.7); Neutrophil % 60.9 % (47-70); Platelet Count 326 K/mm3 (150-450); RBC Distribution Width CV 15.1 % (11.6-14.6); RBC Distribution Width SD 48.9 fl (35.1-43.9); White Blood Count 10.6 K/mm3 (4.4-11.0)
[2024-10-21 14:15] LABS: ALB/GLOB Ratio 0.9 RATIO (0.9-2.4); AST(SGOT) 15 U/L (15-37); Alanine Aminotransfer ALT/SGPT 18 U/L (13-56); Albumin, Serum 3.6 g/dL (3.2-5.0); Alkaline Phosphatase 68 U/L (45-117); Anion Gap 7 (5-15); BUN 15 mg/dL (7-18); BUN/Creat Ratio 13.8 RATIO (10-20); Calcium,Total 9.4 mg/dL (8.5-10.1); Chloride 101 mmol/L (98-107); Creatinine, Serum 1.09 mg/dL (0.55-1.02); EST Glomerular Filtration Rate 52 mL/min (>60); Est Glom Filt Rate - Afr Amer 62 mL/min (>60); Estimated Creatinine Clearance 38.92 ml/min; Globulin 3.9 g/dL (2.2-4.2); Glucose 116 mg/dL (74-106); Potassium 4.9 mmol/L (3.5-5.1); Protein, Total 7.5 g/dL (6.4-8.2); Sodium Level 134 mmol/L (136-145)
--- NOTE | 2024-10-21 16:01 | EX.ED.DYSGE1 ---
HPI History of Present Illness Chief Complaint: Abd Pain Detail of Chief Complaint: Abdominal fullness and discomfort, no BM x 2 weeks Informant: patient Onset/Context/Timing Onset: Weeks (2 weeks) Context: Sudden Onset Timing: Continuous Quality: Unable to have bowel movement Location: GI Current Severity: Moderate Worsened by: Patient was instructed to increase iron tablet from once a day to twice a d Relieved by: Nothing Associated Symptoms Associated Symptoms: none Narrative Narrative: Patient is a 79-year-old woman with history of bronchiectasis, daytime hypersomnolence, COPD, BMI of 31.5, diabetes mellitus and chronic iron deficiency anemia who presents because of constipation. I have a bowel movement 2 weeks. 2 weeks prior to her developing problems with her bowels she was instructed increase her iron from 1 tablet daily to 2 times a day. Patient states she did MiraLAX x 1 for 2 days with no results. She took a pill to help her move her bowels and it did not work. She did a enema today which was unsuccessful. Patient denies nausea or vomiting. Patient denies pain. Patient is flagellated. Patient's never had an obstruction. Patient had problems with constipation but nothing that is lasted this long. Prior similar symptoms: Yes [facility] Medical History Normal colonoscopy Former smoker Thyroid disease Osteoporosis Incisional hernia COPD (chronic obstructive pulmonary disease) Cholecystitis CHF (congestive heart failure) Cerebral artery occlusion with cerebral infarction Asthma Home Medications ?Medication ?Instructions ?Recorded ?Last Taken ?Type Oxygen, Home [Home Oxygen] 2 lpm NASAL QHS sleep 11/26/20 Unknown History albuterol sulfate 90 mcg/actuation 2 puff inhalation Q4H PRN 11/26/20 Unknown History aerosol inhaler shortness of breath or wheezing diltiazem HCl 120 mg 120 mg PO DAILY hr 11/26/20 Unknown History capsule,extended release 24 hr escitalopram oxalate 5 mg tablet 5 mg PO DAILY mood 11/26/20 Unknown History ferrous sulfate 325 mg (65 mg 325 mg PO DAILY iron 11/26/20 Unknown History iron) tablet fluticasone fur. 200 mcg-umeclid 1 inh inhalation DAILY breathing 11/26/20 Unknown History 62.5 mcg-vilant 25 mcg inhalat.powder ipratropium 0.5 mg-albuterol 3 mg 3 ml inhalation Q6H PRN shortness 11/26/20 Unknown History (2.5 mg base)/3 mL nebulization of breath or wheezing soln levothyroxine 50 mcg tablet 75 mcg PO DAILY thyroid 11/26/20 Unknown History pantoprazole 20 mg tablet,delayed 20 mg PO DAILY reflux 11/26/20 Unknown History release polyvinyl alcohol-povidone 0.5 1 drp ophthalmic (eye) BID 11/26/20 Unknown History %-0.6 % eye drops macular degeneration alcohol swabs (Alcohol Prep Pads) 1 pad topical BID bg checks 08/23/24 Unknown History ezetimibe 10 mg tablet 10 mg PO DAILY cholesterol 08/23/24 Unknown History metformin 500 mg tablet 500 mg PO BID diabetes 08/23/24 Unknown History acetaminophen 325 mg tablet 650 mg (2 x 325 mg) PO Q6H PRN PRN 09/06/24 Unknown Rx Pain 1-10 Or Fever>100.7 #0 tabs ascorbic acid (vitamin C) 500 mg 1,000 mg (2 x 500 mg) PO DAILY #30 09/06/24 Unknown Rx tablet tabs guaifenesin 1,200 mg tablet, 1,200 mg PO BID #20 tabs 09/06/24 Unknown Rx extended release 12 hr (Mucus Relief ER) levofloxacin 250 mg tablet 250 mg PO DAILY #5 tabs 09/06/24 Unknown Rx sennosides 8.6 mg-docusate sodium 1 tab PO BID #30 tabs 09/06/24 Unknown Rx 50 mg tablet (Stimulant Laxative Plus) temazepam 15 mg capsule 15 mg PO QHS PRN Sleep #14 caps 09/06/24 Unknown Rx calcium 600 mg (as carbonate)-vit 1 tab PO QDAY 10/11/24 Unknown History D3 10 mcg (400 unit) chewable tablet (Calcium 600 with Vitamin D3) Allergy/AdvReac Type Severity Reaction Status Date / Time Iodinated Contrast Media Allergy Unknown Itching Verified 10/21/24 13:19 bupropion (From Wellbutrin) Allergy Rash Verified 10/21/24 13:19 codeine Allergy Other Verified 10/21/24 13:19 morphine Allergy Nausea/Vom/ Verified 10/21/24 13:19 Diarrhea moxifloxacin (From Avelox) Allergy Other Verified 10/21/24 13:19 Family History Brother Atrial fibrillation Heart disease Arthritis Sister Obesity Arthritis Sister No problems noted. Brother No problems noted. Mother Heart disease Hypertension Other Diabetes Surgical History H/O: hysterectomy History of eye surgery H/O endoscopy History of cholecystectomy Social History (Updated 10/21/24 @ 16:[address] Declan Lamas MD) household members: spouse Smoking Status: Former smoker ROS ROS ED Constitutional Constitutional ED: Denies chills, fever(s), subjective, sweats or weight loss Cardiovascular Cardiovascular: Denies chest pain or palpitations Respiratory/Chest Respiratory/Chest: Denies cough, dyspnea or dyspnea on exertion Gastrointestinal Gastrointestinal: Reports constipation; Denies abdominal pain, diarrhea, melena, nausea or vomiting Musculoskeletal Musculoskeletal: Denies arthralgias or myalgias Hematologic/Lymphatic Hematologic/Lymphatic: Reports systems reviewed and no addt'l complaints, except as documented EXAM Physical Exam Const Vital Signs: 10/21/24 13:19 Temperature 96.9 F L Temperature Source Temporal Pulse Rate 91 Respiratory Rate 18 Blood Pressure 117/70 Blood Pressure Mean 85 Pulse Ox 99 Oxygen Delivery Method Nasal Cannula Oxygen Flow Rate (L/min) 2 Positive well nourished and well developed Constitutional Narrative: BMI of 31.5. General Appearance ED: well developed and pallor HEENT HEENT Narrative: Head is atraumatic normocephalic. Ears normal. Nares patent. Eyes PERRL and EOMs intact bilaterally General Eye ED: Negative for pale conjunctiva Resp normal respiratory effort and clear to auscultation bilaterally Cardio regular rate, regular rhythm, S1 normal heart sound, S2 normal heart sound and no murmurs GI normal to inspection, nondistended, normoactive bowel sounds, non-tender and no masses; Negative for non-distended or hepatosplenomegaly GI Narrative: Slight tympany to percussion. Rectal exam reveals external hemorrhoids. No a hemorrhoid that was thrombosed spontaneously expelled the clot. There is no stool in the rectal vault. Material that was visualized was brown in color. Extremity normal to inspection Neuro oriented x3 and CN's II-XII intact bilaterally Sensorium / Orientation: alert Skin no rashes or lesions noted, no wounds and No skin turgor normal General Skin Exam: pallor MDM MDM MDM Narrative Medical decision making narrative: Suspect patient obstipation is due to the increased iron. Patient was not instructed to increase or take Metamucil. Nurse protocol was initiated. History & Record Review Additional record(s) reviewed:: Prior ED visit and Prior labs Lab Data Attestation: I reviewed the patient's lab results. Lab results narrative: CBC reveals anemia with an H&H 9.3 and 20.5. This is chronic. Patient's creatinine is elevated 1.09 with an estimated GFR 52.Patient's creatinine is normally slightly elevated. Hemoglobin on September 05 was 10.2 and 32.2. Labs: Laboratory Results - last 24 hr 10/21/24 13:45 WBC 10.6 RBC 3.20 L Hgb 9.3 L Hct 28.5 L MCV 89.1 MCH 29.1 MCHC 32.6 RDW Std Deviation 48.9 H RDW Coeff of Georgette 15.1 H Plt Count 326 MPV 8.6 Immature Gran % (Auto) 0.700 Neut % (Auto) 60.9 Lymph % (Auto) 25.8 [place] % (Auto) 8.7 Eos % (Auto) 3.4 Baso % (Auto) 0.5 Absolute Neuts (auto) 6.4 Absolute Lymphs (auto) 2.72 Nucleated RBC % 0 Sodium 134 L Potassium 4.9 Chloride 101 Carbon Dioxide 26.0 Anion Gap 7 BUN 15 Creatinine 1.09 H Estim Creat Clear Calc 38.92 Est GFR (MDRD) Af Amer 62 Est GFR (MDRD) Non-Af 52 L BUN/Creatinine Ratio 13.8 Glucose 116 H Calcium 9.4 Total Bilirubin 0.30 AST 15 ALT 18 Alkaline Phosphatase 68 Total Protein 7.5 Albumin 3.6 Globulin 3.9 Albumin/Globulin Ratio 0.9 Treatment and Re-Evaluation :: Patient was told she is obstipated. Will instruct her what to take to have her bowels move. Discharge Plan Triage Chief Complaint: Abd Pain ED Provider: Declan Lamas Dx/Rx/DC Orders Clinical Impression: Obstipation, Iron (Fe) deficiency anemia, Elevated serum creatinine, Hyponatremia Instructions: ED Constipation (Adult) Prescriptions: No Action Calcium 600 with Vitamin D3 600 mg-10 mcg (400 unit) tablet,chewable 1 tab PO QDAY ipratropium-albuterol 3 ML solution for nebulization 3 ml inhalation Q6H PRN (Reason: shortness of breath or wheezing) pantoprazole 20 MG tablet 20 mg PO DAILY levothyroxine 50 MCG tablet 75 mcg PO DAILY ferrous sulfate 325 MG tablet 325 mg PO DAILY diltiazem HCl 120 MG capsule 120 mg PO DAILY albuterol sulfate 1 PUFF inhaler 2 puff inhalation Q4H PRN (Reason: shortness of breath or wheezing) escitalopram oxalate 5 MG tablet 5 mg PO DAILY polyvinyl alcohol-povidone 15 ML drops 1 drp ophthalmic (eye) BID [id number]-[id number]-[id number] 1 EACH blister with device 1 inh inhalation DAILY Oxygen, Home [Home Oxygen] 2 lpm NASAL QHS ezetimibe 10 mg tablet 10 mg PO DAILY metformin 500 mg tablet 500 mg PO BID alcohol swabs [Alcohol Prep Pads] Pads, Medicated 1 pad topical BID acetaminophen 325 mg Tablet 650 mg PO Q6H PRN PRN (Reason: Pain 1-10 Or Fever>100.7) Qty: 0 0RF sennosides-docusate sodium [Stimulant Laxative Plus] 8.6-50 mg Tablet 1 tab PO BID Qty: 30 0RF levofloxacin 250 mg Tablet 250 mg PO DAILY Qty: 5 0RF temazepam 15 mg Capsule 15 mg PO QHS PRN (Reason: Sleep) Qty: 14 0RF ascorbic acid (vitamin C) 500 mg Tablet 1,000 mg PO DAILY Qty: 30 0RF guaifenesin [Mucus Relief ER] 1,200 mg Tablet Extended Release 12hr 1,200 mg PO BID Qty: 20 0RF Primary Care Provider: Cy Griffiths Referrals: Cy Griffiths MD [Primary Care Provider] - 3-5 Days if not improving Activity Restrictions/Additional Instructions: 1. Tomorrow morning upon awakening drink 10 ounces of mag citrate. 2. 4 hours after you drink the mag citrate consume full glass of your favorite beverage that contains 1 cap full of MiraLAX. 3. Continue to drink full glass of beverage with full cap of MiraLAX every hour until you start to have results. Print Language: Bulgarian Disposition Disposition: Home, Self Care
[2024-10-21 16:27] VITALS: BP 118/96; PULSE 81; RESP 18; TEMP 36.7; O2SAT 99
== END 2024-10-21 16:28 | disposition home or self-care (01) ==
LOC: ED 16:19
PROVIDERS: Emergency Provider Emergency Medicine; PCP Family Medicine; Visit Provider Emergency Medicine
DX: R10.9 Unspecified abdominal pain (principal); I50.9 Heart failure, unspecified; J44.9 Chronic obstructive pulmonary disease, unspecified; E11.9 Type 2 diabetes mellitus without complications; K59.00 Constipation, unspecified; E87.1 Hypo-osmolality and hyponatremia; Z87.891 Personal history of nicotine dependence; Z90.710 Acquired absence of both cervix and uterus; R79.89 Other specified abnormal findings of blood chemistry; D50.9 Iron deficiency anemia, unspecified; Z79.84 Long term (current) use of oral hypoglycemic drugs; Z90.49 Acquired absence of other specified parts of digestive tract
CPT/HCPCS: 80053; 85025; 99283; A4216

== ENCOUNTER → 2024-10-31 | Outpatient (CLI) | payer MEDICARE, MEDICAID, SELFPAY ==
[2024-10-31] MEDS: Zaleplon 5 MG Capsule PO (20:00)
== END | disposition home or self-care (01) ==
PROVIDERS: PCP Family Medicine; Referring Provider Nurse Practitioner Family; Visit Provider Nurse Practitioner Family
DX: G47.10 Hypersomnia, unspecified (principal)
CPT/HCPCS: 95810

== ENCOUNTER 2024-11-03 12:39 | Outpatient (CLI) | payer MEDICARE, MEDICAID, SELFPAY ==
--- NOTE | 2024-11-03 13:15 | CT_ITS ---
PROCEDURE: CHEST WITHOUT CONTRAST REASON FOR EXAM: 2.8 cm x 2.4 cm x 1.8 cm right middle lobe TECHNIQUE: CT chest was performed without IV contrast. Multiplanar reformats were generated. CONTRAST: None. COMPARISON: 09/01/2024 FINDINGS: Note that evaluation of the vasculature, derrick, and soft tissues is limited in the absence of IV contrast. Heart/pericardium: Trace to mild aortic annular calcification. Mild coronary atherosclerosis. Aorta: Trace atherosclerosis. Left vertebral artery originates directly from the arch, normal variant. Pulmonary arteries: Normal in caliber. Lymph nodes: No overt lymphadenopathy. Similar mildly prominent but subcentimeter mediastinal nodes. Lungs/pleura: Numerous irregular pulmonary nodules and nodular opacities are again seen scattered throughout the right far greater than the left lung. The reference irregular nodular right middle lobe opacity is difficult to measure but approximates 3.3 x 2.1 cm, previously roughly 3.2 x 2.1 cm when measured with similar technique (series 2 image 73). Slightly increased irregular consolidation below this level (for example, image 72). New irregular nodular opacity in the subpleural posterolateral right lower lobe measures 2.3 x 1.7 cm (image 64). Irregular nodular consolidation in the paramediastinal right infrahilar region has also increased, difficult to delineate from adjacent vasculature and measure in the absence of IV contrast, roughly 5.0 x 2.4 cm, with discrete nodules in the region previously measuring up to 1.6 cm (image 86). Airways: Redemonstrated right middle lobe and lingular tubular bronchiectasis.. Chest wall: Unremarkable. Upper abdomen: Small hepatic cysts and numerous additional tiny scattered hypodensities too small to characterize likely to reflect cysts and/or hemangiomas in the absence of known malignancy, grossly similar to prior but incompletely characterized. Cholecystectomy. Tiny hiatal hernia containing fat. Musculoskeletal: Multilevel spondylosis. Demineralization.. CT/Chest without Contrast IMPRESSION: 1. Increasing multifocal nodules and irregular nodular opacities within the rig ht lung as detailed above. Although some features favor an infectious/inflammatory process such as pneumonia including atypical e tiologies such as fungal etiologies and MAC/LEE, given interval enlargement of nodular opacities up to 3.3 cm, neoplasm can not be entirely excluded. Clinical follow-up is recommended; tissue sampling should be considered. Additionally recommend pulm onology consultation unless already obtained. 2. Additional description as above. Reading Location: [id number]
[2024-11-03 13:41] VITALS: PULSE 114; PULSE 116; PULSE 117; PULSE 90; PULSE 93; PULSE 94; O2SAT 92; O2SAT 93; O2SAT 95; O2SAT 96
--- NOTE | 2024-11-04 13:30 | PCM.PSN.6M ---
PSN 6 Minute Walk Test 6 Minute Walk Test 6 Minute Walk Test: 6 Minute Walk Test PSN:6-Minute Walk Test Start: 11/03/24 13:40 Freq: Status: Active Protocol: [id number].[id number] Document 11/03/24 13:41 DURANYOLETTE (Rec: 11/03/24 13:43 [email or web address] [id number]) 6 Minute Walk Test Date Performed 11/03/24 Time Performed 13:30 Height 5 ft 1 in Weight: 163 lb Weight in Pounds 163.[address]: Nette Joseph Assistive device None used: Pre-test Oxygen Delivery Room Air Method Pulse Ox (%) 96 Pulse Rate (60-100 90 beats/min) Dyspnea [place] Scale ( 0 0-10) Exertion [place] Scale 6 (6-20) 1st minute Oxygen Delivery Room Air Method Pulse Ox (%) 95 Pulse Rate (60-100 94 beats/min) 2nd minute Oxygen Delivery Room Air Method Pulse Ox (%) 93 Pulse Rate (60-100 114 H beats/min) 3rd minute Oxygen Delivery Room Air Method Pulse Ox (%) 92 Pulse Rate (60-100 117 H beats/min) Dyspnea [place] Scale ( 4 0-10) Number of Rests 1 Taken 4th minute Oxygen Delivery Room Air Method Pulse Ox (%) 93 Pulse Rate (60-100 114 H beats/min) Number of Rests 1 Taken 5th minute Oxygen Delivery Room Air Method Pulse Ox (%) 92 Pulse Rate (60-100 114 H beats/min) 6th minute Oxygen Delivery Room Air Method Pulse Ox (%) 93 Pulse Rate (60-100 116 H beats/min) Dyspnea [place] Scale ( 5 0-10) Exertion [place] Scale 14 (6-20) Post-test Oxygen Delivery Room Air Method Pulse Ox (%) 96 Pulse Rate (60-100 93 beats/min) Full Laps Walked 14 Partial Lap, Number 8 of Tiles Walked Total Distance 834 Walked (ft) Interpretation Interpretation: The patient ambulated 834 feet over the course of 6 minutes beginning on room air without assistive devices. Pretesting oxygen saturation was noted to be 96% on room air. With ambulation, the darrian oxygen saturation was 92%. There was no significant exertional oxygen desaturation. Recommendations Recommendations: There is no indication for the use of supplemental oxygen at this time.
== END 2024-11-03 23:59 | disposition home or self-care (01) ==
LOC: PSN 12:42
PROVIDERS: PCP Family Medicine; Referring Provider Nurse Practitioner Family; Visit Provider Nurse Practitioner Family
DX: J44.9 Chronic obstructive pulmonary disease, unspecified (principal); G47.33 Obstructive sleep apnea (adult) (pediatric)
CPT/HCPCS: 71250; 94618; 95810

== ENCOUNTER → 2024-12-15 | Outpatient (CLI) | payer MEDICARE, SELFPAY ==
[2024-12-15 13:48] LABS: Rheumatoid Factor < 10.0 IU/mL (<15)
[2024-12-16 14:08] LABS: ANTINUCLEAR ANTIBODIES DIRECT Positive (Negative); Anti-Centromere B Ab 1.1 AI (0.0-0.9); Anti-Chromatin <0.2 AI (0.0-0.9); Anti-Jo <0.2 AI (0.0-0.9); Anti-Scleroderma-70 AB <0.2 AI (0.0-0.9); Anti-dsDNA Ab 1 IU/mL (0-9); CCP IgG Antibodies 9 units (0-19); Cytoplasmic Ab (C-ANCA) <1:20 titer (Neg:<1:20); Perinuclear Ab (P-ANCA) <1:20 titer (Neg:<1:20); RNP Ab 0.9 AI (0.0-0.9); SJOGREN'S Anti-SS-A test < 0.2 AI (0.0-0.9); SJOGREN'S Anti-SS-B test < 0.2 AI (0.0-0.9); Smith Ab <0.2 AI (0.0-0.9)
== END | disposition home or self-care (01) ==
LOC: PAVLAB 12:46
PROVIDERS: PCP Family Medicine; Referring Provider Nurse Practitioner Family; Visit Provider Nurse Practitioner Family
DX: R91.1 Solitary pulmonary nodule (principal)
CPT/HCPCS: 36415; 86037; 86038; 86200; 86225; 86235; 86431

== ENCOUNTER → 2025-02-23 | Outpatient (CLI) | payer MEDICARE, SELFPAY ==
--- NOTE | 2025-02-23 13:53 | CT_ITS ---
PROCEDURE: CHEST WITHOUT CONTRAST 02/23/2025 REASON FOR EXAM: MULTIPLE NODULES MEASURE 1-3 CM TECHNIQUE: Chest CT without contrast. Coronal and Sagittal reconstruction series were provided. One or more dose reduction techniques were used (e.g., Automated exposure control, adjustment of the mA and/or kV according to patient size, use of iterative reconstruction technique RADIATION DOSE SUMMARY: CTDlvol: 12.46 mGy DLP: 451.60 mGycm COMPARISON: 11/03/2024. FINDINGS: Normal unenhanced main pulmonary artery and right and left pulmonary arteries. Normal bilateral peripheral pulmonary arteries. Normal thoracic aorta and visualized great vessels. There is no demonstrated aortic aneurysm. Normal heart and pericardium. The coronary arteries are calcified. Normal mediastinum. Normal hilar regions. Normal visualized trachea and bronchi. Segmental atelectasis is seen in the right middle lobe and lingula. There is bilateral basilar bronchiectasis. Interval clearing of the pubic described wedge-shaped pleural-based opacity. Marked improvement in the bilateral nodular radiopacities most likely representing an infectious process. Normal pleura. Normal chest wall structures. Normal osseous structures. Normal visualized upper abdomen. The gallbladder is absent. CT/Chest without Contrast IMPRESSION: Slightly emphysematous lungs. Partial clearing of bilateral lower lobe nodularity and pleural-based wedge-sha ped radiopacity in the right lower lobe. Bronchiectasis. Right middle lobe and lingular subsegmental atelectasis. Calcified coronary arteries. Reading [facility]
== END | disposition home or self-care (01) ==
LOC: CT 13:51
PROVIDERS: PCP Family Medicine; Referring Provider Nurse Practitioner Family; Visit Provider Nurse Practitioner Family
DX: R91.1 Solitary pulmonary nodule (principal)
CPT/HCPCS: 71250

== ENCOUNTER → 2025-05-03 | Outpatient (CLI) | payer MEDICARE, SELFPAY ==
[2025-05-03 14:42] LABS: Hematocrit 32.5 % (37-47); Hemoglobin 10.3 g/dL (12.0-15.0); Immature Granulocytes Count 0.220 X10^3/uL (0.0-0.0); Mean Corp Hgb Conc 31.7 g/dL (32-36); Mean Corpuscular Volume 90.0 fL (81-99); Mean Platelet Vol. 8.1 fl (6.2-12.0); NRBC Flagged by Analyzer 0 % (0-5); POSITIVE DIFFERENTIAL YES; POSITIVE MORPHOLOGY YES; Platelet Count 314 K/mm3 (150-450); RBC Distribution Width CV 14.6 % (11.6-14.6); RBC Distribution Width SD 47.9 fl (35.1-43.9); Red Blood Count 3.61 M/mm3 (4.2-5.4); White Blood Count 17.9 K/mm3 (4.4-11.0)
[2025-05-03 14:43] LABS: Differential Indicated SCAN CRITERIA MET
[2025-05-11 17:08] LABS: Aspirgillus flavus Negative (Neg:<1:1); Aspirgillus fumigatus 1:1 (Neg:<1:1); Aspirgillus niger Negative (Neg:<1:1)
[2025-05-12 12:08] LABS: Ash, White <0.10 kU/L (Class 0); Black Walnut <0.10 kU/L (Class 0); Cat Hair / Dander,Stand <0.10 kU/L (Class 0); Cedar, Mountain <0.10 kU/L (Class 0); Cockroach, American <0.10 kU/L (Class 0); Dog Epithelia <0.10 kU/L (Class 0); Elm, American White <0.10 kU/L (Class 0); Mulberry, White <0.10 kU/L (Class 0); Oak, White <0.10 kU/L (Class 0); Pigweed, Rough <0.10 kU/L (Class 0); Ragweed, Short/Common <0.10 kU/L (Class 0); Sycamore, American <0.10 kU/L (Class 0)
== END | disposition home or self-care (01) ==
LOC: PAVLAB 14:20
PROVIDERS: PCP Family Medicine; Referring Provider Nurse Practitioner Family; Visit Provider Nurse Practitioner Family
DX: R06.2 Wheezing (principal); R06.02 Shortness of breath
CPT/HCPCS: 36415; 82785; 85025; 86003; 86606; 87070; 87077; 87186; 87205

== ENCOUNTER → 2025-05-29 | Outpatient (CLI) | payer MEDICARE, SELFPAY ==
--- OUTSIDE RECORDS SUMMARY | 2025-05-12 10:57 | XMS RPT_ITS ---
Author Name Auto Generated Organization OHIP Care Team Providers Care Quotation Clerk Name Role Phone RAIZA KUMAR Primary Care Unavailable ROGE ROCA Attending Unavailable RAIZA KUMAR Primary Care Unavailable RAIZA KUMAR Attending Unavailable RAIZA KUMAR Primary Care Unavailable MAGALI VANCE Attending Unavailable PURVI WATTERS Attending Unavailable RAIZA KUMAR Primary Care Unavailable ALLEGRA BONILLA Attending Unavailable RAIZA KUMAR Primary Care Unavailable RAIZA KUMAR Attending Unavailable RAIZA KUMAR Primary Care Unavailable RAIZA KUMAR Primary Care Unavailable NENA WIGGINS Referring Unavailable NENA WIGGINS Attending Unavailable STACY, RAIZA Primary Care Unavailable STACY, RAIZA Primary Care Unavailable ROCA, MASROOR Referring Unavailable ROCA, MASROOR Attending Unavailable STACY, RAIZA Primary Care Unavailable NENA WIGGINS Referring Unavailable NENA WIGGINS Attending Unavailable SASTRY, MARCELL Referring Unavailable SASTRY, MARCELL Attending Unavailable RAIZA KUMAR Primary Care Unavailabl e SASTRY, MARCELL Attending Unavailable STACY, RAIZA HUMPHREY Primary Care Unavailabl e SASTRY, MARCELL Referring Unavailable SASTRY, MARCELL Attending Unavailable STACY, RAIZA YIN Primary Care Unavailabl e SASTRY, MARCELL Referring Unavailable PHYSICIAN, NONE Attending Unavailable PHYSICIAN, NONE Primary Care Unavailable PROBLEMS DATE TYPE CONDITION / CODE ATTENDING STATUS [facility] 2020 Active 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, right eye, with inactive choroidal neovascularization (HCC) / H35.3212(ICD-10) [facility] Active 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, left eye, early dry stage / H35.3121(ICD-10) ASHWIN [facility] 10/27/2017 Active 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 / H35.54(ICD-10) MARCELL CHRISTOPHER [facility] 02/09/2023 Admitting Diagnosis Exudative age-related macular degeneration, right eye, with inactive choroidal neovascularization (HCC) / H35.3212(ICD-10) RAIZA KUMAR [facility] 02/14/2025 Admitting Diagnosis Encounter for general adult medical examination without abnormal findings / Z00.00(ICD-10) RAIZA KUMAR [facility] 02/14/2025 Admitting Diagnosis Asymptomatic menopausal state / Z78.0(ICD-10) RAIZA KUMAR [facility] 08/11/2024 Admitting Diagnosis Chronic kidney disease, stage 2 (mild) / N18.2(ICD-10) ALLEGRA BONILLA [facility] 08/11/2024 Admitting Diagnosis Type 2 diabetes mellitus with diabetic chronic kidney disease (HCC) / E11.22(ICD-10) [facility] 09/27/2024 Admitting Diagnosis Other specified viral diseases / B33.8(ICD-10) [facility] 09/27/2024 Admitting Diagnosis Dizziness and giddiness / R42(ICD-10) [facility] 09/27/2024 Admitting Diagnosis Hypo-osmolality and hyponatremia / E87.1(ICD-10) [facility] 08/23/2024 Admitting Diagnosis Cough, difficulty breathing, Hx COPD / UNK(Unknown) [facility] 08/11/2024 Admitting Diagnosis Chronic kidney disease, stage 3a (HCC) / N18.31(ICD-10) STACY [facility] 10/08/2023 Admitting Diagnosis Type 2 diabetes mellitus without complications (HCC) / E11.9(ICD-10) STACY [facility] 10/08/2023 Admitting Diagnosis Anemia in other chronic diseases classified elsewhere / D63.8(ICD-10) STACY [facility] 09/01/2023 Admitting Diagnosis Hypothyroidism, unspecified / E03.9(ICD-10) STACY [facility] 06/16/2022 Admitting Diagnosis Pure hypercholesterolemia, unspecified / E78.00(ICD-10) STACY [facility] 06/22/2024 Admitting Diagnosis Cough, unspecified / R05.9(ICD-10) [facility] 06/22/2024 Admitting Diagnosis Bronchiectasis, uncomplicated (HCC) / J47.9(ICD-10) [facility] 09/01/2023 Admitting Diagnosis Chronic obstructive pulmonary disease, unspecified (HCC) / J44.9(ICD-10) [facility] 06/16/2022 Admitting Diagnosis Chronic respiratory failure with hypercapnia (HCC) / J96.12(ICD-10) [facility] 06/16/2022 Admitting Diagnosis Tobacco use / Z72.0(ICD-10) ROCA, [facility] 06/22/2024 Admitting Diagnosis Bronchiectasis with acute lower respiratory infection (HCC) / J47.0(ICD-10) AMY [facility] 06/17/2024 Admitting Diagnosis Pneumonia, unspecified organism / J18.9(ICD-10) NENA WIGGINS [facility] 06/15/2024 Admitting Diagnosis Foreign body sensation, throat / R09.A2(ICD-10) FELICIANO, [facility] 06/15/2024 Admitting Diagnosis Dysphagia, unspecified / R13.10(ICD-10) [place] [facility] PROCEDURES No Procedure Records Found RESULTS OFFICE VISIT Observed: 05/12/2025 11:00 AM Status: COMPLETED Source: [facility] [id number] Stacia Uriostegui [birth year] F Date Provider Department Center 05/12/2025 [id number] [facility] None Family History Problem Relation Age of Onset Arthritis Sister High Blood Pressure Mother No Known Problems Father Diabetes Mother Arthritis Brother Heart disease Mother Obesity Sister Heart disease Brother Diabetes Sister Atrial fibrillation Brother Family Status - Relation Status Age at Sister Mother 57 Father Brother Level of Service:[id number] [place] OFFICE/OUTPATIENT NEW MODERATE MDM 45 MINUTES Reason for Visit and Comments: New Patient [542] - +Pseudomonas aeruginosa sputum cx PROGRESS NOTE Observed: 05/12/2025 11:00 AM Status: COMPLETED Source: [facility] I nfectious Diseases Attending Outpatient Consult Note Reason for Consult: Pseudomonas + sputum culture in patient with AECOPD and Bronchiectasis Requesting Physician: Nette Joseph NP-[facility] Chief Complaint Patient presents with New Patient +Pseudomonas aeruginosa sputum cx HISTORY OF PRESENT ILLNESS The patient is a 79 y.o. female with presenting with subacute c/o cough( light yellow phlegm), and SOB/GARCIA for weeks. Associated night sweats and hot flash sensation to face, mild pleuritic back pain, already [facility] nebulized therapies [facility] and Bronchiectasis. Prior [...] min Stress: No Stress Concern Present (02/14/2025) [place] - Occupational Stress Questionnaire Feeling of Stress : Not at all Social Connections: Socially Isolated (02/14/2025) Social Connection and Isolation Panel [NHANES] Frequency of Communication with Friends and Family: More than three times a week Frequency of Social Gatherings with Friends and Family: More than three times a week Attends [employer] Services: Never Active Member of Clubs or [...] 37 - 153 U/L Final AST - [facility] 02/14/2025 14 10 - 35 U/L Final ALT - [facility] 02/14/2025 10 6 - 29 U/L Final HEMOGLOBIN A1C - [facility] 02/14/2025 6.7 (H) <5.7 % Final TSH [...] in the last 72 hours. Reviewed per [facility] Mediat tab referral notes Lines: none Radiography/Echo/Other: [...] crush, chew, or split. 60 tablet 11 Dnbhyrgfvze-Amartpakj-Ikvzie (Trelegy Ellipta) 200-62.5-25 MCG/ACT aerosol powder Inhale [...] Observed: 05/11/2025 10:30 AM Status: COMPLETED Source: [facility] ID: [id number] Author: MARCELL CHRISTOPHER MD Service: ? Author [...] Observed: 04/25/2025 2:03 PM Status: COMPLETED Source: [facility] EMR reviewed. The patient had an appt. with Ophthalmology on 04/13/25 and she had eye injections for macular degeneration. CM outreach on 04/25/25: PMH: COPD, PA, DM, HYPOTHYROID, ANEMIA, HYPERLIPIDEMIA, MACULAR DEGENERATION DM [...] Still getting a new PCP-Dr. Pena in [place]. First appt. In July. She is seeing a new Pulmonary doctor-Dr. Joseph at [facility]. She stated she needs her Trelegy refilled. Plan: The patient will start monitoring her blood sugars 2-3 times per week. She will continue to monitor her pulse ox daily. CM contacted Annelise Mehta-senior manager mergers & acquisitions regarding her Trelegy inhaler and possible financial assistance. Annelise stated the patient was getting her Trelegy through [employer] iron program and using [facility] retail pharmacy. Her new pulmonary doctor-Dr. Joseph is with [facility]. CM talked with the patient about discussing her options with her new pulmonary provider at her upcoming appt. next week. CM will follow-up one more time next month. Scheduled next outreach. 36 Observed: 04/14/2025 9:47 AM Status: COMPLETED Source: [facility] Rx sent for 100 tablets +1 r efill per request of the pharmacy. Thank you for looking into this and verifying. 36 Observed: 04/14/2025 9:00 AM Status: COMPLETED Source: [facility] Called and spoke with pt who stated [...] Observed: 04/14/2025 6:27 AM Status: COMPLETED Source: [facility] A year supply to the request ed pharmacy was sent on 09/19/2024. PROGRESS Observed: 04/13/2025 9:30 AM Status: COMPLETED Source: [facility] ID: [id number] Author: MARCELL CHRISTOPHER MD Service: ? Author [...] Observed: 04/10/2025 7:50 AM Status: COMPLETED Source: [facility] Prescription Request: Levothyroxine Sodium 75 MCG Oral Tablet Last medication check: 08/11/24 Last physical exam: 02/14/25 Next scheduled appointment: 08/08/25 Last date of refill on this medication 05/27/25 ( qty 90 refill 1) PROGRESS NOTE Observed: 03/14/2025 1:10 PM Status: COMPLETED Source: [facility] EMR reviewed. The patient had a Medicare [...] m? CM outreach on 03/14/25: PMH: COPD, PA, DM, HYPOTHYROID, ANEMIA, HYPERLIPIDEMIA, MACULAR DEGENERATION COPD [...] new PCP in July-Dr. Delfina Pena in [place]. Looking for a doctor that is closer [...] Observed: 03/06/2025 9:56 AM Status: COMPLETED Source: [facility] Tried calling patient but ph one just rings w no voicemail to LM. I Mycharted information to pt so she can call and get her appt. 36 Observed: 03/02/2025 2:48 PM Status: COMPLETED Source: [facility] Name of Caller: Stacia Contact Phone Number: [phone] Reason for Appointment: Pt calling to get infusion scheduled at [place] Office Name: Stacy Medication Refills need, if any: Medication Name: 36 Observed: 02/24/2025 12:22 PM Status: COM PLETED Source: [facility] Yes. 36 Observed: 02/24/2025 12:00 PM Status: COMPLETED Source: [facility] I think these were sent 02/22 36 Observed: 02/24/2025 10:47 AM Status: COMPLETED Source: [facility] Prescription Request: T/s accu-chek guide Last medication check: 08/11/24 Last physical exam: 02/14/25 Next scheduled appointment: 08/08/25 Last date of refill on this medication none seen 36 Observed: 02/23/2025 11:21 AM Status: COM PLETED Source: [facility] Faxed 36 Observed: 02/22/2025 9:31 AM Status: COMP LETED Source: [facility] Rx sent 36 Observed: 02/22/2025 8:52 AM Status: COMPLETED Source: [facility] Yes, I have it on my desk bu t I have not had time to fill it then. 36 Observed: 02/22/2025 8:32 AM Status: COMPLETED Source: [facility] Called and spoke with Esvin brown, states that she faxed this over to us yesterday. Did you receive this? 36 Observed: 02/22/2025 8:04 AM Status: COMPLETED Source: [facility] Fax from [facility] Prescription Request: T/S accu-chek Guide Last medication check: none Last physical exam: 02/14/25 Next scheduled appointment: 08/08/25 Last date of refill on this medication none seen 36 Observed: 02/21/2025 6:38 AM Status: COMPLETED Source: [facility] The [facility] infusion order i s a preprinted order coming from the infusion center, see date 02/26/2024 for example. They need to send us the preprinted order and we will fill it out and send it back. 36 Observed: 02/17/2025 1:29 PM Status: COMPLETED Source: [facility] Name of caller: Toña Contact phone number: [phone] Relationship to Patient: [facility] Infusion Provider: Dr Kumar Practice: [facility] Chief Complaint/Reason for Call: Toña is requesting a new Infustion order and Authorization for reclast. Requesting information be faxed to fax# [phone]. Patient has appt scheduled for March 09. thank you Best time of day caller can be reached: any Patient advised that office/PCP has 24-48 business hours to return their call: Yes PROGRESS NOTE Observed: 02/14/2025 11:59 AM Status: COMPLETED Source: [facility] Controlled, continue Zetia 1 0 mg daily PROGRESS NOTE Observed: 02/14/2025 11:58 AM Status: COMPLETED Source: [facility] Uncontrolled, continue follo wing up with ophthalmology PROGRESS NOTE Observed: 02/14/2025 11:57 AM Status: COMPLETED Source: [facility] stable, continue iron tablet s 650 mg, recheck lab work today PROGRESS NOTE Observed: 02/14/2025 11:56 AM Status: COMPLETED Source: [facility] controlled, kidney function is stable, continue metformin 500 mg twice a day PROGRESS NOTE Observed: 02/14/2025 11:54 AM Status: COMPLETED Source: [facility] Stable, continue levothyroxi ne 75 mcg daily PROGRESS NOTE Observed: 02/14/2025 11:54 AM Status: COMPLETED Source: [facility] Improved, will get updated D EXA scan. Continue calcium 1200 mg with vitamin D PROGRESS NOTE Observed: 02/14/2025 11:49 AM Status: COMPLETED Source: [facility] Stable, continue Trelegy 1 p uff daily and albuterol as needed. Oxygen as needed 37 Observed: 02/14/2025 10:30 AM Status: COMPLETED Source: [facility] Personalized Preventative Pl an for Stacia Uriostegui [...] Recommendations: A preventive eye exam by an histology specialist is recommended every 1-2 years to screen for glaucoma, cataracts, macular degeneration, and other eye disorders. A preventive dental visit is recommended every 6 months. Try to get at least 150 minutes of exercise per week or 10,000 steps per day on a pedometer. You need 1200-1500mg of calcium and 9252-4618 international units of vitamin D per day. [...] Observed: 02/14/2025 10:30 AM Status: COMPLETED Source: [facility] [id number] Stacia Uriostegui 01/2 02/1946 F Date Provider Department Center 02/14/2025 [id number] KUMARHMTyron [facility] Family History Problem Relation Age of Onset Arthritis Sister High Blood Pressure Mother No Known Problems Father Diabetes Mother Arthritis Brother Heart disease Mother Obesity Sister Heart disease Brother Diabetes Sister Atrial fibrillation Brother Family Status - Relation Status Age at Sister Mother 57 Father Brother Level of Service:[id number] [place] PPPS, SUBSEQ VISIT Reason for Visit and Comments: Medicare Annual Wellness Visit Subsequent [057] Blood Work [[id number]] Health Maintenance [872] - Dexa scan- agree Hep c screening- refuse Rsv vaccine- not done PROGRESS NOTE Observed: 02/14/2025 10:30 AM Status: COMPLETED Source: [facility] Hiram but I did do his A1c [facility] [address] [facility] [address] Dept: [phone] Dept Chief Complaint: Stacia Uriostegui is an [...] crush, chew, or split. 60 tablet 11 Ztkxnggzpii-Cbajhdegp-Moyrii (Trelegy Ellipta) 200-62.5-25 MCG/ACT aerosol powder Inhale [...] shortness of breath. 180 mL 1 Lancets Mis. (Accu-Chek Softclix Lancet Dev) kit levothyroxine (Synthroid, [...] current healthcare providers: Patient Care Team: Raiza Kmuar MD as PCP - General (Family Medicine) Nena Fernandez, RN as Retail Pharmacy Technician (Classification Clerk Manager) Magali Vance DO as Consulting Physician [...] Observed: 02/14/2025 10:30 AM Status: COMPLETED Source: [facility] Patient verified by last nam e and date of . 36 Observed: 02/08/2025 10:51 AM Status: COMPLETED Source: [facility] Noted. Will hold off on refi lling until upcoming appointment. 36 Observed: 02/08/2025 10:47 AM Status: COMPLETED Source: [facility] Called pt and she states gretchen t she has an appointment on 02/14, she's hoping that he will tell her she doesn't need to test her Blood sugar any more. 36 Observed: 02/08/2025 10:42 AM Status: COMPLETED Source: [facility] Please verify with Stacia whe re she would like these sent to. Prescription was just filled for the Accu-Chek soft click lancets [facility] [place] 36 Observed: 02/08/2025 10:14 AM Status: COMPLETED Source: [facility] I believe its for the Accu-c heck lancets 36 Observed: 02/08/2025 10:00 AM Status: COMPLETED Source: [facility]axed by [facility] rocio alejo Prescription Request: T/s Accu-check Guide Last medication check: 08/11/24 Last physical exam: 02/10/25 Next scheduled appointment: 02/14/25 Last date of refill on this medication: see where a previous provider had canceled an order for one, couldn't find one off hand. 36 Observed: 02/06/2025 4:53 PM Status: COMPLETED Source: [facility] Rx sent. Follow up as schedu led. 36 Observed: 02/06/2025 9:09 AM Status: COMPLETED Source: [facility] Why are you sending needs to as patient calls and not putting them in as refills? 36 Observed: 02/06/2025 8:55 AM Status: COMPLETED Source: [facility] Faxed request from [facility] Prescription Request: T/s Accu-chek guide Last medication check: 08/11/24 Last physical exam: 02/11/24 Next scheduled appointment: 02/14/25 Last date of refill on this medication Doesn't look like we've done this one before. PROGRESS NOTE Observed: 01/30/2025 2:27 PM Status: COMPLETED [facility] EMR reviewed. No recent offi ce visits since last outreach attempt. PMH: COPD, PA, DM, HYPOTHYROID, ANEMIA, HYPERLIPIDEMIA, MACULAR DEGENERATION Follow-up [...] last night-hoang and eggs with toast 01/30/25 1449 Diabetes - Patient Level Diabetes type Type [...] does likes to garden. She stated her Signal Person wants to do another x-ray. She had one 3 months ago. She stated she is looking for a new PCP, possibly in [place] where she sees her Signal Person. She said she is tired of trying to get in contact with her PCP. She stated I am getting too old and cranky for this. We discussed using [employer] to communicate with her PCP and she [...] Observed: 01/24/2025 8:44 AM Status: COMPLETED [facility] Prescription Request: Levothyroxine Sodium 75 MCG Oral Tablet Last medication check: 08/11/24 Last physical exam: 02/11/24 Next scheduled appointment: 02/14/25 Last date of refill on this medication 09/19/24 ( qty 30 refill 5) 36 Observed: 01/10/2025 7:49 AM Status: COMPLETED Source: [facility] Reviewed chart. Refill appro priate. RX sent. 36 Observed: 01/10/2025 7:19 AM Status: COMPLETED Source: [facility] Prescription Request: Accu-Chek Softclix Lancets Last medication check: 09/27/24 Last physical exam: 02/11/24 Next scheduled appointment: 02/14/25 Last date of refill on this medication 10/13/24 & 10/05/24 PROGRESS NOTE Observed: 12/20/2024 8:19 AM Status: COMPLETED Source: [facility] EMR reviewed. No recent offi ce visits since last outreach attempt. PMH: COPD, PA, HYPOTHYROID, ANEMIA, HYPERLIPIDEMIA COPD MEDS: Using Trelegy [...] Denies any edema Stated has a new Signal Person-Dr. Garcia in [place]. Closer to home. Sees every 3 months. [...] Observed: 11/28/2024 9:26 AM Status: COMPLETED Source: [facility] Reviewed chart. Refill appro priate. RX sent. 36 Observed: 11/28/2024 8:51 AM Status: COMPLETED Source: [facility] Prescription Request: Last medication check: 09/27/24 Last physical exam: 02/11/24 Next scheduled appointment: 02/14/25 Last date of refill on this medication 09/19/24 PROGRESS NOTE Observed: 11/18/2024 1:45 PM Status: COMPLETED Source: [facility] EMR reviewed. No recent offi ce visits [...] 10/31/2024 8:24 AM Status: COMP LETED Source: [facility] Notified Gerson. 36 Observed: 10/30/2024 8:56 AM Status: COMPLETED Source: [facility] Verbal order for continued h ome care given. Recommend patient use MiraLAX and/or Senokot S on a regular basis while on iron. Also make sure she is drinking enough fluids. 36 Observed: 10/28/2024 11:03 AM Status: COMPLETED Source: [facility] Name of caller: Gerson Contact phone number: [phone] Relationship to Patient: [facility] Provider: Dr. Kumar Practice: [facility] Chief [...] Observed: 10/21/2024 2:30 PM Status: COMPLETED Source: [facility] EMR reviewed. The patient had a hospital follow-up appt. with PCP's office on 09/27/24: ALPESH Simoner (: 1945) is a 79 y.o. female , Established patient, here for the evaluation of the following chief complaint(s): Hospital Follow-up and Dizziness Patient presents for hospital follow-up. Has been established with Home health at home. Pt/ot is out 2x a week. Is feeling better every day. Was [facility] 08/23/2024 to [facility], copd exacerbation, + RSV and pnuemonia. Wearing oxygen 2 L nc, 93-97 % at home. Gets winded easily still. Is getting established with pulmonology in [place] in October. Denies any chest pain or [...] Observed: 10/13/2024 1:21 PM Status: COMPLETED Source: [facility] Stacia states she doesn't nee d a refill yet for meclizine. 36 Observed: 10/13/2024 11:17 AM Status: COMPLETED Source: [facility] Prescription Request: Last medication check: 08/11/24 Last physical exam: 02/11/24 Next scheduled appointment: 02/14/25 Last date of refill on this medication lancets 10/05/24, meclizine 09/27/24 36 Observed: 10/06/2024 11:17 AM Status: COMPLETED Source: [facility] Called Honorio, notified on her vm. 36 Observed: 10/06/2024 10:40 AM Status: COMPLETED Source: [facility] I agree with PT recommendati on. 36 Observed: 10/06/2024 10:22 AM Status: COMPLETED Source: [facility] Name of caller: honorio Contact phone number: [phone] Relationship to Patient: [facility] nurse Provider: stacy Practice: [facility] Chief [...] 10/05/2024 1:40 PM Status: COMP LETED [facility] Lancets sent 36 Observed: 10/05/2024 1:01 PM Status: COMPLETED [facility] I let her know that Meclizin e was sent to [facility] on 09/27/24 so order may still be in process of getting to her. She needs the accu-chek needles sent to [facility] please. 36 Observed: 10/05/2024 12:31 PM Status: COMPLETED Source: [facility] Name of caller: Stacia Contact phone number: [phone] Relationship to Patient: Patient Provider: Dr. Kumar [...] Observed: 10/03/2024 10:24 AM Status: COMPLETED [facility] Pt called in to cancel her A pril apt with .The PT said that will be seeing her for the anemia now. I cancel the apt with per pt request. 36 Observed: 09/27/2024 5:01 PM Status: COMPLETED [facility] Last follow up: 06/22/2024 Next appointment: Visit date not found Allergies Allergen Reactions Iodides Itching Moxifloxacin Avelox Passed out Codeine Other reaction(s): Other (See Comments) Iodinated Contrast Media Bupropion Rash Morphine Nausea And Vomiting Requested Prescriptions Pending Prescriptions Disp Refills Cfzrcsnonhd-Xmmmdmpue-Lutyps (Trelegy Ellipta) 200-62.5-25 MCG/ACT aerosol powder 60 each 5 Sig: Inhale 1 puff daily. PROGRESS NOTE Observed: 09/27/2024 12:49 PM Status: COMPLETED Source: [employer] Resolved. Patient is gradual ly gaining her strength back from her hospitalization. Continue home physical therapy and Occupational Therapy. Follow-up with pulmonology as directed PROGRESS NOTE Observed: 09/27/2024 12:48 PM Status: COMPLETED Source: [facility] Stable, continue albuterol a nd Trelegy as directed. Follow-up with statistical analyst as scheduled PROGRESS NOTE Observed: 09/27/2024 12:48 PM Status: COMPLETED Source: [employer] Controlled, blood sugars at home consistently less than 180. Continue current medications PROGRESS NOTE Observed: 09/27/2024 12:48 PM Status: COMPLETED Source: [facility] Currently asymptomatic. Mecl izine as needed. Follow-up for worsening symptoms or increased frequency. PROGRESS NOTE Observed: 09/27/2024 12:47 PM Status: COMPLETED Source: [facility] Will check sodium levels tolisset vences. Patient did have hyponatremia during her hospitalization and it was nearly normal upon discharge at 133. PROGRESS NOTE Observed: 09/27/2024 8:00 AM Status: COMPLETED Source: [facility] 09/27/2024 Stacia Uriostegui (: 1945) is a [...] insulin (HCC) (HCC) Assessment & Plan: Controlled, blood sugars at [...] albuterol and Trelegy as directed. Follow-up with statistical analyst as scheduled Follow up for with primary [...] every day. Was [facility] 08/23/2024 to [facility], copd exacerbation, + RSV and pnuemonia. Wearing oxygen 2 L nc, 93-97 % at home. Gets winded easily still. Is getting established with pulmonology in [place] in October. Denies any chest pain or [...] 1 Swab 2 times daily. 09/19/24 Yes Allegra Bonilla APRN - ARCHITECTURE ANALYST Calcium Carb-Cholecalciferol (Calcium 600+D) 600-10 MG-MCG tablet Take 2 tablets by mouth daily. Yes Historical Provider, escitalopram (Lexapro) 5 MG tablet Take 1 tablet (5 mg) by mouth daily. 09/19/24 Yes Allgera Bonilla APRN - ARCHITECTURE ANALYST ezetimibe (Zetia) 10 MG tablet Take 1 tablet (10 mg) by mouth daily. 09/19/24 Yes Allegra Bonilla, APPLICATION COORDINATOR - EDWINA ferrous sulfate (Fe Tabs) 325 (65 Fe) MG EC tablet Take 1 tablet (325 mg) by mouth 2 times daily. Do not crush, chew, or split. 08/12/24 08/12/25 Yes Magali Vance, Dlhxsxwkvmg-Uumxzelpi-Ejvory (Trelegy Ellipta) 200-62.5-25 MCG/ACT aerosol powder Inhale 1 puff daily. 03/30/24 Yes CAROLYN Guerrero CNP glucose blood test strip Test two times a day & as needed for symptoms of irregular blood glucose. Compatible with Accu-Check Device please. 09/19/24 Yes CAROLYN Arguello CNP ipratropium-albuterol (Duo-Neb) 0.5-2.5 mg/3 mL nebulizer solution Take 3 mL by nebulization every 6 hours as needed for shortness of breath. 10/06/23 Yes Ron Chen MD [employer] (Prodigy Lancing Device) misc 1 Device daily. 09/19/24 Yes CAROLYN Arguello CNP levothyroxine (Synthroid, Levoxyl) 75 MCG tablet Take 1 tablet (75 mcg) by mouth daily. 09/19/24 Yes CAROLYN Arguello CNP metFORMIN (Glucophage) 500 MG tablet Take 1 tablet (500 mg) by mouth 2 times daily (with meals). 09/19/24 Yes AllegraCAROLYN Cervantes CNP oxygen (O2) gas 2 L prn 01/13/20 Yes Historical Provider, pantoprazole (ProtoNix) 40 MG EC tablet Take 1 tablet (40 mg) by mouth every morning (before breakfast). Do not crush, chew, or split. 09/19/24 Yes Allegra CANDIS BonillaN - ARCHITECTURE ANALYST Polyethyl Glycol-Propyl Glycol (SYSTANE OP) Administer 1 [...] was used to authenticate this note. Allegra Bonilla, APPLICATION COORDINATOR - ARCHITECTURE ANALYST 09/27/2024 12:50 PM OFFICE VISIT Observed: 09/27/2024 8:00 AM Status: COMPLETED Source: [facility] CCM [employer] [facility] [id number] Stacia Uriostegui [birth year] F Date Provider Department Center 09/27/2024 [id number] Family History Problem Relation Age of Onset Arthritis Sister High Blood Pressure Mother No Known Problems Father Diabetes Mother Arthritis Brother Heart disease Mother Obesity Sister Heart disease Brother Diabetes Sister Atrial fibrillation Brother Family Status - Relation Status Age at Sister Mother 57 Father Brother Level of Service:01428 [place] OFFICE/OUTPATIENT ESTABLISHED MOD MDM 30 MIN Reason for Visit and Comments: Hospital Follow-up [832] Dizziness [179667] PROGRESS NOTE Observed: 09/27/2024 8:00 AM Status: COMPLETED Source: [facility] [employer] [facility] Venipuncture completed Patient was identified by name and date of -orders verified in EPIC. Site cleansed with alcohol swap and using a sterile needle, right AC accessed per [facility]'s policy and procedure. Bandage applied to site no bleeding or hematoma noted, patient tolerated well. X 1 attempts. Advised to leave bandage on for at least 20 minutes to prevent swelling and bruising. PROGRESS NOTE Observed: 09/27/2024 8:00 AM Status: COMPLETED Source: [facility] [employer] [facility] Patient was identified by na me and Date of . 36 Observed: 09/20/2024 11:14 AM Status: COM PLETED Source: [facility] [employer] [facility] Faxed. 29 Observed: 09/20/2024 10:27 AM Status: COMPLETED Source: [facility] Addended by: RAIZA KUMAR on: 09/20/2024 10:27 AM Modules accepted: Orders 36 Observed: 09/20/2024 10:26 AM Status: COMPLETED [facility] Order signed, please fax to [facility]. PROGRESS NOTE Observed: 09/20/2024 8:50 AM Status: COMPLETED Source: [facility] [employer] [facility] EMR reviewed. The patient ca nceled her PCP appt. today. She stated she didn't want to take any chances after being in the hospital recently. She plans on calling to reschedule her hospital follow-up appt. PMH: COPD, PA, HYPOTHYROID, ANEMIA, HYPERLIPIDEMIA DM MEDS: Metformin 500mg [...] wheezing or SOB The patient was in [facility] and was discharged on 09/06/24. She stated she had RSV and pneumonia. She is regaining her strength. Still has a clear and whitish productive cough. Was taking Mucinex. The patient stated she found a new Signal Person-Dr. Ney Garcia in [place]. She has her first appt. on 10/11/24. [...] Observed: 09/20/2024 8:40 AM Status: COMPLETED Source: [facility] Addended by: RAFAELA GONSALEZ on : 09/20/2024 08:40 AM Modules accepted: Orders 36 Observed: 09/20/2024 8:39 AM Status: COMPLETED Source: [facility] We have to send them an orde r with patient info, notes, etc. Pended DME order and I will fax with everything. 36 Observed: 09/19/2024 5:29 PM Status: COMPLETED Source: [facility] Can we reach out to [employer] an d inquire about the forms? It is my understanding this is what needs completed? 36 Observed: 09/19/2024 5:29 PM Status: COMPLETED Source: [facility] I have not received anything 36 Observed: 09/19/2024 5:20 PM Status: COMPLETED Source: [facility] I am currently caught up on paperwork and did not receive a form. Do we know if we have received anything from [facility]? 36 Observed: 09/19/2024 2:43 PM Status: COMPLETED Source: [facility] Spoke to patient, she did sw itch to [facility] delivery due to insurance. Patient also states that she needs her lancets, test strips, and alcohol pads sent to [facility]. 36 Observed: 09/19/2024 2:21 PM Status: COMPLETED Source: [facility] Name of caller: Chantal Contact phone number: [phone] Relationship to Patient: [facility] Provider: Stacy Practice: [facility] Chief Complaint/Reason for Call: Chantal from [facility] [phone] states physician order needs signed form for nebulizer to [facility] but they haven't received anything and [employer] said they wouldn't reach out to office. She is checking with them now. Please call and let her know of any diff updates. Best time of day caller can be reached: Patient advised that office/PCP has 24-48 business hours to return their call: 36 Observed: 09/16/2024 10:52 AM Status: COMPLETED Source: [facility] Need to know if patient is s tarting to use [facility] home delivery services. 36 Observed: 09/13/2024 7:41 AM Status: COMPLETED Source: [facility] Stacia called and said that s he will not be coming to us and that she found a pulmonary doctor closer to her home, 36 Observed: 09/12/2024 3:58 PM Status: COMP LETED Source: [facility] [employer] [facility] Notified. 36 Observed: 09/12/2024 3:52 PM Status: COMPLETED Source: [facility] Thank you for clarifying. Ok ay to give verbal order. 36 Observed: 09/12/2024 3:44 PM Status: COMPLETED Source: [facility] [employer] [facility] Please find out if patient i s needing due to current exacerbation? If so, please offer her appt BERTHA for evaluation. 36 Observed: 09/12/2024 3:39 PM Status: COMPLETED Source: [facility] Spoke to Honorio, yes this is f or PT. Okay to give verbal? 36 Observed: 09/12/2024 3:20 PM Status: COMPLETED Source: [facility] I presume this is for PT? 36 Observed: 09/12/2024 2:57 PM Status: COMPLETED Source: [facility] [employer] [facility] Name of caller: Honorio Contact phone number: [phone] Relationship to Patient: [facility] Provider: Stacy Practice: [facility] HOUSE [...] Observed: 09/12/2024 1:15 PM Status: COMPLETED Source: [facility] [employer] [facility] 3 REQUEST FOR THIS RX 36 Observed: 09/12/2024 1:06 PM Status: COMP LETED Source: [facility] Wrong note 36 Observed: 09/12/2024 1:05 PM Status: COMPLETED Source: [facility] Last follow up: 06/22/2024 Next appointment: Visit [...] Observed: 09/12/2024 1:04 PM Status: COMPLETED [facility] Last follow up: 06/22/2024 Next appointment: [...] Observed: 09/12/2024 9:08 AM Status: COMPLETED [facility] Please find out if patient i s needing due to current exacerbation? If so, please offer her appt BERTHA for evaluation. 36 Observed: 09/12/2024 8:45 AM Status: COMPLETED [facility] Last follow up: 06/22/2024 Next appointment: [...] Observed: 09/08/2024 2:38 PM Status: COMPLETED Source: [facility] Thank you, I appreciate the help 36 Observed: 09/08/2024 2:27 PM Status: COMPLETED [facility] Chantal states that she sent everything to [facility] and they will send us a form or be calling. 36 Observed: 09/08/2024 2:13 PM Status: COMPLETED [facility] Does that mean they will be sending over a preprinted prescription no we just need to fill out? 36 Observed: 09/08/2024 1:42 PM Status: COMPLETED [facility]: [facility] Name of caller: Chantal Contact phone number: [phone] Relationship to Patient: [facility] Care Provider: Stacy Practice: [place] Chief Complaint/Reason for Call: Letting provider know that Pt needs a nebulizer and a new order is needed. [place] will reach out to office. Best time of day caller can be reached: N/A Patient advised that office/PCP has 24-48 business hours to return their call: N/A 36 Observed: 08/29/2024 7:07 AM Status: COMP LETED Source: [facility] Noted. 36 Observed: 08/29/2024 6:44 AM Status: COMP LETED Source: [facility] Noted. 36 Observed: 08/23/2024 10:40 AM Status: COMPLETED Source: [facility] Agree, thank you 36 Observed: 08/23/2024 10:13 AM Status: COMPLETED Source: [facility] S: Patient spoke with ALEX mckeon regarding [...] call her brother to take her to [facility] ED. Advised the patient that if she needed assistance before then she can call 911. Patient understands care advice. No further needs at this time. Reason for Disposition Previous asthma attacks and this feels like asthma attack MODERATE asthma attack (e.g., SOB at rest, speaks in phrases, audible wheezes) AND doesn't have neb or inhaler available Protocols used: Bxluq-XQBNO-AP, Asthma Vmtccz-FOBAH-BG PROGRESS NOTE Observed: 08/18/2024 11:12 AM Status: COMPLETED Source: [facility] EMR reviewed. The patient cline d an [...] 30.95 kg/m? BSA 1.79 m? PMH: COPD, PA, HYPOTHYROID, ANEMIA, HYPERLIPIDEMIA Follow-up appts: 09/20/24-Pulmonology COPD [...] changing the first of the year to [employer]. She still wants to get a new motorabout.meooter, but will wait until after the first [...] 08/17/2024 3:51 PM Status: COMP LETED Source: [employer] [facility] Rx sent 36 Observed: 08/17/2024 2:15 PM Status: COMPLETED Source: [facility] Spoke to Stacia, send to Paulina babin in [place]. 36 Observed: 08/17/2024 12:06 PM Status: COMPLETED Source: [facility] Yes, there is a prescription cortisone that is a lot stronger than OTC cortisone cream what pharmacy does she want it sent to you there are 3 on the chart 36 Observed: 08/17/2024 11:24 AM Status: COMPLETED Source: [facility] She states she has used hydr ocortisone cream OTC. It is still itching. She states she has eczema and psoriasis but states this is not acting like either of those. Asking if there is a prescription cream you could send in for her to try before she goes to a sugar cane planting equipment operator? 36 Observed: 08/16/2024 4:29 PM Status: COMPLETED Source: [facility] There are normal kidney func tion and [...] be for her to go to a sugar cane planting equipment operator. 36 Observed: 08/16/2024 4:25 PM Status: COMPLETED Source: [facility] Notified, asking how many st ages there are and when to worry? She is also asking about the rash she showed you on the back of her neck, states it is also on her elbows. States she showed you her neck at her appointment. Onset months, using lotions and creams and nothing is helping. 36 Observed: 08/16/2024 4:04 PM Status: COMPLETED Source: [facility] Yes, she has stage II chroni c [...] Observed: 08/16/2024 2:03 PM Status: COMPLETED Source: [facility] Name of caller: Stacia Contact phone number: [phone] Relationship to Patient: patient Provider: Stacy Practice: [...] Observed: 08/12/2024 10:04 AM Status: COMPLETED Source: [facility] [employer] [facility] Pt updated on lab work and i ncreased iron dosing to twice a day. Dosage change pending to be signed. PROGRESS NOTE Observed: 08/11/2024 1:42 PM Status: COMPLETED Source: [facility] [employer] [facility] Controlled, continue Zetia 1 0 mg daily PROGRESS NOTE Observed: 08/11/2024 1:41 PM Status: COMPLETED Source: [facility] Mild, iron levels are good. PROGRESS NOTE Observed: 08/11/2024 1:41 PM Status: COMPLETED Source: [facility] [employer] [facility] Controlled, she brings in bl ood sugar numbers which are excellent, continue metformin 500 mg twice a day PROGRESS NOTE Observed: 08/11/2024 1:41 PM Status: COMPLETED Source: [facility] Stable, continue levothyroxi ne 75 mcg daily PROGRESS NOTE Observed: 08/11/2024 1:40 PM Status: COMPLETED Source: [facility] Stable, good blood sugar con trol and blood pressure control to prevent kidney damage. PROGRESS NOTE Observed: 08/11/2024 1:40 PM Status: COMPLETED Source: [facility] Currently stable, continue a lbuterol as needed and Trelegy daily. She also has DuoNeb solution for her nebulizer if needed. PROGRESS NOTE Observed: 08/11/2024 11:00 AM Status: COMPLETED Source: [facility] Patient verified by last nam e and date of . PROGRESS NOTE Observed: 08/11/2024 11:00 AM Status: COMPLETED Source: [facility] 08/11/2024 Stacia Uriostegui (: 1945) is a [...] disease, without long-term current use of insulin ([facility]) ([facility]) Assessment & Plan: Controlled, she brings in [...] New onset type 2 diabetes mellitus (CMS/HCC) ([facility]) Assessment & Plan: Controlled, she brings in [...] Observed: 08/11/2024 11:00 AM Status: COMPLETED Source: [facility] [id number] Stacia Uriostegui F Date Provider Department Center 08/11/2024 [id number] Family History Problem Relation Age of Onset Arthritis Sister High Blood Pressure Mother No Known Problems Father Diabetes Mother Arthritis Brother Heart disease Mother Obesity Sister Heart disease Brother Diabetes Sister Atrial fibrillation Brother Family Status - Relation Status Age at Sister Mother 57 Father Brother Level of Service:51804 [place] OFFICE/OUTPATIENT ESTABLISHED MOD MDM 30 MIN Reason for Visit and Comments: COPD [313] Hyperlipidemia [182] Hypertension [745755] Diabetes [34] - Pt wonders if she can get off of the metformin? Anemia [436929] - Stopped seen hem/onc doctor Hypothyroidism [143] Medication Check [[id number]] - 6 month Health Maintenance [872] - Flu vaccine- agree 4th covid vaccine- not done PROGRESS NOTE Observed: 08/11/2024 11:00 AM Status: COMPLETED [facility] Patient was verified by name and . After obtaining consent, and per orders of Dr. Kumar, injection of Influenza given in left deltoid by Rafaela Gonsalez after cleansing site with alcohol pad. Patient tolerated well. 36 Observed: 08/04/2024 9:14 AM Status: COMPLETED Source: [facility] Prescription Request: Last medication check: 11/19/23 Last physical exam: 02/11/24 Next scheduled appointment: 08/11/24 Last date of refill on this medication 03/10/24 PROGRESS NOTE Observed: 07/06/2024 7:38 AM Status: COMPLETED Source: [facility] EMR reviewed. The patient cline lisset a follow-up appt. with Pulmonology on 06/22/24: History [...] patient completed PFT's on 07/05/24. PMH: COPD, PA, HYPOTHYROID, ANEMIA, HYPERLIPIDEMIA Follow-up appts: 08/11/24-Family medicine [...] needed during the night Monitoring pulse ox gekam-fhgck-16% on 2L O2. Usually 97%. Slight wheezing-has used inhalers yet today Denies any current SOB-resting and drinking morning coffee She stated she never received a new motorized scooter. Her old one is broke. ZACHARY has reached out to [employer] in the past. CM gave the patient the phone number for [employer] so she can call and follow-up. She [...] wheezing and SOB. The patient will contact [employer] regarding a new motorized scooter. CM will continue to follow-up. Scheduled next outreach. PROGRESS NOTE Observed: 06/22/2024 12:15 PM Status: COMPLETED Source: [facility] [address], [address] [facility] [address] PH: [phone] Visit type: An Established patient 06/22/2024 CHIEF [...] or split., Disp: 30 tablet, Rfl: 11 Axbrcvzdszz-Upnheglzy-Mwgdep (Trelegy Ellipta) 200-62.5-25 MCG/ACT aerosol powder , [...] Results: No results found for: FEV1, FVC, TQO9PEW, TLC, DLCO Assessment and Plan 1. Chronic [...] Observed: 06/22/2024 12:15 PM Status: COMPLETED Source: [facility] YOUR [facility]MENT [facility], COPD CLINIC, PULMONARY AND SLEEP MEDICINE OFFICE. PLEASE CALL OUR OFFICE AT [phone] for our [place] office location or [phone] for our [place] location, IF YOU HAVE NOT RECEIVED YOUR [...] to make improvements. COVID-19 VACCINATION INFORMATION: PH. [phone] HEALTH.ORG/[email or web address]/VACCINE [facility] Central Scheduling [phone] [facility] Sleep Scheduling [phone] OFFICE VISIT Observed: 06/22/2024 12:15 PM Status: COMPLETED Source: [facility] [id number] Stacia Uriostegui D F Date Provider Department Center 06/22/2024 [id number] ROCA SHMGMITPULM None Family History Problem Relation Age of Onset Arthritis Sister High Blood Pressure Mother No Known Problems Father Diabetes Mother Arthritis Brother Heart disease Mother Obesity Sister Heart disease Brother Diabetes Sister Atrial fibrillation Brother Family Status - Relation Status Age at Sister Mother 57 Father Brother Level of Service:28550 [place] OFFICE/OUTPATIENT ESTABLISHED MOD MDM 30 MIN Reason for Visit and Comments: Follow-up [064659] - Ct,mbs CT CHEST WO IV CONTRAST Observed: 2023 7:44 AM Status: F Source: [facility] Patient Name: STACIA URIOSTEGUI : 1945 Exam Date/Time: 06/17/2024 10:30 Procedure: CT CHEST [...] Observed: 06/20/2024 4:00 PM Status: COMPLETED Source: [facility] Rx sent. Follow up as schedu led. 36 Observed: 06/20/2024 3:12 PM Status: COMPLETED Source: [facility] Prescription Request: Last medication check: 08/12/23 Last physical exam: 02/11/24 Next scheduled appointment: 08/11/24 Last date of refill on this medication 10/22/23 PROGRESS NOTE Observed: 06/15/2024 11:30 AM Status: COMPLETED Source: [facility] Speech-Language Pathology SPEECH LANGUAGE PATHOLOGY [facility] Modified Barium Swallow Study [...] to locate. May have been completed at [facility]. Baseline Diet: Regular diet with thin liquids. Textures tested: - thin liquid, (cup edge, straw, sequential swallows, self administered) - mildly thick liquid, (cup edge, self administered) - puree, (teaspoon, self administered) - regular solids Patient position: lateral Past Medical History: Past Medical History: Diagnosis Date Asthma Cerebral artery occlusion with cerebral infarction ([facility]) CHF (congestive heart failure) ([facility]) Cholecystitis SCHEDULED FOR THE SURGERY ON 04/09/2017 COPD (chronic obstructive pulmonary disease) ([facility]) Incisional hernia SCHEDULED FOR THE SURGERY ON 03/15/2018 Osteoporosis Thyroid disease Past Surgical History: Past Surgical History: Procedure Laterality Date BRONCHOSCOPY 10/2023 CHOLECYSTECTOMY N/A 04/09/2017 CHOLECYSTECTOMY COLONOSCOPY COLONOSCOPY EYE SURGERY 2016 cataracts HERNIA REPAIR HYSTERECTOMY Admission Diagnosis: Patient Active Problem List Diagnosis Date Noted New onset type 2 diabetes mellitus ([facility]/HCC) ([facility]) 10/08/2023 Shortness of breath 09/30/2023 NSTEMI (non-ST elevated myocardial infarction) ([facility]) 09/01/2023 Exudative age-related macular degeneration, right eye, with inactive choroidal neovascularization ([facility]) 02/09/2023 Age-related osteoporosis without current pathological fracture 02/09/2023 Acute bilateral low back pain without sciatica 09/08/2022 Urinary hesitancy 09/08/2022 Leukocytes in urine 09/08/2022 Regular astigmatism of left eye 02/11/2022 Blindness right eye category 4, low vision left eye category 1 02/11/2022 Dry eye syndrome, bilateral 09/21/2020 COPD (chronic obstructive pulmonary disease) (HCC) 02/06/2021 Lung nodule 10/31/2020 Superficial punctate keratitis [...] strategies to maximize airway protection. 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 Author [...] Observed: 06/03/2024 2:12 PM Status: COMPLETED Source: [employer] [facility] EMR reviewed. The patient cline d an appt. with Hematology & Oncology on 06/02/24: 78 yo F with COPD on supplemental [...] m? Pain Sc 0-No pain PMH: COPD, PA, HYPOTHYROID, ANEMIA, HYPERLIPIDEMIA Follow-up appts: 06/22/24-Pulmonology COPD [...] daily-116 in the morning, 130-190 before bedtime ZACHARY discussed diet-usually skips breakfast. Eats first meal at 2pm. ZACHARY talked to the patient about having more balanced meals and trying to eat something for breakfast. She was agreeable to try. Not able to exercise due to SOB. Able to do yard work. ZACHARY encouraged the patient to do her activities in stages and resting when needed. She stated she still hasn't got her new motorized scooter. Her old one is not working and is sitting on the front porch. She stated she is fine while she is in the house. She gets SOB while working outside and needs it to go longer distances. ZACHARY previously called [facility] to inquire about the patient's motorized scooter and they needed a physician order. ZACHARY will follow-up with [facility] to make sure they received a [...] O2 when needed. CM will follow-up with [facility]-medical equipment supplier to make sure they received a physical order for the motorized scooter. CM will continue to follow-up. Scheduled next outreach. PROGRESS NOTE Observed: 06/02/2024 1:45 PM Status: COMPLETED [facility] Hematology/Oncology Office [facility] Consultation/Referral Reason: anemia Referred by: Dr. Kumar [...] artery occlusion with cerebral infarction ([facility]) CHF (congestive heart failure) ([facility]) Cholecystitis SCHEDULED FOR THE SURGERY ON 04/09/2017 COPD (chronic obstructive pulmonary disease) ([facility]) Incisional hernia SCHEDULED FOR THE SURGERY ON 03/15/2018 Osteoporosis Thyroid disease Past Surgical History: Procedure Laterality Date BRONCHOSCOPY 10/2023 CHOLECYSTECTOMY N/A 04/09/2017 CHOLECYSTECTOMY COLONOSCOPY COLONOSCOPY EYE SURGERY 2016 cataracts HERNIA REPAIR HYSTERECTOMY Patient Active Problem List Diagnosis Date Noted New onset type 2 diabetes mellitus ([facility]) ([facility]) 10/08/2023 Shortness of breath 09/30/2023 NSTEMI (non-ST elevated myocardial infarction) ([facility]) 09/01/2023 Exudative age-related macular degeneration, right eye, with inactive choroidal neovascularization ([facility]) 02/09/2023 Age-related osteoporosis without current pathological fracture 02/09/2023 Acute bilateral low back pain without sciatica 09/08/2022 Urinary hesitancy 09/08/2022 Leukocytes in urine 09/08/2022 Regular astigmatism of left eye 02/11/2022 Blindness right eye category 4, low vision left eye category 1 02/11/2022 Dry eye syndrome, bilateral 09/21/2020 COPD (chronic obstructive pulmonary disease) ([facility]) 02/06/2021 Lung nodule 10/31/2020 Superficial punctate keratitis [...] crush, chew, or split. 30 tablet 11 Qtirxlpzfga-Agdjnyzqd-Wgcgdr (Trelegy Ellipta) 200-62.5-25 MCG/ACT aerosol powder Inhale [...] Narrative: Patient Name: STACIA URIOSTEGUI : 1945 Exam Date/Time: 01/06/2024 11:35 Procedure: CT CHEST [...] or sooner if worrisome signs/symptoms arise. Magali Vance, Hematology/Medical Oncology OFFICE VISIT Observed: 06/02/2024 1:45 PM Status: COMPLETED Source: [facility] [id number] Moody,Stacia Lisset [birth year] F Date Provider Department Center 06/02/2024 [id number] VANCE [facility] ONC None Family History Problem Relation Age of Onset Arthritis Sister High Blood Pressure Mother No Known Problems Father Diabetes Mother Arthritis Brother Heart disease Mother Obesity Sister Heart disease Brother Diabetes Sister Atrial fibrillation Brother Family Status - Relation Status Age at Sister Mother 57 Father Brother Level of Service:81577 GA OFFICE/OUTPATIENT ESTABLISHED LOW MDM 20 MIN Reason for Visit and Comments: Anemia [157463] - Patient states that she doesn't take any oral iron supplement and wonders if she should. ALLERGIES DATE TYPE / CODE NAME / CODE REACTION SEVERITY SOURCE 07/21/2018 DRUG INGREDI/6478324 03(SNOMED CT) MORPHINE GI UPSET [facility] 03/23/2018 DRUG/406290385( SNOMED CT) IODIDES ITCHING High [facility] 11/02/2017 DRUG INGREDI/7666518 03(SNOMED CT) MOXIFLOXACIN HCL OTHER: SEE [facility] 04/15/2016 DRUG INGREDI/2083456 03(SNOMED CT) BUPROPION RASH Low [facility] 04/11/2004 DRUG INGREDI/2688489 03(SNOMED CT) CODEINE Mental Chg [facility] ENCOUNTERS ADMIT/DISCHARGE ACCOUNT NUMBER ADMITTING ENCOUNTER CLASS LOCATION SOURCE 05/12/2025/ 5 [id number] Ambulatory Buildin [id number] [facility] 05/11/2025/ 5 [id number] Ambulatory [facility] 04/13/2025/ 5 [id number] Ambulatory [facility] HospitalBuild ing:[facility] 02/14/2025/ 5 [id number] Ambulatory [address] [place], [place] [id number] [facility] 09/27/2024/ 5 [id number] Ambulatory Buildin [id number] [facility] 09/14/2024 [id number] Ambulatory [facility]ABBuildi ng :[facility] 08/23/2024/12/24/202 4 [id number] Emergency Buildin [id number] [facility] 08/11/2024/ 4 [id number] Ambulatory Buildin [id number] [facility] 07/05/2024/ 4 [id number] Ambulatory Buildin [id number] [facility] 06/22/2024/ 4 [id number] Ambulatory Buildin [id number] [facility] 06/17/2024/ 4 [id number] Ambulatory Buildin [id number] [facility] 06/15/2024/ 4 [id number] Ambulatory Buildin [id number] [facility] 06/09/2024/ 4 [id number] [facility] 06/02/2024/ 4 [id number] Ambulatory Buildin [id number] [facility] PAYERS ENCOUNTER GUARANTOR PAYER SUBSCRIBER SOURCE 05/12/2025 Primary Insurance:[facility] MEDICAREPolicy Number: [id number] Date:0894-56-85Ykcm Name:Medicare HMO STACIA Ellsworth JESUSB: [id number] [place], [place] [address] [place] [address] 05/11/2025 Primary Insuranc e:[employer]HC MEDICARE ADVANTAGE OPolicy Number: [id number] Date:5697-75-16Hzli Name:Nawaf Ellsworth JESUSB: [id number] [place], [place] [address] [place] [address] 04/13/2025 Primary Insuranc e:[employer]HC MEDICARE ADVANTAGE OPolicy Number: [id number] Date:6699-31-69Zjpm Name:Nawaf Ellsworth JESUSB: [id number] [place], [place] [address] [place] [address] 02/14/2025 Primary Insurance:[employer] MEDICAREPolicy Number: [id number] Date:5019-97-24Qxcv Name:Medicare HMO STACIA D TANNERDOB: [id number] [place] [address] [facility] 09/27/2024 Primary Insurance:[facility] MEDICAREPolicy Number: [id number] Date:8407-22-67Tmfr Name:Medicare HMO STACIA D TANNERDOB: [id number] [place] [address] [facility] 09/14/2024 STACIA D TANNERDOB: [id number] [place], [place] [address]Peh: (HP) Primary Insurance:SELF PAY INSCOPolicy Number: Effective Date:7330-89-89Hiwk Name: STACIA Ellsworth TANNERDOB: [id number] [place], [place] [address]Wnv: (HP) () [facility] 08/23/2024 Primary Insurance:HUMAN MEDICARE ADVANTAGEPolicy Number: [id number] Date:1430-98-89Ayvx Name:Medicare HMO STACIA D TANNERDOB: [id number] [place], [place] [address] [place] [address] 08/11/2024 Primary Insurance:HUMAN MEDICARE ADVANTAGEPolicy Number: [id number] Date:2833-30-29Jtsm Name:Medicare HMO STACIA D TANNERDOB: [id number] [place], [place] [address] [place] [address] 07/05/2024 Primary Insurance:HU[employer] MEDICARE ADVANTAGEPolicy Number: [id number] Date:6192-72-35Xqca Name:Medicare HMO STACIA D TANNERDOB: [id number] [place], [place] [address] [place] [address] 06/22/2024 Primary Insurance:[employer] MEDICARE ADVANTAGEPolicy Number: [id number] Date:3684-92-01Hwmb Name:Medicare HMO STACIA D TANNERDOB: [id number] [place] [address] [facility] 06/17/2024 Primary Insurance:[employer] MEDICARE ADVANTAGEPolicy Number: [id number] Date:8235-73-68Mcum Name:Medicare O STACIA LEEB: [id number] [place] [address] [facility] 06/15/2024 Primary Insurance:[employer] MEDICARE ADVANTAGEPolicy Number: [id number] Date:8039-85-90Ljct Name:Medicare O STACIA URIOSTEGUIDOB: [id number] [place] [address] [facility] 06/09/2024 Primary Insurance:[employer]NA GOLD PLUSPolicy Number: [id number] Date:6701-10-57Qchr Name:Nawaf URIOSTEGUIDOB: [id number] [place] [address] [facility] 06/02/2024 Primary Insurance:HU[employer] MEDICARE ADVANTAGEPolicy Number: [id number] Date:8005-84-76Axqv Name:Medicare O STACIA SIMONERDOB: [id number] [place] [address] [facility]
--- NOTE | 2025-05-29 12:55 | CT_ITS ---
PROCEDURE: CHEST WITHOUT CONTRAST 05/29/2025 REASON FOR EXAM: ATELECTASIS RML, NODULAR RADIOPACITIES, BRONCHIECT TECHNIQUE: Chest CT without contrast. Coronal and Sagittal reconstruction series were provided. One or more dose reduction techniques were used (e.g., Automated exposure control, adjustment of the mA and/or kV according to patient size, use of iterative reconstruction technique RADIATION DOSE SUMMARY: CTDlvol: 12.22 mGy DLP: 436.73 mGycm COMPARISON: 02/03/2025, 11/03/2024 FINDINGS: Hardware: None Lungs are again noted to be mildly hyperexpanded. Previously described subsegmental atelectasis and patchy multifocal pneumonitis in both lung cardenas have improved slightly since the previous study but have not yet resolved. No new superimposed infiltrate, effusion or suspicious new noncalcified mass or nodule. There is evidence of chronic bronchitis and stable nonspecific pleural thickening in both hemithoraces. Soft tissue windows show a normal-appearing thyroid gland. No suspicious axillary mediastinal or perihilar adenopathy. Thoracic aorta tapers normally. Calcified coronary vessels noted. Limited cuts through the upper abdomen do not show a suspicious abnormality. Bony structures show degenerative change CT/Chest without Contrast IMPRESSION: Coronary artery calcification (CAC) is is present Persistent though improved subsegmental atelectasis, and pneumonitis in both karis ng cardenas compared to the previous study. Continued follow-up recommended to ensure complete resolution Stable nonspecific pleural thickening in both hemithoraces. No suspicious adenopathy Degenerative bony changes Reading Location: [id number]
== END | disposition home or self-care (01) ==
LOC: CT 12:48
PROVIDERS: PCP Family Medicine; Referring Provider Nurse Practitioner Family; Visit Provider Nurse Practitioner Family
DX: R93.89 Abnormal findings on diagnostic imaging of other specified body structures (principal)
CPT/HCPCS: 71250

== ENCOUNTER → 2025-05-30 | Outpatient (CLI) | payer MEDICARE, SELFPAY ==
--- OUTSIDE RECORDS SUMMARY | 2025-05-12 10:57 | XMS RPT_ITS ---
Author Name Auto Generated Organization OHIP Care Team Providers Care Audiovisual Production Specialist Name Role Phone ROGE ROCA Attending Unavailable RAIZA KUMAR Primary Care Unavailable RAIZA KUMAR Attending Unavailable RAIZA KUMAR Primary Care Unavailable MAGALI VANCE Attending Unavailable RAIZA KUMAR Primary Care Unavailable PURVI WATTERS Attending Unavailable RAIZA KUMAR Primary Care Unavailable ALLEGRA BONILLA Attending Unavailable RAIZA KUMAR Primary Care Unavailable RAIZA KUMAR Attending Unavailable RAIZA KUMAR Primary Care Unavailable NENA WIGGINS Attending Unavailable NENA WIGGINS Referring Unavailable STACY, RAIZA Primary Care Unavailable STACY, RAIZA Primary Care Unavailable ROGE ROCA Attending Unavailable MARTÍN ROCAOR Referring Unavailable STACY, RAIZA Primary Care Unavailable NENA WIGGINS Attending Unavailable NENA WIGGINS Referring Unavailable STACY, RAIZA Primary Care Unavailable SASTRY, MARCELL Attending Unavailable SASTRY, MARCELL Referring Unavailable STACY, RAIZA HUMPHREY Primary Care Unavailabl e SASTRY, MARCELL Attending Unavailable SASTRY, MARCELL Referring Unavailable STACY, RAIZA HUMPHREY Primary Care Unavailabl e SASTRY, MARCELL Attending Unavailable SASTRY, MARCELL Referring Unavailable STACY, RAIZA HUMPHREY Primary Care Unavailabl e PHYSICIAN, NONE Attending Unavailable PHYSICIAN, NONE Primary Care Unavailable PROBLEMS DATE TYPE CONDITION / CODE ATTENDING STATUS [facility] 2020 Active 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, right eye, with inactive choroidal neovascularization (HCC) / H35.3212(ICD-10) [facility] Active 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, left eye, early dry stage / H35.3121(ICD-10) [facility] [place] 10/27/2017 Active 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 / H35.54(ICD-10) [facility] Admitting Diagnosis Exudative age-related macular degeneration, right eye, with inactive choroidal neovascularization (HCC) / H35.3212(ICD-10) RAIZA KUMAR [facility] 02/14/2025 Admitting Diagnosis Encounter for general adult medical examination without abnormal findings / Z00.00(ICD-10) RAIZA KUMAR [facility] 02/14/2025 Admitting Diagnosis Asymptomatic menopausal state / Z78.0(ICD-10) RAIZA KUMAR [facility] 08/11/2024 Admitting Diagnosis Chronic kidney disease, stage 2 (mild) / N18.2(ICD-10) ALLEGRA BONILLA [facility] 08/11/2024 Admitting Diagnosis Type 2 diabetes mellitus with diabetic chronic kidney disease (HCC) / E11.22(ICD-10) [facility] 09/27/2024 Admitting Diagnosis Other specified viral diseases / B33.8(ICD-10) [facility] 09/27/2024 Admitting Diagnosis Dizziness and giddiness / R42(ICD-10) [facility] 09/27/2024 Admitting Diagnosis Hypo-osmolality and hyponatremia / E87.1(ICD-10) [facility] 08/23/2024 Admitting Diagnosis Cough, difficulty breathing, Hx COPD / UNK(Unknown) [facility] 08/11/2024 Admitting Diagnosis Chronic kidney disease, stage 3a (HCC) / N18.31(ICD-10) STACY [facility] 10/08/2023 Admitting Diagnosis Type 2 diabetes mellitus without complications (HCC) / E11.9(ICD-10) STACY [facility] 10/08/2023 Admitting Diagnosis Anemia in other chronic diseases classified elsewhere / D63.8(ICD-10) STACY [facility] 09/01/2023 Admitting Diagnosis Hypothyroidism, unspecified / E03.9(ICD-10) STACY [facility] 06/16/2022 Admitting Diagnosis Pure hypercholesterolemia, unspecified / E78.00(ICD-10) STACY [facility] 06/22/2024 Admitting Diagnosis Cough, unspecified / R05.9(ICD-10) [facility] 06/22/2024 Admitting Diagnosis Bronchiectasis, uncomplicated (HCC) / J47.9(ICD-10) [facility] 09/01/2023 Admitting Diagnosis Chronic obstructive pulmonary disease, unspecified (HCC) / J44.9(ICD-10) [facility] 06/16/2022 Admitting Diagnosis Chronic respiratory failure with hypercapnia (HCC) / J96.12(ICD-10) [facility] 06/16/2022 Admitting Diagnosis Tobacco use / Z72.0(ICD-10) [facility] 06/22/2024 Admitting Diagnosis Bronchiectasis with acute lower respiratory infection (HCC) / J47.0(ICD-10) [facility] 06/17/2024 Admitting Diagnosis Pneumonia, unspecified organism / J18.9(ICD-10) NENA WIGGINS [facility] 06/15/2024 Admitting Diagnosis Foreign body sensation, throat / R09.A2(ICD-10) FELICIANO [facility] 06/15/2024 Admitting Diagnosis Dysphagia, unspecified / R13.10(ICD-10) [place] [facility] PROCEDURES No Procedure Records Found RESULTS PROGRESS NOTE Observed: 05/30/2025 10:24 AM Status: COMPLETED Source: [facility] EMR reviewed. The patient had an ophthalmology appt. on 05/11/25 for macular degeneration. CM outreach on 05/30/25: PMH: COPD, MS, DM, HYPOTHYROID, ANEMIA, HYPERLIPIDEMIA, MACULAR DEGENERATION COPD MEDS: Using Trelegy inhaler 1 puff daily Using Albuterol inhaler every 4 hours Using nebulizer twice daily Using 2L O2 during the night Monitoring pulse ox daily-97% on RA Denies any wheezing SOB with exertion. Recovers when resting. DM MEDS: Metformin 500mg twice daily Still monitoring blood sugars once per week-last fasting reading 151. Stated only had 1 high reading over 200 in the past 2 weeks. Still trying to cut down on carbohydrates and sugars. She stated her pulmonary doctor-Dr. Joseph suggested the patient see a Tack Puller Machine. She has another appt. next week with pulmonary. She is still getting a new PCP-has an appt. With Dr. Pena in [place] in July. She stated she has been sneezing a lot and has itchy eyes. She has been using her Flonase at night. Recently finished an antibiotic and Prednisone for a recent illness. CM suggested taking an OTC allergy medication to help with her seasonal allergy symptoms. The patient denies any current needs or concerns. She is managing her chronic diseases without any difficulty. CM will discharge the patient from the [facility] critical care technician mgmt. program at this time. OFFICE VISIT Observed: 05/12/2025 11:00 AM Status: COMPLETED Source: [facility] [id number] Stacia Uriostegui [birth year] F Date Provider Department Center 05/12/2025 [id number] WATTERS [facility] ID None Family History Problem Relation Age of Onset Arthritis Sister High Blood Pressure Mother No Known Problems Father Diabetes Mother Arthritis Brother Heart disease Mother Obesity Sister Heart disease Brother Diabetes Sister Atrial fibrillation Brother Family Status - Relation Status Age at Sister Mother 57 Father Brother Level of Service:[id number] MD OFFICE/OUTPATIENT NEW MODERATE MDM 45 MINUTES Reason for Visit and Comments: New Patient [542] - +Pseudomonas aeruginosa sputum cx PROGRESS NOTE Observed: 05/12/2025 11:00 AM Status: COMPLETED Source: [facility] I nfectious Diseases Attending Outpatient Consult Note Reason for Consult: Pseudomonas + sputum culture in patient with AECOPD and Bronchiectasis Requesting Physician: Nette Joseph NP-[facility] Pulmonay Medicine Chief Complaint Patient presents with New Patient +Pseudomonas aeruginosa sputum cx HISTORY OF PRESENT ILLNESS The patient is a 79 y.o. female with presenting with subacute c/o cough( light yellow phlegm), and SOB/GARCIA for weeks. Associated night sweats and hot flash sensation to face, mild pleuritic back pain, already on nebulized therapies and vest therapy per Pulm Svc to address her COPD and Bronchiectasis. Prior antibiotic course in February and requiraed additional steroid taper dose 1 month ago. Seen on 05/03 by Pulm Svc and sputum culture obtained + Pseudomonas. She just finished Levofloxacin therpay and ID consulted. She reports mild improvement in her symptoms and her SOB/GARCIA remains, on NC 2L q HS. Quit smoking 6 years ago. NO hemoptysis or URI symptoms, afebrile otherwise. No sick contacts. Of note, hospitalized earlier this year for RSV and PsA PNA. Here for additional evaluation by ID. Labs and outside medical records reviewed. A CT chest done in January showed improvement in nodular infiltrates with bibasilar bronchiectasis and atelectasis to lingula. Medical History[1] Surgical History[2] Current Medications[3] Allergies[4] Social History Socioeconomic History Marital status: Spouse name: Not on file Number of children: Not on file Years of education: Not on file Highest education level: Not on file Occupational History Not on file Tobacco Use Smoking status: Former Current packs/day: 0.00 Average packs/day: 1 pack/day for 63.5 years (63.5 ttl pk-yrs) Types: Cigarettes Start date: 08/31/1955 Quit date: 02/28/2019 Years since quittin.2 Smokeless tobacco: Never Vaping Use Vaping status: Never Used Substance and Sexual Activity Alcohol use: No Drug use: No Sexual activity: Not Currently Partners: Male Other Topics Concern Not on file Social History Narrative Not on file Social Drivers of Health Financial Resource Strain: Medium Risk (02/14/2025) Overall Financial Resource Strain (CARDIA) Difficulty of Paying Living Expenses: Somewhat hard Food Insecurity: Food Insecurity Present (02/14/2025) Hunger Vital Sign Worried About Running Out of Food in the Last Year: Sometimes true Ran Out of Food in the Last Year: Sometimes true Transportation Needs: Unmet Transportation Needs (02/14/2025) PRAPARE - Transportation Lack of Transportation (Medical): No Lack of Transportation (Non-Medical): Yes Physical Activity: Sufficiently Active (02/14/2025) Exercise Vital Sign Days of Exercise per Week: 5 days Minutes of Exercise per Session: 80 min Stress: No Stress Concern Present (02/14/2025) [employer] [place] [employer] - Occupational Stress Questionnaire Feeling of Stress : Not at all Social Connections: Socially Isolated (02/14/2025) Social Connection and Isolation Panel [NHANES] Frequency of Communication with Friends and Family: More than three times a week Frequency of Social Gatherings with Friends and Family: More than three times a week Attends Taoist Services: Never Active Member of Clubs or Organizations: No Attends Club or Organization Meetings: Never Marital Status: Intimate Partner Violence: Not At Risk (02/14/2025) Humiliation, Afraid, Rape, and Kick questionnaire Fear of Current or Ex-Partner: No Emotionally Abused: No Physically Abused: No Sexually Abused: No Housing Stability: Low Risk (02/14/2025) Housing Stability Vital Sign Unable to Pay for Housing in the Last Year: No Number of Times Moved in the Last Year: 0 Homeless in the Last Year: No Family History[5] Review of Systems Constitutional: Positive for diaphoresis. Negative for fatigue and fever. HENT: Negative. Respiratory: Positive for cough and shortness of breath. Negative for chest tightness and wheezing. Cardiovascular: Positive for chest pain (L midback pain, intermittently, feels like when she was treated for PNA in the past). Gastrointestinal: Negative. Musculoskeletal: Negative for arthralgias and myalgias. Skin: Negative for rash. Allergic/Immunologic: Negative for immunocompromised state. Neurological: Negative for weakness and headaches. Hematological: Does not bruise/bleed easily. Psychiatric/Behavioral: Negative. Visit Vitals BP 121/83 (BP Location: Right arm, Patient Position: Sitting, BP Cuff Size: Adult) Pulse 81 Temp 36.7 ?C (98 ?F) (Temporal) Physical Exam Vitals reviewed. Constitutional: General: She is not in acute distress. Appearance: Normal appearance. She is obese. She is not ill-appearing or toxic-appearing. HENT: Mouth/Throat: Mouth: Mucous membranes are moist. Pharynx: Oropharynx is clear. Eyes: General: No scleral icterus. Extraocular Movements: Extraocular movements intact. Cardiovascular: Rate and Rhythm: Normal rate and regular rhythm. Pulses: Normal pulses. Heart sounds: Normal heart sounds. No murmur heard. Pulmonary: Effort: No respiratory distress. Breath sounds: Normal breath sounds. No wheezing, rhonchi or rales. Abdominal: Palpations: Abdomen is soft. Tenderness: There is no abdominal tenderness. Musculoskeletal: General: No swelling. Cervical back: Neck supple. Right lower leg: No edema. Left lower leg: No edema. Lymphadenopathy: Cervical: No cervical adenopathy. Skin: General: Skin is warm. Coloration: Skin is not jaundiced. Findings: No erythema or rash. Neurological: General: No focal deficit present. Mental Status: She is alert and oriented to person, place, and time. Psychiatric: Mood and Affect: Mood normal. Thought Content: Thought content normal. No visits with results within 1 Month(s) from this visit. Latest known visit with results is: Office Visit on 02/14/2025 Component Date Value Ref Range Status CHOLESTEROL, TOTAL 02/14/2025 182 <200 mg/dL Final HDL CHOLESTEROL 02/14/2025 57 > OR = 50 mg/dL Final TRIGLYCERIDES 02/14/2025 163 (H) <150 mg/dL Final LDL-CHOLESTEROL 02/14/2025 99 mg/dL (calc) Final CHOL/HDLC RATIO 02/14/2025 3.2 <5.0 (calc) Final NON HDL CHOLESTEROL 02/14/2025 125 <130 mg/dL (calc) Final GLUCOSE 02/14/2025 134 (H) 65 - 99 mg/dL Final Urea Nitrogen (BUN) 02/14/2025 29 (H) 7 - 25 mg/dL Final Creatinine 02/14/2025 1.12 (H) 0.60 - 1.00 mg/dL Final EGFR 02/14/2025 50 (L) > OR = 60 mL/min/1.73m2 Final BUN/CREATININE RATIO 02/14/2025 26 (H) 6 - 22 (calc) Final SODIUM 02/14/2025 138 135 - 146 mmol/L Final POTASSIUM 02/14/2025 5.0 3.5 - 5.3 mmol/L Final CHLORIDE 02/14/2025 101 98 - 110 mmol/L Final Carbon Dioxide (CO2) 02/14/2025 26 20 - 32 mmol/L Final CALCIUM 02/14/2025 9.6 8.6 - 10.4 mg/dL Final PROTEIN, TOTAL - [facility] 02/14/2025 7.1 6.1 - 8.1 g/dL Final ALBUMIN - [facility] 02/14/2025 4.5 3.6 - 5.1 g/dL Final GLOBULIN - [facility] 02/14/2025 2.6 1.9 - 3.7 g/dL (calc) Final ALBUMIN/GLOBULIN RATIO - [facility] 02/14/2025 1.7 1.0 - 2.5 (calc) Final BILIRUBIN, TOTAL - [facility] 02/14/2025 0.4 0.2 - 1.2 mg/dL Final ALKALINE PHOSPHATASE 02/14/2025 61 37 - 153 U/L Final AST - [facility] 02/14/2025 14 10 - 35 U/L Final ALT - [facility] 02/14/2025 10 6 - 29 U/L Final HEMOGLOBIN A1C - [facility] 02/14/2025 6.7 (H) <5.7 % Final TSH 02/14/2025 1.23 0.40 - 4.50 mIU/L Final White Blood Cell Count 02/14/2025 11.8 (H) 3.8 - 10.8 Thousand/uL Final RBC 02/14/2025 3.85 3.80 - 5.10 Million/uL Final HEMOGLOBIN 02/14/2025 10.7 (L) 11.7 - 15.5 g/dL Final HEMATOCRIT 02/14/2025 34.4 (L) 35.0 - 45.0 % Final MCV 02/14/2025 89.4 80.0 - 100.0 fL Final MCH 02/14/2025 27.8 27.0 - 33.0 pg Final MCHC 02/14/2025 31.1 (L) 32.0 - 36.0 g/dL Final RDW 02/14/2025 14.3 11.0 - 15.0 % Final Platelet Count 02/14/2025 335 140 - 400 Thousand/uL Final Mean Platelet Volume (MPV) 02/14/2025 8.9 7.5 - 12.5 fL Final FERRITIN 02/14/2025 28 16 - 288 ng/mL Final IRON, TOTAL 02/14/2025 52 45 - 160 mcg/dL Final IRON BINDING CAPACITY 02/14/2025 320 250 - 450 mcg/dL (calc) Final % SATURATION 02/14/2025 16 16 - 45 % (calc) Final Other Labs: Micro: No results for input(s): COVID19 in the last 72 hours. Reviewed per [facility] tab referral notes Lines: none Radiography/Echo/Other: Per EPIC notes, imging not available Antimicrobials, Start/End Dates: Levofloxacin completed 05/11 ASSESSMENT/PLAN 1. Bronchiectasis without complication (HCC) 2. Chronic obstructive pulmonary disease, unspecified COPD type (HCC) Clinical improvement on appropriate antibiotic already- curation appropriate att his time. Has follow up CT chest scheduled for end of the month- to screen for nodular infiltrates and bronchiectasis. Natural course and clinical manifestations of COPD and Bronchiectasis discussed with patient,a s well as rationale for her present pulmonary medications. If she has recurrent bouts fo PsA infection, may consider nebulized tobramycin next. No follow-ups on file. ADDITIONAL PLAN NOTES As above. [1] Past Medical History: Diagnosis Date Asthma Cerebral artery occlusion with cerebral infarction (HCC) CHF (congestive heart failure) (HCC) Cholecystitis SCHEDULED FOR THE SURGERY ON 04/09/2017 COPD (chronic obstructive pulmonary disease) (HCC) Dependence on supplemental oxygen Incisional hernia SCHEDULED FOR THE SURGERY ON 03/15/2018 Osteoporosis PNA (pneumonia) Thyroid disease [2] Past Surgical History: Procedure Laterality Date BRONCHOSCOPY 10/2023 BRONCHOSCOPY 08/2024 CHOLECYSTECTOMY N/A 04/09/2017 CHOLECYSTECTOMY COLONOSCOPY COLONOSCOPY EYE SURGERY 2016 cataracts HERNIA REPAIR HYSTERECTOMY [3] Current Outpatient Medications Medication Sig Dispense Refill Accu-Chek Softclix Lancets lancets USE DIRECTED ONCE DAILY 100 each 11 acetaminophen (Tylenol) 325 MG tablet 650 mg. albuterol 108 (90 Base) MCG/ACT inhaler Inhale 2 puffs every 4 hours as needed for wheezing or shortness of breath. 18 g 1 Alcohol Swabs (Alcohol Prep) pads 1 Swab daily. 1 Swab once daily. Calcium Carb-Cholecalciferol (Calcium 600+D) 600-10 MG-MCG tablet Take 2 tablets by mouth daily. dextromethorphan-guaiFENesin (Mucinex DM) 30-600 MG 12 hr tablet Take 1 tablet by mouth daily. Do not crush, chew, or split. escitalopram (Lexapro) 5 MG tablet Take 1 tablet (5 mg) by mouth daily. 90 tablet 3 ezetimibe (Zetia) 10 MG tablet TAKE 1 TABLET BY MOUTH DAILY 100 tablet 2 ferrous sulfate (Fe Tabs) 325 (65 Fe) MG EC tablet Take 1 tablet (325 mg) by mouth 2 times daily. Do not crush, chew, or split. 60 tablet 11 Yjxouhqaqxf-Nphwslejj-Grgrpd (Trelegy Ellipta) 200-62.5-25 MCG/ACT aerosol powder Inhale 1 puff daily. 60 each 5 glucose blood test strip Test once a day & as needed for symptoms of irregular blood glucose. Compatible with Accu-Check Device please.Test two times a day & as needed for symptoms of irregular blood glucose. Compatible with Accu-Check Device please. ipratropium-albuterol (Duo-Neb) 0.5-2.5 mg/3 mL nebulizer solution Take 3 mL by nebulization every 6 hours as needed for shortness of breath. 180 mL 1 Lancets Misc. (Accu-Chek Softclix Lancet Dev) kit levothyroxine (Synthroid, Levoxyl) 75 MCG tablet TAKE 1 TABLET BY MOUTH DAILY 100 tablet 2 meclizine (Antivert) 25 MG tablet Take 1 tablet (25 mg) by mouth 3 times daily as needed for dizziness. 15 tablet 1 metFORMIN (Glucophage) 500 MG tablet TAKE 1 TABLET BY MOUTH TWICE DAILY WITH MEALS 200 tablet 2 oxygen (O2) gas 2 L prn pantoprazole (ProtoNix) 40 MG EC tablet Take 1 tablet (40 mg) by mouth every morning (before breakfast). Do not crush, chew, or split. 100 tablet 1 Polyethyl Glycol-Propyl Glycol (SYSTANE OP) Administer 1 drop into both eyes in the morning and 1 drop in the evening. sodium chloride 3% nebulizer solution Take 3 mL by nebulization 2 times daily as needed for other (chest congestion). 360 mL 2 triamcinolone (Kenalog) 0.5 % cream Apply topically 2 times daily. (Patient not taking: Reported on 05/12/2025) 30 g 1 No current facility-administered medications for this visit. [4] Allergies Allergen Reactions Iodides Itching Moxifloxacin Avelox Passed out Codeine Other reaction(s): Other (See Comments) Iodinated Contrast Media Bupropion Rash Morphine Nausea And Vomiting [5] Family History Problem Relation Name Age of Onset Arthritis Sister High Blood Pressure Mother No Known Problems Father Diabetes Mother Arthritis Brother Heart disease Mother Obesity Sister Heart disease Brother Diabetes Sister Atrial fibrillation Brother PROGRESS Observed: 05/11/2025 10:30 AM Status: COMPLETED Source: [facility] ID: [id number] Author: MARCELL CHRISTOPHER MD Service: ? 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 I have seen and examined this patient. I have discussed the case and the management of this patient's care with the Resident, if applicable. I also have reviewed and agree with the assessment and plan as stated above and agree with all of its relevant components. PROGRESS NOTE Observed: 04/25/2025 2:03 PM Status: COMPLETED Source: [facility] EMR reviewed. The patient had an appt. with Ophthalmology on 04/13/25 and she had eye injections for macular degeneration. CM outreach on 04/25/25: PMH: COPD, MS, DM, HYPOTHYROID, ANEMIA, HYPERLIPIDEMIA, MACULAR DEGENERATION DM MEDS: Metformin 500mg twice daily Monitoring blood sugars once per week-last reading 109-fasting 04/25/25 1427 Diabetes - Patient Level Diabetes type Type 2 Diabetic complications: Peripheral Vascular Disease No Cerebrovascular Accident No Nephropathy No Retinopathy No Heart disease No Peripheral neuropathy No Diabetes - Encounter Level Do you experience symptoms of (!) Hypoglycemia Hypo/hyperglycemia details Gets shaky occasionally, usually skips breakfast. Meal planning Regular (Cut down on carbohydrates and sugar) Diabetic Monitoring regimen Home blood tests 1-2 times per week Monitoring regimen Fasting Diabetic Care Summary Prescribed medication? Yes Medications Oral Adherent? Yes Statin therapy? Yes Seeing endocrinology? N COPD MEDS: Using Trelegy inhaler 1 puff daily Using Albuterol inhaler 2-3 times daily Using nebulizer twice daily Using 2L O2 continuously Monitoring pulse ox-97% on 2L O2 Stated always SOB, better when resting. Denies any wheezing Still getting a new PCP-Dr. Pena in [place]. First appt. In July. She is seeing a new Pulmonary doctor-Dr. Joseph at [facility]. She stated she needs her Trelegy refilled. Plan: The patient will start monitoring her blood sugars 2-3 times per week. She will continue to monitor her pulse ox daily. CM contacted Annelise Mehta-mechanical project manager regarding her Trelegy inhaler and possible financial assistance. Annelise stated the patient was getting her Trelegy through [facility] and using [facility]. Her new pulmonary doctor-Dr. Joseph is with [facility]. CM talked with the patient about discussing her options with her new pulmonary provider at her upcoming appt. next week. CM will follow-up one more time next month. Scheduled next outreach. 36 Observed: 04/14/2025 9:47 AM Status: COMPLETED Source: [facility] Rx sent for 100 tablets +1 r efill per request of the pharmacy. Thank you for looking into this and verifying. 36 Observed: 04/14/2025 9:00 AM Status: COMPLETED Source: [facility] Called and spoke with pt who stated that the pharmacy had called her to tell her that she needed a refill. Called pharmacy, who stated, that her plan had changed to where they need the prescription to say 100 tablets and not 90. They were borrowing from the other refills in order to make the 100 happen from the 90 tablet order. The pharmacy is down to 40 tablets, and can't fill the order unless it's 100 tabs. There for the pt needs a refill of 100 tabs with 2 refills. Also called pt to let her know what was happening. 36 Observed: 04/14/2025 6:27 AM Status: COMPLETED Source: [facility] A year supply to the request ed pharmacy was sent on 09/19/2024. PROGRESS Observed: 04/13/2025 9:30 AM Status: COMPLETED Source: [facility] HNO ID: [id number] Author: MARCELL CHRISTOPHER MD Service: ? 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 I have seen and examined this patient. I have discussed the case and the management of this patient's care with the Resident, if applicable. I also have reviewed and agree with the assessment and plan as stated above and agree with all of its relevant components. 36 Observed: 04/10/2025 7:50 AM Status: COMPLETED Source: [facility] Prescription Request: Levothyroxine Sodium 75 MCG Oral Tablet Last medication check: 08/11/24 Last physical exam: 02/14/25 Next scheduled appointment: 08/08/25 Last date of refill on this medication 01/24/25 ( qty 90 refill 1) PROGRESS NOTE Observed: 03/14/2025 1:10 PM Status: COMPLETED Source: [facility] EMR reviewed. The patient had a Medicare annual wellness visit with PCP on 02/14/25: Assessment/Plan : Problem List Items Addressed This Visit Age-related osteoporosis without current pathological fracture Improved, will get updated DEXA scan. Continue calcium 1200 mg with vitamin D Exudative age-related macular degeneration, right eye, with inactive choroidal neovascularization (HCC) Uncontrolled, continue following up with ophthalmology Type 2 diabetes mellitus with stage 2 chronic kidney disease, without long-term current use of insulin (HCC) (HCC) controlled, kidney function is stable, continue metformin 500 mg twice a day Relevant Orders Comprehensive metabolic panel Hemoglobin A1c Anemia in other chronic diseases classified elsewhere stable, continue iron tablets 650 mg, recheck lab work today Relevant Orders CBC Ferritin Iron and TIBC COPD (chronic obstructive pulmonary disease) (HCC) Stable, continue Trelegy 1 puff daily and albuterol as needed. Oxygen as needed Hypothyroidism Stable, continue levothyroxine 75 mcg daily Relevant Orders TSH Pure hypercholesterolemia Controlled, continue Zetia 10 mg daily Relevant Orders Lipid panel Other Visit Diagnoses Routine general medical examination at health care facility - Primary Menopause Relevant Orders DEXA bone density axial skeleton Vitals: BP 110/66 Pulse 70 Ht 1.549 m (5' 1) Wt 73.8 kg (162 lb 12.8 oz) SpO2 93% BMI 30.76 kg/m? BSA 1.78 m? CM outreach on 03/14/25: PMH: COPD, MS, DM, HYPOTHYROID, ANEMIA, HYPERLIPIDEMIA, MACULAR DEGENERATION COPD MEDS: Using Trelegy inhaler 1 puff daily Using Albuterol inhaler 4-5 times daily Using nebulizer 2-3 times daily Oxygen increased to 2L during the night and as needed during the day Checking pulse ox daily-today 97% on 2L O2, pulse-81 Denies any wheezing SOB more often. Has been doing more gardening and yard work. She had an appt. with Pulmonology last week. Stated she got a new doctor-saw Nette Weller. Will be seeing every 3 months. DM MEDS: Metformin 500mg twice daily Hgba1c was 6.7 on 02/14/25 Checking blood sugars, but not often. She has been monitoring twice per week-staying under 135. She stated her fingers are sore. CM discussed diet-stated has cut out sugar. She stated she has an appt. with a new PCP in July-Dr. Delfina Pena in [place]. Looking for a doctor that is closer to home and she is able to contact easily. Plan: The patient will continue to use her prescribed inhalers and nebulizer as needed. She will continue to monitor her pulse ox and keep it above 92%. She will continue to monitor her blood sugars at least twice per week. CM will continue to follow-up one more time next month to complete COPD assessment and care plan. Scheduled next outreach. 36 Observed: 03/06/2025 9:56 AM Status: COMPLETED Source: [facility] Tried calling patient but ph one just rings w no voicemail to LM. I Mycharted information to pt so she can call and get her appt. 36 Observed: 03/02/2025 2:48 PM Status: COMPLETED Source: [facility] Name of Caller: Stacia Contact Phone Number: [phone] Reason for Appointment: Pt calling to get infusion scheduled at [place] Office Name: Stacy Medication Refills need, if any: Medication Name: 36 Observed: 02/24/2025 12:22 PM Status: COM PLETED Source: [facility] Yes. 36 Observed: 02/24/2025 12:00 PM Status: COMPLETED Source: [facility] I think these were sent 02/22 36 Observed: 02/24/2025 10:47 AM Status: COMPLETED Source: [facility] Fax from [facility] Prescription Request: T/s accu-chek guide Last medication check: 08/11/24 Last physical exam: 02/14/25 Next scheduled appointment: 08/08/25 Last date of refill on this medication none seen 36 Observed: 02/23/2025 11:21 AM Status: COM PLETED Source: [facility] Faxed 36 Observed: 02/22/2025 9:31 AM Status: COMP LETED Source: [facility] Rx sent 36 Observed: 02/22/2025 8:52 AM Status: COMPLETED Source: [facility] Yes, I have it on my desk bu t I have not had time to fill it then. 36 Observed: 02/22/2025 8:32 AM Status: COMPLETED Source: [facility] Called and spoke with Esvin brown, states that she faxed this over to us yesterday. Did you receive this? 36 Observed: 02/22/2025 8:04 AM Status: COMPLETED Source: [facility] Fax from [facility] Prescription Request: T/S accu-chek Guide Last medication check: none Last physical exam: 02/14/25 Next scheduled appointment: 08/08/25 Last date of refill on this medication none seen 36 Observed: 02/21/2025 6:38 AM Status: COMPLETED Source: [facility] The [facility] infusion order i s a preprinted order coming from the infusion center, see date 02/26/2024 for example. They need to send us the preprinted order and we will fill it out and send it back. 36 Observed: 02/17/2025 1:29 PM Status: COMPLETED Source: [employer] Name of caller: Toña Contact phone number: [phone] Relationship to Patient: Amparo Desai Infusion Provider: Dr Kumar Practice: [facility] Chief Complaint/Reason for Call: Toña is requesting a new [employer] order and Authorization for [employer]. Requesting information be faxed to fax# [phone]. Patient has appt scheduled for March 09. thank you Best time of day caller can be reached: any Patient advised that office/PCP has 24-48 business hours to return their call: Yes PROGRESS NOTE Observed: 02/14/2025 11:59 AM Status: COMPLETED Source: [facility] Controlled, continue Zetia 1 0 mg daily PROGRESS NOTE Observed: 02/14/2025 11:58 AM Status: COMPLETED Source: [facility] Uncontrolled, continue follo wing up with ophthalmology PROGRESS NOTE Observed: 02/14/2025 11:57 AM Status: COMPLETED Source: [facility] [employer] stable, continue iron tablet s 650 mg, recheck lab work today PROGRESS NOTE Observed: 02/14/2025 11:56 AM Status: COMPLETED Source: [facility] controlled, kidney function is stable, continue metformin 500 mg twice a day PROGRESS NOTE Observed: 02/14/2025 11:54 AM Status: COMPLETED Source: [facility] Stable, continue levothyroxi ne 75 mcg daily PROGRESS NOTE Observed: 02/14/2025 11:54 AM Status: COMPLETED Source: [facility] Improved, will get updated D EXA scan. Continue calcium 1200 mg with vitamin D PROGRESS NOTE Observed: 02/14/2025 11:49 AM Status: COMPLETED Source: [facility] Stable, continue Trelegy 1 p uff daily and albuterol as needed. Oxygen as needed 37 Observed: 02/14/2025 10:30 AM Status: COMPLETED Source: [facility] Personalized Preventative Pl an for Stacia Uriostegui - 02/14/2025 Medicare offers a range of preventative health benefits. Some of the tests and screenings are paid in full while others may be subject to a deductible, co-insurance, and / or copay. Some of these benefits include a comprehensive review of your medical history including lifestyle, illnesses that may run in your family, and various assessments and screenings as appropriate. After reviewing your medical record and screening and assessments performed today, your provider may have ordered immunizations, labs, imaging, and / or referrals for you. A list of these orders (if applicable) as well as your Preventative Care list are included within your After Visit Summary for your review. Other Preventative Recommendations: A preventive eye exam by an eye clinic manager is recommended every 1-2 years to screen for glaucoma, cataracts, macular degeneration, and other eye disorders. A preventive dental visit is recommended every 6 months. Try to get at least 150 minutes of exercise per week or 10,000 steps per day on a pedometer. You need 1200-1500mg of calcium and 2921-6242 international units of vitamin D per day. It is possible to meet your calcium requirement with diet alone, but a vitamin D supplement is usually necessary to meet this goal. When exposed to the sun, use a sunscreen that protects against both UVA and UVB radiation with an SPF of 30 or greater. Reapply every 2-3 hours or after sweating, drying off with a towel, or swimming. Always wear a seat belt when traveling in a car. Always wear a helmet when riding a bicycle or a motorcycle OFFICE VISIT Observed: 02/14/2025 10:30 AM Status: COMPLETED Source: [facility] [id number] Stacia Uriostegui [birth year] F Date Provider Department Center 02/14/2025 [id number] KUMAR [facility] Family History Problem Relation Age of Onset Arthritis Sister High Blood Pressure Mother No Known Problems Father Diabetes Mother Arthritis Brother Heart disease Mother Obesity Sister Heart disease Brother Diabetes Sister Atrial fibrillation Brother Family Status - Relation Status Age at Sister Mother 57 Father Brother Level of Service:[id number] MD PPPS, SUBSEQ VISIT Reason for Visit and Comments: Medicare Annual Wellness Visit Subsequent [886] Blood Work [107157] Health Maintenance [757] - Dexa scan- agree Hep c screening- refuse Rsv vaccine- not done PROGRESS NOTE Observed: 02/14/2025 10:30 AM Status: COMPLETED Source: [facility] Yeah but I did do his A1c [facility] [id number] [facility] [id number] Dept: [phone] Dept Chief Complaint: Stacia Uriostegui is an 79 y.o. female here for an annual wellness visit. Assessment/Plan : Problem List Items Addressed This Visit Age-related osteoporosis without current pathological fracture Improved, will get updated DEXA scan. Continue calcium 1200 mg with vitamin D Exudative age-related macular degeneration, right eye, with inactive choroidal neovascularization (HCC) Uncontrolled, continue following up with ophthalmology Type 2 diabetes mellitus with stage 2 chronic kidney disease, without long-term current use of insulin (HCC) (HCC) controlled, kidney function is stable, continue metformin 500 mg twice a day Relevant Orders Comprehensive metabolic panel Hemoglobin A1c Anemia in other chronic diseases classified elsewhere stable, continue iron tablets 650 mg, recheck lab work today Relevant Orders CBC Ferritin Iron and TIBC COPD (chronic obstructive pulmonary disease) (HCC) Stable, continue Trelegy 1 puff daily and albuterol as needed. Oxygen as needed Hypothyroidism Stable, continue levothyroxine 75 mcg daily Relevant Orders TSH Pure hypercholesterolemia Controlled, continue Zetia 10 mg daily Relevant Orders Lipid panel Other Visit Diagnoses Routine general medical examination at health care facility - Primary Menopause Relevant Orders DEXA bone density axial skeleton I have reviewed and reconciled the medication list with the patient today. Current Outpatient Medications Medication Sig Dispense Refill Accu-Chek Softclix Lancets lancets USE DIRECTED ONCE DAILY 100 each 11 acetaminophen (Tylenol) 325 MG tablet 650 mg. albuterol 108 (90 Base) MCG/ACT inhaler Inhale 2 puffs every 4 hours as needed for wheezing or shortness of breath. 18 g 1 Alcohol Swabs (Alcohol Prep) pads 1 Swab daily. 1 Swab once daily. Calcium Carb-Cholecalciferol (Calcium 600+D) 600-10 MG-MCG tablet Take 2 tablets by mouth daily. escitalopram (Lexapro) 5 MG tablet Take 1 tablet (5 mg) by mouth daily. 90 tablet 3 ezetimibe (Zetia) 10 MG tablet TAKE 1 TABLET BY MOUTH DAILY 100 tablet 2 ferrous sulfate (Fe Tabs) 325 (65 Fe) MG EC tablet Take 1 tablet (325 mg) by mouth 2 times daily. Do not crush, chew, or split. 60 tablet 11 Vpvbqcbkxiz-Tydikkxuv-Gccafx (Trelegy Ellipta) 200-62.5-25 MCG/ACT aerosol powder Inhale 1 puff daily. 60 each 5 glucose blood test strip Test once a day & as needed for symptoms of irregular blood glucose. Compatible with Accu-Check Device please.Test two times a day & as needed for symptoms of irregular blood glucose. Compatible with Accu-Check Device please. ipratropium-albuterol (Duo-Neb) 0.5-2.5 mg/3 mL nebulizer solution Take 3 mL by nebulization every 6 hours as needed for shortness of breath. 180 mL 1 Lancets Misc. (Accu-Chek Softclix Lancet Dev) kit levothyroxine (Synthroid, Levoxyl) 75 MCG tablet TAKE 1 TABLET BY MOUTH DAILY 90 tablet 1 meclizine (Antivert) 25 MG tablet Take 1 tablet (25 mg) by mouth 3 times daily as needed for dizziness. 15 tablet 1 metFORMIN (Glucophage) 500 MG tablet TAKE 1 TABLET BY MOUTH TWICE DAILY WITH MEALS 200 tablet 2 oxygen (O2) gas 2 L prn pantoprazole (ProtoNix) 40 MG EC tablet Take 1 tablet (40 mg) by mouth every morning (before breakfast). Do not crush, chew, or split. 90 tablet 3 Polyethyl Glycol-Propyl Glycol (SYSTANE OP) Administer 1 drop into both eyes in the morning and 1 drop in the evening. sodium chloride 3% nebulizer solution Take 3 mL by nebulization 2 times daily as needed for other (chest congestion). 360 mL 2 triamcinolone (Kenalog) 0.5 % cream Apply topically 2 times daily. 30 g 1 No current facility-administered medications for this visit. Also reviewed during this visit: The following health maintenance schedule was reviewed with the patient and provided in printed form in the after visit summary: Health Maintenance Topic Date Due Bone Density Scan 11/12/2024 Depression Screening 02/10/2025 COVID-19 Vaccine ( season) 2025 (Originally 05/01/2024) RSV Immunization for Adults (1 - 1-dose 75+ series) 02/14/2026 (Originally 2020) Hepatitis C Screening 02/14/2026 (Originally 1963) TSH Level 04/06/2025 Lung Cancer Screening 06/17/2025 Diabetes: Urine Albumin-Creatinine Ratio for Kidney Health 08/11/2025 Diabetes: Estimated Glomerular Filtration Rate for Kidney Health 09/27/2025 DTaP/Tdap/Td Vaccines (2 - Td or Tdap) 11/15/2031 Medicare Advantage Annual Wellness Visit Completed Influenza Vaccine Completed Pneumococcal Vaccine: 50+ Years Completed Zoster Vaccines Completed RSV Immunization under 20 Months Aged Out HIB Vaccines Aged Out Hepatitis B Vaccines Aged Out IPV Vaccines Aged Out Hepatitis A Vaccines Aged Out Meningococcal Vaccine Aged Out Rotavirus Vaccines Aged Out HPV Vaccines Aged Out Meningococcal B Vaccine Aged Out List of current healthcare providers: Patient Care Team: Raiza Kumar MD as PCP - General (Family Medicine) Nena Fernandez RN as Game Breeding Farm Manager (Engineer Soils Manager) Magali Vance DO as Consulting Physician (Hematology and Oncology) Orders Placed This Encounter Procedures DEXA bone density axial skeleton Standing Status: Future Expected Date: 02/14/2025 Expiration Date: 02/14/2026 Is this a screening study for a post-menopausal patient?: Yes Lipid panel Standing Status: Future Number of Occurrences: 1 Expected Date: 02/14/2025 Expiration Date: 02/14/2026 Comprehensive metabolic panel Standing Status: Future Number of Occurrences: 1 Expected Date: 02/14/2025 Expiration Date: 02/14/2026 Hemoglobin A1c Standing Status: Future Number of Occurrences: 1 Expected Date: 02/14/2025 Expiration Date: 02/14/2026 TSH Standing Status: Future Number of Occurrences: 1 Expected Date: 02/14/2025 Expiration Date: 02/14/2026 CBC Standing Status: Future Number of Occurrences: 1 Expected Date: 02/14/2025 Expiration Date: 02/14/2026 Ferritin Standing Status: Future Number of Occurrences: 1 Expected Date: 02/14/2025 Expiration Date: 02/14/2026 Iron and TIBC Standing Status: Future Number of Occurrences: 1 Expected Date: 02/14/2025 Expiration Date: 02/14/2026 Review of Systems Constitutional: Negative for chills and fever. Respiratory: Negative for shortness of breath. Cardiovascular: Negative for chest pain and palpitations. Gastrointestinal: Negative for abdominal pain, blood in stool, constipation and diarrhea. Genitourinary: Negative for dysuria, frequency, hematuria and urgency. Neurological: Negative for weakness and numbness. Psychiatric/Behavioral: Negative for dysphoric mood. The patient is not nervous/anxious. Physical Exam Vitals and nursing note reviewed. Constitutional: General: She is not in acute distress. Appearance: Normal appearance. HENT: Head: Normocephalic. Right Ear: Tympanic membrane, ear canal and external ear normal. Left Ear: Tympanic membrane, ear canal and external ear normal. Mouth/Throat: Mouth: Mucous membranes are moist. Pharynx: Oropharynx is clear. Eyes: Extraocular Movements: Extraocular movements intact. Pupils: Pupils are equal, round, and reactive to light. Neck: Thyroid: No thyromegaly. Vascular: No carotid bruit. Cardiovascular: Rate and Rhythm: Normal rate and regular rhythm. Heart sounds: Normal heart sounds. No murmur heard. Pulmonary: Effort: Pulmonary effort is normal. Breath sounds: Normal breath sounds. Abdominal: General: Bowel sounds are normal. Palpations: Abdomen is soft. Musculoskeletal: General: Normal range of motion. Cervical back: Normal range of motion. Lymphadenopathy: Cervical: No cervical adenopathy. Skin: General: Skin is warm and dry. Neurological: General: No focal deficit present. Mental Status: She is alert and oriented to person, place, and time. Psychiatric: Mood and Affect: Mood normal. Objective : BP 110/66 Pulse 70 Ht 5' 1 (1.549 m) Wt 162 lb 12.8 oz (73.8 kg) SpO2 93% BMI 30.76 kg/m? No results found. Subjective : Stacia comes in today for her annual Medicare well visit and for follow-up on her multiple health issues. These all seem to be stable at this time and she really has no complaints at this time. She has hypothyroidism which is stable and chronic kidney disease which is also stable. She has COPD and she is on an inhaler every day and her rescue inhaler but she is not wearing her oxygen anymore and she says been 7 years since she smoked. She has anemia and had been seen Dr. Vance who is wondering if we can take over prescribing her iron pills. She has hypercholesterolemia and she also has osteoporosis for which she is on calcium and we will be getting a repeat DEXA scan today. Health Risk Assessment: General: General In general, how would you say your health is?: (!) Fair In the past 7 days, have you experienced any of the following: New or Increased Pain, New or Increased Fatigue, Loneliness, Social Isolation, Stress or Anger?: No Do you get the social and emotional suppport you need?: Yes Interventions: Health Habits/Nutrition: Health Habits / Nutrition On average, how many days per week do you engage in moderate to strenous exercise (like a brisk walk)?: 7 days On average, how man minutes do you engage in exercise at this level?: 150 + min (yard work every day) Have you lost any weight without trying in the past 3 months? : No Have you seen the dentist within the past year?: (!) No Hearing/ Vision: Hearing / Vision Do you or your family notice any trouble with your hearing that hasn't been managed with hearing aids?: (!) Yes Do you have difficulty driving, watching TV, or doing any of your daily activities because of your eyesight?: (!) Yes Have you had an eye exam within the past year?: Yes No results found. Interventions: Safety: Safety Do you have a working smoke detector?: Yes Do you have any tripping hazards - loose or unsecured carpets or rugs?: No Do you have any tripping hazards - clutter in doorways, halls, or stairs?: (!) Yes Do you have either shower bars, grab bars, non-slip mats or non-slip surfaces in your shower or bathtub? : (!) No Do all your stairways have a railing or banister? : Yes Do you fasten your seatbelt when you are in a car?: Yes Interventions: ADL: ADL In the past 7 days, did you need help from others to perform any of the following everyday activities: Eating, dressing, grooming,bathing, toileting, or walking / balance? : No In the past 7 days, did you need help from others to take care of any of the following: laundry, housekeeping, banking / finances,shopping, telephone use, food preparation, transportation, or taking medications? : Yes Select all that apply: Laundry, Housekeeping, Banking / Finances, Shopping, Telephone Use, Food Preparation, Transportation, Taking Medications Interventions: Living Will: Living Will Do you have a living will?: Yes Cognitive: Cognitive Screening: Mini-Cog Clock Drawing Test (CDT): 2 Words Recalled: 3 Total Score: 5 Total Score Interpretation: Normal Mini-Cog Fall Risk: Fall Risk One or more falls in the last year:: No Advised to use a cane or walker to get around safely:: No Feels unsteady when walking:: No Steadies self on furniture while walking at home:: No Worried about falling:: No Depression Screening: Over the past 2 weeks, how often have you been bothered by any of the following problems? Little interest or pleasure in doing things: Not at all Feeling down, depressed, or hopeless: Not at all Patient Health Questionnaire-2 Score: 0 Interventions: Tobacco Use: Social History Tobacco Use Smoking Status Former Current packs/day: 0.00 Average packs/day: 1 pack/day for 63.5 years (63.5 ttl pk-yrs) Types: Cigarettes Start date: 08/31/1955 Quit date: 02/28/2019 Years since quittin.9 Smokeless Tobacco Never Alcohol Use: Audit Alcohol Screening Q1: How often do you have a drink containing alcohol?: Never Q2: How many drinks containing alcohol do you have on a typical day when you are drinking?: 1 or 2 Q3: How often do you have six or more drinks on one occasion?: Never Audit-C Score: 0 Skip to questions 9-10?: 1 Social Drivers of Health: SDOH risk assessment performed and documented today by members of the health care team. A total time of 10-15 minutes was spent obtaining information from the patient and discussing options to address the patient's social risk factors and unmet needs. Social Drivers of Health with Concerns Concerns Present Tobacco Use: Medium Risk (02/14/2025) Financial Resource Strain: Medium Risk (02/14/2025) Food Insecurity: Food Insecurity Present (02/14/2025) Transportation Needs: Unmet Transportation Needs (02/14/2025) Social Connections: Socially Isolated (02/14/2025) Health Literacy: Inadequate Health Literacy (02/14/2025) PROGRESS NOTE Observed: 02/14/2025 10:30 AM Status: COMPLETED Source: [facility] [facility] Patient verified by last nam e and date of . 36 Observed: 02/08/2025 10:51 AM Status: COMPLETED Source: [employer] [facility] Noted. Will hold off on refi lling until upcoming appointment. 36 Observed: 02/08/2025 10:47 AM Status: COMPLETED Source: [facility] Called pt and she states gretchen t she has an appointment on 02/14, she's hoping that he will tell her she doesn't need to test her Blood sugar any more. 36 Observed: 02/08/2025 10:42 AM Status: COMPLETED Source: [facility] Please verify with Stacia whe re she would like these sent to. Prescription was just filled for the Accu-Chek soft click lancets 02/06/2025 to [address] [facility] in [place]. 36 Observed: 02/08/2025 10:14 AM Status: COMPLETED Source: [facility] I believe its for the Accu-c heck lancets 36 Observed: 02/08/2025 10:00 AM Status: COMPLETED Source: [facility] Faxed by [facility]cio alejo Prescription Request: T/s Accu-check Guide Last medication check: 08/11/24 Last physical exam: 02/10/25 Next scheduled appointment: 02/14/25 Last date of refill on this medication: see where a previous provider had canceled an order for one, couldn't find one off hand. 36 Observed: 02/06/2025 4:53 PM Status: COMPLETED Source: [facility] Rx sent. Follow up as schedu led. 36 Observed: 02/06/2025 9:09 AM Status: COMPLETED Source: [facility] Why are you sending needs to as patient calls and not putting them in as refills? 36 Observed: 02/06/2025 8:55 AM Status: COMPLETED Source: [facility] Faxed request from [facility] Prescription Request: T/s Accu-chek guide Last medication check: 08/11/24 Last physical exam: 02/11/24 Next scheduled appointment: 02/14/25 Last date of refill on this medication Doesn't look like we've done this one before. PROGRESS NOTE Observed: 01/30/2025 2:27 PM Status: COMPLETED Source: [facility] EMR reviewed. No recent offi ce visits since last outreach attempt. PMH: COPD, MS, DM, HYPOTHYROID, ANEMIA, HYPERLIPIDEMIA, MACULAR DEGENERATION Follow-up appts: 02/14/25-Family medicine DM MEDS: Metformin 500mg twice daily She stated she had quit checking her blood sugars for a month due to her fingers beng sore. Started rechecking 2 days ago. This morning blood sugars was 137. CM discussed diet-stated still has some days where she eats things like donuts, but for the most part she is doing well with her diet. Breakfast-usually skips, lunch today-beef and broccoli and sesame chicken with a green salad. Dinner last night-hoang and eggs with toast 01/30/25 0528 Diabetes - Patient Level Diabetes type Type 2 Diabetic complications: Peripheral Vascular Disease No Cerebrovascular Accident No Nephropathy No Retinopathy No Heart disease No Peripheral neuropathy No Diabetes - Encounter Level Do you experience symptoms of (!) Hypoglycemia Hypo/hyperglycemia details Occasionally gets shaky Meal planning Regular Diabetic Monitoring regimen Home blood tests 1-2 times per day Monitoring regimen Fasting Diabetic Care Summary Prescribed medication? Yes Medications Oral Adherent? Yes Statin therapy? Yes Seeing endocrinology? N COPD MEDS: Using Trelegy inhaler 1 puff daily Using Albuterol inhaler at least 3 times daily Using nebulizer twice daily Using 1L O2 continuously-checking pulse-95% on 1L O2 Denies any wheezing SOB with any exertion. Recovers when resting. She has a treadmill, but she is not using it. She stated she doesn't like exercising. She enjoys walking outside, but stated she runs out of air quickly. She does likes to garden. She stated her Psychologist Clinical wants to do another x-ray. She had one 3 months ago. She stated she is looking for a new PCP, possibly in [place] where she sees her Psychologist Clinical. She said she is tired of trying to get in contact with her PCP. She stated I am getting too old and cranky for this. We discussed using [facility] to communicate with her PCP and she didn't seem interested. Plan: The patient will keep monitoring her blood sugars daily in the morning. She will try not to skip meals so she doesn't get hypoglycemic. She will continue to monitor her pulse ox daily. She will get outside and garden and be as active as she can tolerate. CM will follow-up one more time in a few weeks. Scheduled next outreach. 36 Observed: 01/24/2025 8:44 AM Status: COMPLETED Source: [facility] Prescription Request: Levothyroxine Sodium 75 MCG Oral Tablet Last medication check: 08/11/24 Last physical exam: 02/11/24 Next scheduled appointment: 02/14/25 Last date of refill on this medication 09/19/24 ( qty 30 refill 5) 36 Observed: 01/10/2025 7:49 AM Status: COMPLETED Source: [facility] Reviewed chart. Refill appro priate. RX sent. 36 Observed: 01/10/2025 7:19 AM Status: COMPLETED Source: [facility] Prescription Request: Accu-Chek Softclix Lancets Last medication check: 09/27/24 Last physical exam: 02/11/24 Next scheduled appointment: 02/14/25 Last date of refill on this medication 10/13/24 & 10/05/24 PROGRESS NOTE Observed: 12/20/2024 8:19 AM Status: COMPLETED Source: [facility] EMR reviewed. No recent offi ce visits since last outreach attempt. PMH: COPD, MS, HYPOTHYROID, ANEMIA, HYPERLIPIDEMIA COPD MEDS: Using Trelegy inhaler 1 puff daily Using Albuterol inhaler at least twice daily Using nebulizer twice daily Using 1L O2 continuously-93% on 1L O2 Has not monitoring pulse ox. CM encouraged the patient to check her pulse ox daily. She was agreeable. Denies any wheezing SOB with exertion. Recovers when resting. DM MEDS: Metformin 500mg twice daily Still monitoring blood sugars daily every morning-averaging 119-135 CM discussed diet-stated eats what she wants. We talk about eating smaller portions of carbohydrates and using less salt on her food since she tends to overuse the salt shaker. Current weight-163 pounds. She stated she feels like she has been gaining weight due to inactivity. She stated she got a treadmill yesterday and she plans on using it at least 3 days per week. Denies any dizziness. Denies any edema Stated has a new Psychologist Clinical-Dr. Garcia in [place]. Closer to home. Sees every 3 months. She denies any current needs. Plan: The patient will continue to monitor her blood sugars daily and will watch her portion sizes of carbohydrates. She will start monitoring her pulse ox daily. She will start exercising on her treadmill at least 3 times weekly. She will limit her salt intake and will drink plenty of non-dehydrating fluids. CM will continue to follow-up. Scheduled next outreach. 36 Observed: 11/28/2024 9:26 AM Status: COMPLETED [facility] Reviewed chart. Refill appro priate. RX sent. 36 Observed: 11/28/2024 8:51 AM Status: COMPLETED [facility] Prescription Request: Last medication check: 09/27/24 Last physical exam: 02/11/24 Next scheduled appointment: 02/14/25 Last date of refill on this medication 09/19/24 PROGRESS NOTE Observed: 11/18/2024 1:45 PM Status: COMPLETED [facility] EMR reviewed. No recent offi ce visits since last outreach attempt. CM outreach on 11/18/24: COPD MEDS: ?using Trelegy inhaler 1 puff daily ?using Albuterol inhaler at least 2-3 times daily ?using nebulizer once daily ?using 2L O2 continuously ?monitoring pulse ox ?wheezing or SOB DM MEDS: Metformin 500mg twice daily ?still monitoring blood sugars daily ?diet ?any dizziness Outreach attempted. CM left a voicemail message requesting a callback. Scheduled next outreach. 36 Observed: 10/31/2024 8:24 AM Status: COMP LETED [facility] Notified Gerson. 36 Observed: 10/30/2024 8:56 AM Status: COMPLETED [facility] Verbal order for continued h ome care given. Recommend patient use MiraLAX and/or Senokot S on a regular basis while on iron. Also make sure she is drinking enough fluids. 36 Observed: 10/28/2024 11:03 AM Status: COMPLETED Source: [email or web address] Name of caller: Gerson Contact phone number: [phone] Relationship to Patient: [facility] Provider: Dr. Kumar Practice: [facility] Chief Complaint/Reason for Call: Caller is requesting a verbal order for continue of care for Nursing 1 time a week for 4 weeks. Patient was set to be discharged, but now has a new problem with bowel movements. Patient did not have a bowel movement in 12 days, was instructed to use fleet enema, but patient went to Emergency Room 10.21.2024 and was given instructions on what to take for constipation. Patient did so and had a bowel movement. Caller states patient was taking her Iron medication only 1 time a day, because she believed it was the cause of the constipation. Caller instructed patient to take the medication as prescribed and reach out to her Primary Care Physician. Caller has an appointment with the patient on 11.02.2024 and will let us know if patient is being compliant with directions and will fax an order request after visit if needed. GOGO, thank you. Best time of day caller can be reached: Any Patient advised that office/PCP has 24-48 business hours to return their call: Yes PROGRESS NOTE Observed: 10/21/2024 2:30 PM Status: COMPLETED Source: [employer] [facility] EMR reviewed. The patient had a hospital follow-up appt. with PCP's office on 09/27/24: HPI - Stacia Uriostegui (: 1945) is a 79 y.o. female , Established patient, here for the evaluation of the following chief complaint(s): Hospital Follow-up and Dizziness Patient presents for hospital follow-up. Has been established with Home health at home. Pt/ot is out 2x a week. Is feeling better every day. Was admitted 08/23/2024 to [facility], copd exacerbation, + RSV and pnuemonia. Wearing oxygen 2 L nc, 93-97 % at home. Gets winded easily still. Is getting established with pulmonology in [place] in October. Denies any chest pain or increasing shortness of breath. DM- this am was 118, last night was 187 BP at home 121/62, has been well-controlled. Dizziness-patient reports having episodes of vertigo in the past and had a very slight episode the other day and went to take the meclizine and it was . States the episode resolved on its own but would like to have the meclizine on hand if needed. Vitals: BP 109/61 Pulse 80 Temp 36.3 ?C (97.3 ?F) (Infrared) Resp 24 Wt 74 kg (163 lb 3.2 oz) SpO2 97% BMI 30.84 kg/m? BSA 1.78 m? Pain Sc 0-No pain CM outreach on 10/21/24: COPD MEDS: ?using Trelegy inhaler 1 puff daily ?using Albuterol inhaler at least 2-3 times daily ?using nebulizer once daily ?using 2L O2 continuously ?monitoring pulse ox ?wheezing or SOB DM MEDS: Metformin 500mg twice daily ?still monitoring blood sugars daily ?diet ?any dizziness Outreach attempted. ZACHARY left a voicemail message requesting a callback. Scheduled next outreach. 36 Observed: 10/13/2024 1:21 PM Status: COMPLETED Source: [employer] Stacia states she doesn't nee d a refill yet for meclizine. 36 Observed: 10/13/2024 11:17 AM Status: COMPLETED Source: [employer] Prescription Request: Last medication check: 08/11/24 Last physical exam: 02/11/24 Next scheduled appointment: 02/14/25 Last date of refill on this medication lancets 10/05/24, meclizine 09/27/24 36 Observed: 10/06/2024 11:17 AM Status: COMPLETED Source: [employer] Called Honorio, notified on her vm. 36 Observed: 10/06/2024 10:40 AM Status: COMPLETED Source: [employer] I agree with PT recommendati on. 36 Observed: 10/06/2024 10:22 AM Status: COMPLETED Source: [employer] Name of caller: honorio Contact phone number: [phone] Relationship to Patient: [facility] nurse Provider: stacy Practice: [facility] Chief Complaint/Reason for Call: Honorio states has a re-certification due for physical and home therapy. Honorio is requesting a continuation of the physical therapy services for 2x a week for 4 weeks. Please advise. Best time of day caller can be reached: AM Patient advised that office/PCP has 24-48 business hours to return their call: Yes 36 Observed: 10/05/2024 1:40 PM Status: COMP LETED Source: [employer] Lancets sent 36 Observed: 10/05/2024 1:01 PM Status: COMPLETED Source: [employer] [facility] I let her know that Meclizin e was sent to [facility] on 09/27/24 so order may still be in process of getting to her. She needs the accu-chek needles sent to [facility] please. 36 Observed: 10/05/2024 12:31 PM Status: COMPLETED Source: [employer] [facility] Name of caller: Stacia Contact phone number: [phone] Relationship to Patient: Patient Provider: Dr. Kumar Practice: [facility] Chief Complaint/Reason for Call: Pt states that her pharmacy has not received the needles for her accu-tech or her prescription for meclizine (Antivert) 25 MG tablet Please advise Best time of day caller can be reached: Any Patient advised that office/PCP has 24-48 business hours to return their call: No 36 Observed: 10/03/2024 10:24 AM Status: COMPLETED Source: [employer] [facility] Pt called in to cancel her A pril apt with .The PT said that will be seeing her for the anemia now. I cancel the apt with per pt request. 36 Observed: 09/27/2024 5:01 PM Status: COMPLETED Source: [employer] [facility] Last follow up: 06/22/2024 Next appointment: Visit date not found Allergies Allergen Reactions Iodides Itching Moxifloxacin Avelox Passed out Codeine Other reaction(s): Other (See Comments) Iodinated Contrast Media Bupropion Rash Morphine Nausea And Vomiting Requested Prescriptions Pending Prescriptions Disp Refills Jyaqxiwnmvm-Oqfrurkqx-Uduobm (Trelegy Ellipta) 200-62.5-25 MCG/ACT aerosol powder 60 each 5 Sig: Inhale 1 puff daily. PROGRESS NOTE Observed: 09/27/2024 12:49 PM Status: COMPLETED Source: [employer] [facility] Resolved. Patient is gradual ly gaining her strength back from her hospitalization. Continue home physical therapy and Occupational Therapy. Follow-up with pulmonology as directed PROGRESS NOTE Observed: 09/27/2024 12:48 PM Status: COMPLETED Source: [employer] [facility] Stable, continue albuterol a nd Trelegy as directed. Follow-up with executive vice president business development as scheduled PROGRESS NOTE Observed: 09/27/2024 12:48 PM Status: COMPLETED Source: [employer] [facility] Controlled, blood sugars at home consistently less than 180. Continue current medications PROGRESS NOTE Observed: 09/27/2024 12:48 PM Status: COMPLETED Source: [employer] [facility] Currently asymptomatic. Mecl izine as needed. Follow-up for worsening symptoms or increased frequency. PROGRESS NOTE Observed: 09/27/2024 12:47 PM Status: COMPLETED Source: [facility] Will check sodium levels tolisset vences. Patient did have hyponatremia during her hospitalization and it was nearly normal upon discharge at 133. PROGRESS NOTE Observed: 09/27/2024 8:00 AM Status: COMPLETED Source: [facility] 09/27/2024 Stacia Uriostegui (: 1945) is a 79 y.o. female , Established patient, here for evaluation of the following chief complaint(s): Hospital Follow-up and Dizziness ASSESSMENT/PLAN: 1. RSV infection Assessment & Plan: Resolved. Patient is gradually gaining her strength back from her hospitalization. Continue home physical therapy and Occupational Therapy. Follow-up with pulmonology as directed 2. Type 2 diabetes mellitus with stage 2 chronic kidney disease, without long-term current use of insulin (HCC) ([facility]) Assessment & Plan: Controlled, blood sugars at home consistently less than 180. Continue current medications Orders: - Lancets; by Other route three times daily. Please fill accordingly to device sent to patient, Starting Thu09/27/2024, Normal 3. Vertigo Assessment & Plan: Currently asymptomatic. Meclizine as needed. Follow-up for worsening symptoms or increased frequency. Orders: - meclizine (Antivert) 25 MG tablet; Take 1 tablet (25 mg) by mouth 3 times daily as needed for dizziness., Starting Thu09/27/2024, Until Thu09/27/2025 at 2359, Normal 4. Hyponatremia Assessment & Plan: Will check sodium levels today. Patient did have hyponatremia during her hospitalization and it was nearly normal upon discharge at 133. Orders: - Basic metabolic panel 5. Chronic obstructive pulmonary disease, unspecified COPD type (HCC) Assessment & Plan: Stable, continue albuterol and Trelegy as directed. Follow-up with executive vice president business development as scheduled Follow up for with primary care provider as scheduled. SUBJECTIVE/OBJECTIVE: HPI - Stacia Uriostegui (: 1945) is a 79 y.o. female , Established patient, here for the evaluation of the following chief complaint(s): Hospital Follow-up and Dizziness Patient presents for hospital follow-up. Has been established with Home health at home. Pt/ot is out 2x a week. Is feeling better every day. Was admitted 08/23/2024 to [facility], copd exacerbation, + RSV and pnuemonia. Wearing oxygen 2 L nc, 93-97 % at home. Gets winded easily still. Is getting established with pulmonology in [place] in October. Denies any chest pain or increasing shortness of breath. DM- this am was 118, last night was 187 BP at home 121/62, has been well-controlled. Dizziness-patient reports having episodes of vertigo in the past and had a very slight episode the other day and went to take the meclizine and it was . States the episode resolved on its own but would like to have the meclizine on hand if needed Prior to Admission medications Medication Sig Start Date End Date Taking? Authorizing Provider albuterol 108 (90 Base) MCG/ACT inhaler Inhale 2 puffs every 4 hours as needed for wheezing or shortness of breath. 10/06/23 Yes Ron Chen MD Alcohol Swabs (Alcohol Prep) pads 1 Swab 2 times daily. 09/19/24 Yes CAROLYN Arguello CNP Calcium Carb-Cholecalciferol (Calcium 600+D) 600-10 MG-MCG tablet Take 2 tablets by mouth daily. Yes Historical Provider, escitalopram (Lexapro) 5 MG tablet Take 1 tablet (5 mg) by mouth daily. 09/19/24 Yes CAROLYN Arguello CNP ezetimibe (Zetia) 10 MG tablet Take 1 tablet (10 mg) by mouth daily. 09/19/24 Yes CAROLYN Arguello CNP ferrous sulfate (Fe Tabs) 325 (65 Fe) MG EC tablet Take 1 tablet (325 mg) by mouth 2 times daily. Do not crush, chew, or split. 08/12/24 08/12/25 Yes Magali Vance, DO Xixyagzbnuh-Ylvwjjnbo-Nqtbbb (Trelegy Ellipta) 200-62.5-25 MCG/ACT aerosol powder Inhale 1 puff daily. 03/30/24 Yes CAROLYN Guerrero CNP glucose blood test strip Test two times a day & as needed for symptoms of irregular blood glucose. Compatible with Accu-Check Device please. 09/19/24 Yes Allegra Bridenthal, FREIGHT BRAKE OPERATOR - [employer]ERGY ADVISOR ipratropium-albuterol (Duo-Neb) 0.5-2.5 mg/3 mL nebulizer solution Take 3 mL by nebulization every 6 hours as needed for shortness of breath. 10/06/23 Yes Ron Chen MD Lancet Devices (Prodigy Lancing Device) misc 1 Device daily. 09/19/24 Yes Allegra Bridenthal, FREIGHT BRAKE OPERATOR - [employer] SAL[employer] ENERGY ADVISOR levothyroxine (Synthroid, Levoxyl) 75 MCG tablet Take 1 tablet (75 mcg) by mouth daily. 09/19/24 Yes Allegra Bridenthal, FREIGHT BRAKE OPERATOR - [employer] SALES ENERGY ADVISOR metFORMIN (Glucophage) 500 MG tablet Take 1 tablet (500 mg) by mouth 2 times daily (with meals). 09/19/24 Yes Allegra Mary Kateenthal, FREIGHT BRAKE OPERATOR - [employer] SALES ENERGY ADVISOR oxygen (O2) gas 2 L prn 01/13/20 Yes Historical Provider, pantoprazole (ProtoNix) 40 MG EC tablet Take 1 tablet (40 mg) by mouth every morning (before breakfast). Do not crush, chew, or split. 09/19/24 Yes Allegra Bridenthal, FREIGHT BRAKE OPERATOR - [employer] SAL[employer] ENERGY ADVISOR Polyethyl Glycol-Propyl Glycol (SYSTANE OP) Administer 1 drop into both eyes in the morning and 1 drop in the evening. Yes Historical Provider, sennosides (Senokot) 8.6 MG tablet Take 1 tablet (8.6 mg) by mouth 2 times daily. 10/06/23 10/05/24 Yes Ron Chen MD sodium chloride 3% nebulizer solution Take 3 mL by nebulization 2 times daily as needed for other (chest congestion). 06/22/24 Yes Roge Roca MD triamcinolone (Kenalog) 0.5 % cream Apply topically 2 times daily. 08/17/24 Yes Raiza Kumar MD Review of Systems Constitutional: Positive for fatigue (Improving). Negative for activity change, appetite change, chills, diaphoresis and fever. HENT: Negative. Eyes: Poor vision Respiratory: Positive for cough (Improving), chest tightness (Improving) and shortness of breath (Improving). Negative for wheezing. Cardiovascular: Negative for chest pain and palpitations. Gastrointestinal: Negative. Genitourinary: Negative for difficulty urinating. Neurological: Positive for dizziness (Episode previously. Self resolved) and weakness (Improving). Negative for syncope, light-headedness and headaches. Vitals: 09/27/24 0805 BP: 109/61 Pulse: 80 Resp: 24 Temp: 36.3 ?C (97.3 ?F) TempSrc: Infrared SpO2: 97% Weight: 163 lb 3.2 oz (74 kg) Physical Exam Constitutional: General: She is not in acute distress. Appearance: Normal appearance. She is obese. She is not ill-appearing. HENT: Head: Normocephalic and atraumatic. Right Ear: Tympanic membrane normal. Left Ear: Tympanic membrane normal. Nose: Nose normal. No congestion or rhinorrhea. Mouth/Throat: Mouth: Mucous membranes are moist. Pharynx: Oropharynx is clear. Eyes: Conjunctiva/sclera: Conjunctivae normal. Cardiovascular: Rate and Rhythm: Normal rate and regular rhythm. Pulmonary: Effort: No respiratory distress. Comments: Oxygen 2 L nasal cannula, respirations even and unlabored, speaking full sentences without difficulty Musculoskeletal: Right lower leg: No edema. Left lower leg: No edema. Comments: Gait steady with cane Lymphadenopathy: Cervical: No cervical adenopathy. Neurological: Mental Status: She is alert and oriented to person, place, and time. An electronic signature was used to authenticate this note. Allegra Bonilla APRN - [facility] 09/27/2024 12:50 PM OFFICE VISIT Observed: 09/27/2024 8:00 AM Status: COMPLETED Source: [facility] [id number] Stacia Uriostegui [birth year] F Date Provider Department Center 09/27/2024 [id number] BONILLA [facility] Family History Problem Relation Age of Onset Arthritis Sister High Blood Pressure Mother No Known Problems Father Diabetes Mother Arthritis Brother Heart disease Mother Obesity Sister Heart disease Brother Diabetes Sister Atrial fibrillation Brother Family Status - Relation Status Age at Sister Mother 57 Father Brother Level of Service:72345 MD OFFICE/OUTPATIENT ESTABLISHED MOD MDM 30 MIN Reason for Visit and Comments: Hospital Follow-up [832] Dizziness [[id number]] PROGRESS NOTE Observed: 09/27/2024 8:00 AM Status: COMPLETED Source: [facility] Venipuncture completed Patient was identified by name and date of -orders verified in EPIC. Site cleansed with alcohol swap and using a sterile needle, right AC accessed per [facility]'s policy and procedure. Bandage applied to site no bleeding or hematoma noted, patient tolerated well. X 1 attempts. Advised to leave bandage on for at least 20 minutes to prevent swelling and bruising. PROGRESS NOTE Observed: 09/27/2024 8:00 AM Status: COMPLETED Source: [facility] [employer] [facility] Patient was identified by na me and Date of . 36 Observed: 09/20/2024 11:14 AM Status: COM PLETED [facility] [employer] [facility] Faxed. 29 Observed: 09/20/2024 10:27 AM Status: COMPLETED Source: [facility] Addended by: RAIZA KUMAR on: 09/20/2024 10:27 AM Modules accepted: Orders 36 Observed: 09/20/2024 10:26 AM Status: COMPLETED Source[email or web address] Order signed, please fax to [employer]. PROGRESS NOTE Observed: 09/20/2024 8:50 AM Status: COMPLETED [facility] EMR reviewed. The patient ca nceled her PCP appt. today. She stated she didn't want to take any chances after being in the hospital recently. She plans on calling to reschedule her hospital follow-up appt. PMH: COPD, MS, HYPOTHYROID, ANEMIA, HYPERLIPIDEMIA DM MEDS: Metformin 500mg twice daily Still monitoring blood sugars daily-126 this morning-last night before bed-184. Yesterday morning 121 CM discussed diet-stated has a good appetite. Usually skips breakfast, lunch-eggs and applesauce. Dinner-corn chowder or some type of soup, likes corn bread. Snacks on oranges and donavan food cake. CM discussed with the patient about carbohydrate counting and recommended she have 30-45 gms of carbohydrate per meal. She is going to try and become more familiar with what foods contain carbohydrate and look at nutritional labels. The patient has macular degeneration so CM suggested she use a magnifying glass to look at the labels. COPD MEDS: Using Trelegy inhaler 1 puff daily Using Albuterol inhaler at least 2-3 times daily Using nebulizer once daily Now using 2L O2 continuously Monitoring pulse ox daily-93-97% on 2L O2 Denies any wheezing or SOB The patient was in [facility] and was discharged on 09/06/24. She stated she had RSV and pneumonia. She is regaining her strength. Still has a clear and whitish productive cough. Was taking Mucinex. The patient stated she found a new Psychologist Clinical-Dr. Ney Garcia in [place]. She has her first appt. on 10/11/24. She was seeing Dr. Roca and she wanted a doctor that was closer to her home. She isn't driving anymore and her brother takes her to her medical appts. CM suggested the patient get her RSV and pneumonia vaccines once she has completely recovered from her recent illness. She stated her PCP recommended the vaccines before she became ill, but she never got a chance to go to her local pharmacy and receive them. Plan: The patient will continue to monitor her blood sugars at least once daily. She will monitor her pulse ox daily and keep it above 92%. She will use her Albuterol inhaler and nebulizer as needed for wheezing or SOB. The patient will become more familiar with carbohydrate counting and will try to have 30-45 gms of carbohydrates per meal. CM will follow-up on more time after her Pulmonary appt. in October. Scheduled next outreach. 29 Observed: 09/20/2024 8:40 AM Status: COMPLETED [facility] [employer] [facility] Addended by: RAFAELA GONSALEZ on : 09/20/2024 08:40 AM Modules accepted: Orders 36 Observed: 09/20/2024 8:39 AM Status: COMPLETED Source: [email or web address] We have to send them an orde r with patient info, notes, etc. Pended DME order and I will fax with everything. 36 Observed: 09/19/2024 5:29 PM Status: COMPLETED Source: [facility] Can we reach out to Jillian darling inquire about the forms? It is my understanding this is what needs completed? 36 Observed: 09/19/2024 5:29 PM Status: COMPLETED Source: [facility] I have not received anything 36 Observed: 09/19/2024 5:20 PM Status: COMPLETED Source: [employer] [facility] I am currently caught up on paperwork and did not receive a form. Do we know if we have received anything from [employer]? 36 Observed: 09/19/2024 2:43 PM Status: COMPLETED Source: [facility] Spoke to patient, she did sw itch to [employer] [facility] due to insurance. Patient also states that she needs her lancets, test strips, and alcohol pads sent to [employer]. 36 Observed: 09/19/2024 2:21 PM Status: COMPLETED Source: [email or web address] Name of caller: Chantal Contact phone number: [phone] Relationship to Patient: [facility] Provider: Stacy Practice: [facility] Chief Complaint/Reason for Call: Chantal from [facility] [phone] states physician order needs signed form for nebulizer to [employer] but they haven't received anything and [employer] said they wouldn't reach out to office. She is checking with them now. Please call and let her know of any diff updates. Best time of day caller can be reached: Patient advised that office/PCP has 24-48 business hours to return their call: 36 Observed: 09/16/2024 10:52 AM Status: COMPLETED Source: [facility] Need to know if patient is s tarting to use [employer] home delivery services. 36 Observed: 09/13/2024 7:41 AM Status: COMPLETED Source: [facility] [employer] [facility] Stacia called and said that s he will not be coming to us and that she found a pulmonary doctor closer to her home, 36 Observed: 09/12/2024 3:58 PM Status: COMP LETED Source: [facility] Notified. 36 Observed: 09/12/2024 3:52 PM Status: COMPLETED Source: [facility] Thank you for clarifying. Ok ay to give verbal order. 36 Observed: 09/12/2024 3:44 PM Status: COMPLETED Source: [facility] Please find out if patient i s needing due to current exacerbation? If so, please offer her appt BERTHA for evaluation. 36 Observed: 09/12/2024 3:39 PM Status: COMPLETED Source: [facility] Spoke to Honorio, yes this is f or PT. Okay to give verbal? 36 Observed: 09/12/2024 3:20 PM Status: COMPLETED Source: [employer] [facility] I presume this is for PT? 36 Observed: 09/12/2024 2:57 PM Status: COMPLETED Source: [employer] Name of caller: Honorio Contact phone number: [phone] Relationship to Patient: [facility] Provider: Stacy Practice: [facility] Chief Complaint/Reason for Call: Honorio called in requesting verbal orders for approval to treat the patient twice a week for 4 weeks. Please advise and call Honorio with verbal orders. Best time of day caller can be reached: any Patient advised that office/PCP has 24-48 business hours to return their call: No 36 Observed: 09/12/2024 1:15 PM Status: COMPLETED Source: [employer] [facility] 3 REQUEST FOR THIS RX 36 Observed: 09/12/2024 1:06 PM Status: COMP LETED Source: [employer] Wrong note 36 Observed: 09/12/2024 1:05 PM Status: COMPLETED Source: [employer] Last follow up: 06/22/2024 Next appointment: Visit date not found Allergies Allergen Reactions Iodides Itching Moxifloxacin Avelox Passed out Codeine Other reaction(s): Other (See Comments) Iodinated Contrast Media Bupropion Rash Morphine Nausea And Vomiting Requested Prescriptions Pending Prescriptions Disp Refills predniSONE (Deltasone) 20 MG tablet [Pharmacy Med Name: predniSONE 20 MG Oral Tablet] 10 tablet 0 Sig: TAKE 2 TABLETS ONCE DAILY FOR 5 DAYS 36 Observed: 09/12/2024 1:04 PM Status: COMPLETED Source: [employer] Last follow up: 06/22/2024 Next appointment: Visit date not found Allergies Allergen Reactions Iodides Itching Moxifloxacin Avelox Passed out Codeine Other reaction(s): Other (See Comments) Iodinated Contrast Media Bupropion Rash Morphine Nausea And Vomiting Requested Prescriptions Pending Prescriptions Disp Refills predniSONE (Deltasone) 20 MG tablet [Pharmacy Med Name: predniSONE 20 MG Oral Tablet] 10 tablet 0 Sig: TAKE 2 TABLETS ONCE DAILY FOR 5 DAYS 36 Observed: 09/12/2024 9:08 AM Status: COMPLETED Source: [employer] Please find out if patient i s needing due to current exacerbation? If so, please offer her appt BERTHA for evaluation. 36 Observed: 09/12/2024 8:45 AM Status: COMPLETED Source: [employer] Last follow up: 06/22/2024 Next appointment: Visit date not found Allergies Allergen Reactions Iodides Itching Moxifloxacin Avelox Passed out Codeine Other reaction(s): Other (See Comments) Iodinated Contrast Media Bupropion Rash Morphine Nausea And Vomiting Requested Prescriptions Pending Prescriptions Disp Refills predniSONE (Deltasone) 20 MG tablet [Pharmacy Med Name: predniSONE 20 MG Oral Tablet] 10 tablet 0 Sig: TAKE 2 TABLETS ONCE DAILY FOR 5 DAYS 36 Observed: 09/08/2024 2:38 PM Status: COMPLETED Source: [employer] Thank you, I appreciate the help 36 Observed: 09/08/2024 2:27 PM Status: COMPLETED Source: [email or web address] Chantal states that she sent everything to [employer] and they will send us a form or be calling. 36 Observed: 09/08/2024 2:13 PM Status: COMPLETED Source: [facility] Does that mean they will be sending over a preprinted prescription no we just need to fill out? 36 Observed: 09/08/2024 1:42 PM Status: COMPLETED Source: [employer] Name of caller: Chantal Contact phone number: [phone] Relationship to Patient: [facility] Provider: Stacy Practice: [facility] Chief Complaint/Reason for Call: Letting provider know that Pt needs a nebulizer and a new order is needed. [employer] will reach out to office. Best time of day caller can be reached: N/A Patient advised that office/PCP has 24-48 business hours to return their call: N/A 36 Observed: 08/29/2024 7:07 AM Status: COMP LETED Source: [employer] Noted. 36 Observed: 08/29/2024 6:44 AM Status: COMP LETED Source: [email or web address] Noted. 36 Observed: 08/23/2024 10:40 AM Status: COMPLETED Source: [employer] Agree, thank you 36 Observed: 08/23/2024 10:13 AM Status: COMPLETED Source: [employer] S: Patient spoke with ALEX mckeon regarding difficulty breathing and cough B: Onset of symptoms/concern 08/20 A: Patient states that she is struggling for air, hx of COPD, but worsening since Sat. C/O terrible headache. Has had her O2 on all night. Unsing inhaler and nebulizers at home. Patient is talking in phrases. Patient current HR 115 and O2 97% Denies chest pain and fever. R: Advised patient to be evaluated in ED for difficulty breathing and elevated HR. Patient states that she will call her brother to take her to [facility] ED. Advised the patient that if she needed assistance before then she can call 911. Patient understands care advice. No further needs at this time. Reason for Disposition Previous asthma attacks and this feels like asthma attack MODERATE asthma attack (e.g., SOB at rest, speaks in phrases, audible wheezes) AND doesn't have neb or inhaler available Protocols used: [id number]-PK, Asthma [id number]-ED PROGRESS NOTE Observed: 08/18/2024 11:12 AM Status: COMPLETED Source: [employer] [facility] EMR reviewed. The patient cline d an office appt. with PCP on 08/11/24: ALPESH Islas comes in today for a 6-month follow-up on her multiple health issues which includes COPD with chronic hypoxemia, she also has chronic kidney disease and diabetes. She does bring in blood sugar numbers which are good. She has hypothyroidism which is currently stable and anemia and hypercholesterolemia. Vitals: BP 135/68 Pulse 72 Ht 1.549 m (5' 1) Wt 74.3 kg (163 lb 12.8 oz) SpO2 93% BMI 30.95 kg/m? BSA 1.79 m? PMH: COPD, MS, HYPOTHYROID, ANEMIA, HYPERLIPIDEMIA Follow-up appts: 09/20/24-Pulmonology COPD MEDS: Using Trelegy inhaler 1 puff daily Using Albuterol inhaler at least 3 times daily Using nebulizer once or twice daily Using 2L O2 during the day and as needed during the night Monitoring pulse ox daily-97% on 2L O2, pulse-78 Denies any wheezing Occasional SOB when cooking or doing housework, recovers when resting and using Albuterol inhaler DM MEDS: Metformin 500mg twice daily Hgba1c on 08/11/24 was 6.6. Same as 6 months ago. Monitoring blood sugars once daily-averaging 120-130 CM discussed diet-still skipping breakfast. Drinks coffee with 1/2 and 1/2 during the day. Usually eats around 3pm daily. Snacks during the evening. Last night she ate sunflower seeds and fruit. She stated she is still anemic. Taking 2 iron tablets and 2 calcium per day. We talked about making sure she is eating adequate iron in her diet. She stated her health insurance is changing the first of the year to [facility]. She still wants to get a new motorized scooter, but will wait until after the first of year. She got a flu vaccine recently at her PCP's office. She stated her PCP also recommended an RSV vaccine, which she plans on getting at a local pharmacy. She has a rash on the back of her neck, her scalp and her bilateral elbows. She stated her PCP-Dr. Kumar recommended she use prescription Hydrocortisone cream and Eucerin lotion. The patient denies any current needs. Plan: The patient will continue to monitor her blood sugars and pulse ox daily. CM recommended the patient consume more foods that are rich in iron, such as red meats and spinach. CM will continue to follow-up. Scheduled next outreach. 36 Observed: 08/17/2024 3:51 PM Status: COMP LETED Source: [facility] Rx sent 36 Observed: 08/17/2024 2:15 PM Status: COMPLETED Source: [facility] Spoke to Stacia, send to [facility] in [place]. 36 Observed: 08/17/2024 12:06 PM Status: COMPLETED Source: [facility] Yes, there is a prescription cortisone that is a lot stronger than OTC cortisone cream what pharmacy does she want it sent to you there are 3 on the chart 36 Observed: 08/17/2024 11:24 AM Status: COMPLETED Source: [facility] She states she has used hydr ocortisone cream OTC. It is still itching. She states she has eczema and psoriasis but states this is not acting like either of those. Asking if there is a prescription cream you could send in for her to try before she goes to a newspaper publisher? 36 Observed: 08/16/2024 4:29 PM Status: COMPLETED Source: [facility] There are normal kidney func tion and there is stage I 234 and 5 and she does not have to worry about dialysis or anything like that until stage V. As far as the rash goes I am not sure if she has been using steroid creams that would be what I would recommend and if she has not the neck step would be for her to go to a newspaper publisher. 36 Observed: 08/16/2024 4:25 PM Status: COMPLETED Source: [facility] Notified, asking how many st ages there are and when to worry? She is also asking about the rash she showed you on the back of her neck, states it is also on her elbows. States she showed you her neck at her appointment. Onset months, using lotions and creams and nothing is helping. 36 Observed: 08/16/2024 4:04 PM Status: COMPLETED Source: [facility] Yes, she has stage II chroni c renal insufficiency or decreased kidney function her filtration rate in January was 48 and it had improved to 53 when she had it repeated by Dr. Vance in May. This is actually better than what it has been in the past. This is actually not bad at all, and is not even close to being needing anything like dialysis. This is not unusual for someone her age and this will fluctuate between stage I 2 and 3 depending on fluid intake etc. 36 Observed: 08/16/2024 2:03 PM Status: COMPLETED Source: [facility] Name of caller: Stacia Contact phone number: [phone] Relationship to Patient: patient Provider: Stacy Practice: [facility] Chief Complaint/Reason for Call: Staica called in stating that she was in to see Dr. Kumar on 08/11 and her papers state something about kidney disease, and she stated they never discussed this. She is requesting a call from Dr. Kumar for clarity. Please advise. Best time of day caller can be reached: any Patient advised that office/PCP has 24-48 business hours to return their call: Yes 36 Observed: 08/12/2024 10:04 AM Status: COMPLETED Source: [facility] Pt updated on lab work and i ncreased iron dosing to twice a day. Dosage change pending to be signed. PROGRESS NOTE Observed: 08/11/2024 1:42 PM Status: COMPLETED Source: [facility] Controlled, continue Zetia 1 0 mg daily PROGRESS NOTE Observed: 08/11/2024 1:41 PM Status: COMPLETED Source: [facility] Mild, iron levels are good. PROGRESS NOTE Observed: 08/11/2024 1:41 PM Status: COMPLETED Source: [facility] Controlled, she brings in bl ood sugar numbers which are excellent, continue metformin 500 mg twice a day PROGRESS NOTE Observed: 08/11/2024 1:41 PM Status: COMPLETED Source: [facility] Stable, continue levothyroxi ne 75 mcg daily PROGRESS NOTE Observed: 08/11/2024 1:40 PM Status: COMPLETED Source: [facility] Stable, good blood sugar con trol and blood pressure control to prevent kidney damage. PROGRESS NOTE Observed: 08/11/2024 1:40 PM Status: COMPLETED Source: [facility] Currently stable, continue a lbuterol as needed and Trelegy daily. She also has DuoNeb solution for her nebulizer if needed. PROGRESS NOTE Observed: 08/11/2024 11:00 AM Status: COMPLETED Source: [facility] Patient verified by last nam e and date of . PROGRESS NOTE Observed: 08/11/2024 11:00 AM Status: COMPLETED Source: [facility] 08/11/2024 Stacia Uriostegui (: 1945) is a 78 y.o. female , Established patient, here for evaluation of the following chief complaint(s): COPD, Hyperlipidemia, Hypertension, Diabetes (Pt wonders if she can get off of the metformin?), Anemia (Stopped seen hem/onc doctor ), Hypothyroidism, Medication Check (6 month), and Health Maintenance (Flu vaccine- agree/4th covid vaccine- not done) ASSESSMENT/PLAN: 1. Chronic obstructive pulmonary disease, unspecified COPD type (HCC) Assessment & Plan: Currently stable, continue albuterol as needed and Trelegy daily. She also has DuoNeb solution for her nebulizer if needed. 2. Type 2 diabetes mellitus with stage 2 chronic kidney disease, without long-term current use of insulin (HCC) (HCC) Assessment & Plan: Controlled, she brings in blood sugar numbers which are excellent, continue metformin 500 mg twice a day 3. Stage 2 chronic kidney disease Assessment & Plan: Stable, good blood sugar control and blood pressure control to prevent kidney damage. 4. Acquired hypothyroidism Assessment & Plan: Stable, continue levothyroxine 75 mcg daily 5. Pure hypercholesterolemia Assessment & Plan: Controlled, continue Zetia 10 mg daily 6. New onset type 2 diabetes mellitus (CMS/HCC) (HCC) Assessment & Plan: Controlled, she brings in blood sugar numbers which are excellent, continue metformin 500 mg twice a day Orders: - Microalbumin / creatinine urine ratio - Hemoglobin A1c 7. Anemia in other chronic diseases classified elsewhere Assessment & Plan: Mild, iron levels are good. Orders: - CBC - Iron and TIBC - Ferritin Follow up in about 6 months (around 02/09/2025). SUBJECTIVE/OBJECTIVE: ALPESH Islas comes in today for a 6-month follow-up on her multiple health issues which includes COPD with chronic hypoxemia, she also has chronic kidney disease and diabetes. She does bring in blood sugar numbers which are good. She has hypothyroidism which is currently stable and anemia and hypercholesterolemia. Review of Systems Constitutional: Negative for chills and fever. Respiratory: Negative for shortness of breath. Cardiovascular: Negative for chest pain and palpitations. Gastrointestinal: Negative for abdominal pain, blood in stool, constipation and diarrhea. Genitourinary: Negative for dysuria, frequency, hematuria and urgency. Neurological: Negative for weakness and numbness. Psychiatric/Behavioral: Negative for dysphoric mood. The patient is not nervous/anxious. Vitals: 08/11/24 1054 08/11/24 1145 BP: (!) 148/72 135/68 Pulse: 87 72 SpO2: 93% Weight: 163 lb 12.8 oz (74.3 kg) Height: 5' 1 (1.549 m) Physical Exam Vitals and nursing note reviewed. Constitutional: General: She is not in acute distress. Appearance: Normal appearance. HENT: Head: Normocephalic. Right Ear: Tympanic membrane, ear canal and external ear normal. Left Ear: Tympanic membrane, ear canal and external ear normal. Mouth/Throat: Mouth: Mucous membranes are moist. Pharynx: Oropharynx is clear. Eyes: Extraocular Movements: Extraocular movements intact. Pupils: Pupils are equal, round, and reactive to light. Neck: Thyroid: No thyromegaly. Vascular: No carotid bruit. Cardiovascular: Rate and Rhythm: Normal rate and regular rhythm. Heart sounds: Normal heart sounds. No murmur heard. Pulmonary: Effort: Pulmonary effort is normal. Breath sounds: Normal breath sounds. Abdominal: General: Bowel sounds are normal. Palpations: Abdomen is soft. Musculoskeletal: General: Normal range of motion. Cervical back: Normal range of motion. Lymphadenopathy: Cervical: No cervical adenopathy. Skin: General: Skin is warm and dry. Neurological: General: No focal deficit present. Mental Status: She is alert and oriented to person, place, and time. Psychiatric: Mood and Affect: Mood normal. An electronic signature was used to authenticate this note. Raiza Kumar MD 08/11/2024 1:44 PM OFFICE VISIT Observed: 08/11/2024 11:00 AM Status: COMPLETED Source: [facility] [id number] Stacia Uriostegui [birth year] F Date Provider Department Center 08/11/2024 [id number] KUMARTyron [facility] Family History Problem Relation Age of Onset Arthritis Sister High Blood Pressure Mother No Known Problems Father Diabetes Mother Arthritis Brother Heart disease Mother Obesity Sister Heart disease Brother Diabetes Sister Atrial fibrillation Brother Family Status - Relation Status Age at Sister Mother 57 Father Brother Level of Service:88608 MD OFFICE/OUTPATIENT ESTABLISHED MOD MDM 30 MIN Reason for Visit and Comments: COPD [313] Hyperlipidemia [182] Hypertension [093570] Diabetes [34] - Pt wonders if she can get off of the metformin? Anemia [896274] - Stopped seen hem/onc doctor Hypothyroidism [143] Medication Check [6696300336] - 6 month Health Maintenance [872] - Flu vaccine- agree 4th covid vaccine- not done PROGRESS NOTE Observed: 08/11/2024 11:00 AM Status: COMPLETED [facility] Patient was verified by name and . After obtaining consent, and per orders of Dr. Kumar, injection of Influenza given in left deltoid by Rafaela Gonsalez after cleansing site with alcohol pad. Patient tolerated well. 36 Observed: 08/04/2024 9:14 AM Status: COMPLETED Source: [facility] Prescription Request: Last medication check: 11/19/23 Last physical exam: 02/11/24 Next scheduled appointment: 08/11/24 Last date of refill on this medication 03/10/24 PROGRESS NOTE Observed: 07/06/2024 7:38 AM Status: COMPLETED Source[facility] EMR reviewed. The patient marlyn brown follow-up appt. with Pulmonology on 06/22/24: History of Present Illness Stacia Uriostegui is a 78 y.o. female with past medical history significant for asthma/COPD/bronchiectasis, chronic hypoxic respiratory failure on supplemental oxygen, 60+ pack year tobacco abuse quit in 2008 presents for follow-up coughing spells, patient had a modified barium swallow done which did show some pharyngeal weakness but no penetration of the vocal cords. Assessment and Plan 1. Chronic obstructive pulmonary disease, unspecified COPD type (HCC) As shortness of breath is getting worse repeat PFT - Complete PFT pre and post bronchodilator; Future 2. Chronic respiratory failure with hypercapnia (HCC) Continue supplemental oxygen 3. Tobacco abuse In remission 4. Bronchiectasis without complication (HCC) CT findings reviewed with the patient - Complete PFT pre and post bronchodilator; Future 5. Cough, unspecified type (Primary) Patient advised to increase hypertonic saline to 3 times a day and vest therapy twice a day. Assess response 6. Bronchiectasis Refill - sodium chloride 3% nebulizer solution; Take 3 mL by nebulization 2 times daily as needed for other (chest congestion). Dispense: 360 mL; Refill: 2 Vitals: BP 132/67 Pulse 86 Ht 1.549 m (5' 1) Wt 75 kg (165 lb 6.4 oz) SpO2 96% BMI 31.25 kg/m? BSA 1.8 m? The patient completed PFT's on 07/05/24. PMH: COPD, MS, HYPOTHYROID, ANEMIA, HYPERLIPIDEMIA Follow-up appts: 08/11/24-Family medicine DM MEDS: Metformin 500mg twice daily Still monitoring blood sugars twice daily-this morning-131. Hasn't had any readings over 160. She is still skipping breakfast. She is not a morning person, likes to sleep in. Lunch-banana or yogurt. Dinner last night-meatloaf, beets and cottage cheese. Usually doesn't during the day. Last night snacked on Halloween candy. She tends to eat more in the evening because she skips breakfast and eats a light lunch. The patient asked CM if the doctor would ever take her off of her Metformin. CM told the patient she would have to discuss this with PCP-Dr. Kumar, but her most recent Hgba1c in January was 6.7. We talked about how dietary changes can improve her blood sugar readings and reduce her Hgba1c. COPD MEDS: Using Trelegy inhaler 1 puff daily Using Albuterol inhaler at least 3-4 times daily Using nebulizer up to 4 times daily Using an incentive spirometer after using the nebulizer Using 2L O2 during the day and as needed during the night Monitoring pulse ox [id number]-psrib-55% on 2L O2. Usually 97%. Slight wheezing-has used inhalers yet today Denies any current SOB-resting and drinking morning coffee She stated she never received a new motorized scooter. Her old one is broke. CM has reached out to [employer] in the past. CM gave the patient the phone number for [employer] so she can call and follow-up. She stated she was worn out yesterday after completing PFT's. Plan: The patient will continue to monitor her blood sugars twice daily. We discussed eating a more balanced diet. Eating more for lunch, less snacking in the evening and adding more vegetables to her diet. The patient will continue to monitor her pulse ox daily. She will use her Albuterol inhaler and nebulizer as needed for wheezing and SOB. The patient will contact [employer] regarding a new motorized scooter. CM will continue to follow-up. Scheduled next outreach. PROGRESS NOTE Observed: 06/22/2024 12:15 PM Status: COMPLETED Source: [facility]- Pulmonary and Sleep Ms dicine [address] , [address] [facility] [address] PH: [phone] Visit type: An Established patient 06/22/2024 CHIEF COMPLAINT/REASON FOR REFERRAL: Chief Complaint Patient presents with Follow-up Ct,mbs History of Present Illness Stacia Uriostegui is a 78 y.o. female with past medical history significant for asthma/COPD/bronchiectasis, chronic hypoxic respiratory failure on supplemental oxygen, 60+ pack year tobacco abuse quit in 2008 presents for follow-up coughing spells, patient had a modified barium swallow does which did show some pharyngeal weakness but no penetration of the vocal cords MMRC Dyspnea Scale: Grade Description of Breathlessness 0 I only get breathless with strenuous exercise. 1 I get short of breath when hurrying on level ground or walking up a slight hill. 2 On level ground, I walk slower than people of the same age because of breathlessness, or have to stop for breath when walking at my own pace. 3 I stop for breath after walking about 100 yards or after a few minutes on level ground. 4 I am too breathless to leave the house or I am breathless when dressing. PastMedical History Past Medical History: Diagnosis Date Asthma Cerebral artery occlusion with cerebral infarction (HCC) CHF (congestive heart failure) (HCC) Cholecystitis SCHEDULED FOR THE SURGERY ON 04/09/2017 COPD (chronic obstructive pulmonary disease) (HCC) Incisional hernia SCHEDULED FOR THE SURGERY ON 03/15/2018 Osteoporosis Thyroid disease Past Surgical History Past Surgical History: Procedure Laterality Date BRONCHOSCOPY 10/2023 CHOLECYSTECTOMY N/A 04/09/2017 CHOLECYSTECTOMY COLONOSCOPY COLONOSCOPY EYE SURGERY 2016 cataracts HERNIA REPAIR HYSTERECTOMY Allergies Allergies Allergen Reactions Iodides Itching Moxifloxacin Avelox Passed out Codeine Other reaction(s): Other (See Comments) Iodinated Contrast Media Bupropion Rash Morphine Nausea And Vomiting Medications Current Outpatient Medications: albuterol 108 (90 Base) MCG/ACT inhaler, Inhale 2 puffs every 4 hours as needed for wheezing or shortness of breath., Disp: 18 g, Rfl: 1 Alcohol Swabs (Alcohol Prep) pads, 1 Swab 2 times daily., Disp: 100 each, Rfl: 3 Calcium Carb-Cholecalciferol (Calcium 600+D) 600-10 MG-MCG tablet, Take 2 tablets by mouth daily., Disp: , Rfl: escitalopram (Lexapro) 5 MG tablet, TAKE 1 TABLET (5 MG) BY MOUTH DAILY., Disp: 90 tablet, Rfl: 3 ezetimibe (Zetia) 10 MG tablet, TAKE 1 TABLET (10 MG) BY MOUTH DAILY., Disp: 90 tablet, Rfl: 1 ferrous sulfate (Fe Tabs) 325 (65 Fe) MG EC tablet, Take 1 tablet (325 mg) by mouth daily (with breakfast). Do not crush, chew, or split., Disp: 30 tablet, Rfl: 11 Xcpvsyzzkpp-Xkwsolubp-Hacpkt (Trelegy Ellipta) 200-62.5-25 MCG/ACT aerosol powder , Inhale 1 puff daily., Disp: 60 each, Rfl: 5 glucose blood test strip, Test two times a day & as needed for symptoms of irregular blood glucose. Compatible with Accu-Check Device please., Disp: 200 each, Rfl: 5 ipratropium-albuterol (Duo-Neb) 0.5-2.5 mg/3 mL nebulizer solution, Take 3 mL by nebulization every 6 hours as needed for shortness of breath., Disp: 180 mL, Rfl: 1 Lancet Devices (Prodigy Lancing Device) misc, 1 Device daily., Disp: 1 each, Rfl: 0 levothyroxine (Synthroid, Levoxyl) 75 MCG tablet, TAKE 1 TABLET EVERY DAY, Disp: 30 tablet, Rfl: 5 metFORMIN (Glucophage) 500 MG tablet, Take 1 tablet (500 mg) by mouth in the morning and 1 tablet (500 mg) in the evening. Take with meals., Disp: 180 tablet, Rfl: 1 oxygen (O2) gas, 2 L prn, Disp: , Rfl: pantoprazole (ProtoNix) 40 MG EC tablet, TAKE 1 TABLET (40 MG) BY MOUTH EVERY MORNING (BEFORE BREAKFAST). DO NOT CRUSH, CHEW, OR SPLIT., Disp: 90 tablet, Rfl: 3 Polyethyl Glycol-Propyl Glycol (SYSTANE OP), Administer 1 drop into both eyes in the morning and 1 drop in the evening., Disp: , Rfl: sennosides (Senokot) 8.6 MG tablet, Take 1 tablet (8.6 mg) by mouth 2 times daily., Disp: 60 tablet, Rfl: 0 sodium chloride 3% nebulizer solution, Take 3 mL by nebulization 2 times daily as needed for other (chest congestion)., Disp: 360 mL, Rfl: 2 Spacer/Aero-Holding Chambers device, Use spacer as directed with metered-dose inhaler (Patient not taking: Reported on 06/22/2024), Disp: 1 each, Rfl: 0 Social History Social History Tobacco Use Smoking status: Former Current packs/day: 0.00 Average packs/day: 1 pack/day for 63.5 years (63.5 ttl pk-yrs) Types: Cigarettes Start date: 08/31/1955 Quit date: 02/28/2019 Years since quittin.3 Smokeless tobacco: Never Substance Use Topics Alcohol use: No FamilyHistory Family History Problem Relation Name Age of Onset Arthritis Sister High Blood Pressure Mother No Known Problems Father Diabetes Mother Arthritis Brother Heart disease Mother Obesity Sister Heart disease Brother Diabetes Sister Atrial fibrillation Brother Review of Systems Review of Systems Constitutional: Positive for fatigue. Negative for activity change, appetite change, chills, fever and unexpected weight change. HENT: Positive for congestion. Negative for postnasal drip, rhinorrhea, sinus pressure, sneezing and sore throat. Respiratory: Positive for cough and shortness of breath. Negative for apnea, chest tightness and wheezing. Cardiovascular: Negative for chest pain, palpitations and leg swelling. Allergic/Immunologic: Negative for environmental allergies. Psychiatric/Behavioral: Negative for sleep disturbance. Physical Exam Vitals: 06/22/24 1218 06/22/24 1223 BP: (!) 146/72 132/67 Pulse: 86 SpO2: 96% Weight: 165 lb 6.4 oz (75 kg) Height: 5' 1 (1.549 m) Physical Exam Constitutional: General: She is not in acute distress. Appearance: She is obese. She is not ill-appearing. Cardiovascular: Rate and Rhythm: Normal rate and regular rhythm. Heart sounds: No murmur heard. Pulmonary: Effort: No respiratory distress. Breath sounds: Rhonchi present. No wheezing or rales. Musculoskeletal: Right lower leg: No edema. Left lower leg: No edema. Skin: General: Skin is warm and dry. Capillary Refill: Capillary refill takes less than 2 seconds. Psychiatric: Mood and Affect: Mood normal. Behavior: Behavior normal. Data Reviewed and Summarized LABS and Studies: Available studies were personally reviewed. Salient findings summarized in HPI & A/P Imaging: Available studies were personally reviewed. Salient findings summarized in HPI & A/P CT scan of the chest done on 17 June 2024 shows COPD with bronchiectasis right-sided mucous plugging and reticulonodular and trace groundglass interstitial disease PFT's: Pulmonary Functions Testing Results: No results found for: FEV1, FVC, RAQ9ROV, TLC, DLCO Assessment and Plan 1. Chronic obstructive pulmonary disease, unspecified COPD type (HCC) As shortness of breath is getting worse repeat PFT - Complete PFT pre and post bronchodilator; Future 2. Chronic respiratory failure with hypercapnia (HCC) Continue supplemental oxygen 3. Tobacco abuse In remission 4. Bronchiectasis without complication (HCC) CT findings reviewed with the patient - Complete PFT pre and post bronchodilator; Future 5. Cough, unspecified type (Primary) Patient advised to increase hypertonic saline to 3 times a day and vest therapy twice a day. Assess response 6. Bronchiectasis Refill - sodium chloride 3% nebulizer solution; Take 3 mL by nebulization 2 times daily as needed for other (chest congestion). Dispense: 360 mL; Refill: 2 Roge Roca MD Pulmonary, Critical Care, & Sleep Medicine Portions of the information within this encounter were entered using an electronic dictation system. Best attempts were made to edit/proofread the information prior to note completion. Despite the review of information, some errors may remain. If there are questions related to the information contained within the note please contact the 37 Observed: 06/22/2024 12:15 PM Status: COMPLETED Source: [facility] YOUR APPOINTMENT TODAY WAS W ITH THE [facility] L[facility]G [facility], COPD CLINIC, PULMONARY AND SLEEP MEDICINE OFFICE. PLEASE CALL OUR OFFICE AT [phone] for our [place] office location or [phone] for our [place] location, IF YOU HAVE NOT RECEIVED YOUR TEST RESULTS 7 DAYS AFTER TESTING IS COMPLETED. PLEASE REMEMBER TO REQUEST REFILLS AT YOUR OFFICE VISITS. PHONE/FAX REQUESTS REQUIRE 48-72 HOURS FOR RESPONSE. A FRIENDLY REMINDER COPAYS ARE DUE AT TIME OF SERVICE. THANK YOU. Our Patients Are Important! We want to improve and you can help. After your visit we want you to feel: Listened to, Respected and have your health care explained. You may receive a survey asking you about your visit. Please complete the survey. We will use your feedback to make improvements. COVID-19 VACCINATION INFORMATION: PH. [phone] HEALTH.ORG/CORONAVIRUS/VACCINE [facility] Central Scheduling [phone] [facility] Sleep Scheduling [phone] OFFICE VISIT Observed: 06/22/2024 12:15 PM Status: COMPLETED Source: [facility] [id number] Stacia Uriostegui [birth year] F Date Provider Department Center 06/22/2024 [id number] ROCA SHMGMITPULM None Family History Problem Relation Age of Onset Arthritis Sister High Blood Pressure Mother No Known Problems Father Diabetes Mother Arthritis Brother Heart disease Mother Obesity Sister Heart disease Brother Diabetes Sister Atrial fibrillation Brother Family Status - Relation Status Age at Sister Mother 57 Father Brother Level of Service:[id number] MD OFFICE/OUTPATIENT ESTABLISHED MOD [facility] 30 MIN Reason for Visit and Comments: Follow-up [[id number]] - Ct,mbs CT CHEST WO IV CONTRAST Observed: 2023 7:44 AM Status: F Source: [facility] Patient Name: STACIA URIOSTEGUI : 1945 [facility]#: [id number] Exam Date/Time: 06/17/2024 10:30 Procedure: CT CHEST WO IV CONTRAST Ordering Provider: WIGGINS JULIE Reason For Exam: follow up GGO Examination: CT chest Clinical Indication: follow up GGO Comparison: 01/06/2024 Findings: Serial axial [address] images were obtained through the chest and upper abdomen without administration of intravenous contrast. Coronal, sagittal and axial images reconstructed. Dose reduction was employed with automated exposure control. Lungs appear hyperinflated. There is some centrilobular cystic changes, COPD. Some areas of linear scarring. There is some subtle upper lobe reticulonodular opacity and atelectasis. There is trace groundglass opacity in the more anterior right upper lobe. There is some areas of right lung mucous plugging. There is scattered bronchiectasis. There is bronchial wall thickening suggesting bronchitis. Overall appearance not significantly changed. No axillary or mediastinal lymphadenopathy. Tiny lymph nodes are present. Heart size is normal with trace pericardial thickening unchanged. Coronary artery atherosclerotic calcifications are present. Heart size within normal limits. Aorta demonstrates mild atherosclerotic calcification. Limited evaluation of the upper abdomen demonstrates hypodense lesions within the liver measuring up to 1.2 cm, not significantly changed and indeterminate. These could represent cysts or hemangiomas. IMPRESSION: Impression: 1. COPD changes with bronchiectasis, scarring, some right-sided mucous plugging, and reticular nodular and trace groundglass interstitial disease not significantly changed. Findings may represent atypical pneumonia aspiration or MAC. 2. Minimal pericardial thickening unchanged. 3. Liver hypodensities unchanged, nonspecific. Report Dictated on Electronically Signed By: Freddie Murrieta MD Electronically Signed Date/Time: 06/22/2024 7:44 AM EDT COUGH SINCE FOREVER PER PT NCC 36 Observed: 06/20/2024 4:00 PM Status: COMPLETED Source: [facility] Rx sent. Follow up as schedu led. 36 Observed: 06/20/2024 3:12 PM Status: COMPLETED Source: [facility] Prescription Request: Last medication check: 08/12/23 Last physical exam: 02/11/24 Next scheduled appointment: 08/11/24 Last date of refill on this medication 10/22/23 PROGRESS NOTE Observed: 06/15/2024 11:30 AM Status: COMPLETED Source: [facility] Speech-Language Pathology SPEECH LANGUAGE PATHOLOGY [facility] Modified Barium Swallow Study Patient Name: Stacia Uriostegui Evaluation Date: 06/15/2024 Date of : 1945 Admission Date: 06/15/2024 11:10 AM Age: 78 y.o. Room/Bed: Room/bed info not found IMPRESSION: The patient presents with mild oral phase dysphagia associated with reduced oral bolus control. There is mild pharyngeal phase dysphagia associated with pharyngeal wall weakness, incomplete epiglottic deflection, pharyngoceles, and cervical osteophytes. Pt with mild to moderate amount of transient laryngeal vestibule penetration during cup drinks of mild and thin liquids and trace with straw drinks of thin liquids. Near vocal cord penetration but did not clearly visualize true vocal cord penetration during the swallowing study. Pt could be at increased risk of vocal cord penetration with increased respiratory effort. RECOMMENDATION: Recommend Easy to chew solids and Thin liquids and meds whole in puree and the following precautions: - Upright positioning for all PO intake and reflux precautions (not laying flat after eating) - Slow rate of intake - Small bites/sips -Consider single straw drinks as strategy - Re-swallow every few bites to clear small amount of pharyngeal residuals Penetration-Aspiration Scale: 2. Contrast enters the airway, remains above the vocal folds, and is ejected from the airway (not seen in the airway at the end of the swallow). Pt may benefit from formal education of swallowing strategies, airway closure exercises with improved epiglottic deflection. General Initial MBS completed to assess the efficiency of her swallow function, rule out aspiration, and make recommendations regarding safe dietary consistencies, effective compensatory strategies, and safe eating environment. (Pt indicated h/o of MBSS, however unable to locate in medical records/care everywhere) Subjective: Pt was alert and pleasant. Carried portable O2 tank to support nasal cannula. Radiologist: DENAE Celaya/Dr. Degroot Prior MBSS?: Not found in the EMR. Per pt h/o same with need for thickened liquids. Unable to locate. May have been completed at [facility]. Baseline Diet: Regular diet with thin liquids. Textures tested: - thin liquid, (cup edge, straw, sequential swallows, self administered) - mildly thick liquid, (cup edge, self administered) - puree, (teaspoon, self administered) - regular solids Patient position: lateral Past Medical History: Past Medical History: Diagnosis Date Asthma Cerebral artery occlusion with cerebral infarction ([facility]) CHF (congestive heart failure) ([facility]) Cholecystitis SCHEDULED FOR THE SURGERY ON 04/09/2017 COPD (chronic obstructive pulmonary disease) ([facility]) Incisional hernia SCHEDULED FOR THE SURGERY ON 03/15/2018 Osteoporosis Thyroid disease Past Surgical History: Past Surgical History: Procedure Laterality Date BRONCHOSCOPY 10/2023 CHOLECYSTECTOMY N/A 04/09/2017 CHOLECYSTECTOMY COLONOSCOPY COLONOSCOPY EYE SURGERY 2015 cataracts HERNIA REPAIR HYSTERECTOMY Admission Diagnosis: Patient Active Problem List Diagnosis Date Noted New onset type 2 diabetes mellitus ([facility]) ([facility]) 10/08/2023 Shortness of breath 09/30/2023 NSTEMI (non-ST elevated myocardial infarction) ([facility]) 09/01/2023 Exudative age-related macular degeneration, right eye, with inactive choroidal neovascularization ([facility]) 02/09/2023 Age-related osteoporosis without current pathological fracture 02/09/2023 Acute bilateral low back pain without sciatica 09/08/2022 Urinary hesitancy 09/08/2022 Leukocytes in urine 09/08/2022 Regular astigmatism of left eye 02/11/2022 Blindness right eye category 4, low vision left eye category 1 02/11/2022 Dry eye syndrome, bilateral 09/21/2020 COPD (chronic obstructive pulmonary disease) ([facility]) 02/06/2021 Lung nodule 10/31/2020 Superficial punctate keratitis 08/09/2019 Menopause present 08/09/2019 Pseudophakia of both eyes 04/12/2019 Punctate keratitis, bilateral 04/12/2019 Vitelliform lesion of macula 04/12/2019 Pure hypercholesterolemia 04/12/2019 Nonexudative age-related macular degeneration, left eye, early dry stage 04/12/2019 Incarcerated incisional hernia 03/15/2018 Incisional hernia, without obstruction or gangrene 03/05/2018 Hypophosphatemia 07/04/2017 Tobacco abuse 07/04/2017 Stress hyperglycemia 07/04/2017 Chronic respiratory failure (HCC) 07/04/2017 Anemia in other chronic diseases classified elsewhere 01/29/2017 Hypothyroidism 12/24/2016 Nuclear sclerotic cataract of left eye 08/07/2016 Pain: Pt denies any current pain. Reason for current admission: Pt with complaint of chronic coughing. Intermittent pills sticking at level of larynx. Additional drink of water assist with clearing. Reflux noted x6 months and seen improvement after taking medication. H/o use of thickened liquids that she used for approximately 2 weeks. Reflux h/o. Oral Phase Mild oral loss and decreased control with liquids (thin and mildly thick) spilling to the pharynx (piriform at times) prior to onset of the swallowing. Functional oral manipulation and control with other textures noted during the swallowing study this date. Very mild intermittent oral residuals that pt does clear with a second spontaneous swallow (given additional time) Pharyngeal Phase +mild reduction in posterior pharyngeal wall constriction with reduced consistent epiglottic deflection resulting in flash (trace to moderate amount) laryngeal vestibule penetration that clears on conclusion of the swallow. Transient penetration to near vocal cords-no true vocal cord penetration was observed during this test; at risk, especially with fatigue and increased coughing (as reported, but not observed during po of barium). Very mild and intermittent vallecular and piriform residuals observed with thin, mildly thick and puree textures. +small pharyngocele empties at conclusion of swallow that contributes to piriform residuals. Occasional re-swallow is effective to clear residuals. Noted during 3 straw drinks-reduced degree of transient penetration during use of straw during this study. Esophageal Phase The esophagus was not visualized below the level of the UES. Noted: cricopharyngeal hypertrophy Discussed reflux precautions; upright 1-2 hours before laying down. Smaller more frequent meals. Education The preliminary results of this evaluation were briefly shared with the patient. Goals Patient Stated Goal: To figure out how to minimize cough. Pharyngeal strengthening and swallowing strategies to maximize airway protection. Therapy Time LEAD JAVASCRIPT ENGINEER Individual Minutes Time In: 1140 Time Out: 1210 Minutes: 30 ALPESH Hester PROGRESS Observed: 06/09/2024 10:57 AM Status: COMPLETED Source: [facility] HNO ID: [id number] Author: MARCELL CHRISTOPHER MD Service: ? Author Type: Physician Type: Progress Notes Filed: 06/09/2024 10:58 Note Text: Exudative Age related macular degeneration right eye with atrophy with likely degenerative cysts over area -S/p Avastin right eye 06/27/2020, now with atrophy -Previously stopped taking AREDS (vertigo and rash), but now taking again -saw Dr. 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 I have seen and examined this patient. I have discussed the case and the management of this patient's care with the Resident, if applicable. I also have reviewed and agree with the assessment and plan as stated above and agree with all of its relevant components. PROGRESS NOTE Observed: 06/03/2024 2:12 PM Status: COMPLETED Source: [facility] EMR reviewed. The patient cline lisset an appt. with Hematology & Oncology on 24: 78 yo F with COPD on supplemental O2, DM type 2, HLD, osteoporosis on once yearly Reclast, who was referred to hematology in Oct 2023 for evaluation of chronic anemia. ?component of CKD as well - I suspect the anemia is secondary to anemia of chronic disease +/- iron deficiency component. Hb is stable at 9.9 and her recent iron levels have trended downward and are borderline deficient. Recommend that she resume ferrous sulfate 325mg PO once daily and will monitor cbc and iron panel again in 6 months. Vitals: BP 118/66 (BP Location: Right arm, Patient Position: Sitting) Pulse 72 Temp 35.7 ?C (96.3 ?F) Important (Temporal) Ht 1.549 m (5' 1) Wt 75.2 kg (165 lb 11.2 oz) SpO2 98% BMI 31.31 kg/m? BSA 1.8 m? Pain Sc 0-No pain PMH: COPD, MS, HYPOTHYROID, ANEMIA, HYPERLIPIDEMIA Follow-up appts: 06/22/24-Pulmonology COPD MEDS: Using Trelegy inhaler 1 puff daily Using Albuterol inhaler at least 4 times daily Using nebulizer 4 times daily Using an incentive spirometer after using the nebulizer Using 2L O2 during the day and as needed during the night Monitoring pulse ox daily-97% on RA Slight wheezing today-currently washing dishes and sounds SOB on the phone. She used her inhaler and sat down to rest and recovered. DM MEDS: Metformin 500mg twice daily Monitoring blood sugars twice daily-116 in the morning, 130-190 before bedtime CM discussed diet-usually skips breakfast. Eats first meal at 2pm. CM talked to the patient about having more balanced meals and trying to eat something for breakfast. She was agreeable to try. Not able to exercise due to SOB. Able to do yard work. CM encouraged the patient to do her activities in stages and resting when needed. She stated she still hasn't got her new motorized scooter. Her old one is not working and is sitting on the front porch. She stated she is fine while she is in the house. She gets SOB while working outside and needs it to go longer distances. CM previously called [facility] to inquire about the patient's motorized scooter and they needed a physician order. CM will follow-up with [facility] to make sure they received a PCP order. The patient isn't driving due to her vision-macular degeneration. Her brother or granddaughter drives her to her appts. Her daughter takes her to the grocery store. Plan: The patient will continue to monitor her blood sugars twice daily. She will eat more balanced meals and not skip breakfast. She will continue to monitor her pulse ox daily and use O2 when needed. CM will follow-up with [facility]-medical equipment supplier to make sure they received a physical order for the motorized scooter. CM will continue to follow-up. Scheduled next outreach. PROGRESS NOTE Observed: 06/02/2024 1:45 PM Status: COMPLETED Source: [facility] Hematology/Oncology Office V isit Consultation/Referral Reason: anemia Referred by: Dr. Kumar HPI: Stacia Uriostegui is a 78 y.o. female who was referred to hematology for evaluation of chronic anemia in Oct 2023. Records from her PCP were reviewed and summarized. She is accompanied by her brother today who also contributed to today's history. She has been hospitalized twice in the past 2 months. Prior to this, she had mild anemia with a hb approximately 11.3 dating back to 2020. She had been taking ferrous sulfate 325mg PO once daily for the past few years. She reports the iron tablets were stopped a few weeks ago while she was in the hospital. During her hospitalizations, her hb was between 8.0 and 9.9. She was first admitted 09/01/23 to 09/05/23 with shortness of breath and was treated for NSTEMI and COPD exacerbation with IV steroids, nebulizers, and supplemental O2. She was then re-admitted for the same from 09/29/23 to 10/06/23 for COPD exacerbation, chronic respiratory failure, bronchiectasis and treated for H flu. Hb was noted to be in the 8s during this admission. Iron panel was checked and was within normal limits. Stool for occult blood negative. She was treated with long PO steroid taper. Lab work from 10/27/23 showed improvement in the hemoglobin from 8.2 to 10.0. Iron, b12, and folate were within normal limits. Lab work from 05/18/24 showed a stable hb of 9.9. EGFR slightly low 53, ?CKD. Normal free light chain ratio. Iron levels are trending downward and are borderline deficient. She has been off of iron tablets for several months. SPEP negative for monoclonal protein. Today, she is here for routine follow up. She feels about the same today. We reviewed her lab work from 05/18/24 as noted above. +shortness of breath is at baseline. +fatigue. No new concerns. She denies any bleeding. No chest pain. No recent infections. No fevers. No abdominal pain. Past Medical History: Diagnosis Date Asthma Cerebral artery occlusion with cerebral infarction (HCC) CHF (congestive heart failure) (HCC) Cholecystitis SCHEDULED FOR THE SURGERY ON 04/09/2017 COPD (chronic obstructive pulmonary disease) (HCC) Incisional hernia SCHEDULED FOR THE SURGERY ON 03/15/2018 Osteoporosis Thyroid disease Past Surgical History: Procedure Laterality Date BRONCHOSCOPY 10/2023 CHOLECYSTECTOMY N/A 04/09/2017 CHOLECYSTECTOMY COLONOSCOPY COLONOSCOPY EYE SURGERY 2016 cataracts HERNIA REPAIR HYSTERECTOMY Patient Active Problem List Diagnosis Date Noted New onset type 2 diabetes mellitus ([facility]) ([facility]) 10/08/2023 Shortness of breath 09/30/2023 NSTEMI (non-ST elevated myocardial infarction) ([facility]) 09/01/2023 Exudative age-related macular degeneration, right eye, with inactive choroidal neovascularization ([facility]) 02/09/2023 Age-related osteoporosis without current pathological fracture 02/09/2023 Acute bilateral low back pain without sciatica 09/08/2022 Urinary hesitancy 09/08/2022 Leukocytes in urine 09/08/2022 Regular astigmatism of left eye 02/11/2022 Blindness right eye category 4, low vision left eye category 1 02/11/2022 Dry eye syndrome, bilateral 09/21/2020 COPD (chronic obstructive pulmonary disease) ([facility]) 02/06/2021 Lung nodule 10/31/2020 Superficial punctate keratitis 08/09/2019 Menopause present 08/09/2019 Pseudophakia of both eyes 04/12/2019 Punctate keratitis, bilateral 04/12/2019 Vitelliform lesion of macula 04/12/2019 Pure hypercholesterolemia 04/12/2019 Nonexudative age-related macular degeneration, left eye, early dry stage 04/12/2019 Incarcerated incisional hernia 03/15/2018 Incisional hernia, without obstruction or gangrene 03/05/2018 Hypophosphatemia 07/04/2017 Tobacco abuse 07/04/2017 Stress hyperglycemia 07/04/2017 Chronic respiratory failure ([facility]) 07/04/2017 Anemia in other chronic diseases classified elsewhere 01/29/2017 Hypothyroidism 12/24/2016 Nuclear sclerotic cataract of left eye 08/07/2016 Social History Tobacco Use Smoking status: Former Current packs/day: 0.00 Average packs/day: 1 pack/day for 63.5 years (63.5 ttl pk-yrs) Types: Cigarettes Start date: 08/31/1955 Quit date: 02/28/2019 Years since quittin.2 Smokeless tobacco: Never Vaping Use Vaping status: Never Used Substance Use Topics Alcohol use: No Drug use: No Family History Problem Relation Name Age of Onset Arthritis Sister High Blood Pressure Mother No Known Problems Father Diabetes Mother Arthritis Brother Heart disease Mother Obesity Sister Heart disease Brother Diabetes Sister Atrial fibrillation Brother Allergies Allergen Reactions Iodides Itching Moxifloxacin Avelox Passed out Codeine Other reaction(s): Other (See Comments) Iodinated Contrast Media Bupropion Rash Morphine Nausea And Vomiting Current Outpatient Medications Medication Sig Dispense Refill albuterol 108 (90 Base) MCG/ACT inhaler Inhale 2 puffs every 4 hours as needed for wheezing or shortness of breath. 18 g 1 Alcohol Swabs (Alcohol Prep) pads 1 Swab 2 times daily. 100 each 3 Calcium Carb-Cholecalciferol (Calcium 600+D) 600-10 MG-MCG tablet Take 2 tablets by mouth daily. escitalopram (Lexapro) 5 MG tablet TAKE 1 TABLET (5 MG) BY MOUTH DAILY. 90 tablet 3 ezetimibe (Zetia) 10 MG tablet Take 1 tablet (10 mg) by mouth daily. 90 tablet 1 ferrous sulfate (Fe Tabs) 325 (65 Fe) MG EC tablet Take 1 tablet (325 mg) by mouth daily (with breakfast). Do not crush, chew, or split. 30 tablet 11 Pzjtphfeoix-Dbhhvmgsr-Mgvdeb (Trelegy Ellipta) 200-62.5-25 MCG/ACT aerosol powder Inhale 1 puff daily. 60 each 5 glucose blood test strip Test two times a day & as needed for symptoms of irregular blood glucose. Compatible with Accu-Check Device please. 200 each 5 ipratropium-albuterol (Duo-Neb) 0.5-2.5 mg/3 mL nebulizer solution Take 3 mL by nebulization every 6 hours as needed for shortness of breath. 180 mL 1 Lancet Devices (Prodigy Lancing Device) misc 1 Device daily. 1 each 0 levothyroxine (Synthroid, Levoxyl) 75 MCG tablet TAKE 1 TABLET EVERY DAY 30 tablet 5 metFORMIN (Glucophage) 500 MG tablet Take 1 tablet (500 mg) by mouth in the morning and 1 tablet (500 mg) in the evening. Take with meals. 180 tablet 1 oxygen (O2) gas 2 L prn pantoprazole (ProtoNix) 40 MG EC tablet TAKE 1 TABLET (40 MG) BY MOUTH EVERY MORNING (BEFORE BREAKFAST). DO NOT CRUSH, CHEW, OR SPLIT. 90 tablet 3 Polyethyl Glycol-Propyl Glycol (SYSTANE OP) Administer 1 drop into both eyes in the morning and 1 drop in the evening. sennosides (Senokot) 8.6 MG tablet Take 1 tablet (8.6 mg) by mouth 2 times daily. 60 tablet 0 sodium chloride 3 % nebulizer solution sodium chloride 3% nebulizer solution Take 3 mL by nebulization 2 times daily as needed for other (chest congestion). 360 mL 2 Spacer/Aero-Holding Chambers device Use spacer as directed with metered-dose inhaler 1 each 0 No current facility-administered medications for this visit. Review of Systems Constitutional: Positive for fatigue. Negative for appetite change, chills, diaphoresis, fever and unexpected weight change. HENT: Negative for dental problem, mouth sores, nosebleeds, sneezing, sore throat, tinnitus, trouble swallowing and voice change. Eyes: Negative for photophobia, pain and visual disturbance. Respiratory: Positive for shortness of breath. Negative for cough and wheezing. Cardiovascular: Negative for chest pain, palpitations and leg swelling. Gastrointestinal: Negative for abdominal distention, abdominal pain, blood in stool, constipation, diarrhea, nausea and vomiting. Endocrine: Negative for cold intolerance and heat intolerance. Genitourinary: Negative for difficulty urinating, frequency, hematuria and urgency. Musculoskeletal: Negative for arthralgias, back pain, gait problem and myalgias. Skin: Negative for pallor and rash. Allergic/Immunologic: Negative for immunocompromised state. Neurological: Negative for dizziness, syncope, weakness, light-headedness, numbness and headaches. Hematological: Negative for adenopathy. Does not bruise/bleed easily. Psychiatric/Behavioral: Negative for confusion and sleep disturbance. The patient is not nervous/anxious. All other systems reviewed and are negative. Vitals: 06/02/24 1346 BP: 118/66 BP Location: Right arm Patient Position: Sitting Pulse: 72 Temp: (!) 35.7 ?C (96.3 ?F) TempSrc: Temporal SpO2: 98% Weight: 75.2 kg (165 lb 11.2 oz) Height: 1.549 m (5' 1) ECOG PS = 2 Physical Exam Vitals and nursing note reviewed. Constitutional: General: She is not in acute distress. Appearance: Normal appearance. She is obese. She is not ill-appearing. HENT: Head: Normocephalic and atraumatic. Nose: Nose normal. Mouth/Throat: Pharynx: Oropharynx is clear. No oropharyngeal exudate or posterior oropharyngeal erythema. Eyes: General: No scleral icterus. Extraocular Movements: Extraocular movements intact. Conjunctiva/sclera: Conjunctivae normal. Pupils: Pupils are equal, round, and reactive to light. Cardiovascular: Rate and Rhythm: Normal rate and regular rhythm. Heart sounds: Normal heart sounds. No murmur heard. Pulmonary: Effort: Pulmonary effort is normal. No respiratory distress. Breath sounds: Normal breath sounds. No wheezing. Abdominal: General: Abdomen is flat. Bowel sounds are normal. There is no distension. Palpations: Abdomen is soft. There is no mass. Tenderness: There is no abdominal tenderness. There is no guarding. Musculoskeletal: General: No swelling or tenderness. Normal range of motion. Cervical back: Normal range of motion and neck supple. Right lower leg: No edema. Left lower leg: No edema. Lymphadenopathy: Cervical: No cervical adenopathy. Skin: General: Skin is warm and dry. Findings: No bruising or rash. Neurological: General: No focal deficit present. Mental Status: She is alert and oriented to person, place, and time. Mental status is at baseline. Psychiatric: Mood and Affect: Mood normal. Thought Content: Thought content normal. Imaging/Labs: No visits with results within 1 Month(s) from this visit. Latest known visit with results is: Telephone on 03/09/2024 Component Date Value Ref Range Status TSH 04/06/2024 1.50 0.40 - 4.50 mIU/L Final Lab Results Component Value Date WBC 8.9 05/18/2024 HGB 9.9 (L) 05/18/2024 HCT 31.5 (L) 05/18/2024 MCV 86.3 05/18/2024 PLT 317 05/18/2024 Lab Results Component Value Date GLUCOSE 128 (H) 05/18/2024 CALCIUM 9.2 05/18/2024 NA 134 (L) 10/06/2023 K 4.6 10/06/2023 CO2 28 05/18/2024 CL 100 10/06/2023 BUN 15 05/18/2024 CREATININE 1.08 (H) 05/18/2024 Lab Results Component Value Date ALT 12 05/18/2024 AST 17 05/18/2024 ALKPHOS 64 05/18/2024 BILITOT 0.4 05/18/2024 Lab Results Component Value Date IRON 55 01/06/2024 TIBC 296 01/06/2024 FERRITIN 17 05/18/2024 Imaging Reviewed: CT chest wo IV contrast Narrative: Patient Name: STACIA URIOSTEGUI : 1945 [facility]#: [id number] Exam Date/Time: 01/06/2024 11:35 Procedure: CT CHEST WO IV CONTRAST Ordering Provider: WIGGINS JULIE Reason For Exam: Pneumonia, complication suspected, xray done CHEST CT WITHOUT IV CONTRAST History: Pneumonia, follow-up, former smoker Comparison CT: 09/30/2023 Technique: Multislice volume acquisition axial CT sections from the chest apex to the diaphragm without IV contrast enhancement are submitted . Multiplanar sagittal and coronal reconstructed images also obtained. Dose reduction employed with automated exposure control. Findings: There are bilateral chronic interstitial lung changes with centrilobular emphysema, linear atelectasis, and peribronchial thickening. There is redemonstration of atelectasis/infiltrate and bronchiectasis in the lingula and right middle lobe, not significantly changed from last exam. There are less defined residual patchy reticulonodular opacities scattered in both lungs, particularly in the posterior right upper lobe and both lower lobes, some have decreased. There is small new groundglass infiltrate in the anterior right upper lobe and small linear atelectasis both lower lobe bases. There is no sizable hilar, mediastinal, or axillary lymphadenopathy allowing for subcentimeter nonspecific mediastinal lymph nodes. The heart is normal in size. There are coronary artery, aortic, and other atherosclerotic calcifications. There is mild pericardial thickening or less likely minimal effusion, unchanged. There is spondylosis. Partially visualized upper abdomen shows unremarkable bilateral adrenals. Partially visualized liver redemonstrate multiple, up to 1.2 cm hypodensities too small to characterize for possible cysts or hemangiomas versus other abnormality. Impression: Chronic lung changes with emphysema. Right middle lobe and lingular and plate, atelectasis, and bronchiectasis, unchanged. Less defined patchy reticular nodular opacities/infiltrates in both lungs, some have decreased. Small new right upper lobe groundglass infiltrate and linear basilar atelectasis. Findings could reflect infection process but require continued evaluation and follow-up CT to assess clearing and exclude other abnormality. No sizable lymphadenopathy. Pericardial thickening, unchanged. Liver hypodensities too small to characterize, similar to prior. Report Dictated on Electronically Signed By: Wilmer Aranda MD Electronically Signed Date/Time: 01/08/2024 4:16 PM EDT - I have reviewed all available pertinent laboratory, imaging and pathology results with the patient and/or family members today. Assessment/Plan: Diagnosis Plan 1. Anemia in other chronic diseases classified elsewhere ferrous sulfate (Fe Tabs) 325 (65 Fe) MG EC tablet CBC auto differential Iron and TIBC Ferritin 78 yo F with COPD on supplemental O2, DM type 2, HLD, osteoporosis on once yearly Reclast, who was referred to hematology in Oct 2023 for evaluation of chronic anemia. ?component of CKD as well - I suspect the anemia is secondary to anemia of chronic disease +/- iron deficiency component. Hb is stable at 9.9 and her recent iron levels have trended downward and are borderline deficient. Recommend that she resume ferrous sulfate 325mg PO once daily and will monitor cbc and iron panel again in 6 months. All questions were answered to the satisfaction of the patient and/or family. Return to office in 6 months, or sooner if worrisome signs/symptoms arise. Magali Vance DO Hematology/Medical Oncology OFFICE VISIT Observed: 06/02/2024 1:45 PM Status: COMPLETED Source: [facility] [id number] Stacia Uriostegui [birth year] F Date Provider Department Center 06/02/2024 [id number] VANCE [facility] ONC None Family History Problem Relation Age of Onset Arthritis Sister High Blood Pressure Mother No Known Problems Father Diabetes Mother Arthritis Brother Heart disease Mother Obesity Sister Heart disease Brother Diabetes Sister Atrial fibrillation Brother Family Status - Relation Status Age at Sister Mother 57 Father Brother Level of Service:[id number] MD OFFICE/OUTPATIENT ESTABLISHED LOW MDM 20 MIN Reason for Visit and Comments: Anemia [286823] - Patient states that she doesn't take any oral iron supplement and wonders if she should. ALLERGIES DATE TYPE / CODE NAME / CODE REACTION SEVERITY SOURCE 07/21/2018 DRUG INGREDI/7960375 03(SNOMED CT) MORPHINE GI UPSET [facility] 03/23/2018 DRUG/[id number]( SNOMED CT) IODIDES ITCHING High [facility] 11/02/2017 DRUG INGREDI/1057621 03(SNOMED CT) MOXIFLOXACIN HCL OTHER: [facility] 04/15/2016 DRUG INGREDI/3616498 03(SNOMED CT) BUPROPION RASH Low [facility] 04/11/2004 DRUG INGREDI/8017642 03(SNOMED CT) CODEINE Mental Chg [facility] ENCOUNTERS ADMIT/DISCHARGE ACCOUNT NUMBER ADMITTING ENCOUNTER CLASS LOCATION SOURCE 05/12/2025/ 5 [id number] Ambulatory Buildin [id number] [facility] 05/11/2025/ 5 [id number] [facility] 04/13/2025/ 5 [id number] [facility] 02/14/2025/ 5 [id number] Ambulatory Buildin [id number] [facility] 09/27/2024/ 5 [id number] Ambulatory Buildin [id number] [facility] 09/14/2024 [id number] Ambulatory [facility]HABBuildi ng :[facility] 08/23/2024/ 4 [id number] Emergency Buildin [id number] [facility] 08/11/2024/ 4 [id number] Ambulatory Buildin [id number] [facility] 07/05/2024/ 4 [id number] Ambulatory Buildin [id number] [facility] 06/22/2024/ 4 [id number] Ambulatory Buildin [id number] [facility] 06/17/2024/ 4 [id number] Ambulatory Buildin [id number] [facility] 06/15/2024/ 4 [id number] Ambulatory Buildin [id number] [facility] 06/09/2024/ 4 [id number] [facility] 06/02/2024/ 4 [id number] Ambulatory Buildin [id number] [facility] PAYERS ENCOUNTER GUARANTOR PAYER SUBSCRIBER SOURCE 05/12/2025 Primary Insurance:[facility] MEDICAREPolicy Number: [id number] Date:4889-38-88Pizu Name:Medicare HMO STACIA D TANNERDOB: [id number] [place] [address] [facility] 05/11/2025 Primary Insuranc e:[facility] MEDICARE ADVANTAGE HMOPolicy Number: [id number] Date:1740-87-06Kogt Name:N STACIA SIMONERDOB: [id number] [place], [place] [id number] [place] [address] 04/13/2025 Primary Insuranc e:[facility] MEDICARE ADVANTAGE OPolicy Number: [id number] Date:8229-88-91Wnnq Name:N STACIA Darling TANNERDOB: [id number] [place] [address] [facility] 02/14/2025 Primary Insurance:[facility] MEDICAREPolicy Number: [id number] Date:4337-73-52Brar Name:Medicare HMO STACIA D TANNERDOB: [id number] [place] [address] [facility] 09/27/2024 Primary Insurance:[facility] MEDICAREPolicy Number: [id number] Date:3313-83-51Kfak Name:Medicare HMO STACIA D TANNERDOB: [id number] [place] [address] [facility] 09/14/2024 STACIA D TANNERDOB: [id number] [place], [place] [address]Cni: (XY) Primary Insurance:SELF PAY INSCOPolicy Number: Effective Date:8093-19-93Zecc Name:8 STACIA Darling TANNERDOB: [id number] [place], [place] [address]Zfo: () () [facility] 08/23/2024 Primary Insurance:[employer] MEDICARE ADVANTAGEPolicy Number: [id number] Date:4863-33-37Qqeo Name:Medicare HMO STACIA Darling TANNERDOB: [id number] [address] 08/11/2024 Primary Insurance:[employer] MEDICARE ADVANTAGEPolicy Number: [id number] Date:4331-75-98Vyzp Name:Medicare HMO STACIA D TANNERDOB: [id number] [address] 07/05/2024 Primary Insurance:[employer] MEDICARE ADVANTAGEPolicy Number: [id number] Date:3565-50-32Qxxz Name:Medicare HMO STACIA D TANNERDOB: [id number] [address] 06/22/2024 Primary Insurance:[employer] MEDICARE ADVANTAGEPolicy Number: [id number] Date:7912-94-94Aweo Name:Medicare HMO STACIA D TANNERDOB: [id number] [address] 06/17/2024 Primary Insurance:[employer] MEDICARE ADVANTAGEPolicy Number: [id number] Date:8593-94-18Hlvo Name:Medicare HMO STACIA D TANNERDOB: [id number] [address] 06/15/2024 Primary Insurance:[employer] MEDICARE ADVANTAGEPolicy Number: [id number] Date:4743-42-90Mooc Name:Medicare HMO STACIA D TANNERDOB: [id number] [address] 06/09/2024 Primary Insurance:[employer] GOLD PLUSPolicy Number: [id number] Date:6469-78-04Tyvn Name:Nawaf IGLESIAS: [id number] [place] [address] [facility] 06/02/2024 Primary Insurance:[employer] MEDICARE ADVANTAGEPolicy Number: [id number] Date:6587-38-22Bxzf Name:Medicare O STACIA IGLESIAS: [id number] [place] [address] [facility]
--- OUTSIDE RECORDS SUMMARY | 2025-05-12 10:57 | XMS RPT_ITS ---
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 / H35.54(ICD-10) [facility]2023 Admitting Diagnosis Exudative age-related macular degeneration, right eye, with inactive choroidal neovascularization (HCC) / H35.3212(ICD-10) RAIZA KUMAR [facility] 02/14/2025 Admitting Diagnosis Encounter for general adult medical examination without abnormal findings / Z00.00(ICD-10) RAIZA KUMAR [facility] 02/14/2025 Admitting Diagnosis Asymptomatic menopausal state / Z78.0(ICD-10) RAIZA KUMAR [facility] 08/11/2024 Admitting Diagnosis Chronic kidney disease, stage 2 (mild) / N18.2(ICD-10) ALLEGRA BONILLA [facility] 08/11/2024 Admitting Diagnosis Type 2 diabetes mellitus with diabetic chronic kidney disease (HCC) / E11.22(ICD-10) [facility] 09/27/2024 Admitting Diagnosis Other specified viral diseases / B33.8(ICD-10) [facility] 09/27/2024 Admitting Diagnosis Dizziness and giddiness / R42(ICD-10) [facility] 09/27/2024 Admitting Diagnosis Hypo-osmolality and hyponatremia / E87.1(ICD-10) [facility] 08/23/2024 Admitting Diagnosis Cough, difficulty breathing, Hx COPD / UNK(Unknown) [facility] 08/11/2024 Admitting Diagnosis Chronic kidney disease, stage 3a (HCC) / N18.31(ICD-10) STACY [facility] 10/08/2023 Admitting Diagnosis Type 2 diabetes mellitus without complications (HCC) / E11.9(ICD-10) STACY [facility] 10/08/2023 Admitting Diagnosis Anemia in other chronic diseases classified elsewhere / D63.8(ICD-10) STACY [facility] 09/01/2023 Admitting Diagnosis Hypothyroidism, unspecified / E03.9(ICD-10) STACY [facility] 06/16/2022 Admitting Diagnosis Pure hypercholesterolemia, unspecified / E78.00(ICD-10) STACY [facility] 06/22/2024 Admitting Diagnosis Cough, unspecified / R05.9(ICD-10) [facility] 06/22/2024 Admitting Diagnosis Bronchiectasis, uncomplicated (HCC) / J47.9(ICD-10) [facility] 09/01/2023 Admitting Diagnosis Chronic obstructive pulmonary disease, unspecified (HCC) / J44.9(ICD-10) [facility] 06/16/2022 Admitting Diagnosis Chronic respiratory failure with hypercapnia (HCC) / J96.12(ICD-10) [facility] 06/16/2022 Admitting Diagnosis Tobacco use / Z72.0(ICD-10) AMY [facility] 06/22/2024 Admitting Diagnosis Bronchiectasis with acute lower respiratory infection (HCC) / J47.0(ICD-10) AMY [facility] 06/17/2024 Admitting Diagnosis Pneumonia, unspecified organism / J18.9(ICD-10) NENA WIGGINS [facility] 06/15/2024 Admitting Diagnosis Foreign body sensation, throat / R09.A2(ICD-10) FELICIANO [facility] 06/15/2024 Admitting Diagnosis Dysphagia, unspecified / R13.10(ICD-10) [facility] PROCEDURES No Procedure Records Found RESULTS PROGRESS NOTE Observed: 05/30/2025 10:24 AM Status: COMPLETED Source: [facility] EMR reviewed. The patient had an ophthalmology appt. on 05/11/25 for macular degeneration. CM outreach on 05/30/25: PMH: COPD, PR, DM, HYPOTHYROID, ANEMIA, HYPERLIPIDEMIA, MACULAR DEGENERATION COPD [...] doctor-Dr. Joseph suggested the patient see a Pilot Control Operator Helper. She has another appt. next week with pulmonary. She is still getting a new PCP-has an appt. With Dr. Pena in [place] in July. She stated she has been [...] the patient from the [facility] care team assistant mgmt. program at this time. OFFICE VISIT Observed: 05/12/2025 11:00 AM Status: COMPLETED Source: [facility] [id number] Stacia Uriostegui [birth year] F Date Provider Department Center 05/12/2025 [id number] WATTERS [facility] ID None Family History Problem Relation Age of Onset Arthritis Sister High Blood Pressure Mother No Known Problems Father Diabetes Mother Arthritis Brother Heart disease Mother Obesity Sister Heart disease Brother Diabetes Sister Atrial fibrillation Brother Family Status - Relation Status Age at Sister Mother 57 Father Brother Level of Service:37321 CT OFFICE/OUTPATIENT NEW MODERATE MDM 45 MINUTES Reason for Visit and Comments: New Patient [542] - +Pseudomonas aeruginosa sputum cx PROGRESS NOTE Observed: 05/12/2025 11:00 AM Status: COMPLETED Source: [facility] I nfectious Diseases Attending Outpatient Consult Note Reason for Consult: Pseudomonas + sputum culture in patient with AECOPD and Bronchiectasis Requesting Physician: Nette Joseph NP-[facility] Pulmonay Medicine Chief Complaint Patient presents [...] min Stress: No Stress Concern Present (02/14/2025) [employer] [place] [employer] - Occupational Stress Questionnaire Feeling of Stress : Not at all Social Connections: Socially Isolated (02/14/2025) Social Connection and Isolation Panel [NHANES] Frequency of Communication with Friends and Family: More than three times a week Frequency of Social Gatherings with Friends and Family: More than three times a week Attends Hinduism Services: Never Active Member of Clubs or [...] in the last 72 hours. Reviewed per [employer] tab referral notes Lines: none Radiography/Echo/Other: [...] crush, chew, or split. 60 tablet 11 Yqnxkratdku-Ptitqpxpo-Jghlea (Trelegy Ellipta) 200-62.5-25 MCG/ACT aerosol powder Inhale [...] Observed: 05/11/2025 10:30 AM Status: COMPLETED Source: [facility] ID: [id number] Author: MARCELL CHRISTOPHER MD Service: ? Author [...] Observed: 04/25/2025 2:03 PM Status: COMPLETED Source: [employer] [facility] EMR reviewed. The patient had an appt. with Ophthalmology on 04/13/25 and she had eye injections for macular degeneration. CM outreach on 04/25/25: PMH: COPD, PR, DM, HYPOTHYROID, ANEMIA, HYPERLIPIDEMIA, MACULAR DEGENERATION DM [...] Still getting a new PCP-Dr. Pena in [place]. First appt. In July. She is seeing a new Pulmonary doctor-Dr. Joseph at [facility]. She stated she needs her Trelegy refilled. Plan: The patient will start monitoring her blood sugars 2-3 times per week. She will continue to monitor her pulse ox daily. CM contacted Annelise Mehta-first assistant manager regarding her Trelegy inhaler and possible financial assistance. Annelise stated the patient was getting her Trelegy through [employer] iron program and using [employer]'s retail pharmacy. Her new pulmonary doctor-Dr. Joesph is with [facility]. CM talked with the patient about discussing her options with her new pulmonary provider at her upcoming appt. next week. CM will follow-up one more time next month. Scheduled next outreach. 36 Observed: 04/14/2025 9:47 AM Status: COMPLETED Source: [employer] [facility] Rx sent for 100 tablets +1 r efill per request of the pharmacy. Thank you for looking into this and verifying. 36 Observed: 04/14/2025 9:00 AM Status: COMPLETED Source: [employer] [facility] Called and spoke with pt who [...] Observed: 04/14/2025 6:27 AM Status: COMPLETED Source: [employer] [facility] A year supply to the request ed pharmacy was sent on 09/19/2024. PROGRESS Observed: 04/13/2025 9:30 AM Status: COMPLETED Source: [facility]NO ID: [id number] Author: MARCELL CHRISTOPHER MD Service: ? Author [...] Observed: 04/10/2025 7:50 AM Status: COMPLETED Source: [employer] [facility] Prescription Request: Levothyroxine Sodium 75 MCG Oral Tablet Last medication check: 08/11/24 Last physical exam: 02/14/25 Next scheduled appointment: 08/08/25 Last date of refill on this medication 01/24/25 ( qty 90 refill 1) PROGRESS NOTE Observed: 03/14/2025 1:10 PM Status: COMPLETED Source: [employer] [facility] EMR reviewed. The patient had a Medicare [...] m? CM outreach on 03/14/25: PMH: COPD, PR, DM, HYPOTHYROID, ANEMIA, HYPERLIPIDEMIA, MACULAR DEGENERATION COPD [...] new PCP in July-Dr. Delfina Pena in [place]. Looking for a doctor that is closer [...] Observed: 03/06/2025 9:56 AM Status: COMPLETED Source: [employer] [facility] Tried calling patient but ph one just rings w no voicemail to LM. I Mycharted information to pt so she can call and get her appt. 36 Observed: 03/02/2025 2:48 PM Status: COMPLETED Source: [employer] [facility] Name of Caller: Stacia Contact Phone Number: [phone] Reason for Appointment: Pt calling to get infusion scheduled at [facility] Office Name: Stacy Medication Refills need, if any: Medication Name: 36 Observed: 02/24/2025 12:22 PM Status: COM PLETED Source: [employer] [facility] Yes. 36 Observed: 02/24/2025 12:00 PM Status: COMPLETED Source: [employer] [facility] I think these were sent 02/22 36 Observed: 02/24/2025 10:47 AM Status: COMPLETED Source: [employer] [facility] Prescription Request: T/s accu-chek guide Last medication check: 08/11/24 Last physical exam: 02/14/25 Next scheduled appointment: 08/08/25 Last date of refill on this medication none seen 36 Observed: 02/23/2025 11:21 AM Status: COM PLETED Source: [employer] [facility] Faxed 36 Observed: 02/22/2025 9:31 AM Status: COMP LETED Source: [employer] [facility] Rx sent 36 Observed: 02/22/2025 8:52 AM Status: COMPLETED Source: [employer] [facility] Yes, I have it on my desk bu t I have not had time to fill it then. 36 Observed: 02/22/2025 8:32 AM Status: COMPLETED Source: [employer] [facility] Called and spoke with Esvin brown, states that she faxed this over to us yesterday. Did you receive this? 36 Observed: 02/22/2025 8:04 AM Status: COMPLETED Source: [employer] [facility] F[facility] from [facility] Prescription Request: T/S accu-chek Guide Last medication check: none Last physical exam: 02/14/25 Next scheduled appointment: 08/08/25 Last date of refill on this medication none seen 36 Observed: 02/21/2025 6:38 AM Status: COMPLETED Source: [employer] [facility] The [employer] infusion order i s a preprinted order coming from the infusion center, see date 02/26/2024 for example. They need to send us the preprinted order and we will fill it out and send it back. 36 Observed: 02/17/2025 1:29 PM Status: COMPLETED Source: [employer] Name of caller: Toña Contact phone number: [phone] Relationship to Patient: Amparo Desai Infusion Provider: Dr Kumar Practice: [facility] Chief Complaint/Reason for Call: Toña is requesting a new [employer] order and Authorization for [employer]ast. Requesting information be faxed to fax# [phone]. Patient has appt scheduled for March 09. thank you Best time of day caller can be reached: any Patient advised that office/PCP has 24-48 business hours to return their call: Yes PROGRESS NOTE Observed: 02/14/2025 11:59 AM Status: COMPLETED Source: [employer] Controlled, continue Zetia 1 0 mg daily PROGRESS NOTE Observed: 02/14/2025 11:58 AM Status: COMPLETED Source: [employer] Uncontrolled, continue follo wing up with ophthalmology PROGRESS NOTE Observed: 02/14/2025 11:57 AM Status: COMPLETED Source: [employer] stable, continue iron tablet s 650 mg, recheck lab work today PROGRESS NOTE Observed: 02/14/2025 11:56 AM Status: COMPLETED Source: [employer] controlled, kidney function is stable, continue metformin 500 mg twice a day PROGRESS NOTE Observed: 02/14/2025 11:54 AM Status: COMPLETED Source: [employer] [facility] Stable, continue levothyroxi ne 75 mcg daily PROGRESS NOTE Observed: 02/14/2025 11:54 AM Status: COMPLETED Source: [employer] [facility] Improved, will get updated D EXA scan. Continue calcium 1200 mg with vitamin D PROGRESS NOTE Observed: 02/14/2025 11:49 AM Status: COMPLETED Source: [employer] [facility] Stable, continue Trelegy 1 p uff daily and albuterol as needed. Oxygen as needed 37 Observed: 02/14/2025 10:30 AM Status: COMPLETED Source: [employer] [facility] Personalized Preventative Pl an for Satcia Uriostegui - 02/14/2025 Medicare offers a range [...] Recommendations: A preventive eye exam by an nerve specialist is recommended every 1-2 years to screen for glaucoma, cataracts, macular degeneration, and other eye disorders. A preventive dental visit is recommended every 6 months. Try to get at least 150 minutes of exercise per week or 10,000 steps per day on a pedometer. You need 1200-1500mg of calcium and 9260-7134 international units of vitamin D per day. [...] Observed: 02/14/2025 10:30 AM Status: COMPLETED Source: [facility] [id number] Stacia Uriostegui [birth year] F Date Provider Department Center 02/14/2025 [id number] KUMAR [facility] Family History Problem Relation Age of Onset Arthritis Sister High Blood Pressure Mother No Known Problems Father Diabetes Mother Arthritis Brother Heart disease Mother Obesity Sister Heart disease Brother Diabetes Sister Atrial fibrillation Brother Family Status - Relation Status Age at Sister Mother 57 Father Brother Level of Service:[id number] CT PPPS, SUBSEQ VISIT Reason for Visit and Comments: Medicare Annual Wellness Visit Subsequent [012] Blood Work [[id number]] Health Maintenance [575] - Dexa scan- agree Hep c screening- refuse Rsv vaccine- not done PROGRESS NOTE Observed: 02/14/2025 10:30 AM Status: COMPLETED Source: [facility] Yeah but I did do his A1c [facility] [id number] [facility] [id number] Dept: [phone] Dept Chief Complaint: Stacia Uriostegui is an [...] crush, chew, or split. 60 tablet 11 Hreqnsjuqlb-Axazcphme-Gcvnyq (Trelegy Ellipta) 200-62.5-25 MCG/ACT aerosol powder Inhale [...] General (Family Medicine) Nena Fernandez RN as Epic Cupid Analyst (Poultry Hatchery Manager Manager) Magali Vance DO as Consulting Physician [...] Observed: 02/14/2025 10:30 AM Status: COMPLETED Source: [employer] [facility] Patient verified by last nam e and date of . 36 Observed: 02/08/2025 10:51 AM Status: COMPLETED Source: [employer] [facility] Noted. Will hold off on refi lling until upcoming appointment. 36 Observed: 02/08/2025 10:47 AM Status: COMPLETED Source: [facility] Called pt and she states gretchen t she has an appointment on 02/14, she's hoping that he will tell her she doesn't need to test her Blood sugar any more. 36 Observed: 02/08/2025 10:42 AM Status: COMPLETED Source: [facility] Please verify with Stacia whe re she would like these sent to. Prescription was just filled for the Accu-Chek soft click lancets 02/06/2025 to [address] [facility] in [place]. 36 Observed: 02/08/2025 10:14 AM Status: COMPLETED Source: [facility] I believe its for the Accu-c heck lancets 36 Observed: 02/08/2025 10:00 AM Status: COMPLETED Source: [facility]axed by [facility] rocio alejo Prescription Request: T/s Accu-check Guide Last medication check: 08/11/24 Last physical exam: 02/10/25 Next scheduled appointment: 02/14/25 Last date of refill on this medication: see where a previous provider had canceled an order for one, couldn't find one off hand. 36 Observed: 02/06/2025 4:53 PM Status: COMPLETED Source: [facility] Rx sent. Follow up as schedu led. 36 Observed: 02/06/2025 9:09 AM Status: COMPLETED Source: [facility] Why are you sending needs to as patient calls and not putting them in as refills? 36 Observed: 02/06/2025 8:55 AM Status: COMPLETED Source: [facility] Faxed [facility] from [facility] Prescription Request: T/s Accu-chek guide Last medication check: 08/11/24 Last physical exam: 02/11/24 Next scheduled appointment: 02/14/25 Last date of refill on this medication Doesn't look like we've done this one before. PROGRESS NOTE Observed: 01/30/2025 2:27 PM Status: COMPLETED Source: [facility] EMR reviewed. No recent offi ce visits since last outreach attempt. PMH: COPD, PR, DM, HYPOTHYROID, ANEMIA, HYPERLIPIDEMIA, MACULAR DEGENERATION Follow-up [...] last night-hoang and eggs with toast 01/30/25 3146 Diabetes - Patient Level Diabetes type Type [...] does likes to garden. She stated her Chief Development Officer wants to do another x-ray. She had one 3 months ago. She stated she is looking for a new PCP, possibly in [place] where she sees her Chief Development Officer. She said she is tired of trying to get in contact with her PCP. She stated I am getting too old and cranky for this. We discussed using [employer] to communicate with her PCP and she [...] Observed: 01/24/2025 8:44 AM Status: COMPLETED Source: [facility] Prescription Request: Levothyroxine Sodium 75 MCG Oral Tablet Last medication check: 08/11/24 Last physical exam: 02/11/24 Next scheduled appointment: 02/14/25 Last date of refill on this medication 09/19/24 ( qty 30 refill 5) 36 Observed: 01/10/2025 7:49 AM Status: COMPLETED Source: [facility] Reviewed chart. Refill appro priate. RX sent. 36 Observed: 01/10/2025 7:19 AM Status: COMPLETED Source: [facility] Prescription Request: Accu-Chek Softclix Lancets Last medication check: 09/27/24 Last physical exam: 02/11/24 Next scheduled appointment: 02/14/25 Last date of refill on this medication 10/13/24 & 10/05/24 PROGRESS NOTE Observed: 12/20/2024 8:19 AM Status: COMPLETED Source: [facility] EMR reviewed. No recent offi ce visits since last outreach attempt. PMH: COPD, PR, HYPOTHYROID, ANEMIA, HYPERLIPIDEMIA COPD MEDS: Using Trelegy [...] Denies any edema Stated has a new Chief Development Officer-Dr. Garcia in [place]. Closer to home. Sees every 3 months. [...] Observed: 11/28/2024 9:26 AM Status: COMPLETED [facility] Reviewed chart. Refill appro priate. RX sent. 36 Observed: 11/28/2024 8:51 AM Status: COMPLETED [facility] Prescription Request: Last medication check: 09/27/24 Last physical exam: 02/11/24 Next scheduled appointment: 02/14/25 Last date of refill on this medication 09/19/24 PROGRESS NOTE Observed: 11/18/2024 1:45 PM Status: COMPLETED [facility] EMR reviewed. No recent offi ce visits [...] 10/31/2024 8:24 AM Status: COMP LETED [facility] Notified Gerson. 36 Observed: 10/30/2024 8:56 AM Status: COMPLETED [facility] Verbal order for continued h ome care given. Recommend patient use MiraLAX and/or Senokot S on a regular basis while on iron. Also make sure she is drinking enough fluids. 36 Observed: 10/28/2024 11:03 AM Status: COMPLETED [facility] Name of caller: Gerson Contact phone number: [phone] Relationship to Patient: [facility] Pete Provider: Dr. Kumar Practice: [facility] [...] Observed: 10/21/2024 2:30 PM Status: COMPLETED Source: [employer] [facility] EMR reviewed. The patient had a [...] every day. Was admitted 08/23/2024 to 09/06/2024 [facility], copd exacerbation, + RSV and pnuemonia. Wearing oxygen 2 L nc, 93-97 % at home. Gets winded easily still. Is getting established with pulmonology in [place] in October. Denies any chest pain or [...] Observed: 10/13/2024 1:21 PM Status: COMPLETED Source: [employer] Stacia states she doesn't nee d a refill yet for meclizine. 36 Observed: 10/13/2024 11:17 AM Status: COMPLETED Source: [employer] Prescription Request: Last medication check: 08/11/24 Last physical exam: 02/11/24 Next scheduled appointment: 02/14/25 Last date of refill on this medication lancets 10/05/24, meclizine 09/27/24 36 Observed: 10/06/2024 11:17 AM Status: COMPLETED Source: [employer] Called Honorio, notified on her vm. 36 Observed: 10/06/2024 10:40 AM Status: COMPLETED Source: [employer] I agree with PT recommendati on. 36 Observed: 10/06/2024 10:22 AM Status: COMPLETED Source: [employer] Name of caller: honorio Contact phone number: [phone] Relationship to Patient: [facility] nurse Provider: stacy Practice: [facility] Chief [...] 10/05/2024 1:40 PM Status: COMP LETED Source: [employer] Lancets sent 36 Observed: 10/05/2024 1:01 PM Status: COMPLETED Source: [employer] [facility] I let her know that Meclizin e was [facility] on 09/[facility]24 so order may still be in process of getting to her. She needs the accu-chek needles sent to [facility] please. 36 Observed: 10/05/2024 12:31 PM Status: COMPLETED Source: [employer] [facility] Name of caller: Stacia Contact phone number: [phone] Relationship to Patient: Patient Provider: Dr. Kumar [...] Observed: 10/03/2024 10:24 AM Status: COMPLETED Source: [employer] [facility] Pt called in to cancel her A pril apt with .The PT said that will be seeing her for the anemia now. I cancel the apt with per pt request. 36 Observed: 09/27/2024 5:01 PM Status: COMPLETED Source: [employer] [facility] Last follow up: 06/22/2024 Next appointment: Visit date not found Allergies Allergen Reactions Iodides Itching Moxifloxacin Avelox Passed out Codeine Other reaction(s): Other (See Comments) Iodinated Contrast Media Bupropion Rash Morphine Nausea And Vomiting Requested Prescriptions Pending Prescriptions Disp Refills Kcgmlpfrfur-Jaxewvrtn-Plrvei (Trelegy Ellipta) 200-62.5-25 MCG/ACT aerosol powder 60 each 5 Sig: Inhale 1 puff daily. PROGRESS NOTE Observed: 09/27/2024 12:49 PM Status: COMPLETED Source: [employer] [facility] Resolved. Patient is gradual ly gaining her strength back from her hospitalization. Continue home physical therapy and Occupational Therapy. Follow-up with pulmonology as directed PROGRESS NOTE Observed: 09/27/2024 12:48 PM Status: COMPLETED Source: [employer] [facility] Stable, continue albuterol a nd Trelegy as directed. Follow-up with doughnut machine operator helper as scheduled PROGRESS NOTE Observed: 09/27/2024 12:48 PM Status: COMPLETED Source: [employer] [facility] Controlled, blood sugars at home consistently less than 180. Continue current medications PROGRESS NOTE Observed: 09/27/2024 12:48 PM Status: COMPLETED Source: [employer] [facility] Currently asymptomatic. Mecl izine as needed. Follow-up for worsening symptoms or increased frequency. PROGRESS NOTE Observed: 09/27/2024 12:47 PM Status: COMPLETED [facility]: [facility] MENTAL HEALTH SERVICES Will check sodium levels tolisset vences. Patient did have hyponatremia during her hospitalization and it was nearly normal upon discharge at 133. PROGRESS NOTE Observed: 09/27/2024 8:00 AM Status: COMPLETED Source: [facility] 09/27/2024 Stacia Uriostegui (: 1945) is a [...] without long-term current use of insulin (HCC) ([facility]) Assessment & Plan: Controlled, blood sugars at [...] albuterol and Trelegy as directed. Follow-up with doughnut machine operator helper as scheduled Follow up for with primary [...] every day. Was admitted 08/23/2024 to [facility], copd exacerbation, + RSV and pnuemonia. Wearing oxygen 2 L nc, 93-97 % at home. Gets winded easily still. Is getting established with pulmonology in [place] in October. Denies any chest pain or [...] split. 08/12/24 08/12/25 Yes Magali Vance, DO Kfqonefczpw-Lwhmuxhpm-Jsvusx (Trelegy Ellipta) 200-62.5-25 MCG/ACT aerosol powder Inhale 1 puff daily. 03/30/24 Yes CAROLYN Guerrero CNP glucose blood test strip Test two times a day & as needed for symptoms of irregular blood glucose. Compatible with Accu-Check Device please. 09/19/24 Yes Allegra Bridenthal, TEMPLATE MAKER - TECHNOLOGY ARCHITECT ipratropium-albuterol (Duo-Neb) 0.5-2.5 mg/3 mL nebulizer solution Take 3 mL by nebulization every 6 hours as needed for shortness of breath. 10/06/23 Yes Ron Chen MD [employer] (Prodigy Lancing Device) misc 1 Device daily. 09/19/24 Yes Allegra Bridenthal, TEMPLATE MAKER - TECHNOLOGY ARCHITECT levothyroxine (Synthroid, Levoxyl) 75 MCG tablet Take 1 tablet (75 mcg) by mouth daily. 09/19/24 Yes Allegra Bridenthal, TEMPLATE MAKER - TECHNOLOGY ARCHITECT metFORMIN (Glucophage) 500 MG tablet Take 1 tablet (500 mg) by mouth 2 times daily (with meals). 09/19/24 Yes Allegra Mary Kateenthal, TEMPLATE MAKER - TECHNOLOGY ARCHITECT oxygen (O2) gas 2 L prn 01/13/20 Yes Historical Provider, pantoprazole (ProtoNix) 40 MG EC tablet Take 1 tablet (40 mg) by mouth every morning (before breakfast). Do not crush, chew, or split. 09/19/24 Yes Allegra Bridenthal, TEMPLATE MAKER - TECHNOLOGY ARCHITECT Polyethyl Glycol-Propyl Glycol (SYSTANE OP) Administer 1 [...] Observed: 09/27/2024 8:00 AM Status: COMPLETED Source: [facility] [id number] Stacia Uriostegui [birth year] F Date Provider Department Center 09/27/2024 [id number] BONILLA [facility] Family History Problem Relation Age of Onset Arthritis Sister High Blood Pressure Mother No Known Problems Father Diabetes Mother Arthritis Brother Heart disease Mother Obesity Sister Heart disease Brother Diabetes Sister Atrial fibrillation Brother Family Status - Relation Status Age at Sister Mother 57 Father Brother Level of Service:47258 CT OFFICE/OUTPATIENT ESTABLISHED MOD MDM 30 MIN Reason for Visit and Comments: Hospital Follow-up [832] Dizziness [795048] PROGRESS NOTE Observed: 09/27/2024 8:00 AM Status: COMPLETED Source: [facility] Venipuncture completed Patient was identified by name and date of -orders verified in EPIC. Site cleansed with alcohol swap and using a sterile needle, right AC accessed per [facility]'s policy and procedure. Bandage applied to site no bleeding or hematoma noted, patient tolerated well. X 1 attempts. Advised to leave bandage on for at least 20 minutes to prevent swelling and bruising. PROGRESS NOTE Observed: 09/27/2024 8:00 AM Status: COMPLETED Source: [facility] Patient was identified by na me and Date of . 36 Observed: 09/20/2024 11:14 AM Status: COM PLETED [facility] Faxed. 29 Observed: 09/20/2024 10:27 AM Status: COMPLETED Source: [facility] Addended by: RAIZA KUMAR on: 09/20/2024 10:27 AM Modules accepted: Orders 36 Observed: 09/20/2024 10:26 AM Status: COMPLETED [facility] Order signed, please fax to Sennari. PROGRESS NOTE Observed: 09/20/2024 8:50 AM Status: COMPLETED [facility] EMR reviewed. The patient ca nceled her PCP appt. today. She stated she didn't want to take any chances after being in the hospital recently. She plans on calling to reschedule her hospital follow-up appt. PMH: COPD, PR, HYPOTHYROID, ANEMIA, HYPERLIPIDEMIA DM MEDS: Metformin 500mg [...] wheezing or SOB The patient was in [facility] and was discharged on 09/06/24. She stated she had RSV and pneumonia. She is regaining her strength. Still has a clear and whitish productive cough. Was taking Mucinex. The patient stated she found a new Chief Development Officer-Dr. Ney Garcia in [place]. She has her first appt. on 10/11/24. [...] Observed: 09/20/2024 8:40 AM Status: COMPLETED [facility] Addended by: RAFAELA GONSALEZ on : 09/20/2024 08:40 AM Modules accepted: Orders 36 Observed: 09/20/2024 8:39 AM Status: COMPLETED [facility] We have to send them an orde r with patient info, notes, etc. Pended DME order and I will fax with everything. 36 Observed: 09/19/2024 5:29 PM Status: COMPLETED [facility]: [facility] Can we reach out to Jillian darling inquire about the forms? It is my understanding this is what needs completed? 36 Observed: 09/19/2024 5:29 PM Status: COMPLETED [facility]: [facility] I have not received anything 36 Observed: 09/19/2024 5:20 PM Status: COMPLETED Source: [employer] [facility] I am currently caught up on paperwork and did not receive a form. Do we know if we have received anything from [employer]? 36 Observed: 09/19/2024 2:43 PM Status: COMPLETED Source: [facility] Spoke to patient, she did sw itch to [employer] [facility] delivery due to insurance. Patient also states that she needs her lancets, test strips, and alcohol pads sent to [employer]. 36 Observed: 09/19/2024 2:21 PM Status: COMPLETED [facility]: [facility] Name of caller: Chantal Contact phone number: [phone] Relationship to Patient: [facility] Provider: Stacy Practice: [place] Chief Complaint/Reason for Call: Chantal from [facility] [phone] states physician order needs signed form for nebulizer to [employer] but they haven't received anything and [employer] said they wouldn't reach out to office. She is checking with them now. Please call and let her know of any diff updates. Best time of day caller can be reached: Patient advised that office/PCP has 24-48 business hours to return their call: 36 Observed: 09/16/2024 10:52 AM Status: COMPLETED Source: [facility] Need to know if patient is s tarting to use [employer] home delivery services. 36 Observed: 09/13/2024 7:41 AM Status: COMPLETED [facility]: [facility] Stacia called and said that s he will not be coming to us and that she found a pulmonary doctor closer to her home, 36 Observed: 09/12/2024 3:58 PM Status: COMP LETED Source: [facility] Notified. 36 Observed: 09/12/2024 3:52 PM Status: COMPLETED Source: [facility] Thank you for clarifying. Ok ay to give verbal order. 36 Observed: 09/12/2024 3:44 PM Status: COMPLETED Source: [facility] Please find out if patient i s needing due to current exacerbation? If so, please offer her appt BERTHA for evaluation. 36 Observed: 09/12/2024 3:39 PM Status: COMPLETED [facility]: [facility] Spoke to Honorio, yes this is f or PT. Okay to give verbal? 36 Observed: 09/12/2024 3:20 PM Status: COMPLETED Source: [employer] [facility] I presume this is for PT? 36 Observed: 09/12/2024 2:57 PM Status: COMPLETED Source: [employer] [facility] Name of caller: Honorio Contact phone number: [phone] Relationship to Patient: [facility] Provider: Stacy Practice: [facility] Chief Complaint/Reason [...] Observed: 09/12/2024 1:15 PM Status: COMPLETED Source: [employer] [facility] 3 REQUEST FOR THIS RX 36 Observed: 09/12/2024 1:06 PM Status: COMP LETED Source: [employer] [facility] Wrong note 36 Observed: 09/12/2024 1:05 PM Status: COMPLETED Source: [employer] [facility] Last follow up: 06/22/2024 Next appointment: [...] Observed: 09/12/2024 1:04 PM Status: COMPLETED Source: [employer] [facility] Last follow up: 06/22/2024 Next appointment: [...] Observed: 09/12/2024 9:08 AM Status: COMPLETED Source: [employer] [facility] Please find out if patient i s needing due to current exacerbation? If so, please offer her appt BERTHA for evaluation. 36 Observed: 09/12/2024 8:45 AM Status: COMPLETED Source: [employer] [facility] Last follow up: 06/22/2024 Next appointment: [...] Observed: 09/08/2024 2:38 PM Status: COMPLETED Source: [employer] [facility] Thank you, I appreciate the help 36 Observed: 09/08/2024 2:27 PM Status: COMPLETED [facility] Chantal states that she sent everything to [employer] and they will send us a form or be calling. 36 Observed: 09/08/2024 2:13 PM Status: COMPLETED Source: [employer] [facility] Does that mean they will be sending over a preprinted prescription no we just need to fill out? 36 Observed: 09/08/2024 1:42 PM Status: COMPLETED Source: [employer] [facility] Name of caller: Chantal Contact phone number: [phone] Relationship to Patient: [facility] Provider: Stacy Practice: [place] Chief Complaint/Reason for Call: Letting provider know that Pt needs a nebulizer and a new order is needed. [facility] [employer] will reach out to office. Best time of day caller can be reached: N/A Patient advised that office/PCP has 24-48 business hours to return their call: N/A 36 Observed: 08/29/2024 7:07 AM Status: COMP LETED Source: [employer] [facility] Noted. 36 Observed: 08/29/2024 6:44 AM Status: COMP LETED [facility] Noted. 36 Observed: 08/23/2024 10:40 AM Status: COMPLETED Source: [employer] [facility] Agree, thank you 36 Observed: 08/23/2024 10:13 AM Status: COMPLETED Source: [employer] [facility] S: Patient spoke with ALEX mckeon [...] call her brother to take her to [facility] ED. Advised the patient that if she needed assistance before then she can call 911. Patient understands care advice. No further needs at this time. Reason for Disposition Previous asthma attacks and this feels like asthma attack MODERATE asthma attack (e.g., SOB at rest, speaks in phrases, audible wheezes) AND doesn't have neb or inhaler available Protocols used: Uhuzq-[id number]-HX, Asthma Uakyxv-TXIHR-KZ PROGRESS NOTE Observed: 08/18/2024 11:12 AM Status: COMPLETED Source: [employer] [facility] EMR reviewed. The patient cline d an [...] 30.95 kg/m? BSA 1.79 m? PMH: COPD, PR, HYPOTHYROID, ANEMIA, HYPERLIPIDEMIA Follow-up appts: 09/20/24-Pulmonology COPD [...] changing the first of the year to [facility]. She still wants to get a new [...] her bilateral elbows. She stated her PCP-Dr. uKmar recommended she use prescription Hydrocortisone cream and [...] 08/17/2024 3:51 PM Status: COMP LETED Source: [facility] Rx sent 36 Observed: 08/17/2024 2:15 PM Status: COMPLETED Source: [facility] Spoke to Stacia, send to Paulina babin in [place]. 36 Observed: 08/17/2024 12:06 PM Status: COMPLETED Source: [facility] Yes, there is a prescription cortisone that is a lot stronger than OTC cortisone cream what pharmacy does she want it sent to you there are 3 on the chart 36 Observed: 08/17/2024 11:24 AM Status: COMPLETED Source: [facility] She states she has used hydr ocortisone cream OTC. It is still itching. She states she has eczema and psoriasis but states this is not acting like either of those. Asking if there is a prescription cream you could send in for her to try before she goes to a [employer]? 36 Observed: 08/16/2024 4:29 PM Status: COMPLETED Source: [facility] There are normal kidney func tion and [...] be for her to go to a [employer]. 36 Observed: 08/16/2024 4:25 PM Status: COMPLETED Source: [employer] [facility] Notified, asking how many st ages there are and when to worry? She is also asking about the rash she showed you on the back of her neck, states it is also on her elbows. States she showed you her neck at her appointment. Onset months, using lotions and creams and nothing is helping. 36 Observed: 08/16/2024 4:04 PM Status: COMPLETED Source: [employer] [facility] Yes, she has stage II chroni [...] Observed: 08/16/2024 2:03 PM Status: COMPLETED Source: [employer] [facility] Name of caller: Stacia Contact phone number: [phone] Relationship to Patient: patient Provider: Stacy Practice: [facility] Chief Complaint/Reason for Call: Stacia called in stating that she was in [...] Observed: 08/12/2024 10:04 AM Status: COMPLETED Source: [employer] [facility] Pt updated on lab work and i ncreased iron dosing to twice a day. Dosage change pending to be signed. PROGRESS NOTE Observed: 08/11/2024 1:42 PM Status: COMPLETED Source: [employer] [facility] Controlled, continue Zetia 1 0 mg daily PROGRESS NOTE Observed: 08/11/2024 1:41 PM Status: COMPLETED Source: [employer] [facility] Mild, iron levels are good. PROGRESS NOTE Observed: 08/11/2024 1:41 PM Status: COMPLETED Source: [facility] Controlled, she brings in bl ood sugar numbers which are excellent, continue metformin 500 mg twice a day PROGRESS NOTE Observed: 08/11/2024 1:41 PM Status: COMPLETED Source: [facility] Stable, continue levothyroxi ne 75 mcg daily PROGRESS NOTE Observed: 08/11/2024 1:40 PM Status: COMPLETED Source: [facility] Stable, good blood sugar con trol and blood pressure control to prevent kidney damage. PROGRESS NOTE Observed: 08/11/2024 1:40 PM Status: COMPLETED Source: [facility] Currently stable, continue a lbuterol as needed and Trelegy daily. She also has DuoNeb solution for her nebulizer if needed. PROGRESS NOTE Observed: 08/11/2024 11:00 AM Status: COMPLETED Source: [facility] Patient verified by last nam e and date of . PROGRESS NOTE Observed: 08/11/2024 11:00 AM Status: COMPLETED Source: [facility] 08/11/2024 Stacia Uriostegui (: 1945) is a [...] Observed: 08/11/2024 11:00 AM Status: COMPLETED Source: [employer] [facility] [id number] Stacia Uriostegui [birth year] F Date Provider Department Center 08/11/2024 [id number] KUMARTyron [facility] Family History Problem Relation Age of Onset Arthritis Sister High Blood Pressure Mother No Known Problems Father Diabetes Mother Arthritis Brother Heart disease Mother Obesity Sister Heart disease Brother Diabetes Sister Atrial fibrillation Brother Family Status - Relation Status Age at Sister Mother 57 Father Brother Level of Service:12855 CT OFFICE/OUTPATIENT ESTABLISHED MOD MDM 30 MIN Reason for Visit and Comments: COPD [313] Hyperlipidemia [182] Hypertension [831313] Diabetes [34] - Pt wonders if she can get off of the metformin? Anemia [941795] - Stopped seen hem/onc doctor Hypothyroidism [143] Medication Check [2915402557] - 6 month Health Maintenance [872] - Flu vaccine- agree 4th covid vaccine- not done PROGRESS NOTE Observed: 08/11/2024 11:00 AM Status: COMPLETED [facility] Patient was verified by name and . After obtaining consent, and per orders of Dr. Kumar, injection of Influenza given in left deltoid by Rafaela Gonsalez after cleansing site with alcohol pad. Patient tolerated well. 36 Observed: 08/04/2024 9:14 AM Status: COMPLETED Source: [employer] [facility] Prescription Request: Last medication check: 11/19/23 Last physical exam: 02/11/24 Next scheduled appointment: 08/11/24 Last date of refill on this medication 03/10/24 PROGRESS NOTE Observed: 07/06/2024 7:38 AM Status: COMPLETED [facility] EMR reviewed. The patient marlyn brown follow-up [...] patient completed PFT's on 07/05/24. PMH: COPD, PR, HYPOTHYROID, ANEMIA, HYPERLIPIDEMIA Follow-up appts: 08/11/24-Family medicine [...] needed during the night Monitoring pulse ox bekgr-nbtij-81% on 2L O2. Usually 97%. Slight wheezing-has used inhalers yet today Denies any current SOB-resting and drinking morning coffee She stated she never received a new motorized scooter. Her old one is broke. CM has reached out to [employer] in the past. CM gave the patient the phone number for [employer] so she can call and follow-up. She [...] wheezing and SOB. The patient will contact [employer] regarding a new motorized scooter. CM will continue to follow-up. Scheduled next outreach. PROGRESS NOTE Observed: 06/22/2024 12:15 PM Status: COMPLETED Source: [facility] [address] , [address] [facility] [address] PH: [phone] Visit type: An Established patient 06/22/2024 CHIEF [...] or split., Disp: 30 tablet, Rfl: 11 Aumpjvuauwh-Cxdvygujh-Aqxatc (Trelegy Ellipta) 200-62.5-25 MCG/ACT aerosol powder , [...] Results: No results found for: FEV1, FVC, NUM3MLD, TLC, DLCO Assessment and Plan 1. Chronic [...] Observed: 06/22/2024 12:15 PM Status: COMPLETED Source: [employer] [facility] YOUR APPOINTMENT TODAY WAS W I[facility], COPD CLINIC, PULMONARY AND SLEEP MEDICINE OFFICE. PLEASE CALL OUR OFFICE AT [phone] for our [place] office location or [phone] for our [place] location, IF YOU HAVE NOT RECEIVED YOUR [...] to make improvements. COVID-19 VACCINATION INFORMATION: PH. [phone] HEALTH.ORG/CORONAVIRUS/VACCINE [facility] Central Scheduling [phone] [facility] Sleep Scheduling [phone] OFFICE VISIT Observed: 06/22/2024 12:15 PM Status: COMPLETED Source: [employer] [facility] [id number] Stacia Uriostegui [birth year] F Date Provider Department Center 06/22/2024 [id number] ROCA SHMGMITPULM None Family History Problem Relation Age of Onset Arthritis Sister High Blood Pressure Mother No Known Problems Father Diabetes Mother Arthritis Brother Heart disease Mother Obesity Sister Heart disease Brother Diabetes Sister Atrial fibrillation Brother Family Status - Relation Status Age at Sister Mother 57 Father Brother Level of Service:04241 CT OFFICE/OUTPATIENT ESTABLISHED MOD [facility] 30 MIN Reason for Visit and Comments: Follow-up [908075] - Ct,mbs CT CHEST WO IV CONTRAST Observed: 2023 7:44 AM Status: F Source: [employer] [facility] Patient Name: STACIA URIOSTEGUI : 1945 [facility]#: [id number] Exam Date/Time: 06/17/2024 10:30 Procedure: CT CHEST [...] Observed: 06/20/2024 4:00 PM Status: COMPLETED Source: [facility] Rx sent. Follow up as schedu led. 36 Observed: 06/20/2024 3:12 PM Status: COMPLETED Source: [facility] Prescription Request: Last medication check: 08/12/23 Last physical exam: 02/11/24 Next scheduled appointment: 08/11/24 Last date of refill on this medication 10/22/23 PROGRESS NOTE Observed: 06/15/2024 11:30 AM Status: COMPLETED Source: [facility] Speech-Language Pathology SPEECH LANGUAGE PATHOLOGY [facility] Modified Barium Swallow Study [...] to locate. May have been completed at [facility]. Baseline Diet: Regular diet with thin liquids. Textures tested: - thin liquid, (cup edge, straw, sequential swallows, self administered) - mildly thick liquid, (cup edge, self administered) - puree, (teaspoon, self administered) - regular solids Patient position: lateral Past Medical History: Past Medical History: Diagnosis Date Asthma Cerebral artery occlusion with cerebral infarction ([facility]) CHF (congestive heart failure) ([facility]) Cholecystitis SCHEDULED FOR THE SURGERY ON 04/09/2017 COPD (chronic obstructive pulmonary disease) ([facility]) Incisional hernia SCHEDULED FOR THE SURGERY ON 03/15/2018 Osteoporosis Thyroid disease Past Surgical History: Past Surgical History: Procedure Laterality Date BRONCHOSCOPY 10/2023 CHOLECYSTECTOMY N/A 04/09/2017 CHOLECYSTECTOMY COLONOSCOPY COLONOSCOPY EYE SURGERY 2015 cataracts HERNIA REPAIR HYSTERECTOMY Admission Diagnosis: Patient Active Problem List Diagnosis Date Noted New onset type 2 diabetes mellitus ([facility]) ([facility]) 10/08/2023 Shortness of breath 09/30/2023 NSTEMI (non-ST elevated myocardial infarction) ([facility]) 09/01/2023 Exudative age-related macular degeneration, right eye, with inactive choroidal neovascularization ([facility]) 02/09/2023 Age-related osteoporosis without current pathological fracture 02/09/2023 Acute bilateral low back pain without sciatica 09/08/2022 Urinary hesitancy 09/08/2022 Leukocytes in urine 09/08/2022 Regular astigmatism of left eye 02/11/2022 Blindness right eye category 4, low vision left eye category 1 02/11/2022 Dry eye syndrome, bilateral 09/21/2020 COPD (chronic obstructive pulmonary disease) ([facility]) 02/06/2021 Lung nodule 10/31/2020 Superficial punctate keratitis [...] strategies to maximize airway protection. Therapy Time EDUCATIONAL TECHNOLOGIST Individual Minutes Time In: 1140 Time Out: 1210 Minutes: 30 ALPESH Hester PROGRESS Observed: 06/09/2024 10:57 AM Status: COMPLETED Source: [facility] HNO ID: [id number] Author: MARCELL CHRISTOPHER MD Service: ? Author [...] Observed: 06/03/2024 2:12 PM Status: COMPLETED Source: [facility] EMR reviewed. The patient cline lisset an [...] m? Pain Sc 0-No pain PMH: COPD, PR, HYPOTHYROID, ANEMIA, HYPERLIPIDEMIA Follow-up appts: 06/22/24-Pulmonology COPD [...] go longer distances. CM previously called [facility] to inquire about the patient's motorized scooter and they needed a physician order. CM will follow-up with [facility] to make sure they received a [...] when needed. CM will follow-up with [facility]-medical equipment supplier to make sure they received a physical order for the motorized scooter. CM will continue to follow-up. Scheduled next outreach. PROGRESS NOTE Observed: 06/02/2024 1:45 PM Status: COMPLETED Source: [facility] Hematology/Oncology Office V isit Consultation/Referral Reason: anemia [...] Noted New onset type 2 diabetes mellitus ([facility] [facility] ([facility]) 10/08/2023 Shortness of breath 09/30/2023 NSTEMI (non-ST elevated myocardial infarction) ([facility]) 09/01/2023 Exudative age-related macular degeneration, right eye, with inactive choroidal neovascularization ([facility]) 02/09/2023 Age-related osteoporosis without current pathological fracture 02/09/2023 Acute bilateral low back pain without sciatica 09/08/2022 Urinary hesitancy 09/08/2022 Leukocytes in urine 09/08/2022 Regular astigmatism of left eye 02/11/2022 Blindness right eye category 4, low vision left eye category 1 02/11/2022 Dry eye syndrome, bilateral 09/21/2020 COPD (chronic obstructive pulmonary disease) ([facility]) 02/06/2021 Lung nodule 10/31/2020 Superficial punctate keratitis 08/09/2019 Menopause present 08/09/2019 Pseudophakia of both eyes 04/12/2019 Punctate keratitis, bilateral 04/12/2019 Vitelliform lesion of macula 04/12/2019 Pure hypercholesterolemia 04/12/2019 Nonexudative age-related macular degeneration, left eye, early dry stage 04/12/2019 Incarcerated incisional hernia 03/15/2018 Incisional hernia, without obstruction or gangrene 03/05/2018 Hypophosphatemia 07/04/2017 Tobacco abuse 07/04/2017 Stress hyperglycemia 07/04/2017 Chronic respiratory failure ([facility]) 07/04/2017 Anemia in other chronic diseases classified [...] crush, chew, or split. 30 tablet 11 Lheyrxghqdg-Viybbgjul-Gvoksx (Trelegy Ellipta) 200-62.5-25 MCG/ACT aerosol powder Inhale [...] Narrative: Patient Name: STACIA URIOSTEGUI : 1945 [facility]#: [id number] Exam Date/Time: 01/06/2024 11:35 Procedure: CT CHEST [...] Observed: 06/02/2024 1:45 PM Status: COMPLETED Source: [facility] [id number] Stacia Uriostegui [birth year] F Date Provider Department Center 06/02/2024 [id number] [facility] ONC None Family History Problem Relation Age of Onset Arthritis Sister High Blood Pressure Mother No Known Problems Father Diabetes Mother Arthritis Brother Heart disease Mother Obesity Sister Heart disease Brother Diabetes Sister Atrial fibrillation Brother Family Status - Relation Status Age at Sister Mother 57 Father Brother Level of Service:09043 CT OFFICE/OUTPATIENT ESTABLISHED LOW MDM 20 MIN Reason for Visit and Comments: Anemia [821241] - Patient states that she doesn't take any oral iron supplement and wonders if she should. ALLERGIES DATE TYPE / CODE NAME / CODE REACTION SEVERITY SOURCE 07/21/2018 DRUG INGREDI/6896431 03(SNOMED CT) MORPHINE GI UPSET [facility] 03/23/2018 DRUG/365079530( SNOMED CT) IODIDES ITCHING High [facility] 11/02/2017 DRUG INGREDI/0409680 03(SNOMED CT) MOXIFLOXACIN HCL OTHER: [facility] 04/15/2016 DRUG INGREDI/2560484 03(SNOMED CT) BUPROPION RASH Low [facility] 04/11/2004 DRUG INGREDI/9208560 03(SNOMED CT) CODEINE Mental Chg [facility] ENCOUNTERS ADMIT/DISCHARGE ACCOUNT NUMBER ADMITTING ENCOUNTER CLASS LOCATION SOURCE 05/12/2025/ 5 [id number] Ambulatory Buildin [id number] [facility] 05/11/2025/ 5 [id number] Ambulatory [facility]Build ing:[facility] 04/13/2025/ 5 [id number] Ambulatory [facility] HospitalBuild ing:[facility] 02/14/2025/ 5 [id number] Ambulatory Buildin [id number] [facility] 09/27/2024/ 5 [id number] Ambulatory Buildin [id number] [facility] 09/14/2024 [id number] Ambulatory REHABBuildi ng :[facility] 08/23/2024/ 4 [id number] Emergency Buildin [id number] [facility] 08/11/2024/ 4 [id number] Ambulatory Buildin [id number] [facility] 07/05/2024/ 4 [id number] Ambulatory Buildin [id number] [facility] 06/22/2024/ 4 [id number] Ambulatory Buildin [id number] [facility] 06/17/2024/ 4 [id number] Ambulatory Buildin [id number] [facility] 06/15/2024/ 4 [id number] Ambulatory Buildin [id number] [facility] 06/09/2024/ 4 [id number] Ambulatory [facility] HospitalBuild ing:[facility] 06/02/2024/ 4 [id number] Ambulatory Buildin [id number] [facility] PAYERS ENCOUNTER GUARANTOR PAYER SUBSCRIBER SOURCE 05/12/2025 Primary Insurance:[employer] MEDICAREPolicy Number: [id number] Date:8489-51-15Buzd Name:Medicare HMO STACIA D TANNERDOB: [id number] [place] [address] [facility] 05/11/2025 Primary Insuranc e:[facility] MEDIC[facility] ADVANTAGE HMOPolicy Number: [id number] Date:8876-62-92Itxe Name:N STACIA SIMONERDOB: [id number] [place], [place] [id number] [place] [address] 04/13/2025 Primary Insuranc e:[facility] MEDICARE ADVANTAGE OPolicy Number: [id number] Date:9129-51-69Bmtu Name:N STACIA Darling TANNERDOB: [id number] [place] [address] [facility] 02/14/2025 Primary Insurance:[employer] MEDICAREPolicy Number: [id number] Date:0277-21-86Thax Name:Medicare HMO STACIA D TANNERDOB: [id number] [place] [address] [facility] 09/27/2024 Primary Insurance:[employer] MEDICAREPolicy Number: [id number] Date:9712-57-03Lpho Name:Medicare HMO STACIA D TANNERDOB: [id number] [place] [address] [facility] 09/14/2024 STACIA D TANNERDOB: [id number] [place], [place] [address]Swz: (LW) Primary Insurance:SELF PAY INSCOPolicy Number: Effective Date:5950-32-72Aezu Name:8 STACIA Darling TANNERDOB: [id number] [place], [place] [address]Sok: () () [facility] 08/23/2024 Primary Insurance:[employer] MEDICARE ADVANTAGEPolicy Number: [id number] Date:6136-49-75Grzp Name:Medicare HMO STACIA Darling TANNERDOB: [id number] [address] 08/11/2024 Primary Insurance:[employer] MEDICARE ADVANTAGEPolicy Number: [id number] Date:1601-16-12Qwvk Name:Medicare HMO STACIA D TANNERDOB: [id number] [address] 07/05/2024 Primary Insurance:[employer] MEDICARE ADVANTAGEPolicy Number: [id number] Date:2004-59-60Ricw Name:Medicare HMO STACIA D TANNERDOB: [id number] [address] 06/22/2024 Primary Insurance:[employer] MEDICARE ADVANTAGEPolicy Number: [id number] Date:9884-44-94Mmiu Name:Medicare HMO STACIA D TANNERDOB: [id number] [address] 06/17/2024 Primary Insurance:[employer] MEDICARE ADVANTAGEPolicy Number: [id number] Date:7958-21-68Sxfx Name:Medicare HMO STACIA D TANNERDOB: [id number] [address] 06/15/2024 Primary Insurance:[employer] MEDICARE ADVANTAGEPolicy Number: [id number] Date:2486-62-95Lpmf Name:Medicare HMO STACIA D TANNERDOB: [id number] [address] 06/09/2024 Primary Insurance:[employer] GOLD PLUSPolicy Number: [id number] Date:8384-25-71Fugu Name:Nawaf IGLESIAS: [id number] [place] [address] [facility] 06/02/2024 Primary Insurance:[employer] MEDICARE ADVANTAGEPolicy Number: [id number] Date:5795-78-42Asyp Name:Medicare O STACIA IGLESIAS: [id number] [place] [address] [facility]
== END | disposition home or self-care (01) ==
LOC: PSN 12:29
PROVIDERS: PCP Family Medicine; Referring Provider Nurse Practitioner Family; Visit Provider Nurse Practitioner Family
DX: J44.9 Chronic obstructive pulmonary disease, unspecified (principal)
CPT/HCPCS: 94060; 94726; 94729

== ENCOUNTER 2025-07-14 11:04 | Emergency (ER) | payer MEDICARE, SELFPAY ==
[2025-07-14] VITALS (11 sets, daily range): BP systolic 105–135; BP diastolic 55–65; PULSE 84–97; RESP 13–30; TEMP 36.3–36.7; O2SAT 94–100; BMI 28.8
--- NOTE | 2025-07-14 12:03 | EKG12_ITS ---
Test Reason : SOB Blood Pressure : */* mmHG Vent. Rate : 89 BPM Atrial Rate : 89 BPM P-R Int : 136 ms QRS Dur : 84 ms QT Int : 364 ms P-R-T Axes : 56 26 44 degrees QTcB Int : 442 ms Sinus rhythm with Premature atrial complexes Low voltage QRS Borderline ECG Confirmed by FRANCIA FRANCOIS, YANETH ([id number]), editor in chief newspaper PIA ANGELO ([id number]) on 07/17/2025 8:18:11 AM Referred By: ALICE Confirmed By: YANETH FELDMAN MD
--- NOTE | 2025-07-14 12:23 | RAD_ITS ---
PROCEDURE: CHEST PA AND LATERAL 07/14/2025 REASON FOR EXAM: SHORTNESS OF BREATH TECHNIQUE: Procedure Code: RADCXR Modality: DX Procedure: CHEST PA AND LATERAL COMPARISON: CT May 29, 2025 FINDINGS: Hardware: EKG leads. Surgical clips right upper quadrant from cholecystectomy Heart: Normal-size Mediastinum: There are atherosclerotic calcifications of the thoracic aorta. Lungs: Mild bronchiectasis and volume loss in the lateral segment right middle lobe and to a lesser extent the central lingula. Subtle acinar opacities are seen in the right upper lobe, right lower lobe, lingula and left lower lobe similar to most recent prior CT. No new dense consolidation. Bones: The bones are unremarkable. RAD/Chest PA and Lateral IMPRESSION: Bronchiectasis, scarring, volume loss lateral segment right middle lobe and pierre tral inferior lingula unchanged. Small airways disease bilaterally. Small airways represents acinar filling with mucous, pus or fluid. Infectious etiologies include atypical organisms including mycobacteria such as LEE/MAC and fungal infection such as c occidioidomycosis. Similar findings were seen dating back to August of 2024. This has improved some since then but not reso lved. It is similar to recent CT in late May. Pulmonology consultation suggested as the treatment for infectious etiologies can be rather protracted. If not responding, bronchoscopy to the right middle lobe may be helpful. Reading Location: [id number]
--- NOTE | 2025-07-14 12:27 | ED.VIS.DYS ---
HPI History of Present Illness Chief Complaint: Shortness of Breath Narrative Narrative: Chief complaint and HPI: 79-year-old female with past medical history of COPD, chronic hypoxia on 2 L nasal cannula, CHF, hypothyroidism presents for evaluation of productive cough and shortness of breath. Patient states for the past week she has had a productive cough. Saw her PCP who thought it was viral. Patient states she has associated shortness of breath with it, slightly worse than her baseline. Sputum is yellow. She denies any fever, chest pain, abdominal pain, nausea, vomiting. Has been using her Trelegy and DuoNebs. Follows with Dr. Garcia with pulmonology. Review of systems: See HPI Medications: As listed on the chart Allergies: As listed on the chart PFSH: Per chart Vital signs: As listed on the chart. Reviewed. Physical exam: Gen: A&O x3, NAD Head: Normocephalic, atraumatic Eyes: No sclera icterus, conjunctiva clear ENT: Moist mucous membranes Neck: Trachea midline, No JVD CV: RRR, no murmurs, no peripheral edema Resp: Lungs mildly coarse throughout, expiratory wheezing, + cough, on baseline 2 L nasal cannula GI: Abd soft, non-distended, non-tender, no r/r/g Musc: Full ROM, no deformity Skin: Warm, dry Neuro: Alert, oriented, grossly intact, sensation intact Psych: Cooperative, appropriate mood and affect [facility] Medical History (Updated 07/14/25 @ 15:[address] Frandy Lal-Ilana, ) Macular degeneration Abnormal chest CT Pseudomonas respiratory infection Normal colonoscopy Former smoker Thyroid disease Osteoporosis Incisional hernia COPD (chronic obstructive pulmonary disease) Cholecystitis CHF (congestive heart failure) Cerebral artery occlusion with cerebral infarction Asthma Home Medications Medication Instructions Recorded Last Taken Type Oxygen, Home [Home Oxygen] 2 lpm NASAL QHS sleep 11/26/20 07/14/25 History ferrous sulfate 325 mg (65 mg 325 mg PO DAILY iron 11/26/20 Unknown History iron) tablet levothyroxine 50 mcg tablet 75 mcg PO DAILY thyroid 11/26/20 Unknown History polyvinyl alcohol-povidone 0.5 1 drp ophthalmic (eye) BID 11/26/20 Unknown History %-0.6 % eye drops macular degeneration alcohol swabs (Alcohol Prep Pads) 1 pad topical BID bg checks 08/23/24 Unknown History ezetimibe 10 mg tablet 10 mg PO DAILY cholesterol 08/23/24 Unknown History metformin 500 mg tablet 500 mg PO BID diabetes 08/23/24 Unknown History acetaminophen 325 mg tablet 650 mg (2 x 325 mg) PO Q6H PRN PRN 09/06/24 Unknown Rx Pain 1-10 Or Fever>100.7 #0 tabs calcium 600 mg (as carbonate)-vit 1 tab PO QDAY 10/11/24 Unknown History D3 10 mcg (400 unit) chewable tablet (Calcium 600 with Vitamin D3) albuterol sulfate 90 mcg/actuation 2 puff inhalation Q4H PRN 05/03/25 Unknown Rx aerosol inhaler shortness of breath or wheezing #8.5 grams escitalopram oxalate 5 mg tablet 5 mg PO DAILY mood 05/03/25 Unknown History ipratropium 0.5 mg-albuterol 3 mg 3 ml inhalation Q6H PRN shortness 05/03/25 Unknown Rx (2.5 mg base)/3 mL nebulization of breath or wheezing #180 mL soln sennosides 8.6 mg-docusate sodium 1 tab PO BID 05/03/25 Unknown History 50 mg tablet (Stimulant Laxative Plus) levofloxacin 750 mg tablet 750 mg PO Q24H #7 tabs 05/05/25 Unknown Rx fluticasone fur. 200 mcg-umeclid 1 inh inhalation DAILY breathing 05/16/25 Unknown Rx 62.5 mcg-vilant 25 mcg #60 ea inhalat.powder dupilumab 300 mg/2 mL subcutaneous 300 mg (2 mL) subcut Q2W #4 mL 06/07/25 Unknown Rx pen injector (Dupixent) dupilumab 300 mg/2 mL subcutaneous 600 mg (4 mL) subcut ONCE #4 mL 06/07/25 Unknown Rx pen injector (Dupixent) pantoprazole 40 mg tablet,delayed 40 mg PO QDAY 06/07/25 Unknown History release dapagliflozin propanediol 5 mg 5 mg PO QAM #90 tabs 07/10/25 Unknown Rx tablet (Farxiga) guaifenesin 1,200 mg tablet, 1,200 mg PO DAILY 07/10/25 Unknown History extended release 12 hr (Mucinex) ketoconazole 2 % shampoo 1 applic topical 2XW #120 mL 07/10/25 Unknown Rx preservision PO DAILY 07/10/25 Unknown History levofloxacin 500 mg tablet 500 mg PO DAILY 4 days #4 tabs 07/14/25 Unknown Rx prednisone 20 mg tablet 60 mg (3 x 20 mg) PO DAILY 5 days 07/14/25 Unknown Rx #15 TABLETS Allergy/AdvReac Type Severity Reaction Status Date / Time Iodinated Contrast Media Allergy Unknown Itching Verified 07/14/25 11:05 bupropion (From Wellbutrin) Allergy Rash Verified 07/14/25 11:05 codeine Allergy Other Verified 07/14/25 11:05 morphine Allergy Nausea/Vom/ Verified 07/14/25 11:05 Diarrhea moxifloxacin (From Avelox) Allergy Other Verified 07/14/25 11:05 Family History (Updated 07/10/25 @ 10:[address] Delfina Pena MD) Brother Atrial fibrillation Heart disease Arthritis Diabetes Sister Obesity Arthritis Diabetes Sister Diabetes Mother Heart disease Hypertension Diabetes Surgical History H/O: hysterectomy History of eye surgery H/O endoscopy History of cholecystectomy Social History (Updated 07/10/25 @ 10:[address] 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 [employer] Smoking Status: Former smoker quit date: 08/31/17 pack-years: 90 alcohol intake: never substance use type: does not use what type of physical activity do you participate in: other details: foot exercises frequency: daily seatbelt use: always do you feel safe at home: Yes EXAM Physical Exam Const Vital Signs: 07/14/25 11:05 07/14/25 11:09 07/14/25 11:10 Temperature 98.1 F 98 F Temperature Source Oral Temporal Pulse Rate 97 92 Respiratory Rate 30 H 22 H Respiratory Effort Short of Breath Blood Pressure 105/55 L 117/65 Blood Pressure Mean 71 82 Pulse Ox 98 98 Oxygen Delivery Method Nasal Cannula Nasal Cannula Nasal Cannula Oxygen Flow Rate (L/min) 2 2 2 07/14/25 12:04 07/14/25 12:04 07/14/25 12:05 Temperature Temperature Source Pulse Rate 87 Respiratory Rate 13 15 Respiratory Effort Blood Pressure 105/55 L Blood Pressure Mean 71 Pulse Ox 100 100 100 Oxygen Delivery Method Nasal Cannula Nasal Cannula Nasal Cannula Oxygen Flow Rate (L/min) 2 2 2 07/14/25 12:09 07/14/25 12:30 07/14/25 12:30 Temperature 98 F Temperature Source Temporal Pulse Rate 84 84 Respiratory Rate 27 H 22 H Respiratory Effort Blood Pressure 105/55 L Blood Pressure Mean 71 Pulse Ox 99 Oxygen Delivery Method Nasal Cannula Nasal Cannula Oxygen Flow Rate (L/min) 2 2 07/14/25 13:00 07/14/25 14:00 07/14/25 15:00 Temperature 97.3 F L 97.3 F L Temperature Source Temporal Temporal Pulse Rate 94 94 88 Respiratory Rate 24 H 24 H 14 Respiratory Effort Blood Pressure 115/62 118/56 L 108/60 Blood Pressure Mean 79 76 76 Pulse Ox 94 94 98 Oxygen Delivery Method Nasal Cannula Nasal Cannula Nasal Cannula Oxygen Flow Rate (L/min) 2 2 2 07/14/25 16:05 Temperature 98 F Temperature Source Pulse Rate 86 Respiratory Rate 14 Respiratory Effort Blood Pressure 135/65 H Blood Pressure Mean 88 Pulse Ox 99 Oxygen Delivery Method Oxygen Flow Rate (L/min) MDM MDM MDM Narrative Medical decision making narrative: 79-year-old female with past medical history of COPD, chronic hypoxia on 2 L nasal cannula, CHF, hypothyroidism presents for evaluation of productive cough and shortness of breath. Patient states for the past week she has had a productive cough. Saw her PCP who thought it was viral. Patient states she has associated shortness of breath with it, slightly worse than her baseline. Sputum is yellow. Differential diagnosis includes but is not limited to viral illness, pneumonia, bronchitis, COPD exacerbation, suspect less likely ACS or CHF. Respiratory/cardiac workup ordered. Patient did produce yellow sputum therefore we will send it for culture. Small NS bolus, DuoNebs, Solu-Medrol ordered for symptoms. EKG and chest x-ray reviewed by myself. Chest x-ray findings per radiology or extends of including bronchiectasis, scarring, volume loss unchanged. Small airway disease bilaterally. Small airway represents acinar filling with mucus, pus, or fluid. Infectious etiologies include atypical organisms including mycobacteria and fungal infections. Similar findings seen back in August. Improved some but not resolved. Similar to CT in May. Recommended pulmonary consultation. CBC without leukocytosis. Patient has anemia of 8.7, history of anemia on previous labs. Platelets unremarkable. VBG without significant hypercapnia. Normal pH. BMP relatively unremarkable. Lactic acid unremarkable. Troponin x 2 unremarkable. I suspect patient's symptoms are likely secondary to COPD exacerbation with bronchitis. However given her extensive chest x-ray findings from radiology will consult pulmonology. Patient was discussed with Dr. Garcia. Agrees with COPD/bronchitis treatment and follow-up in his office outpatient. Will place her on a 5-day course of Levaquin as well as prednisone. Patient has a history of moxifloxacin allergy. She states it was a drop in blood pressure. She feels that she has had Levaquin in the past. First dose was given here without any complications. Patient stable to discharge home. Follow-up with pulmonology. She confirmed understand the plan. Patient will discharge home. EKG: Interpreted by me/EM physician: EKG shows sinus rhythm with PACs. No acute ischemic changes. Heart rate 89. Diagnostic: Interpreted by me/EM physician: Chest x-ray with chronic lung findings, no large new consolidation or effusion based on previous chest x-ray. Impression: 1. COPD exacerbation 2. Bronchitis Lab Data Labs: Laboratory Results - last 24 hr 07/14/25 07/14/25 07/14/25 12:20 12:28 14:25 WBC 9.2 RBC 2.98 L Hgb 8.7 L Hct 26.5 L MCV 88.9 MCH 29.2 MCHC 32.8 RDW Std Deviation 43.7 RDW Coeff of Georgette 13.4 Plt Count 311 MPV 8.6 Immature Gran % (Auto) 0.800 Neut % (Auto) 73.8 H Lymph % (Auto) 15.0 L [place] % (Auto) 9.1 Eos % (Auto) 1.1 Baso % (Auto) 0.2 Absolute Neuts (auto) 6.8 Absolute Lymphs (auto) 1.38 Nucleated RBC % 0 Sodium 136 Potassium 4.4 Chloride 102 Carbon Dioxide 24.6 Anion Gap 10 BUN 14 Creatinine 1.00 Estim Creat Clear Calc 40.62 L Est GFR (MDRD) Non-Af 57 L BUN/Creatinine Ratio 13.9 Glucose 177 H Lactic Acid < 1.0 Calcium 8.9 Troponin T High Sens 12 Troponin T Hi Sens 2 Hr 11 ABG Data ABG results: ABG 07/14/25 12:46 Specimen Type FUNMI Sample Site Not entered VBG pH 7.40 VBG pO2 71 H VBG HCO3 28 H VBG Total CO2 29 VBG O2 Sat (Calc) 94 H VBG Base Excess 3 POC Mix VBG pCO2 Pt Tmp 44.9 O2 Delivery Device Not entered Radiography Diagnostic Testing: Clinical Impression(s) from Imaging Studies Chest X-Ray 07/14/25 12:23 IMPRESSION: Bronchiectasis, scarring, volume loss lateral segment right middle lobe and central inferior lingula unchanged. Small airways disease bilaterally. Small airways represents acinar filling with mucous, pus or fluid. Infectious etiologies include atypical organisms including mycobacteria such as LEE/MAC and fungal infection such as coccidioidomycosis. Similar findings were seen dating back to August of 2024. This has improved some since then but not resolved. It is similar to recent CT in late May. Pulmonology consultation suggested as the treatment for infectious etiologies can be rather protracted. If not responding, bronchoscopy to the right middle lobe may be helpful. Reading Location: [facility] Discharge Plan Triage Chief Complaint: Shortness of Breath ED Provider: Frandy Lo Dx/Rx/DC Orders Clinical Impression: COPD exacerbation, Bronchitis Instructions: Acute Bronchitis, ED COPD Flare Prescriptions: New prednisone 20 mg tablet 60 mg PO DAILY 5 Days Qty: 15 0RF Rx Instructions: To start on 07/15/2025 levofloxacin 500 mg tablet 500 mg PO DAILY 4 Days Qty: 4 0RF Rx Instructions: To start on 07/15/2025. Patient received first dose in the emergency department on 07/14/2025 No Action Calcium 600 with Vitamin D3 600 mg-10 mcg (400 unit) tablet,chewable 1 tab PO QDAY sennosides-docusate sodium [Stimulant Laxative Plus] 8.6-50 mg tablet 1 tab PO BID albuterol sulfate 90 mcg/actuation HFA aerosol inhaler 2 puff inhalation Q4H PRN (Reason: shortness of breath or wheezing) Qty: 8.5 6RF ipratropium-albuterol 0.5 mg-3 mg(2.5 mg base)/3 mL solution for nebulization 3 ml inhalation Q6H PRN (Reason: shortness of breath or wheezing) Qty: 180 3RF preservision PO DAILY guaifenesin [Mucinex] 1,200 mg tablet extended release 12hr 1,200 mg PO DAILY ketoconazole 2 % shampoo 1 applic topical 2XW Qty: 120 0RF dapagliflozin propanediol [Farxiga] 5 mg tablet 5 mg PO QAM Qty: 90 0RF pantoprazole 40 mg tablet,delayed release (DR/EC) 40 mg PO QDAY Dupixent Pen 300 mg/2 mL pen injector 600 mg subcut ONCE Qty: 4 0RF Rx Instructions: as a single dose Dupixent Pen 300 mg/2 mL pen injector 300 mg subcut Q2W Qty: 4 11RF levothyroxine 50 MCG tablet 75 mcg PO DAILY ferrous sulfate 325 MG tablet 325 mg PO DAILY polyvinyl alcohol-povidone 15 ML drops 1 drp ophthalmic (eye) BID Oxygen, Home [Home Oxygen] 2 lpm NASAL QHS escitalopram oxalate 5 mg tablet 5 mg PO DAILY ezetimibe 10 mg tablet 10 mg PO DAILY metformin 500 mg tablet 500 mg PO BID alcohol swabs [Alcohol Prep Pads] Pads, Medicated 1 pad topical BID acetaminophen 325 mg Tablet 650 mg PO Q6H PRN PRN (Reason: Pain 1-10 Or Fever>100.7) Qty: 0 0RF levofloxacin 750 mg tablet 750 mg PO Q24H Qty: 7 0RF hjvzngbjfby-ugqxbsejx-qszecnab 200-62.5-25 mcg blister with device 1 inh inhalation DAILY Qty: 60 11RF Primary Care Provider: Delfina Pena Referrals: Cy Griffiths MD [Non-Staff, Family Practice] - 3-5 Days Activity Restrictions/Additional Instructions: Continue your home oxygen and COPD treatment. You received your first dose of antibiotics and steroid here in the emergency department. Keep your appointment with pulmonology next week. Follow-up with your primary care physician. Return back to ED symptoms change or worsen. Print Language: Divehi Disposition Disposition: Home, Self Care Discharge Date/Time: 07/14/25 16:27
[2025-07-14 12:35] LABS: Hematocrit 26.5 % (37-47); Hemoglobin 8.7 g/dL (12.0-15.0); Immature Granulocytes Count 0.070 X10^3/uL (0.0-0.0); Mean Corp Hgb Conc 32.8 g/dL (32-36); Mean Corpuscular Volume 88.9 fL (81-99); Mean Platelet Vol. 8.6 fl (6.2-12.0); NRBC Flagged by Analyzer 0 % (0-5); Platelet Count 311 K/mm3 (150-450); RBC Distribution Width CV 13.4 % (11.6-14.6); RBC Distribution Width SD 43.7 fl (35.1-43.9); Red Blood Count 2.98 M/mm3 (4.2-5.4); White Blood Count 9.2 K/mm3 (4.4-11.0)
[2025-07-14] MEDS: 0.9% Normal Saline (500mL Bag) 500 ML 999 ML IV (12:37)
[2025-07-14 12:51] LABS: SITE Not entered; VBG BASE EXCESS 3 mmol/L (-1.0-3.5); VBG PO2 71 mmHg (25-40); VBG SO2 94 % (50-70); VBG TCO2 29 mmol/L (23-33)
[2025-07-14 12:59] LABS: Anion Gap 10 (5-15); BUN 14 mg/dL (4-19); BUN/Creat Ratio 13.9 RATIO (10-20); Calcium,Total 8.9 mg/dL (7.6-11.0); Carbon Dioxide 24.6 mmol/L (21.0-32.0); Chloride 102 mmol/L (98-108); Estimated Creatinine Clearance 40.62 ml/min (50-250); Glucose 177 mg/dL (70-99); Potassium 4.4 mmol/L (3.3-5.1); Troponin T High Sensitivity 12 ng/L (<=14)
[2025-07-14 14:53] LABS: Troponin T High Sens 2 HR 11 ng/L (<=14)
== END 2025-07-14 16:27 | disposition home or self-care (01) ==
PROVIDERS: Emergency Provider Surgery; PCP Internal Medicine; Visit Provider Surgery
DX: I50.9 Heart failure, unspecified (principal); J44.1 Chronic obstructive pulmonary disease with (acute) exacerbation; Z87.891 Personal history of nicotine dependence; Z90.710 Acquired absence of both cervix and uterus; R06.02 Shortness of breath; Z79.51 Long term (current) use of inhaled steroids; Z90.49 Acquired absence of other specified parts of digestive tract; E03.9 Hypothyroidism, unspecified; Z79.890 Hormone replacement therapy; J40 Bronchitis, not specified as acute or chronic
CPT/HCPCS: 71046; 80048; 82803; 83605; 84484; 85025; 87070; 87205; 87631; 93005; 94640; 94760; 96361; 96374; 99285; A4216

== ENCOUNTER → 2025-08-08 | Outpatient (CLI) | payer MEDICARE, SELFPAY ==
--- NOTE | 2025-08-08 10:00 | ECHOD_ITS ---
Reason For Study Reason For Study: CARDIOMYOPATHY Procedure This was a 2D Doppler, Color Flow transthoracic echocardiogram. The patient is in sinus rhythm. Exam performed in department. Left Ventricle Normal-sized left ventricle. Normal LV wall thickness. Left ventricular EF by Ivey's biplane: 54%. Normal diastolic function. No regional wall motion abnormalities noted. Right Ventricle Normal right ventricle. Normal systolic function. RVSP estimated at: 25 mmHg. Atria The left and right atria are normal. Right atrial pressure estimated at: 3 mmHg. IVC diameter 0.9 cm, fully collapsible. Mitral Valve Normal mitral valve. No mitral stenosis. Trace mitral regurgitation. Tricuspid Valve Normal tricuspid valve. No tricuspid stenosis. Trace tricuspid regurgitation. Aortic Valve Normal trileaflet aortic valve. No hemodynamically significant aortic stenosis. No aortic regurgitation. Pulmonic Valve Normal pulmonic valve. No pulmonic regurgitation. No pulmonic stenosis. Great Vessels Normal sized aortic root. Normal ascending aorta. Pericardium/Pleural Epicardial fat. Trace pericardial effusion. MMode/2D Measurements & Calculations LVIDd: 4.2 cm IVSd: 1.1 cm LVOT diam: 1.9 cm LVIDs: 2.8 cm LVPWd: 0.89 cm LVOT area: 2.8 cm2 RVDd: 2.7 cm FS: 32.4 % LAV(MOD-bp): 24.6 ml LVAd ap4: 18.0 cm2 LVAd ap2: 19.5 cm2 LAV(MOD-bp) Indexed: 14.0 ml/m2 LVLd ap4: 7.3 cm LVLd ap2: 7.0 cm LAV(MOD-sp2): 26.6 ml EDV(MOD-sp4): 36.4 ml EDV(MOD-sp2): 45.0 ml LAV(MOD-sp4): 20.2 ml EDV(sp4-el): 37.8 ml EDV(sp2-el): 46.2 ml LVAs ap4: 10.5 cm2 LVAs ap2: 11.5 cm2 LVLs ap4: 5.9 cm LVLs ap2: 6.0 cm ESV(MOD-sp4): 16.8 ml ESV(MOD-sp2): 19.1 ml ESV(sp4-el): 15.8 ml ESV(sp2-el): 18.8 ml EF(MOD-sp4): 53.8 % EF(MOD-sp2): 57.5 % EF(sp4-el): 58.1 % SV(MOD-sp4): 19.6 ml SV(MOD-sp2): 25.9 ml EDV(MOD-bp): 41.3 ml SI(MOD-sp4): 11.2 ml/m2 SI(MOD-sp2): 14.8 ml/m2 ESV(MOD-bp): 18.0 ml EF(MOD-bp): 56.3 % SV(sp4-el): 22.0 ml Ao sinus diam: 3.[address] Junction: 2.7 cm LA dimension(2D): 2.8 cm LA A4 area: 11.2 cm2 RA A4 area: 10.1 cm2 TAPSE: 1.7 cm Time Measurements MV dec time: 0.19 sec Doppler Measurements & Calculations MV E max dajuan: 71.7 cm/sec Lat Peak E' Dajuan: 10.0 cm/sec Med Peak E' Dajuan: 7.6 cm/sec MV A max dajuan: 87.3 cm/sec E/E' lat: 7.2 E/E' med: 9.4 MV E/A: 0.82 MV dec slope: 384.7 cm/sec2 Ao V2 max: 134.1 cm/sec LV V1 max: 109.4 cm/sec Ao max P.2 mmHg LV V1 max P.8 mmHg Ao V2 mean: 102.3 cm/sec LV V1 mean P.0 mmHg Ao mean P.5 mmHg LV V1 mean: 84.1 cm/sec Ao V2 VTI: 22.8 cm LV V1 VTI: 20.2 cm AV (velocity ratio): 0.89 KARLA(I,D): 2.5 cm2 KARLA(V,D): 2.3 cm2 SV(LVOT): 56.1 ml PA V2 max: 119.1 cm/sec TR max dajuan: 233.6 cm/sec TR max P.8 mmHg ECHO/Echo Complete Interpretation Summary Normal left ventricular systolic function with EF by Ivey's biplane: 54% Normal left ventricular diastolic function Normal right ventricular systolic function No hemodynamically significant valvular disease Ordering Physician: JEAN MIGUEL Referring Physician: JEAN MIGUEL Performed By: Davida Izaguirre RDCS
== END | disposition home or self-care (01) ==
PROVIDERS: PCP Internal Medicine; Referring Provider Internal Medicine Cardiovascular Disease; Visit Provider Internal Medicine Cardiovascular Disease
DX: I42.0 Dilated cardiomyopathy (principal); I27.0 Primary pulmonary hypertension
CPT/HCPCS: 93306